=== PATIENT | male | born 1955 | race African-American/Black ===

== ENCOUNTER 2018-11-19 06:28 | Emergency (ER) | payer MEDICARE, OTHER ==
[2018-11-19 06:34] LABS: Glucose,Whole Blood 97 mg/dL (75-99)
--- NOTE | 2018-11-19 06:44 | ED ---
Neuro HPI <Noel Spicer - Last Filed: 11/19/18 09:07> <Bin Mckeon - Last Filed: 11/19/18 09:41> - History of Present Illness Is the patient presenting with stroke symptoms?: Yes Last Known Well Date: 11/18/18 Last Known Well Time: 23:00 -: unknown Location: left face, dysarthria, left arm, left leg History of same: No Place: home Severity: severe Quality: weak Improves With: none Worsens With: none Context: found down Associated Symptoms: headaches Treatments Prior to Arrival: none <Az Buck - Last Filed: 11/20/18 08:24> - General Stated Complaint: Stroke like symptoms Time Seen by Provider: 11/19/18 06:36 - History of Present Illness Initial Comments: This patient is a 63-year-old man comes by ambulance to be evaluated for suspec veronica stroke. The patient's family found him on the ground and his bedroom this morning at 545, and the patient was unable to stand and his speech was not clear. The patient had not been feeling well since about 9 PM last night. Family last saw him around 11 PM when he went to bed. When I interview the patient, he is complaining of some left-sided headache that he is not able to characterize well. (Az Buck) - Related Data Home Medications: Home Medications Medication Instructions Recorded Confirmed Aspirin EC [Ecotrin] 325 mg PO DAILY 11/19/18 11/19/18 Allergies/Adverse Reactions: Allergies Allergy/AdvReac Type Severity Reaction Status Date / Time No Known Allergies Allergy Verified 11/19/18 08:11 Review of Systems ROS Other: All systems not noted in ROS Statement are negative. <Noel Spicer - Last Filed: 11/19/18 09:07> ROS Other: All systems not noted in ROS Statement are negative. <Bin Mckeon - Last Filed: 11/19/18 09:41> ROS Other: All systems not noted in ROS Statement are negative. Constitutional: Denies: fever Eyes: Denies: vision change Respiratory: Denies: cough, dyspnea Cardiovascular: Denies: chest pain, palpitations Gastrointestinal: Denies: abdominal pain, vomiting, diarrhea Genitourinary: Denies: dysuria Musculoskeletal: Denies: back pain Skin: Denies: rash Neurological: Reports: as per HPI, headache, weakness Hematological/Lymphatic: Denies: easy bleeding <CieloAz - Last Filed: 11/20/18 08:24> ROS Statement: Those systems with pertinent positive or pertinent negative responses have been documented in the HPI. General Exam General appearance: alert Head exam: Present: atraumatic, normocephalic Eye exam: Present: normal appearance, PERRL, EOMI. Absent: scleral icterus, conjunctival injection ENT exam: Present: other ((Facial droop) Neck exam: Present: normal inspection, full ROM Respiratory exam: Present: normal lung sounds bilaterally. Absent: respiratory distress, wheezes, rales, rhonchi, stridor Cardiovascular Exam: Present: regular rate, normal heart sounds. Absent: systolic murmur, diastolic murmur, rubs, gallop GI/Abdominal exam: Present: soft. Absent: distended, tenderness, guarding, rebound, rigid, mass Extremities exam: Present: normal inspection, normal capillary refill. Absent: pedal edema, calf tenderness Back exam: Present: normal inspection Neurological exam: Present: alert, oriented X3, motor sensory deficit (Left arm and leg weakness). Absent: CN II-XII intact (Left facial droop) Expanded Neurological exam: Present: protecting the airway. Absent: inattentive, receptive aphasia, expressive aphasia Speech: Absent: receptive aphasia Cranial nerves: EOM's Intact: Normal, Gag Reflex: Normal, Nystagmus: Normal, Facial Palsy with Forehead Movement: Abnormal Left Motor strength exam: RUE: 5, LUE: 3, RLE: 5, LLE: 3 Eye Response: (4) open spontaneously Motor Response: (6) obeys commands Verbal Response: (5) oriented Skin exam: Present: warm, dry, intact, normal color. Absent: rash <Az Buck - Last Filed: 11/20/18 08:24> Stroke MDM - Lab Data Result diagrams: 11/19/18 06:36 11/19/18 06:36 <Noel Spicer - Last Filed: 11/19/18 09:07> - Lab Data Result diagrams: 11/19/18 06:36 11/19/18 06:36 <Bin Mckeon - Last Filed: 11/19/18 09:41> - Lab Data Result diagrams: 11/19/18 06:36 11/19/18 06:36 - EKG Data -: EKG Interpreted by Ny EKG shows normal: sinus rhythm, axis (Normal), intervals (OR interval 224 ms, consistent with first-degree AV block. QRS duration 120 ms, QTC 45 ms, these are normal) Rate: normal (Rate 86 bpm) Interpretation: LVH <Trachy,Az - Last Filed: 11/20/18 08:24> - Lab Data Lab Results 11/19/18 11/19/18 11/19/18 Range/Units 06:32 06:36 06:36 WBC 12.5 H (3.8-10.6) k/uL RBC 4.76 (4.30-5.90) m/uL Hgb 15.2 (13.0-17.5) gm/dL Hct 45.4 (39.0-53.0) % MCV 95.4 (80.0-100.0) fL MCH 31.9 (25.0-35.0) pg MCHC 33.4 (31.0-37.0) g/dL RDW 14.4 (11.5-15.5) % Plt Count 217 (150-450) k/uL Neutrophils % 75 % Lymphocytes % 17 % Monocytes % 4 % Eosinophils % 3 % Basophils % 1 % Neutrophils # 9.4 H (1.3-7.7) k/uL Lymphocytes # 2.1 (1.0-4.8) k/uL Monocytes # 0.5 (0-1.0) k/uL Eosinophils # 0.3 (0-0.7) k/uL Basophils # 0.1 (0-0.2) k/uL PT (9.0-12.0) sec INR (<1.2) APTT (22.0-30.0) sec Sodium 140 (137-145) mmol/L Potassium 3.8 (3.5-5.1) mmol/L Chloride 106 (98-107) mmol/L Carbon Dioxide 24 (22-30) mmol/L Anion Gap 10 mmol/L BUN 12 (9-20) mg/dL Creatinine 0.95 (0.66-1.25) mg/dL Est GFR (CKD-EPI)AfAm >90 (>60 ml/min/1.73 sqM) Est GFR (CKD-EPI)NonAf 84 (>60 ml/min/1.73 sqM) Glucose 106 H (74-99) mg/dL POC Glucose (mg/dL) 97 (75-99) mg/dL POC Glu Sw[employer] Installer ID Catie Yanez Calcium 9.7 (8.4-10.2) mg/dL Total Bilirubin 0.7 (0.2-1.3) mg/dL AST 42 (17-59) U/L ALT 27 (21-72) U/L Alkaline Phosphatase 68 (38-126) U/L Troponin I (0.000-0.034) ng/mL Total Protein 7.4 (6.3-8.2) g/dL Albumin 4.4 (3.5-5.0) g/dL 11/19/18 11/19/18 Range/Units 06:36 06:36 WBC (3.8-10.6) k/uL RBC (4.30-5.90) m/uL Hgb (13.0-17.5) gm/dL Hct (39.0-53.0) % MCV (80.0-100.0) fL MCH (25.0-35.0) pg MCHC (31.0-37.0) g/dL RDW (11.5-15.5) % Plt Count (150-450) k/uL Neutrophils % % Lymphocytes % % Monocytes % % Eosinophils % % Basophils % % Neutrophils # (1.3-7.7) k/uL Lymphocytes # (1.0-4.8) k/uL Monocytes # (0-1.0) k/uL Eosinophils # (0-0.7) k/uL Basophils # (0-0.2) k/uL PT 10.5 (9.0-12.0) sec INR 1.0 (<1.2) APTT 21.5 L (22.0-30.0) sec Sodium (137-145) mmol/L Potassium (3.5-5.1) mmol/L Chloride (98-107) mmol/L Carbon Dioxide (22-30) mmol/L Anion Gap mmol/L BUN (9-20) mg/dL Creatinine (0.66-1.25) mg/dL Est GFR (CKD-EPI)AfAm (>60 ml/min/1.73 sqM) Est GFR (CKD-EPI)NonAf (>60 ml/min/1.73 sqM) Glucose (74-99) mg/dL POC Glucose (mg/dL) (75-99) mg/dL POC Glu Swimming Pool Installer ID Calcium (8.4-10.2) mg/dL Total Bilirubin (0.2-1.3) mg/dL AST (17-59) U/L ALT (21-72) U/L Alkaline Phosphatase (38-126) U/L Troponin I 0.031 (0.000-0.034) ng/mL Total Protein (6.3-8.2) g/dL Albumin (3.5-5.0) g/dL Course <Noel Spicer - Last Filed: 11/19/18 09:07> <Bin Mckeon - Last Filed: 11/19/18 09:41> <Az Buck - Last Filed: 11/20/18 08:24> Vital Signs 11/19/18 11/19/18 11/19/18 06:28 06:30 06:45 Temperature 99.2 F 99.2 F 99.2 F Pulse Rate 92 92 90 Respiratory 22 22 22 Rate Blood Pressure 226/133 226/133 218/136 O2 Sat by Pulse 97 97 97 Oximetry 11/19/18 11/19/18 11/19/18 07:00 07:15 07:27 Temperature Pulse Rate 91 86 83 Respiratory 22 22 14 Rate Blood Pressure 229/139 228/134 O2 Sat by Pulse 99 99 99 Oximetry 11/19/18 11/19/18 11/19/18 07:30 07:40 07:50 Temperature Pulse Rate 82 80 89 Respiratory 18 19 21 Rate Blood Pressure 217/141 217/141 185/118 O2 Sat by Pulse 98 95 Oximetry 11/19/18 11/19/18 11/19/18 08:00 08:10 08:20 Temperature Pulse Rate 88 93 84 Respiratory 22 42 H 17 Rate Blood Pressure 185/118 189/113 165/152 O2 Sat by Pulse Oximetry 11/19/18 11/19/18 11/19/18 08:30 08:40 08:50 Temperature Pulse Rate 75 76 78 Respiratory 11 L 13 20 Rate Blood Pressure 167/102 174/107 138/93 O2 Sat by Pulse Oximetry 11/19/18 11/19/18 11/19/18 09:00 09:10 09:20 Temperature Pulse Rate 78 72 56 L Respiratory 32 H 13 16 Rate Blood Pressure 138/93 176/97 163/109 O2 Sat by Pulse Oximetry 11/19/18 09:30 Temperature Pulse Rate 70 Respiratory 14 Rate Blood Pressure 163/109 O2 Sat by Pulse Oximetry - Reevaluation(s) Reevaluation #1: 11/19/18 06:59 Case is discussed with the stroke team, Dr. Mueller. Patient is not a TPA candidate given that the onset time is unknown. He may be a candidate for intravascular intervention, pending CT result. (Az Buck) Reevaluation #2: 11/19/18 08:[address] Villar, danielaommends brilinta 180 and lipitor 80, recommends transfer to [facility]. (Noel Spicer) Reevaluation #3: 11/19/18 09:39 I did personally evaluate the patient with [id number] evaluation after my shif t started. Patient does present with stroke like symptoms with a NIH of 21. CAT scan was performed (low evidence of stenosis no definite occlusion patient however is not a candidate for TPA due to the timing of the events. Dr. Mueller was consulted and did evaluate the patient via the stroke robot. Patient will be sent to [facility]. I do agree with the assessment and plan. Additionally the patient was noted be markedly hypertensive per neurology the blood pressure systolic will be maintained at a higher level than per usual. He would like to keep it at 220 systolic of possible so intervention for hypertension is stopped at this time. (Bin Mckeon) Critical Care Time Critical Care Time: Yes (40 minutes) <Az Buck - Last Filed: 11/20/18 08:24> Disposition Is patient prescribed a controlled substance at d/c from ED?: No Time of Disposition: 09:05 - Out of Hospital Transfer - Req. Specs Out of Hospital Transfer - Requested Specifics: Other Emergency Center ([facility]) <Noel Spicer - Last Filed: 11/19/18 09:07> <Bin Mckeon - Last Filed: 11/19/18 09:41> <Az Buck - Last Filed: 11/20/18 08:24> Clinical Impression: Cerebrovascular accident (CVA), Uncontrolled hypertension Disposition: OTHER INSTITUTION NOT DEFINED Condition: Fair Referrals: None,Stated [Primary Care Provider] - 1-2 days
[2018-11-19 06:46] LABS: Basophils # (A) 0.1 k/uL (0-0.2); Basophils % (A) 1 %; Eosinophils # (A) 0.3 k/uL (0-0.7); Eosinophils % (A) 3 %; HCT 45.4 % (39.0-53.0); HGB 15.2 gm/dL (13.0-17.5); Lymphocytes # (A) 2.1 k/uL (1.0-4.8); Lymphocytes % (A) 17 %; MCH 31.9 pg (25.0-35.0); MCHC 33.4 g/dL (31.0-37.0); MCV 95.4 fL (80.0-100.0); Mean Platelet Volume 6.7; Monocytes # (A) 0.5 k/uL (0-1.0); Monocytes % (A) 4 %; Neutrophils # (A) 9.4 k/uL (1.3-7.7); Neutrophils % (A) 75 %; Platelet Count 217 k/uL (150-450); RBC 4.76 m/uL (4.30-5.90); RDW 14.4 % (11.5-15.5); WBC 12.5 k/uL (3.8-10.6)
[2018-11-19 06:57] LABS: ALT 27 U/L (21-72); AST 42 U/L (17-59); African American GFR (CKD) >90 (>60 ml/min/1.73 sqM); Albumin 4.4 g/dL (3.5-5.0); Alkaline Phosphatase 68 U/L (38-126); Anion Gap 10 mmol/L; Blood Urea Nitrogen 12 mg/dL (9-20); Calcium 9.7 mg/dL (8.4-10.2); Carbon Dioxide 24 mmol/L (22-30); Chloride 106 mmol/L (98-107); Glucose 106 mg/dL (74-99); Potassium 3.8 mmol/L (3.5-5.1); Sodium 140 mmol/L (137-145); Total Bilirubin 0.7 mg/dL (0.2-1.3); Total Protein 7.4 g/dL (6.3-8.2)
[2018-11-19 07:01] LABS: Prothrombin Time 10.5 sec (9.0-12.0)
[2018-11-19 07:02] LABS: Partial Thromboplastin Time 21.5 sec (22.0-30.0)
--- NOTE | 2018-11-19 07:09 | CT ---
EXAMINATION TYPE: CT brain wo con for TPA DATE OF EXAM: 11/19/2018 HISTORY: neuro deficit. Patient found with left facial drooping and bilateral extremity weakness CT DLP: 1075.8 mGycm. Automated Exposure Control for Dose Reduction was Utilized. TECHNIQUE: CT scan of the head is performed without contrast. COMPARISON: None. FINDINGS: There is no acute intracranial hemorrhage or midline shift identified. There is diffuse v entricular and sulcal prominence consistent with diffuse age-related cerebral atrophy. There is low- attenuation in the periventricular white matter consistent with chronic small vessel ischemic change. Probable old lacunar infarct left anterior thalamus axial image 27. The globes are intact and the v isualized sinuses are clear. IMPRESSION: No acute intracranial hemorrhage or midline shift. There is mild diffuse age-related ce rebral atrophy and mild to moderate chronic small vessel ischemic change with suspected old anterior left thalamic lacunar infarct.
[2018-11-19 07:11] VITALS: TEMP 99.2
[2018-11-19] MEDS ORDERED: niCARdipine 20 MG in SODIUM CHLORIDE 0.9% 192 ML IV SCH (07:30)
--- NOTE | 2018-11-19 07:34 | CT ---
EXAMINATION TYPE: CT angio head neck DATE OF EXAM: 11/19/2018 HISTORY: Neuro deficit, bilateral extremity weakness and left facial droop. COMPARISON: NONE CT DLP: 604.1 mGycm. Automated Exposure Control for Dose Reduction was Utilized. TECHNIQUE: CTA scan of the head and neck are performed with IV Contrast, patient injected with 65 mL of Isovue 370, axial images are obtained, coronal and sagittal reformatted images are reviewed. Thre e-D reconstructed images are created on an independent workstation and reviewed. FINDINGS: Carotid/Vascular Structures: Mild to moderate peripheral plaque in the aortic arch. Normal three-vess el origin. More moderate peripheral noncalcified plaque in the right brachiocephalic artery without s ignificant stenosis. Normal origin of right common carotid artery from the right brachiocephalic marco ry. Some tortuous course to the right common carotid artery without significant stenosis. There is mo derate to severe mixed plaque in right carotid bulb extending into proximal internal carotid artery w ithout significant stenosis. There is then significant stenosis due to noncalcified plaque along the posterior wall seen best image 60 series 401 and on MPR reconstructed images. Lumen diameter is narro wed to 1.8 mm with reconstitution to 5.3 mm just distal to this. Some tortuous course to the right in ternal carotid artery with some more mild narrowing in the cervical segment is believed to be due to noncalcified plaque. Some tortuous course to the left common carotid artery without significant plaque or stenosis. Focal moderate noncalcified plaque at origin of left internal carotid artery without significant stenosis s een best on coronal image 13. Left internal carotid artery distal to this shows no significant focal stenosis. There are patent bilateral external carotid arteries without significant plaque or stenosis . There is overall small caliber vertebrobasilar system with poor visualization particularly of the pro ximal to mid basilar artery there is filling of the posterior cerebral arteries due to patent bilater al posterior communicating arteries. No aneurysm is evident. Images of the anterior circulation show or visualized anterior communicating artery without significant stenosis or aneurysmal change in the anterior middle cerebral arteries bilaterally. Other: There is greater than 1.0 cm hypodense right thyroid nodule axial image 31. Loss of normal cervical curvature with mild multilevel spurring and disc space narrowing most promine nt at C6-C7 level. IMPRESSION: 1. Significant stenosis proximal left internal carotid artery measured 70% due to significant focal n oncalcified plaque. 2. Vertebrobasilar insufficiency are thought present but patency of posterior circulation due to cart[place] nt bilateral posterior communicating arteries.
--- NOTE | 2018-11-19 07:37 | XR ---
EXAMINATION TYPE: XR chest 1V portable DATE OF EXAM: 11/19/2018 COMPARISON: NONE HISTORY: Altered mental status and weakness. TECHNIQUE: Single AP portable frontal upright view of the chest is obtained. FINDINGS: There is chronic parenchymal changes without suspicious focal air space opacity, pleural e ffusion, or pneumothorax seen. The cardiac silhouette size is enlarged with ectatic aorta. The oss eous structures are intact. IMPRESSION: Cardiomegaly and chronic changes without acute pulmonary process.
[2018-11-19] MEDS ORDERED: fentaNYL (PF) 50 MCG/ML 2 ML AMP IV STA (08:17)
[2018-11-19] MEDS ORDERED: ATORVASTATIN 80 MG TAB PO STA (08:51)
[2018-11-19] MEDS ORDERED: SODIUM CHLORIDE 0.9% 1,000 ML IV STA (08:53)
[2018-11-19] MEDS ORDERED: TICAGRELOR 90 MG TAB PO STA (08:54)
[2018-11-19 09:35] VITALS: BP 163/109; PULSE 70; RESP 14
== END 2018-11-19 09:51 | disposition other institution (70) ==
LOC: EC 06:28
DX: I63.9 Cerebral infarction, unspecified (principal); I10 Essential (primary) hypertension; I65.22 Occlusion and stenosis of left carotid artery; F17.200 Nicotine dependence, unspecified, uncomplicated; Z79.82 Long term (current) use of aspirin
CPT/HCPCS: 99291; 96365; 96367; 96375; 96361; 36415; 93005; 80053; 84484; 85025; 85610; 85730; 71045; 70496; 70450; 70498; J3010

== ENCOUNTER 2019-01-13 09:45 | Inpatient (IN) | payer MEDICARE, OTHER ==
--- NOTE | 2019-01-13 09:53 | ED ---
General Adult HPI - General Stated complaint: Chest pain Time Seen by Provider: 01/13/19 09:47 Source: patient, EMS, RN notes reviewed, old records reviewed - History of Present Illness Initial comments: 63-year-old male presents from the retirement for evaluation of chest pain. Patient has previous history of CVA with left hemiplegia and aphasia. He is able to contribute somewhat to the history although it is limited. According to EMS patient had complained of chest pain since yesterday morning greater than 24 hours of central chest pain. He does have history of indigestion and initially staff he felt this to be indigestion. He was transported by EMS, initially had elevated blood pressure and was given sublingual nitroglycerin with improvement in chest pain and blood pressure. Patient does report some persistent symptoms. - Related Data Home Medications Medication Instructions Recorded Confirmed Acetaminophen Tab [Tylenol Tab] 650 mg PO Q6H PRN 01/13/19 01/13/19 Amantadine Syrup 50mg/5ml 100 mg PO DAILY 01/13/19 01/13/19 Apixaban [Eliquis] 5 mg PEG/G-TUBE BID@0800,1600 01/13/19 01/13/19 Aspirin 81 mg PEG/G-TUBE DAILY 01/13/19 01/13/19 Atorvastatin [Lipitor] 40 mg PEG/G-TUBE DAILY@199901/13/19 01/13/19 Docusate Oral Soln [Colace Oral 50 mg PEG/G-TUBE BID 01/13/19 01/13/19 Soln] Famotidine [Pepcid] 20 mg PO BID 01/13/19 01/13/19 Isosorbide Dinitrate 30 mg PEG/G-TUBE TID@0500,1300,2100 01/13/19 01/13/19 Magnesium 400 mg PO DAILY 01/13/19 01/13/19 Melatonin 5 mg PO DAILY@199901/13/19 01/13/19 Metoclopramide [Reglan] 10 mg PO TID@0500,1300,2100 01/13/19 01/13/19 Metoprolol Tartrate [Lopressor] 25 mg PO BID 01/13/19 01/13/19 Multivits,Th W-Ca,Fe,Oth Min 1 tab PO DAILY 01/13/19 01/13/19 [Therapeutic M] Polyethylene Glycol 3350 [Miralax] 17 gm PO DAILY 01/13/19 01/13/19 QUEtiapine [SEROquel] 25 mg PO DAILY@2000 01/13/19 01/13/19 Sennosides [Senna] 8.6 mg PO BID@0800,1600 01/13/19 01/13/19 Spironolactone [Aldactone] 50 mg PO BID@0800,1600 01/13/19 01/13/19 Thiamine [Vitamin B-1] 100 mg PO DAILY 01/13/19 01/13/19 Valproic Acid 250 mg PO DAILY 01/13/19 01/13/19 amLODIPine [Norvasc] 5 mg PO BID@0800,1600 01/13/19 01/13/19 cloNIDine HCL 0.3 mg PO TID@0500,1300,2100 01/13/19 01/13/19 hydrALAZINE HCL [Apresoline] 25 mg PO TID@0500,1300,2100 01/13/19 01/13/19 Allergies Allergy/AdvReac Type Severity Reaction Status Date / Time No Known Allergies Allergy Verified 01/13/19 10:33 Review of Systems ROS Statement: Those systems with pertinent positive or pertinent negative responses have been documented in the HPI. ROS Other: All systems not noted in ROS Statement are negative. Past Medical History History of Any Multi-Drug Resistant Organisms: None Reported Past Psychological History: No Psychological Hx Reported Smoking Status: Current every day smoker Past Alcohol Use History: Daily Past Drug Use History: None Reported General Exam General appearance: alert, in no apparent distress Head exam: Present: atraumatic, normocephalic Eye exam: Present: normal appearance, PERRL. Absent: periorbital swelling, periorbital tenderness ENT exam: Present: mucous membranes dry Neck exam: Present: normal inspection. Absent: tenderness, meningismus Respiratory exam: Present: rales, rhonchi. Absent: respiratory distress Cardiovascular Exam: Present: regular rate, normal rhythm GI/Abdominal exam: Present: soft, distended, other (PEG tube). Absent: tenderness, guarding Rectal exam: Present: normal rectal tone. Absent: black stool, bloody stool Extremities exam: Present: other. Absent: pedal edema Neurological exam: Present: alert, motor sensory deficit (Patient has expressive aphasia, his left hemiplegia, moving his right lower extremity and right upper extremity.). Absent: oriented X3, CN II-XII intact Skin exam: Present: warm, dry Course Vital Signs 01/13/19 01/13/19 09:47 09:59 Temperature 99.1 F Pulse Rate 62 59 L Respiratory 18 18 Rate Blood Pressure 138/95 139/92 O2 Sat by Pulse 100 100 Oximetry - Reevaluation(s) Reevaluation #1: 01/13/19 10:18 Case discussed with cardiology, Dr. Damian, is able to evaluate the patient in the emergency department and will take the patient for urgent heart catheterization. Reevaluation #2: 01/13/19 10:40 Patient reevaluated resting comfortably awaiting heart catheterization. EKG Findings - EKG Comments: EKG Findings:: EKG: Normal sinus rhythm, left ventricular hypertrophy, slightly widened QRS, suspect acute anterior ischemia. Ventricular rate of 63, LA interval 206, QRS duration 126, QTC 448. Diffuse T-wave inversion question ST segment elevation V1 and V2 Medical Decision Making - Medical Decision Making 63-year-old male presenting with 24 hours of chest pain. Patient has significant EKG changes. History is limited, although patient does report some persistent pain. Laboratory studies obtained. Patient started on nitro, heparin, and given aspirin in the emergency department. He is evaluated by cardiology and will be taken for urgent heart catheterization. Patient's is at bedside is agreeable with plan. Laboratory testing that came back in the emergency department did reveal a drop in hemoglobin, 10.5 from 15 at this time rectal exam is performed there is no melena, no bleeding. This will need to be monitored closely as patient is initiated on heparin. Repeat hemoglobin has been ordered. Patient has additional labs including cardiac enzymes, which was, these are pending. Case discussed with both cardiology and admitting physician Dr. Osman - Lab Data Result diagrams: 01/13/19 09:59 01/13/19 09:59 Lab Results 01/13/19 01/13/19 01/13/19 Range/Units 09:59 09:59 09:59 WBC 7.4 (3.8-10.6) k/uL RBC 3.53 L (4.30-5.90) m/uL Hgb 10.8 L D (13.0-17.5) gm/dL Hct 32.5 L (39.0-53.0) % MCV 91.9 (80.0-100.0) fL MCH 30.4 (25.0-35.0) pg MCHC 33.1 (31.0-37.0) g/dL RDW 14.8 (11.5-15.5) % Plt Count 271 (150-450) k/uL Neutrophils % 64 % Lymphocytes % 24 % Monocytes % 6 % Eosinophils % 4 % Basophils % 0 % Neutrophils # 4.7 (1.3-7.7) k/uL Lymphocytes # 1.7 (1.0-4.8) k/uL Monocytes # 0.4 (0-1.0) k/uL Eosinophils # 0.3 (0-0.7) k/uL Basophils # 0.0 (0-0.2) k/uL PT (9.0-12.0) sec INR (<1.2) APTT (22.0-30.0) sec Sodium 137 (137-145) mmol/L Potassium 5.6 H (3.5-5.1) mmol/L Chloride 106 (98-107) mmol/L Carbon Dioxide 23 (22-30) mmol/L Anion Gap 8 mmol/L BUN 20 (9-20) mg/dL Creatinine 0.98 (0.66-1.25) mg/dL Est GFR (CKD-EPI)AfAm >90 (>60 ml/min/1.73 sqM) Est GFR (CKD-EPI)NonAf 81 (>60 ml/min/1.73 sqM) Glucose 119 H (74-99) mg/dL Calcium 9.8 (8.4-10.2) mg/dL Magnesium 2.0 (1.6-2.3) mg/dL Total Bilirubin 0.9 (0.2-1.3) mg/dL AST 54 (17-59) U/L ALT 139 H (21-72) U/L Alkaline Phosphatase 67 (38-126) U/L NT-Pro-B Natriuret Pep 426 pg/mL Total Protein 7.6 (6.3-8.2) g/dL Albumin 4.0 (3.5-5.0) g/dL Lipase 69 (23-300) U/L 01/13/19 Range/Units 09:59 WBC (3.8-10.6) k/uL RBC (4.30-5.90) m/uL Hgb (13.0-17.5) gm/dL Hct (39.0-53.0) % MCV (80.0-100.0) fL MCH (25.0-35.0) pg MCHC (31.0-37.0) g/dL RDW (11.5-15.5) % Plt Count (150-450) k/uL Neutrophils % % Lymphocytes % % Monocytes % % Eosinophils % % Basophils % % Neutrophils # (1.3-7.7) k/uL Lymphocytes # (1.0-4.8) k/uL Monocytes # (0-1.0) k/uL Eosinophils # (0-0.7) k/uL Basophils # (0-0.2) k/uL PT 10.7 (9.0-12.0) sec INR 1.0 (<1.2) APTT 23.5 (22.0-30.0) sec Sodium (137-145) mmol/L Potassium (3.5-5.1) mmol/L Chloride (98-107) mmol/L Carbon Dioxide (22-30) mmol/L Anion Gap mmol/L BUN (9-20) mg/dL Creatinine (0.66-1.25) mg/dL Est GFR (CKD-EPI)AfAm (>60 ml/min/1.73 sqM) Est GFR (CKD-EPI)NonAf (>60 ml/min/1.73 sqM) Glucose (74-99) mg/dL Calcium (8.4-10.2) mg/dL Magnesium (1.6-2.3) mg/dL Total Bilirubin (0.2-1.3) mg/dL AST (17-59) U/L ALT (21-72) U/L Alkaline Phosphatase (38-126) U/L NT-Pro-B Natriuret Pep pg/mL Total Protein (6.3-8.2) g/dL Albumin (3.5-5.0) g/dL Lipase (23-300) U/L Critical Care Time Critical Care Time: Yes Total Critical Care Time: 35 Disposition Clinical Impression: Acute non-ST elevation myocardial infarction (NSTEMI) Disposition: ADMITTED IP TO THIS HOSP Condition: Serious Is patient prescribed a controlled substance at d/c from ED?: No Referrals: Ed Booker DO [Primary Care Provider] - 1-2 days Decision to Admit Reason: Admit from EC Decision Date: 01/13/19 Decision Time: 10:42
[2019-01-13] MEDS ORDERED: MORPHINE SULFATE 4 MG/ML SYRINGE IVP STA (10:04)
[2019-01-13] MEDS ORDERED: ASPIRIN 325 MG TAB PO STA (10:04)
[2019-01-13] MEDS ORDERED: HEPARIN SODIUM,PORCINE 5,000 UNIT/ML 1 ML VIAL IV ONE (10:12)
[2019-01-13] MEDS ORDERED: NITROGLYCERIN-D5W PMX 50 MG in DEXTROSE/WATER 1 250ML.BAG IV ONE ×2 (10:12→11:14)
[2019-01-13] MEDS ORDERED: HEPARIN SODIUM,PORCINE 5,000 UNIT/ML 1 ML VIAL IV PRN (10:12)
[2019-01-13] MEDS ORDERED: HEPARIN SOD,PORK IN 0.45% NACL 25,000 UNIT in 0.45% NACL 1 250ML.BAG IV SCH (10:15)
[2019-01-13 10:21] LABS: Basophils % (A) 0 %; Eosinophils # (A) 0.3 k/uL (0-0.7); Eosinophils % (A) 4 %; HCT 32.5 % (39.0-53.0); Lymphocytes # (A) 1.7 k/uL (1.0-4.8); Lymphocytes % (A) 24 %; MCH 30.4 pg (25.0-35.0); MCHC 33.1 g/dL (31.0-37.0); MCV 91.9 fL (80.0-100.0); Mean Platelet Volume 6.3; Monocytes # (A) 0.4 k/uL (0-1.0); Monocytes % (A) 6 %; Neutrophils # (A) 4.7 k/uL (1.3-7.7); Neutrophils % (A) 64 %; Platelet Count 271 k/uL (150-450); RBC 3.53 m/uL (4.30-5.90); RDW 14.8 % (11.5-15.5); WBC 7.4 k/uL (3.8-10.6)
[2019-01-13 10:22] LABS: HGB 10.8 gm/dL (13.0-17.5)
[2019-01-13 10:26] LABS: ALT 139 U/L (21-72); AST 54 U/L (17-59); African American GFR (CKD) >90 (>60 ml/min/1.73 sqM); Alkaline Phosphatase 67 U/L (38-126); Anion Gap 8 mmol/L; Blood Urea Nitrogen 20 mg/dL (9-20); Calcium 9.8 mg/dL (8.4-10.2); Carbon Dioxide 23 mmol/L (22-30); Chloride 106 mmol/L (98-107); Glucose 119 mg/dL (74-99); Non-African American GFR(CKD) 81 (>60 ml/min/1.73 sqM); Sodium 137 mmol/L (137-145); Total Bilirubin 0.9 mg/dL (0.2-1.3); Total Protein 7.6 g/dL (6.3-8.2)
--- NOTE | 2019-01-13 10:26 | XR ---
EXAMINATION TYPE: XR chest 2V DATE OF EXAM: 01/13/2019 COMPARISON: 11/19/2018 HISTORY: Chest pain radiating to the patient's back. TECHNIQUE: Frontal and lateral views of the chest are obtained. FINDINGS: There is no focal air space opacity, pleural effusion, or pneumothorax seen. There is new widened mediastinum, partially rotational. The osseous structures are intact. IMPRESSION: Widened mediastinum, new from the prior of 11/19/2018. Although this may be partially ro tational given the patient's symptoms CTA chest to evaluate for thoracic aneurysm or dissection could be considered.
[2019-01-13 10:32] LABS: Partial Thromboplastin Time 23.5 sec (22.0-30.0); Prothrombin Time 10.7 sec (9.0-12.0)
[2019-01-13 10:40] LABS: Potassium 5.6 mmol/L (3.5-5.1)
[2019-01-13] MEDS ORDERED: NALOXONE 0.4 MG/ML 1 ML VIAL IV PRN (10:42)
[2019-01-13] MEDS ORDERED: CLOPIDOGREL 75 MG TAB PO STA (10:45)
[2019-01-13] MEDS ORDERED: fentaNYL (PF) 50 MCG/ML 2 ML AMP ONE (11:14)
[2019-01-13] MEDS ORDERED: VERAPAMIL 2.5 MG/ML 2 ML AMP ONE (11:14)
[2019-01-13] MEDS ORDERED: LIDOCAINE 1% INJ 10MG/ML (20 ML MDV) ONE (11:14)
[2019-01-13] MEDS ORDERED: IV FLUID CONTINUATION 800 ML IV ONE (11:14)
[2019-01-13] MEDS ORDERED: fentaNYL (PF) 50 MCG/ML 2 ML AMP IV ONE (11:31)
[2019-01-13] MEDS ORDERED: LIDOCAINE 1% INJ 10MG/ML (20 ML MDV) SQ ONE (11:31)
[2019-01-13] MEDS ORDERED: VERAPAMIL SYRINGE (5 MG/10 ML) INTRAARTER ONE (11:38)
[2019-01-13] MEDS ORDERED: HEPARIN SODIUM 1,000 UN/ML (10ML VL) IV ONE (11:38)
[2019-01-13] MEDS ORDERED: IOPAMIDOL-300 50ML BTL INJ ONE (11:53)
[2019-01-13] MEDS ORDERED: IOPAMIDOL-370 125ML BTL INJ ONE (11:53)
[2019-01-13] MEDS ORDERED: amLODIPine 5 MG TAB ONE (12:03)
[2019-01-13] MEDS ORDERED: RX INFO: IV CONTRAST WAS GIVEN 1 EACH MISC MISCELLANE PRN ×2 (12:05→22:18)
[2019-01-13] MEDS ORDERED: amLODIPine 5 MG TAB PO ONE (12:08)
[2019-01-13] MEDS ORDERED: SODIUM CHLORIDE 0.9% 1,000 ML IV SCH (12:15)
--- NOTE | 2019-01-13 12:18 | CONS ---
CONSULTATION Mr. Alvarez is a 63-year-old male who resides in [facility], who has sustained a cerebrovascular accident with severe hemiplegia on the left side with partial expressive aphasia who was brought into the emergency room because of symptoms of chest discomfort. His ability to communicate is limited because of his expressive aphasia, but he says that he continues to have chest discomfort that started yesterday. He denies any other symptoms. I spoke to his . Apparently, he has no prior cardiac history. In November he sustained a cerebrovascular accident, he had a prolonged hospitalization and was in [facility]. He has no prior history of myocardial infarction or congestive heart failure. He has been active up to the time of admission. He has no history of dizziness, palpitation, or syncope. He has no history of PND, orthopnea, according to the . His coronary risk factors are remarkable for smoking which he had decreased. He has history of hypertension. He is nondiabetic. The list of his medication is not available. REVIEW OF SYSTEM: He has no recent wheezing or cough. According to the family. GI SYSTEM: He has a PEG tube because of difficulty swallowing. He has no history of GI bleeding. SYSTEM: No dysuria or hematuria. NERVOUS SYSTEM: He had a stroke as noted. PHYSICAL EXAMINATION: He is a 63-year-old male, alert, oriented, in no apparent distress with expressive aphasia. Blood pressure 160/100 with a heart rate in the 60s. HEAD: Drooping eyes, sclerae nonicteric. NECK: Good upstroke, no bruit. LUNGS: Clear to auscultation. HEART: Regular rate and rhythm S1, S2. No S3. No murmur appreciated. ABDOMEN: Soft. PEG tube in place. Positive bowel sounds. EXTREMITIES: No edema, intact pulses. NEUROLOGICALLY: With evidence of left-sided dense hemiparesis. LAB DATA: EKG reveals sinus mechanism with T-wave inversion in leads 2, 3, AVF and the anterior precordial leads, which is new compared with an old EKG. IMPRESSION: 1. Acute coronary artery syndrome was acute ST-segment changes in the patient with symptoms of chest discomfort. 2. History of recent cerebrovascular accident. 3. History of hypertension. 4. Prior history of smoking. 5. History of chronic kidney disease according to the data available from [facility]. RECOMMENDATION: I have discussed the case with him as well as his . I discussed with then both option of aggressive treatment versus conservative treatment. They are in favor of aggressive treatment. Will proceed with cardiac catheterization. The risks as well as complication were discussed with him and depending on the findings, further recommendation will be made. Thank you for this consult. Will follow with you. CARLY / EMERSON: [id number] /
--- NOTE | 2019-01-13 13:03 | CC ---
CARDIAC CATHETERIZATION REPORT Mr. Alvarez is a 63-year-old male with known history of hypertension, history of smoking and recent cerebrovascular accident about 2 months ago, who presented with symptoms of chest discomfort and new T-wave inversion in the anterior precordial leads as well as the lateral limb leads. Because of that, recommendation made regarding cardiac catheterization, the procedures, risks, and complications were discussed with the patient and his family who are in full understanding and agreement. PROCEDURE: Patient was brought to the manager cardiac cath in a fasting semi-sedated state after receiving fentanyl and Benadryl and achieving moderate conscious sedated state. Using Xylocaine anesthesia and Seldinger technique, a 6-Icelandic sheath was introduced in the right radial artery. Selective right and left coronary angiography performed using 5-Icelandic 3.5 bend right Renate catheter as well as a 6-Icelandic FL 3.5 guiding catheter. Images of the coronary arteries including hemiaxial views were obtained. Following that, a 5- Icelandic tight pigtail catheter was introduced into the left ventricle and a 30-degree ROBERT view of the left ventricle was obtained. Following that, catheter and sheath were removed. Hemostasis was obtained with deployment of a TR band. There was no immediate complication. Patient is returned to his room in stable condition. Of note, the patient received 3000 units of intravenous heparin. There was no immediate complication. FINDINGS: 1. LEFT MAIN: This is a large-sized vessel bifurcating into left circumflex, left anterior descending artery. Left main coronary artery has no evidence of high- grade stenosis. 2. LEFT ANTERIOR DESCENING ARTERY: This is a large-sized vessel, reaching toward the apex with a wraparound apex segment, giving rise to 2 diagonal branches. The first one is large in caliber. The left anterior descending artery as well as branches have no evidence of obstructive coronary artery disease. 3. LEFT CIRCUMFLEX: This is a nondominant vessel, giving rise to a large obtuse marginal branch. The second one is small in caliber. The left circumflex as well as branches have no evidence of obstructive coronary artery disease. 4. RIGHT CORONARY ARTERY: This is a dominant vessel, moderate in caliber, bifurcating distally into PDA and posterolateral segment and branches. The right coronary artery and its branches have no evidence of obstructive disease. 5. LEFT VENTRICULOGRAM: Left ventriculogram was performed in 30-degree ROBERT view, revealed normal left ventricular size and systolic function, ejection fraction is 55%. There was no significant mitral regurgitation. 6. HEMODYNAMICS: There was no gradient across the aortic valve. The left ventricular end-diastolic pressure was 20-24 mmHg. CONCLUSION: 1. Normal coronary arteries. 2. Normal left ventricular size and systolic function. RECOMMENDATION: In view of finding anatomy, I recommend continue medical therapy with aggressive coronary risk modifications being initiated. Those findings and recommendation were discussed with the patient and his family and they are in full understanding and agreement. Duration of procedure is 27 minutes. CARLY / CRYSTALN: [id number] /
[2019-01-13 13:07] LABS: Cholesterol 108 mg/dL (<200); HDL Cholesterol 28 mg/dL (40-60); LDL Cholesterol,Calculated 50 mg/dL (0-99); Triglycerides 152 mg/dL (<150)
[2019-01-13] MEDS: METOCLOPRAMIDE 10 MG TAB PO SCH ×2 (13:47→21:11)
[2019-01-13] MEDS: cloNIDine HCL 0.1 MG TAB PO SCH ×2 (13:47→21:11)
[2019-01-13] MEDS: ISOSORBIDE DINITRATE 10 MG TAB PO SCH ×2 (13:47→21:12)
[2019-01-13] MEDS: hydrALAZINE HCL 50 MG TAB PO SCH ×2 (13:47→21:11)
[2019-01-13 14:33] VITALS: BMI 27.8
[2019-01-13] MEDS ORDERED: SPIRONOLACTONE 25 MG TAB PO SCH (16:00)
[2019-01-13] MEDS: SPIRONOLACTONE 25 MG TAB PO SCH (16:45)
[2019-01-13] MEDS: amLODIPine 5 MG TAB PO SCH (16:45)
[2019-01-13] MEDS: SENNOSIDES 8.6 MG TAB PO SCH (16:46)
[2019-01-13] MEDS ORDERED: QUEtiapine 25 MG TAB PO SCH (20:00)
[2019-01-13] MEDS ORDERED: MELATONIN 5 MG TABLET PO SCH (20:00)
[2019-01-13] MEDS ORDERED: ATORVASTATIN 40 MG TAB PEG/G-TUBE SCH (20:00)
[2019-01-13] MEDS: DOCUSATE ORAL SOLN 100 MG/10 ML CUP PEG/G-TUBE SCH (21:11)
[2019-01-13] MEDS: FAMOTIDINE 20 MG TAB PO SCH (21:11)
[2019-01-13] MEDS: METOPROLOL TARTRATE 25 MG TAB PO SCH (21:11)
--- NOTE | 2019-01-13 22:18 | P.HPIM ---
History of Present Illness H&P Date: 01/13/19 Chief Complaint: Chest pain History of presenting complaint: This is a 63-year-old patient of Dr. Booker resident of [facility]. Chronic stable medical conditions include GERD, hypertension, hyperlipidemia has a PEG tube and we used protest 2. Diet. Had a previous stroke with left-sided weakness. Patient nonambulatory. Patient has severe dysarthria but he can understand some. Apparently patient been having chest pain for 3 days. In the precordial area. Does not radiate anywhere. No shortness of breath. Slight cough. Admitted to the ER. Troponin was 0.092. EKG is significant findings with flipped T waves in anterior leads. He does with acute non-Q-wave HI. Taken to the cardiac catheterization laboratory some on. Patient's found to have normal coronaries. Conjunctiva laying in bed. Oral mucosa pain. Patient is a smoker. Review of systems: GEN.: Tired EYES: None HEENT: None NECK: None RESPIRATORY: [Occasional short of breath CARDIOVASCULAR: Left precordial pain GASTROINTESTINAL: PEG tube GENITOURINARY: None MUSCULOSKELETAL: None LYMPHATICS: None HEMATOLOGICAL: None PSYCHIATRY: None NEUROLOGICAL: Left-sided weakness and dysarthria Past history to include: Stroke with left-sided weakness, DVT, GERD, hypertension, hyperlipidemia, 2 feeding at night and. Diet the daytime with regular liquids Social history: Patient is a smoker. Currently a resident of [facility] Family history: Cannot tell Physical examination: VITAL SIGNS: 99.1, 62, 18, 138/95, 100% on room air GENERAL: [BMI 27.9, laying in bed. EYES: Pupils equal. Conjunctiva normal. HEENT: External appearance of nose and ears normal, oral cavity grossly normal. NECK: JVD not raised; masses not palpable. HEART: First and second heart sounds are normal; no edema. LUNGS: Respiratory rate normal; decreased breath sounds. ABDOMEN: Soft, nontender, liver spleen not palpable, no masses palpable. PEG tube in place PSYCH: Unable to assess l. NEUROLOGICAL: Severe dysarthria, weakness on the left side. LYMPHATICS: No lymph nodes palpable in the axilla and neck INVESTIGATIONS, reviewed in the clinical context: White count 7.4 hemoglobin 10.8 L to 71 pressure 5.6.20 creatinine 0.98 Troponin I 0.092 proBNP 426 and LDL 50 EKG tracing personally reviewed by me-normal sinus rhythm with flipped T waves in anterior leads Chest x-ray film personally reviewed by me-AP film-old mendenhall clear. Some widened mediastinum Assessment: -Patient presented with anterior chest wall pain of 3 days' duration with EKG changes in posture troponin. Ruled in for an acute non-Q-wave myocardial infarction. Cardiac catheterization showed normal coronaries -Chronic nicotine dependence patient cigarette smoker -Essential hypertension -Chronic nicotine dependence cigarette smoker -PEG tube and is using at night -Severe dysarthria -Dysphagia patient is little. Diet. 2 feeding at night -GERD Plan: -Home medications resumed. Patient reportedly. Diet. We'll do computed tomography scan of the chest given the widened mediastinum. Context of the ch est pain. Care was discussed with the patient. No family is present. Past Medical History Past Medical History: CVA/TIA, Deep Vein Thrombosis (DVT), GERD/Reflux, Hyperlipidemia, Hypertension, Renal Disease Additional Past Medical History / Comment(s): Pt had a CVA with left sided weakness & aphasia in December of 2018, has a PEG tube, has been getting feedings at night & tolerating a pureed diet at [facility] with regul ar liquids History of Any Multi-Drug Resistant Organisms: None Reported Past Surgical History: Unable to Obtain Past Psychological History: No Psychological Hx Reported Smoking Status: Current every day smoker Past Alcohol Use History: Daily Past Drug Use History: None Reported Medications and Allergies Home Medications Medication Instructions Recorded Confirmed Type Acetaminophen Tab [Tylenol Tab] 650 mg PO Q6H PRN 01/13/19 01/13/19 History Amantadine Syrup 50mg/5ml 100 mg PO DAILY 01/13/19 01/13/19 History Apixaban [Eliquis] 5 mg PEG/G-TUBE BID@0800,1600 01/13/19 01/13/19 History Aspirin 81 mg PEG/G-TUBE DAILY 01/13/19 01/13/19 History Atorvastatin [Lipitor] 40 mg PEG/G-TUBE DAILY@2000 01/13/19 01/13/19 History Docusate Oral Soln [Colace Oral 50 mg PEG/G-TUBE BID 01/13/19 01/13/19 History Soln] Famotidine [Pepcid] 20 mg PO BID 01/13/19 01/13/19 History Isosorbide Dinitrate 30 mg PEG/G-TUBE TID@0500,1300,2100 01/13/19 01/13/19 History Magnesium 400 mg PO DAILY 01/13/19 01/13/19 History Melatonin 5 mg PO DAILY@199901/13/19 01/13/19 History Metoclopramide [Reglan] 10 mg PO TID@0500,1300,2100 01/13/19 01/13/19 History Metoprolol Tartrate [Lopressor] 25 mg PO BID 01/13/19 01/13/19 History Multivits,Th W-Ca,Fe,Oth Min 1 tab PO DAILY 01/13/19 01/13/19 History [Therapeutic M] Polyethylene Glycol 3350 [Miralax] 17 gm PO DAILY 01/13/19 01/13/19 History QUEtiapine [SEROquel] 25 mg PO DAILY@199901/13/19 01/13/19 History Sennosides [Senna] 8.6 mg PO BID@0800,1600 01/13/19 01/13/19 History Spironolactone [Aldactone] 50 mg PO BID@0800,1600 01/13/19 01/13/19 History Thiamine [Vitamin B-1] 100 mg PO DAILY 01/13/19 01/13/19 History Valproic Acid 250 mg PO DAILY 01/13/19 01/13/19 History amLODIPine [Norvasc] 5 mg PO BID@0800,1600 01/13/19 01/13/19 History cloNIDine HCL 0.3 mg PO TID@0500,1300,2100 01/13/19 01/13/19 History hydrALAZINE HCL [Apresoline] 25 mg PO TID@0500,1300,2100 01/13/19 01/13/19 History Allergies Allergy/AdvReac Type Severity Reaction Status Date / Time No Known Allergies Allergy Verified 01/13/19 10:33 Physical Exam Vitals: Vital Signs Temp Pulse Pulse Resp BP BP Pulse Ox 01/13/19 16:05 58 L 16 101/64 99 01/13/19 16:00 58 L 16 01/13/19 15:05 60 143/67 01/13/19 14:05 59 L 238/125 01/13/19 13:35 59 L 16 161/99 96 01/13/19 13:05 58 L 152/89 01/13/19 12:50 61 175/111 01/13/19 12:35 56 L 170/95 01/13/19 12:20 98.5 F 60 16 151/102 97 01/13/19 11:04 62 18 157/109 98 01/13/19 11:00 159/107 01/13/19 10:50 159/107 01/13/19 10:40 61 19 176/91 98 01/13/19 10:30 58 L 22 100 01/13/19 10:20 59 L 19 100 01/13/19 10:10 62 20 139/92 100 01/13/19 10:00 62 19 138/95 01/13/19 09:59 59 L 18 139/92 100 01/13/19 09:51 138/95 100 01/13/19 09:47 99.1 F 62 18 138/95 100 Intake and Output 01/13/19 01/13/19 01/13/19 06:59 14:59 22:59 Intake Total 171.5 120 Balance 171.5 120 Intake: IV 51.5 Oral 120 120 Other: Voiding Method Diaper Diaper # Voids 1 2 Weight 90.718 kg Results CBC & Chem 7: 01/13/19 09:59 01/13/19 09:59 Labs: Abnormal Lab Results - Last 24 Hours (Table) 01/13/19 01/13/19 01/13/19 Range/Units 09:59 09:59 09:59 RBC 3.53 L (4.30-5.90) m/uL Hgb 10.8 L D (13.0-17.5) gm/dL Hct 32.5 L (39.0-53.0) % Potassium 5.6 H (3.5-5.1) mmol/L Glucose 119 H (74-99) mg/dL ALT 139 H (21-72) U/L Troponin I 0.092 H* (0.000-0.034) ng/mL Triglycerides (<150) mg/dL HDL Cholesterol (40-60) mg/dL 01/13/19 Range/Units 09:59 RBC (4.30-5.90) m/uL Hgb (13.0-17.5) gm/dL Hct (39.0-53.0) % Potassium (3.5-5.1) mmol/L Glucose (74-99) mg/dL ALT (21-72) U/L Troponin I (0.000-0.034) ng/mL Triglycerides 152 H (<150) mg/dL HDL Cholesterol 28 L (40-60) mg/dL Thrombosis Risk Factor Assmnt - Choose All That Apply Each Factor Represents 1 point: Medical pt on bed rest Each Risk Factor Represents 2 Points: Age 61-74 years, Patient confined to bed Other congenital or acquired thrombophilia - If yes, enter type in comment: Yes Each Risk Factor Represents 5 Points: Stroke (< 1 month) Thrombosis Risk Factor Assessment Total Risk Factor Score: 10 Thrombosis Risk Factor Assessment Level: High Risk
[2019-01-14 04:11] VITALS: RESP 18
[2019-01-14] MEDS: ISOSORBIDE DINITRATE 10 MG TAB PO SCH ×2 (06:27→13:05)
[2019-01-14] MEDS: cloNIDine HCL 0.1 MG TAB PO SCH ×2 (06:27→13:05)
[2019-01-14] MEDS: METOCLOPRAMIDE 10 MG TAB PO SCH ×2 (06:27→13:05)
[2019-01-14] MEDS: hydrALAZINE HCL 50 MG TAB PO SCH ×2 (06:28→13:05)
[2019-01-14 06:56] LABS: Calcium 9.5 mg/dL (8.4-10.2)
[2019-01-14] MEDS ORDERED: MAGNESIUM OXIDE 400 MG TAB PO SCH (09:00)
[2019-01-14] MEDS: FAMOTIDINE 20 MG TAB PO SCH (09:00)
[2019-01-14] MEDS: SPIRONOLACTONE 25 MG TAB PO SCH (09:00)
[2019-01-14] MEDS ORDERED: THIAMINE 100 MG TAB PO SCH (09:00)
[2019-01-14] MEDS ORDERED: VALPROIC ACID ORAL SOLN 250 MG/5 ML CUP PO SCH (09:00)
[2019-01-14] MEDS ORDERED: ASPIRIN 81 MG PEG/G-TUBE SCH (09:00)
[2019-01-14] MEDS: METOPROLOL TARTRATE 25 MG TAB PO SCH (09:00)
[2019-01-14] MEDS ORDERED: POLYETHYLENE GLYCOL 3350 17 GM POWD.PACK PO SCH (09:00)
[2019-01-14] MEDS ORDERED: MULTIVITAMINS, THERA 1 EACH TAB PO SCH (09:00)
[2019-01-14] MEDS: amLODIPine 5 MG TAB PO SCH (09:01)
[2019-01-14] MEDS: SENNOSIDES 8.6 MG TAB PO SCH (09:01)
[2019-01-14] MEDS: DOCUSATE ORAL SOLN 100 MG/10 ML CUP PEG/G-TUBE SCH (09:04)
--- NOTE | 2019-01-14 10:30 | ECHOF ---
Referral Reason:htn MEASUREMENTS -------- HEIGHT: 180.3 cm WEIGHT: 90.7 kg BP: 238/125 RVIDd: 2.7 cm (< 3.3) IVSd: 2.4 cm (0.6 - 1.1) LVIDd: 3.4 cm (3.9 - 5.3) LVPWd: 2.1 cm (0.6 - 1.1) IVSs: 2.5 cm LVIDs: 2.6 cm LVPWs: 2.4 cm LAESV Index (A-L): 21.90 ml/m Ao Diam: 3.8 cm (2.0 - 3.7) AV Cusp: 2.3 cm (1.5 - 2.6) LA Diam: 3.7 cm (2.7 - 3.8) MV EXCURSION: 14.751 mm (> 18.000) MV EF SLOPE: 67 mm/s (70 - 150) EPSS: 0.8 cm MV E Dawson: 0.83 m/s MV DecT: 266 ms MV A Dawson: 1.25 m/s MV E/A Ratio: 0.66 RAP: 5.00 mmHg RVSP: 28.88 mmHg FINDINGS -------- Sinus rhythm. This was a technically good study. The left ventricular size is normal. There is severe concentric left ventricular hypertrophy. Ove rall left ventricular systolic function is normal with, an EF between 55 - 60 %. Normal Lap Grade I Diastolic Dysfunction. The right ventricle is normal in size. Normal LA size by volume 22+/-6 ml/m2. The right atrial size is normal. Interatrial and interventricular septum intact. The aortic valve is trileaflet and appears structurally normal. There is no evidence of aortic regu rgitation. There is no evidence of aortic stenosis. Mild mitral regurgitation is present. Mild tricuspid regurgitation present. There is no evidence of pulmonary hypertension. The right v entricular systolic pressure, as measured by Doppler, is 28.88mmHg. There is no pulmonic regurgitation present. The aortic root size is normal. IVC Not well visulized. There is no pericardial effusion. CONCLUSIONS -------- 1. Sinus rhythm. 2. This was a technically good study. 3. The left ventricular size is normal. 4. There is severe concentric left ventricular hypertrophy. 5. Overall left ventricular systolic function is normal with, an EF between 55 - 60 %. 6. Normal Lap Grade I Diastolic Dysfunction. 7. The right ventricle is normal in size. 8. Normal LA size by volume 22+/-6 ml/m2. 9. The right atrial size is normal. 10. Interatrial and interventricular septum intact. 11. The aortic valve is trileaflet and appears structurally normal. 12. There is no evidence of aortic regurgitation. 13. There is no evidence of aortic stenosis. 14. Mild mitral regurgitation is present. 15. Mild tricuspid regurgitation present. 16. There is no evidence of pulmonary hypertension. 17. The right ventricular systolic pressure, as measured by Doppler, is 28.88mmHg. 18. There is no pulmonic regurgitation present. 19. The aortic root size is normal. 20. IVC Not well visulized. 21. There is no pericardial effusion. SENIOR PATROL AGENT: Lorie Knox RDCS
--- NOTE | 2019-01-14 10:44 | CT ---
EXAMINATION TYPE: CT chest w con DATE OF EXAM: 01/14/2019 COMPARISON: Chest x-ray 01/13/2019 HISTORY: Abnormal CXR. Patient poor historian., Chest pain with widened mediastinum on chest x-ray CT DLP: 477.1 mGycm, Automated exposure control for dose reduction was used. CONTRAST: Performed injected with 100 mL of Isovue 300. TECHNIQUE: Axial images were obtained at 5 mm thick sections. Reconstructed images are reviewed on [employer] computer in the coronal plane. FINDINGS: Portion of the thyroid visualized is normal. No suspicious lung nodules or focal infiltrates are present. No enlarged mediastinal or hilar adenopathy is evident. No mediastinal masses are identified. The a scending aorta diameter at the level of the main pulmonary artery is 4.2 cm. The main pulmonary marco ry diameter at the bifurcation is 3.5 cm. No aortic dissection is identified. Limited CT sections are obtained through the upper abdomen. Abdomen is essentially unremarkable. IMPRESSIONS: 1. Ascending thoracic aortic aneurysm measuring 4.2 cm.
--- NOTE | 2019-01-14 10:55 | PN ---
PROGRESS NOTE Mr. Alvarez is a 63-year-old male who has history of stroke a few months ago who has left hemiparesis and had some significant expressive aphasia who presented with chest discomfort and T-wave inversion in the anterolateral leads with minimal troponin elevation. He underwent cardiac catheterization and was found to have no evidence of obstructive coronary artery disease. He is feeling well this morning. He is denying any chest pain. His breathing has been stable. He denies any dizziness or palpitations. He continues to be on amlodipine 5 mg twice a day, Eliquis 5 mg twice a day, aspirin 81 mg daily, Lipitor 40 mg daily, clonidine 0.3 mg three times a day, hydralazine 50 mg three times a day, isosorbide dinitrate 30 mg three times a day, metoprolol tartrate 25 mg twice a day, Aldactone 25 mg twice a day, thiamine, and Depakene. PHYSICAL EXAMINATION: Blood pressure running 108 to 130s with heart rate in the 60s. LUNGS: Clear. HEART: Regular rate and rhythm. S1, S2. No S3. No rub. ABDOMEN: Soft, nontender, with PEG tube in place. EXTREMITIES: No edema. Right radial pulse intact. EKG revealed improvement in the T-wave inversion. LAB DATA: Revealed potassium 4.0, BUN and creatinine 19 and 1.08. IMPRESSION: 1. Episode of chest discomfort with EKG changes. No evidence of obstructive coronary artery disease. Could be related to the hypertensive heart disease. 2. Status post recent stroke. 3. History of smoking. 4. History of hypertension. 5. Expressive aphasia. RECOMMENDATIONS: I will review the results of his echocardiogram. Continue the rest of his medical regimen. If he is stable, I would expect he should be able to be discharged home soon and followed as an outpatient. The dose of the spironolactone was increased to 25 mg twice a day because of the baseline hyperlipidemia. MMODL / IJN: [id number] /
[2019-01-14] MEDS ORDERED: ACETAMINOPHEN TAB 325 MG TAB PO PRN (11:08)
[2019-01-14 11:13] LABS: HCT 28.8 % (39.0-53.0); HGB 9.4 gm/dL (13.0-17.5); MCH 30.8 pg (25.0-35.0); MCHC 32.7 g/dL (31.0-37.0); MCV 94.1 fL (80.0-100.0); Platelet Count 249 k/uL (150-450); RBC 3.06 m/uL (4.30-5.90); WBC 6.4 k/uL (3.8-10.6)
[2019-01-14] MEDS ORDERED: AMANTADINE HCL 100 MG/10 ML CUP PO SCH (11:15)
--- NOTE | 2019-01-14 11:16 | P.DS ---
Providers Date of admission: 01/13/19 10:42 Expected date of discharge: 01/14/19 Attending physician: Martin Osman Consults: 01/13/19 10:43 Consult Physician Urgent Consulting Provider: Sonali Damian Consult Reason/Comments: NSTEMI Do you want consulting provider notified?: Yes Primary care physician: Ed Booker [facility] Course: Chief Complaint: Chest pain Hospital course: This is a 63-year-old patient of Dr. Booker resident of [facility]. Chronic stable medical conditions include GERD, hypertension, hyperlipidemia has a PEG tube use at night. On a pured diet. Had a previous stroke with left- sided weakness. Patient nonambulatory. Patient has severe dysarthria but he can be understood some. Apparently patient been having chest pain for 3 days. In the precordial area. Does not radiate anywhere. No shortness of breath. Slight cough. Admitted to the ER. Troponin was 0.092. EKG is significant findings with flipped T waves in anterior leads. Diagnosed acute non-Q-wave SD. Taken to the cardiac catheterization .. found to have normal coronaries. CT angiogram chest was negative for any aortic dissection. Showed a 4.2 cm ascending aortic aneurysm to be followed up with cardiothoracic surgery. Today-laying in bed. Comfort. No chest pain. Consultation: Dr. Damian from cardiology Physical examination: VITAL SIGNS: 97.9, 62, 18, 132/73, 93% on room air GENERAL: Laying in bed, comfortable. EYES: Pupils equal. Conjunctiva normal. HEENT: External appearance of nose and ears normal, oral cavity grossly normal. NECK: JVD not raised; masses not palpable. HEART: First and second heart sounds are normal; no edema. LUNGS: Respiratory rate normal; decreased breath sounds. ABDOMEN: Soft, nontender, liver spleen not palpable, no masses palpable. PEG tube in place PSYCH: Unable to assess l. NEUROLOGICAL: Severe dysarthria, weakness on the left side. INVESTIGATIONS, reviewed in the clinical context: White count 7.4 hemoglobin 10.8 L to 71 pressure 5.6.20 creatinine 0.98 Troponin I 0.092 proBNP 426 and LDL 140 EKG tracing personally reviewed by me-normal sinus rhythm with flipped T waves in anterior leads Chest x-ray film personally reviewed by me-AP film-lincoln clear. Some widened mediastinum Assessment: - acute non-Q-wave myocardial infarction. Cardiac catheterization showed normal coronaries -Chronic nicotine dependence patient cigarette smoker -Essential hypertension -Chronic nicotine dependence cigarette smoker -PEG tube and is using at night -Severe dysarthria -Dysphagia -pured diet. tube feeding at night. -GERD Disposition: PSYCHIATRIC HOSPITAL/[facility] Patient Condition at Discharge: Stable Plan - Discharge Summary Discharge Rx Participant: No New Discharge Prescriptions: Continue Amantadine Syrup 50mg/5ml 100 mg PO DAILY Metoclopramide [Reglan] 10 mg PO TID@0500,1300,2100 Acetaminophen Tab [Tylenol] 650 mg PO Q6H PRN PRN Reason: Fever Isosorbide Dinitrate 30 mg PEG/G-TUBE TID@0500,1300,2100 hydrALAZINE HCL [Apresoline] 25 mg PO TID@0500,1300,2100 Spironolactone [Aldactone] 50 mg PO BID@0800,1600 cloNIDine HCL 0.3 mg PO TID@0500,1300,2100 Sennosides [Senna] 8.6 mg PO BID@0800,1600 amLODIPine [Norvasc] 5 mg PO BID@0800,1600 Metoprolol Tartrate [Lopressor] 25 mg PO BID Famotidine [Pepcid] 20 mg PO BID Apixaban [Eliquis] 5 mg PEG/G-TUBE BID@0800,1600 Docusate Oral Soln [Colace Oral Soln] 50 mg PEG/G-TUBE BID Valproic Acid 250 mg PO DAILY Thiamine [Vitamin B-1] 100 mg PO DAILY Multivits, W-Ca,Fe,Oth Min [Therapeutic M] 1 tab PO DAILY QUEtiapine [SEROquel] 25 mg PO DAILY@1999 Melatonin 5 mg PO DAILY@1999 Polyethylene Glycol 3350 [Miralax] 17 gm PO DAILY Magnesium 400 mg PO DAILY Atorvastatin [Lipitor] 40 mg PEG/G-TUBE DAILY@1999 Aspirin 81 mg PEG/G-TUBE DAILY Discharge Medication List Acetaminophen Tab [Tylenol] 650 mg PO Q6H PRN 01/13/19 [History] Amantadine Syrup 50mg/5ml 100 mg PO DAILY 01/13/19 [History] Apixaban [Eliquis] 5 mg PEG/G-TUBE BID@0800,1600 01/13/19 [History] Aspirin 81 mg PEG/G-TUBE DAILY 01/13/19 [History] Atorvastatin [Lipitor] 40 mg PEG/G-TUBE DAILY@199901/13/19 [History] Docusate Oral Soln [Colace Oral Soln] 50 mg PEG/G-TUBE BID 01/13/19 [History] Famotidine [Pepcid] 20 mg PO BID 01/13/19 [History] Isosorbide Dinitrate 30 mg PEG/G-TUBE TID@0500,1300,209901/13/19 [History] Magnesium 400 mg PO DAILY 01/13/19 [History] Melatonin 5 mg PO DAILY@199901/13/19 [History] Metoclopramide [Reglan] 10 mg PO TID@0500,1300,209901/13/19 [History] Metoprolol Tartrate [Lopressor] 25 mg PO BID 01/13/19 [History] Multivits,Th W-Ca,Fe,Oth Min [Therapeutic M] 1 tab PO DAILY 01/13/19 [History] Polyethylene Glycol 3350 [Miralax] 17 gm PO DAILY 01/13/19 [History] QUEtiapine [SEROquel] 25 mg PO DAILY@199901/13/19 [History] Sennosides [Senna] 8.6 mg PO BID@0800,1600 01/13/19 [History] Spironolactone [Aldactone] 50 mg PO BID@0800,1600 01/13/19 [History] Thiamine [Vitamin B-1] 100 mg PO DAILY 01/13/19 [History] Valproic Acid 250 mg PO DAILY 01/13/19 [History] amLODIPine [Norvasc] 5 mg PO BID@0800,1600 01/13/19 [History] cloNIDine HCL 0.3 mg PO TID@0500,1300,209901/13/19 [History] hydrALAZINE HCL [Apresoline] 25 mg PO TID@0500,1300,2100 01/13/19 [History] Follow up Appointment(s)/Referral(s): Sonali Damian MD [STAFF PHYSICIAN] - 1 Week Ed Booker DO [Primary Care Provider] - 1-2 days
[2019-01-14 12:50] VITALS: TEMP 98.8
[2019-01-14] MEDS ORDERED: APIXABAN 5 MG TAB PEG/G-TUBE SCH (16:00)
[2019-01-14 16:16] VITALS: BP 140/74; PULSE 60
== END 2019-01-14 13:45 | DRG 281 ==
LOC: EC 09:45 → 3SCARD 10:42
PROVIDERS: ADMIT Hospitalist; ATTEND Hospitalist
PROC: B2111ZZ Fluoroscopy of Multiple Coronary Arteries using Low Osmolar Contrast (ICD-10-PCS; 2019-01-13)
PROC: B2151ZZ Fluoroscopy of Left Heart using Low Osmolar Contrast (ICD-10-PCS; 2019-01-13)
PROC: 4A023N7 Measurement of Cardiac Sampling and Pressure, Left Heart, Percutaneous Approach (ICD-10-PCS; principal; 2019-01-13 09:20)
DX: I21.4 Non-ST elevation (NSTEMI) myocardial infarction (principal); I69.354 Hemiplegia and hemiparesis following cerebral infarction affecting left non-dominant side; Z43.1 Encounter for attention to gastrostomy; R71.0 Precipitous drop in hematocrit; I71.2 Thoracic aortic aneurysm, without rupture; R13.10 Dysphagia, unspecified; I69.320 Aphasia following cerebral infarction; I13.10 Hypertensive heart and chronic kidney disease without heart failure, with stage 1 through stage 4 chronic kidney disease, or unspecified chronic kidney disease; R47.1 Dysarthria and anarthria; R40.2142 Coma scale, eyes open, spontaneous, at arrival to emergency department; R40.2362 Coma scale, best motor response, obeys commands, at arrival to emergency department; R40.2252 Coma scale, best verbal response, oriented, at arrival to emergency department; N18.9 Chronic kidney disease, unspecified; E78.5 Hyperlipidemia, unspecified; K21.9 Gastro-esophageal reflux disease without esophagitis; F17.210 Nicotine dependence, cigarettes, uncomplicated; Z71.6 Tobacco abuse counseling; Z79.01 Long term (current) use of anticoagulants; Z79.82 Long term (current) use of aspirin; Z79.899 Other long term (current) drug therapy
CPT/HCPCS: 36415; 71046; 71260; 80048; 80053; 80061; 83690; 83735; 83880; 84484; 85025; 85027; 85347; 85610; 85730; 93005; 93306; 93458; 96365; 96374; 99291

== ENCOUNTER 2019-01-29 14:30 | Observation (INO) | payer MEDICARE, OTHER ==
[2019-01-29] MEDS ORDERED: NITROGLYCERIN OINT 1 INCH/GM PACKET TOPICAL STA (14:51)
[2019-01-29] MEDS ORDERED: ASPIRIN 81 MG PO STA (14:51)
--- NOTE | 2019-01-29 15:00 | ED ---
General Adult HPI - General Chief complaint: Chest Pain Stated complaint: Chest pain Time Seen by Provider: 01/29/19 14:34 Source: patient, EMS, RN notes reviewed Mode of arrival: EMS Limitations: physical limitation - History of Present Illness Initial comments: Patient is a pleasant 63-year-old male presenting to the emergency department chest discomfort. Patient is a poor historian. Patient states discomfort is burning. patient admits having similar symptoms previously associated with heart problems. No associated dyspnea, nausea,or diaphoresis. Discomfort is mild at this time. No leg pain or leg swelling. - Related Data Home Medications Medication Instructions Recorded Confirmed Acetaminophen Tab [Tylenol] 650 mg PO Q6H PRN 01/13/19 01/29/19 Amantadine Syrup 50mg/5ml 100 mg PO DAILY 01/13/19 01/29/19 Apixaban [Eliquis] 5 mg PO BID@0800,1600 01/13/19 01/29/19 Aspirin 81 mg PO DAILY 01/13/19 01/29/19 Atorvastatin [Lipitor] 40 mg PO HS@199901/13/19 01/29/19 Docusate Oral Soln [Colace Oral 50 mg PO BID 01/13/19 01/29/19 Soln] Famotidine [Pepcid] 20 mg PO BID 01/13/19 01/29/19 Isosorbide Dinitrate 30 mg PO TID@0500,1300,2100 01/13/19 01/29/19 Magnesium 400 mg PO DAILY 01/13/19 01/29/19 Melatonin 5 mg PO DAILY@199901/13/19 01/29/19 Metoclopramide [Reglan] 10 mg PO TID@0500,1300,2100 01/13/19 01/29/19 Metoprolol Tartrate [Lopressor] 25 mg PO BID 01/13/19 01/29/19 Multivits,Th W-Ca,Fe,Oth Min 1 tab PO DAILY 01/13/19 01/29/19 [Therapeutic M] Polyethylene Glycol 3350 [Miralax] 17 gm PO DAILY 01/13/19 01/29/19 Sennosides [Senna] 8.6 mg PO BID@0800,1600 01/13/19 01/29/19 Spironolactone [Aldactone] 50 mg PO BID@0800,1600 01/13/19 01/29/19 Thiamine [Vitamin B-1] 100 mg PO DAILY 01/13/19 01/29/19 Valproic Acid 250 mg PO DAILY 01/13/19 01/29/19 amLODIPine [Norvasc] 5 mg PO BID@0800,1600 01/13/19 01/29/19 cloNIDine HCL 0.3 mg PO TID@0500,1300,2100 01/13/19 01/29/19 hydrALAZINE HCL [Apresoline] 25 mg PO TID@0500,1300,2100 01/13/19 01/29/19 Magnesium Hydroxide [Milk of 2,400 mg PO DAILY PRN 01/29/19 01/29/19 Magnesia] Allergies Allergy/AdvReac Type Severity Reaction Status Date / Time No Known Allergies Allergy Verified 01/29/19 14:47 Review of Systems ROS Statement: Those systems with pertinent positive or pertinent negative responses have been documented in the HPI. ROS Other: All systems not noted in ROS Statement are negative. Constitutional: Denies: fever Eyes: Denies: eye pain ENT: Denies: ear pain Respiratory: Denies: cough Cardiovascular: Reports: chest pain Endocrine: Denies: fatigue Gastrointestinal: Denies: abdominal pain Genitourinary: Denies: dysuria Musculoskeletal: Denies: back pain Skin: Denies: rash Neurological: Denies: weakness Past Medical History Past Medical History: CVA/TIA, Deep Vein Thrombosis (DVT), GERD/Reflux, Hyperlipidemia, Hypertension, Myocardial Infarction (HI), Renal Disease Additional Past Medical History / Comment(s): Pt had a CVA with left sided weakness & aphasia in December of 2018, has a PEG tube, has been getting feedings at night & tolerating a pureed diet at [facility] with regular liquids History of Any Multi-Drug Resistant Organisms: None Reported Past Surgical History: Unable to Obtain, Heart Catheterization Past Psychological History: No Psychological Hx Reported Smoking Status: Current every day smoker Past Alcohol Use History: None Reported, Daily Past Drug Use History: None Reported General Exam Limitations: physical limitation General appearance: alert, in no apparent distress Head exam: Present: normocephalic Eye exam: Present: normal appearance, PERRL ENT exam: Present: normal oropharynx Neck exam: Present: normal inspection Respiratory exam: Present: normal lung sounds bilaterally Cardiovascular Exam: Present: regular rate, normal rhythm Expanded Peripheral pulses: 2+: Radial (R), Radial (L), Dorsalis Pedis (R), Dorsalis Pedis (L) GI/Abdominal exam: Present: soft. Absent: tenderness Extremities exam: Present: normal inspection. Absent: pedal edema, calf tenderness Neurological exam: Present: alert Psychiatric exam: Present: normal affect, normal mood Skin exam: Present: normal color Course Vital Signs 01/29/19 01/29/19 14:36 15:39 Temperature 98.5 F Pulse Rate 54 L 52 L Respiratory 18 16 Rate Blood Pressure 150/102 158/91 O2 Sat by Pulse 98 Oximetry EKG Findings - EKG Comments: EKG Findings:: sinus bradycardia 54. For screening AV block DC 216. QRS 118. QT 440. QTc 417. Left axis. LvH. Repolarization changes. Medical Decision Making - Medical Decision Making patient reevaluated and updated. Case discussed with Dr. Osman, who will admit for Dr. Booker. - Lab Data Result diagrams: 01/29/19 15:15 01/29/19 15:15 Lab Results 01/29/19 01/29/19 01/29/19 Range/Units 15:15 15:15 15:15 WBC 6.0 (3.8-10.6) k/uL RBC 3.48 L (4.30-5.90) m/uL Hgb 10.4 L (13.0-17.5) gm/dL Hct 32.0 L (39.0-53.0) % MCV 92.0 (80.0-100.0) fL MCH 29.8 (25.0-35.0) pg MCHC 32.4 (31.0-37.0) g/dL RDW 14.7 (11.5-15.5) % Plt Count 347 (150-450) k/uL Neutrophils % 51 % Lymphocytes % 37 % Monocytes % 5 % Eosinophils % 4 % Basophils % 1 % Neutrophils # 3.1 (1.3-7.7) k/uL Lymphocytes # 2.2 (1.0-4.8) k/uL Monocytes # 0.3 (0-1.0) k/uL Eosinophils # 0.3 (0-0.7) k/uL Basophils # 0.0 (0-0.2) k/uL PT 10.3 (9.0-12.0) sec INR 1.0 (<1.2) APTT 24.6 (22.0-30.0) sec Sodium 139 (137-145) mmol/L Potassium 4.8 (3.5-5.1) mmol/L Chloride 105 (98-107) mmol/L Carbon Dioxide 27 (22-30) mmol/L Anion Gap 7 mmol/L BUN 24 H (9-20) mg/dL Creatinine 1.09 (0.66-1.25) mg/dL Est GFR (CKD-EPI)AfAm 82 (>60 ml/min/1.73 sqM) Est GFR (CKD-EPI)NonAf 71 (>60 ml/min/1.73 sqM) Glucose 87 (74-99) mg/dL Calcium 10.0 (8.4-10.2) mg/dL Magnesium 2.0 (1.6-2.3) mg/dL Total Bilirubin 0.4 (0.2-1.3) mg/dL AST 22 (17-59) U/L ALT 42 (4-49) U/L Alkaline Phosphatase 84 (38-126) U/L Troponin I (0.000-0.034) ng/mL Total Protein 7.3 (6.3-8.2) g/dL Albumin 4.0 (3.5-5.0) g/dL 01/29/19 Range/Units 15:15 WBC (3.8-10.6) k/uL RBC (4.30-5.90) m/uL Hgb (13.0-17.5) gm/dL Hct (39.0-53.0) % MCV (80.0-100.0) fL MCH (25.0-35.0) pg MCHC (31.0-37.0) g/dL RDW (11.5-15.5) % Plt Count (150-450) k/uL Neutrophils % % Lymphocytes % % Monocytes % % Eosinophils % % Basophils % % Neutrophils # (1.3-7.7) k/uL Lymphocytes # (1.0-4.8) k/uL Monocytes # (0-1.0) k/uL Eosinophils # (0-0.7) k/uL Basophils # (0-0.2) k/uL PT (9.0-12.0) sec INR (<1.2) APTT (22.0-30.0) sec Sodium (137-145) mmol/L Potassium (3.5-5.1) mmol/L Chloride (98-107) mmol/L Carbon Dioxide (22-30) mmol/L Anion Gap mmol/L BUN (9-20) mg/dL Creatinine (0.66-1.25) mg/dL Est GFR (CKD-EPI)AfAm (>60 ml/min/1.73 sqM) Est GFR (CKD-EPI)NonAf (>60 ml/min/1.73 sqM) Glucose (74-99) mg/dL Calcium (8.4-10.2) mg/dL Magnesium (1.6-2.3) mg/dL Total Bilirubin (0.2-1.3) mg/dL AST (17-59) U/L ALT (4-49) U/L Alkaline Phosphatase (38-126) U/L Troponin I <0.012 (0.000-0.034) ng/mL Total Protein (6.3-8.2) g/dL Albumin (3.5-5.0) g/dL - Radiology Data Radiology results: image reviewed (chest x-ray shows no acute process) Disposition Clinical Impression: Chest pain Disposition: ADMITTED IP TO THIS HOSP Is patient prescribed a controlled substance at d/c from ED?: No Referrals: Ed Booker DO [Primary Care Provider] - 1-2 days Decision Time: 16:07
[2019-01-29 15:32] LABS: Basophils % (A) 1 %; Eosinophils # (A) 0.3 k/uL (0-0.7); Eosinophils % (A) 4 %; HGB 10.4 gm/dL (13.0-17.5); Lymphocytes # (A) 2.2 k/uL (1.0-4.8); Lymphocytes % (A) 37 %; MCH 29.8 pg (25.0-35.0); MCHC 32.4 g/dL (31.0-37.0); Mean Platelet Volume 7.7; Monocytes # (A) 0.3 k/uL (0-1.0); Monocytes % (A) 5 %; Neutrophils # (A) 3.1 k/uL (1.3-7.7); Neutrophils % (A) 51 %; Platelet Count 347 k/uL (150-450); RBC 3.48 m/uL (4.30-5.90); RDW 14.7 % (11.5-15.5)
[2019-01-29 15:43] LABS: Partial Thromboplastin Time 24.6 sec (22.0-30.0); Prothrombin Time 10.3 sec (9.0-12.0)
--- NOTE | 2019-01-29 15:43 | XR ---
EXAMINATION TYPE: XR chest 2V DATE OF EXAM: 01/29/2019 COMPARISON: 01/13/2019 HISTORY: Shortness of breath TECHNIQUE: Frontal and lateral views of the chest are obtained. FINDINGS: Scattered senescent parenchymal changes noted. Hyperinflation compatible with COPD. No evidence for infiltrate. No evidence for atelectasis. Heart size is stable. Mediastinal structures are stable and grossly unremarkable. No evidence for hilar prominence. Degenerative changes dorsal spine. IMPRESSION: 1. No evidence for acute pulmonary disease.
[2019-01-29 15:45] LABS: Potassium 4.8 mmol/L (3.5-5.1); Total Bilirubin 0.4 mg/dL (0.2-1.3); Total Protein 7.3 g/dL (6.3-8.2)
[2019-01-29] MEDS ORDERED: ACETAMINOPHEN TAB 325 MG TAB PO PRN (16:07)
[2019-01-29] MEDS ORDERED: MAGNESIUM HYDROXIDE 2,400 MG/10 ML CUP PO PRN (16:07)
[2019-01-29] MEDS ORDERED: NITROGLYCERIN SL TABS 0.4 MG TAB SUBLINGUAL PRN (16:10)
[2019-01-29] MEDS ORDERED: ATORVASTATIN 40 MG TAB PO SCH (20:00)
[2019-01-29] MEDS ORDERED: MELATONIN 5 MG TABLET PO SCH (20:00)
[2019-01-29] MEDS: ISOSORBIDE DINITRATE 10 MG TAB PO SCH (20:43)
[2019-01-29] MEDS: hydrALAZINE HCL 25 MG TAB PO SCH (20:43)
[2019-01-29] MEDS: METOCLOPRAMIDE 10 MG TAB PO SCH (20:43)
[2019-01-29] MEDS: cloNIDine HCL 0.1 MG TAB PO SCH (20:43)
[2019-01-29] MEDS: FAMOTIDINE 20 MG TAB PO SCH (20:43)
[2019-01-29] MEDS: DOCUSATE ORAL SOLN 100 MG/10 ML CUP PO SCH (20:43)
[2019-01-29] MEDS: METOPROLOL TARTRATE 25 MG TAB PO SCH (20:43)
[2019-01-29] MEDS: NITROGLYCERIN OINT 1 INCH/GM PACKET TOPICAL SCH (23:09)
[2019-01-30 03:41] LABS: Cholesterol 113 mg/dL (<200); HDL Cholesterol 29 mg/dL (40-60); LDL Cholesterol,Calculated 62 mg/dL (0-99); Triglycerides 109 mg/dL (<150)
[2019-01-30] MEDS: NITROGLYCERIN OINT 1 INCH/GM PACKET TOPICAL SCH (05:01)
[2019-01-30] MEDS: ISOSORBIDE DINITRATE 10 MG TAB PO SCH ×2 (05:01→12:27)
[2019-01-30] MEDS: METOCLOPRAMIDE 10 MG TAB PO SCH ×2 (05:01→12:27)
[2019-01-30] MEDS: cloNIDine HCL 0.1 MG TAB PO SCH ×2 (05:01→12:28)
[2019-01-30] MEDS: hydrALAZINE HCL 25 MG TAB PO SCH ×2 (05:01→12:27)
[2019-01-30 08:13] VITALS: PULSE 52
[2019-01-30] MEDS ORDERED: MAGNESIUM OXIDE 400 MG TAB PO SCH (09:00)
[2019-01-30] MEDS ORDERED: THIAMINE 100 MG TAB PO SCH (09:00)
[2019-01-30] MEDS ORDERED: DIVALPROEX 250 MG TABLET.DR PO SCH (09:00)
[2019-01-30] MEDS ORDERED: ASPIRIN 81 MG PO SCH (09:00)
[2019-01-30] MEDS ORDERED: POLYETHYLENE GLYCOL 3350 17 GM POWD.PACK PO SCH (09:00)
[2019-01-30] MEDS ORDERED: AMANTADINE HCL 100 MG/10 ML CUP PO SCH (09:00)
[2019-01-30] MEDS ORDERED: MULTIVITAMINS, THERA 1 EACH TAB PO SCH (09:00)
--- NOTE | 2019-01-30 09:35 | P.CRDCN ---
History of Present Illness Consult date: 01/30/19 Requesting physician: Martin Osman Reason for Consult (text): chest pain Chief complaint: chest pain History of present illness: This is a pleasant 63-year-old gentleman with a history of CVA with left-sided paralysis and expressive aphasia in November of this year, hypertension, hyperlipidemia and prior history of smoking. He follows Dr. Damian in the office. Due to aphasia, HPI and past medical history was obtained from the nurse and the chart. Patient was apparently sent from [facility] for complaints of chest discomfort. Patient does have a recent history of this month of presenting with chest discomfort with noted T wave inversion anteriorly and minimal troponin elevation. At that time he underwent cardiac catheterization that showed no obstructive disease with a normal systolic function. Upon presentation to the ER this admission, chest x-ray showed no evidence for acute pulmonary disease. EKG showed sinus bradycardia with first-degree AV block and evidence of LVH with repolarization abnormality. Blood pressure on admission was in the 150s over 100 range. Laboratory values on admission showed a hemoglobin of 10.4 which is stable, normal electrolytes, BUN of 24, creatinine 1.09, troponins negative 3 and adequately controlled lipids. Blood pressure this morning is 144/69 prior to medications. He is currently on amlodipine 5 mg by mouth twice a day, aspirin 81 mg by mouth daily, Eliquis 5 mg by mouth twice a day, Lipitor 40 mg by mouth daily at bedtime, clonidine 0.3 mg by mouth 3 times a day, hydralazine 25 mg by mouth 3 times a day, isosorbide dinitrate 30 mg by mouth 3 times a day, metoprolol titrate 25 mg by mouth twice a day and Aldactone 50 mg by mouth twice a day as well as thiamine, senna, multivitamin, magnesium, Pepcid, Depakote and amantadine. Upon examination, patient is resting comfortably in bed. Does not answer most questions. Does not appear to be in any acute distress. Past Medical History Past Medical History: CVA/TIA, Deep Vein Thrombosis (DVT), GERD/Reflux, Hyperlipidemia, Hypertension, Myocardial Infarction (NE), Renal Disease Additional Past Medical History / Comment(s): Pt had a CVA with left sided weakness & aphasia in December of 2018, has a PEG tube, has been getting feedings at night & tolerating a pureed diet at [facility] with regul ar liquids Last Myocardial Infarction Date:: 01/13/19 History of Any Multi-Drug Resistant Organisms: None Reported Past Surgical History: Unable to Obtain, Heart Catheterization Past Anesthesia/Blood Transfusion Reactions: No Reported Reaction Past Psychological History: No Psychological Hx Reported Smoking Status: Former smoker Past Alcohol Use History: None Reported, Daily, Occasional Past Drug Use History: None Reported - Past Family History Father Family Medical History: No Reported History Medications and Allergies Home Medications Medication Instructions Recorded Confirmed Type Acetaminophen Tab [Tylenol] 650 mg PO Q6H PRN 01/13/19 01/29/19 History Amantadine Syrup 50mg/5ml 100 mg PO DAILY 01/13/19 01/29/19 History Apixaban [Eliquis] 5 mg PO BID@0800,1600 01/13/19 01/29/19 History Aspirin 81 mg PO DAILY 01/13/19 01/29/19 History Atorvastatin [Lipitor] 40 mg PO HS@199901/13/19 01/29/19 History Docusate Oral Soln [Colace Oral 50 mg PO BID 01/13/19 01/29/19 History Soln] Famotidine [Pepcid] 20 mg PO BID 01/13/19 01/29/19 History Isosorbide Dinitrate 30 mg PO TID@0500,1300,2100 01/13/19 01/29/19 History Magnesium 400 mg PO DAILY 01/13/19 01/29/19 History Melatonin 5 mg PO DAILY@199901/13/19 01/29/19 History Metoclopramide [Reglan] 10 mg PO TID@0500,1300,2100 01/13/19 01/29/19 History Metoprolol Tartrate [Lopressor] 25 mg PO BID 01/13/19 01/29/19 History Multivits,Th W-Ca,Fe,Oth Min 1 tab PO DAILY 01/13/19 01/29/19 History [Therapeutic M] Polyethylene Glycol 3350 [Miralax] 17 gm PO DAILY 01/13/19 01/29/19 History Sennosides [Senna] 8.6 mg PO BID@0800,1600 01/13/19 01/29/19 History Spironolactone [Aldactone] 50 mg PO BID@0800,1600 01/13/19 01/29/19 History Thiamine [Vitamin B-1] 100 mg PO DAILY 01/13/19 01/29/19 History Valproic Acid 250 mg PO DAILY 01/13/19 01/29/19 History amLODIPine [Norvasc] 5 mg PO BID@0800,1600 01/13/19 01/29/19 History cloNIDine HCL 0.3 mg PO TID@0500,1300,2100 01/13/19 01/29/19 History hydrALAZINE HCL [Apresoline] 25 mg PO TID@0500,1300,2100 01/13/19 01/29/19 History Magnesium Hydroxide [Milk of 2,400 mg PO DAILY PRN 01/29/19 01/29/19 History Magnesia] Allergies Allergy/AdvReac Type Severity Reaction Status Date / Time No Known Allergies Allergy Verified 01/29/19 14:47 Physical Exam Vitals: Vital Signs Temp Pulse Pulse Pulse Resp BP BP 01/30/19 08:00 97.8 F 52 L 17 144/69 01/30/19 03:54 98.3 F 51 L 18 01/29/19 23:59 98.0 F 51 L 18 01/29/19 17:30 66 16 130/86 01/29/19 16:10 66 01/29/19 15:39 52 L 16 158/91 01/29/19 14:36 98.5 F 54 L 18 150/102 BP Pulse Ox 01/30/19 08:00 100 01/30/19 03:54 123/75 100 01/29/19 23:59 147/79 99 01/29/19 17:30 95 01/29/19 16:10 01/29/19 15:39 98 01/29/19 14:36 Intake and Output 01/29/19 01/30/19 01/30/19 22:59 06:59 14:59 Other: Voiding Method Diaper # Voids 1 Weight 63.503 kg PHYSICAL EXAMINATION: HEENT: Head is atraumatic, normocephalic. Neck is supple. There is no brittney vated jugular venous pressure. HEART EXAMINATION: Heart sounds regular, S1 and S2 normal. No murmur or gallop heard. CHEST EXAMINATION: Lungs are clear to auscultation. No chest wall tenderness is noted on palpation or with deep breathing. ABDOMEN: Soft, nontender. Bowel sounds are heard. No organomegaly noted. EXTREMITIES: 2+ peripheral pulses with no evidence of peripheral edema and no ca lf tenderness noted. NEUROLOGIC patient is awake, drowsy. . Results 01/29/19 15:15 01/29/19 15:15 Cardiac Enzymes 01/29/19 01/29/19 01/29/19 Range/Units 15:15 15:15 20:39 AST 22 (17-59) U/L Troponin I <0.012 <0.012 (0.000-0.034) ng/mL 01/30/19 Range/Units 03:17 AST (17-59) U/L Troponin I 0.012 (0.000-0.034) ng/mL Coagulation 01/29/19 Range/Units 15:15 PT 10.3 (9.0-12.0) sec APTT 24.6 (22.0-30.0) sec Lipids 01/30/19 Range/Units 03:17 Triglycerides 109 (<150) mg/dL Cholesterol 113 (<200) mg/dL HDL Cholesterol 29 L (40-60) mg/dL CBC 01/29/19 Range/Units 15:15 WBC 6.0 (3.8-10.6) k/uL RBC 3.48 L (4.30-5.90) m/uL Hgb 10.4 L (13.0-17.5) gm/dL Hct 32.0 L (39.0-53.0) % Plt Count 347 (150-450) k/uL Comprehensive Metabolic Panel 01/29/19 Range/Units 15:15 Sodium 139 (137-145) mmol/L Potassium 4.8 (3.5-5.1) mmol/L Chloride 105 (98-107) mmol/L Carbon Dioxide 27 (22-30) mmol/L BUN 24 H (9-20) mg/dL Creatinine 1.09 (0.66-1.25) mg/dL Glucose 87 (74-99) mg/dL Calcium 10.0 (8.4-10.2) mg/dL AST 22 (17-59) U/L ALT 42 (4-49) U/L Alkaline Phosphatase 84 (38-126) U/L Total Protein 7.3 (6.3-8.2) g/dL Albumin 4.0 (3.5-5.0) g/dL Current Medications Generic Name Dose Route Start Last Admin Trade Name Chaparro PRN Reason Stop Dose Admin Acetaminophen 650 mg 01/29/19 16:07 01/30/19 05:39 Tylenol Tab PO 650 mg Q6H PRN Administration Fever Amantadine HCl 100 mg 01/30/19 09:00 Symmetrel PO DAILY [facility] Amlodipine Besylate 5 mg 01/30/19 08:00 Norvasc PO BID@0800,1600 [facility] Apixaban 5 mg 01/30/19 08:00 Eliquis PO BID@0800,1600 [facility] Aspirin 81 mg 01/30/19 09:00 Aspirin PO DAILY [facility] Atorvastatin Calcium 40 mg 01/29/19 20:00 01/29/19 20:43 Lipitor PO 40 mg HS@1999 [facility] Administration Clonidine 0.3 mg 01/29/19 21:00 01/30/19 05:01 Catapres PO 0.3 mg TID@0500,1300,2100 [facility] Administration Divalproex Sodium 250 mg 01/30/19 09:00 Depakote PO DAILY [facility] Docusate Sodium 50 mg 01/29/19 21:00 01/29/19 20:43 Colace Oral Soln PO 50 mg BID [facility] Administration Famotidine 20 mg 01/29/19 21:00 01/29/19 20:43 Pepcid PO 20 mg BID [facility] Administration Hydralazine HCl 25 mg 01/29/19 21:00 01/30/19 05:01 Apresoline PO 25 mg TID@0500,1300,2100 [facility] Administration Isosorbide Dinitrate 30 mg 01/29/19 21:00 01/30/19 05:01 Isordil PO 30 mg TID@0500,1300,2100 [facility] Administration Magnesium Hydroxide 2,400 mg 01/29/19 16:07 Milk Of Magnesia PO DAILY PRN Constipation Magnesium Oxide 400 mg 01/30/19 09:00 Mag-Ox PO DAILY [facility] Melatonin 5 mg 01/29/19 20:00 01/29/19 20:43 Melatonin PO 5 mg DAILY@1999 [facility] Administration Metoclopramide HCl 10 mg 01/29/19 21:00 01/30/19 05:01 Reglan PO 10 mg TID@0500,1300,2100 [facility] Administration Metoprolol Tartrate 25 mg 01/29/19 21:00 01/29/19 20:43 Lopressor PO 25 mg BID [facility] Administration Multivitamins 1 each 01/30/19 09:00 Theragran PO DAILY [facility] Nitroglycerin 1 inch 01/30/19 00:00 01/30/19 05:01 Nitro-Bid Oint TOPICAL Not Given Q6HR [facility] Nitroglycerin 0.4 mg 01/29/19 16:10 Nitrostat SUBLINGUAL Q5M PRN Chest Pain Polyethylene Glycol 17 gm 01/30/19 09:00 Miralax PO DAILY [facility] Senna 8.6 mg 01/30/19 08:00 Senokot PO BID@0800,1600 [facility] Sodium Chloride 10 ml 01/29/19 21:00 01/29/19 20:43 Saline Flush IV 10 ml BID [facility] Administration Spironolactone 50 mg 01/30/19 08:00 Aldactone PO BID@0800,1600 [facility] Thiamine HCl 100 mg 01/30/19 09:00 Vitamin B-1 PO DAILY [facility] Intake and Output 01/29/19 01/30/19 01/30/19 22:59 06:59 14:59 Other: Voiding Method Diaper # Voids 1 Weight 63.503 kg 01/29/19 15:15 01/29/19 15:15 Assessment and Plan Assessment: #1 symptoms of chest discomfort with recent cardiac catheterization that showed normal coronary arteries and troponins are negative 3. #2 hypertension #3 hyperlipidemia #4 prior CVA with aphasia and left-sided weakness Plan: From cardiology's perspective, no further cardiac workup is needed needed at this time. We will follow-up with the patient as an outpatient. [employer] note has been reviewed, I agree with a documented findings and plan of care. Patient was seen and examined.
[2019-01-30] MEDS: SPIRONOLACTONE 25 MG TAB PO SCH ×2 (12:26→17:13)
[2019-01-30] MEDS: FAMOTIDINE 20 MG TAB PO SCH (12:26)
[2019-01-30] MEDS: DOCUSATE ORAL SOLN 100 MG/10 ML CUP PO SCH (12:26)
[2019-01-30] MEDS: SENNOSIDES 8.6 MG TAB PO SCH ×2 (12:27→17:13)
[2019-01-30] MEDS: APIXABAN 5 MG TAB PO SCH ×2 (12:27→17:14)
[2019-01-30] MEDS: amLODIPine 5 MG TAB PO SCH ×2 (12:27→17:14)
[2019-01-30] MEDS: METOPROLOL TARTRATE 25 MG TAB PO SCH (12:28)
[2019-01-30 14:14] VITALS: BP 146/72; RESP 18; TEMP 97.6
--- NOTE | 2019-01-30 15:44 | P.HPIM ---
History of Present Illness H&P Date: 01/30/19 Chief Complaint: Chest. Pain Chief Complaint: Chest pain History of presenting complaint: This is a 63-year-old patient of Dr. Booker resident of [facility]. Chronic stable medical conditions include GERD, ascending aortic aneurysm 4.2 cm, hypertension, hyperlipidemia has a PEG tube Had a previous stroke with left-sided weakness. Patient nonambulatory. Patient has severe dysarthria but he can understand some. Patient's uric the hospital on January 13 of this year with an acute OR. Cardiac catheterization showed normal coronaries. 2-D echo showed an EF of 55-60%. Patient presents with some chest pain. Anterior chest wall. No radiation. Duration unknown. It feels more like a heartburn time. No dizziness no lightheadedness. Patient is not ambulatory. No obvious exacerbating or relieving factors. Review of systems: GEN.: Tired EYES: None HEENT: None NECK: None RESPIRATORY: Occasional short of breath CARDIOVASCULAR: Left precordial pain GASTROINTESTINAL: PEG tube GENITOURINARY: None MUSCULOSKELETAL: None LYMPHATICS: None HEMATOLOGICAL: None PSYCHIATRY: None NEUROLOGICAL: Left-sided weakness and dysarthria Past history to include: Stroke with left-sided weakness, DVT, GERD, hypertension, hyperlipidemia, 2 feeding at night . Diet the daytime with regular liquids Social history: Patient is a smoker. Currently a resident of [facility] Family history: Cannot tell Physical examination: VITAL SIGNS: 98.5, 57, 123/77, 100% room air GENERAL: BMI 21.9, laying bed awake EYES: Pupils equal. Conjunctiva normal. HEENT: External appearance of nose and ears normal, oral cavity grossly normal. NECK: JVD not raised; masses not palpable. HEART: First and second heart sounds are normal; no edema. LUNGS: Respiratory rate normal; decreased breath sounds. ABDOMEN: Soft, nontender, liver spleen not palpable, no masses palpable. PEG tube in place PSYCH: Unable to assess l. NEUROLOGICAL: dysarthria, weakness on the left side. LYMPHATICS: No lymph nodes palpable in the axilla and neck INVESTIGATIONS, reviewed in the clinical context: White count 6 and one in 10.4 potassium 4.8 creatinine 1.09 Troponin I 3 negative LDL 62 Assessment: -Left anterior chest wall pain described more like a burning sensation like a heartburn. Likely reflux. Rule out cardiac cause - acute non-Q-wave myocardial infarction. 01/13/2019. Cardiac catheterization showed normal coronaries -Chronic nicotine dependence patient cigarette smoker -Essential hypertension -Chronic nicotine dependence cigarette smoker -PEG tube and is using at night -Severe dysarthria -Dysphagia -pured diet. tube feeding at night. -GERD Plan: -Home medications are continued. Cardiology was consulted. Patient put on telemetry. Past Medical History Past Medical History: CVA/TIA, Deep Vein Thrombosis (DVT), GERD/Reflux, Hyperlipidemia, Hypertension, Myocardial Infarction ([place]), Renal Disease Additional Past Medical History / Comment(s): Pt had a CVA with left sided weakness & aphasia in December of 2018, has a PEG tube, has been getting feedings at night & tolerating a pureed diet at [facility] with regular liquids Last Myocardial Infarction Date:: 01/13/19 History of Any Multi-Drug Resistant Organisms: None Reported Past Surgical History: Unable to Obtain, Heart Catheterization Past Anesthesia/Blood Transfusion Reactions: No Reported Reaction Past Psychological History: No Psychological Hx Reported Smoking Status: Former smoker Past Alcohol Use History: None Reported, Daily, Occasional Past Drug Use History: None Reported - Past Family History Father Family Medical History: No Reported History Medications and Allergies Home Medications Medication Instructions Recorded Confirmed Type Acetaminophen Tab [Tylenol] 650 mg PO Q6H PRN 01/13/19 01/29/19 History Amantadine Syrup 50mg/5ml 100 mg PO DAILY 01/13/19 01/29/19 History Apixaban [Eliquis] 5 mg PO BID@0800,1600 01/13/19 01/29/19 History Aspirin 81 mg PO DAILY 01/13/19 01/29/19 History Atorvastatin [Lipitor] 40 mg PO HS@199901/13/19 01/29/19 History Docusate Oral Soln [Colace Oral 50 mg PO BID 01/13/19 01/29/19 History Soln] Famotidine [Pepcid] 20 mg PO BID 01/13/19 01/29/19 History Isosorbide Dinitrate 30 mg PO TID@0500,1300,2100 01/13/19 01/29/19 History Magnesium 400 mg PO DAILY 01/13/19 01/29/19 History Melatonin 5 mg PO DAILY@199901/13/19 01/29/19 History Metoclopramide [Reglan] 10 mg PO TID@0500,1300,2100 01/13/19 01/29/19 History Metoprolol Tartrate [Lopressor] 25 mg PO BID 01/13/19 01/29/19 History Multivits,Th W-Ca,Fe,Oth Min 1 tab PO DAILY 01/13/19 01/29/19 History [Therapeutic M] Polyethylene Glycol 3350 [Miralax] 17 gm PO DAILY 01/13/19 01/29/19 History Sennosides [Senna] 8.6 mg PO BID@0800,1600 01/13/19 01/29/19 History Spironolactone [Aldactone] 50 mg PO BID@0800,1600 01/13/19 01/29/19 History Thiamine [Vitamin B-1] 100 mg PO DAILY 01/13/19 01/29/19 History Valproic Acid 250 mg PO DAILY 01/13/19 01/29/19 History amLODIPine [Norvasc] 5 mg PO BID@0800,1600 01/13/19 01/29/19 History cloNIDine HCL 0.3 mg PO TID@0500,1300,2100 01/13/19 01/29/19 History hydrALAZINE HCL [Apresoline] 25 mg PO TID@0500,1300,2100 01/13/19 01/29/19 History Magnesium Hydroxide [Milk of 2,400 mg PO DAILY PRN 01/29/19 01/29/19 History Magnesia] Allergies Allergy/AdvReac Type Severity Reaction Status Date / Time No Known Allergies Allergy Verified 01/29/19 14:47 Physical Exam Vitals: Vital Signs Temp Pulse Pulse Pulse Resp BP BP 01/30/19 08:00 97.8 F 52 L 17 144/69 01/30/19 03:54 98.3 F 51 L 18 01/29/19 23:59 98.0 F 51 L 18 01/29/19 17:30 66 16 130/86 01/29/19 16:10 66 01/29/19 15:39 52 L 16 158/91 01/29/19 14:36 98.5 F 54 L 18 150/102 BP Pulse Ox 01/30/19 08:00 100 01/30/19 03:54 123/75 100 01/29/19 23:59 147/79 99 01/29/19 17:30 95 01/29/19 16:10 01/29/19 15:39 98 01/29/19 14:36 Intake and Output 01/29/19 01/30/19 01/30/19 22:59 06:59 14:59 Other: Voiding Method Diaper # Voids 1 Weight 63.503 kg Results CBC & Chem 7: 01/29/19 15:15 01/29/19 15:15 Labs: Abnormal Lab Results - Last 24 Hours (Table) 01/29/19 01/29/19 01/30/19 Range/Units 15:15 15:15 03:17 RBC 3.48 L (4.30-5.90) m/uL Hgb 10.4 L (13.0-17.5) gm/dL Hct 32.0 L (39.0-53.0) % BUN 24 H (9-20) mg/dL HDL Cholesterol 29 L (40-60) mg/dL Thrombosis Risk Factor Assmnt - Choose All That Apply Any of the Below Risk Factors Present?: Yes Other Risk Factors: Yes Each Risk Factor Represents 2 Points: Age 61-74 years Other congenital or acquired thrombophilia - If yes, enter type in comment: Yes Each Risk Factor Represents 5 Points: Stroke (< 1 month) Thrombosis Risk Factor Assessment Total Risk Factor Score: 7 Thrombosis Risk Factor Assessment Level: High Risk
--- NOTE | 2019-01-30 15:50 | P.DS ---
Providers Date of admission: 01/29/19 16:10 Expected date of discharge: 01/30/19 Attending physician: Martin Osman Consults: 01/29/19 16:10 Consult Physician Urgent Consulting Provider: Erich Barlow Consult Reason/Comments: cp Do you want consulting provider notified?: Yes Primary care physician: [facility] Course: Chief Complaint: Chest. Pain History of presenting complaint: This is a 63-year-old patient of Dr. Booker resident of [facility]. Chronic stable medical conditions include GERD, ascending aortic aneurysm 4.2 c m, hypertension, hyperlipidemia has a PEG tube Had a previous stroke with left- sided weakness. Patient nonambulatory. Patient has severe dysarthria but he can understand some. Patient's uric the hospital on January 13 of this year with an acute [place]. Cardiac catheterization showed normal coronaries. 2-D echo showed an EF of 55-60%. Patient presents with some chest pain. Anterior chest wall. No radiation. Duration unknown. It feels more like a heartburn time. No dizziness no lightheadedness. Patient is not ambulatory. No obvious exacerbating or relieving factors. Troponin 3 are negative. [place] to be exacerbation of GERD. Seen by cardiology. Okay to be DC'd. Consultation: Dr. Damian from cardiology Physical examination: VITAL SIGNS: GENERAL: BMI 21.9, laying bed awake EYES: Pupils equal. Conjunctiva normal. HEENT: External appearance of nose and ears normal, oral cavity grossly normal. NECK: JVD not raised; masses not palpable. HEART: First and second heart sounds are normal; no edema. LUNGS: Respiratory rate normal; decreased breath sounds. ABDOMEN: Soft, nontender, liver spleen not palpable, no masses palpable. PEG tube in place PSYCH: Unable to assess l. NEUROLOGICAL: dysarthria, weakness on the left side. LYMPHATICS: No lymph nodes palpable in the axilla and neck INVESTIGATIONS, reviewed in the clinical context: White count 6 and one in 10.4 potassium 4.8 creatinine 1.09 Troponin I 3 negative LDL 62 Assessment: -Left anterior chest wall pain described, exacerbation of GERD - acute non-Q-wave myocardial infarction. 01/13/2019. Cardiac catheterization showed normal coronaries -Chronic nicotine dependence patient cigarette smoker -Essential hypertension -Chronic nicotine dependence cigarette smoker -PEG tube and is using at night -Severe dysarthria -Dysphagia -pured diet. tube feeding at night. -GERD Disposition: [facility] Patient Condition at Discharge: Undetermined Plan - Discharge Summary Discharge Rx Participant: Yes New Discharge Prescriptions: New Omeprazole [PriLOSEC] 20 mg PO AC-BID #1 cap Continue Amantadine Syrup 50mg/5ml 100 mg PO DAILY Metoclopramide [Reglan] 10 mg PO TID@0500,1300,2100 Acetaminophen Tab [Tylenol] 650 mg PO Q6H PRN PRN Reason: Fever Isosorbide Dinitrate 30 mg PO TID@0500,1300,2100 hydrALAZINE HCL [Apresoline] 25 mg PO TID@0500,1300,2100 Spironolactone [Aldactone] 50 mg PO BID@0800,1600 cloNIDine HCL 0.3 mg PO TID@0500,1300,2100 Sennosides [Senna] 8.6 mg PO BID@0800,1600 amLODIPine [Norvasc] 5 mg PO BID@0800,1600 Metoprolol Tartrate [Lopressor] 25 mg PO BID Famotidine [Pepcid] 20 mg PO BID Apixaban [Eliquis] 5 mg PO BID@0800,1600 Docusate Oral Soln [Colace Oral Soln] 50 mg PO BID Valproic Acid 250 mg PO DAILY Thiamine [Vitamin B-1] 100 mg PO DAILY Multivits, W-Ca,Fe,Oth Min [Therapeutic M] 1 tab PO DAILY Melatonin 5 mg PO DAILY@1999 Polyethylene Glycol 3350 [Miralax] 17 gm PO DAILY Magnesium 400 mg PO DAILY Atorvastatin [Lipitor] 40 mg PO HS@1999 Aspirin 81 mg PO DAILY Magnesium Hydroxide [Milk of Magnesia] 2,400 mg PO DAILY PRN PRN Reason: Constipation Discharge Medication List Acetaminophen Tab [Tylenol] 650 mg PO Q6H PRN 01/13/19 [History] Amantadine Syrup 50mg/5ml 100 mg PO DAILY 01/13/19 [History] Apixaban [Eliquis] 5 mg PO BID@0800,1600 01/13/19 [History] Aspirin 81 mg PO DAILY 01/13/19 [History] Atorvastatin [Lipitor] 40 mg PO HS@199901/13/19 [History] Docusate Oral Soln [Colace Oral Soln] 50 mg PO BID 01/13/19 [History] Famotidine [Pepcid] 20 mg PO BID 01/13/19 [History] Isosorbide Dinitrate 30 mg PO TID@0500,1300,2100 01/13/19 [History] Magnesium 400 mg PO DAILY 01/13/19 [History] Melatonin 5 mg PO DAILY@199901/13/19 [History] Metoclopramide [Reglan] 10 mg PO TID@0500,1300,209901/13/19 [History] Metoprolol Tartrate [Lopressor] 25 mg PO BID 01/13/19 [History] Multivits,Th W-Ca,Fe,Oth Min [Therapeutic M] 1 tab PO DAILY 01/13/19 [History] Polyethylene Glycol 3350 [Miralax] 17 gm PO DAILY 01/13/19 [History] Sennosides [Senna] 8.6 mg PO BID@0800,1600 01/13/19 [History] Spironolactone [Aldactone] 50 mg PO BID@0800,1600 01/13/19 [History] Thiamine [Vitamin B-1] 100 mg PO DAILY 01/13/19 [History] Valproic Acid 250 mg PO DAILY 01/13/19 [History] amLODIPine [Norvasc] 5 mg PO BID@0800,1600 01/13/19 [History] cloNIDine HCL 0.3 mg PO TID@0500,1300,2100 01/13/19 [History] hydrALAZINE HCL [Apresoline] 25 mg PO TID@0500,1300,2100 01/13/19 [History] Magnesium Hydroxide [Milk of Magnesia] 2,400 mg PO DAILY PRN 01/29/19 [History] Omeprazole [PriLOSEC] 20 mg PO AC-BID #1 cap 01/30/19 [Rx] Follow up Appointment(s)/Referral(s): Ed Booker DO [Primary Care Provider] - 1-2 days
== END 2019-01-30 17:45 | disposition home or self-care (01) ==
LOC: EC 14:30 → 1SOBS 16:10
PROVIDERS: ADMIT Hospitalist; ATTEND Hospitalist
DX: R07.89 Other chest pain (principal); K21.9 Gastro-esophageal reflux disease without esophagitis; I25.2 Old myocardial infarction; F17.210 Nicotine dependence, cigarettes, uncomplicated; I11.9 Hypertensive heart disease without heart failure; Z93.1 Gastrostomy status; R47.1 Dysarthria and anarthria; R13.10 Dysphagia, unspecified; E78.5 Hyperlipidemia, unspecified; I69.354 Hemiplegia and hemiparesis following cerebral infarction affecting left non-dominant side; I69.320 Aphasia following cerebral infarction; R00.1 Bradycardia, unspecified; I44.0 Atrioventricular block, first degree; I71.2 Thoracic aortic aneurysm, without rupture; Z79.899 Other long term (current) drug therapy; Z79.01 Long term (current) use of anticoagulants; Z79.82 Long term (current) use of aspirin; Z86.718 Personal history of other venous thrombosis and embolism; Z87.448 Personal history of other diseases of urinary system; Z98.890 Other specified postprocedural states
CPT/HCPCS: 93005 ×2; 99285; 36415; 80061; 80053; 83735; 84484 ×2; 85025; 85610; 85730; 71046; G0378 ×2

== ENCOUNTER 2019-02-21 02:42 | Inpatient (IN) | payer MEDICARE, OTHER ==
--- NOTE | 2019-02-21 03:09 | XR ---
EXAMINATION TYPE: XR chest 2V DATE OF EXAM: 02/21/2019 COMPARISON: 01/29/2019 HISTORY: Chest pain TECHNIQUE: FINDINGS: There is no heart failure nor confluent pneumonic infiltrate. Costophrenic angles are clear . There are chest leads. Thoracic aorta is atheromatous. IMPRESSION: No active cardiopulmonary disease. No change.
[2019-02-21 03:19] LABS: Partial Thromboplastin Time 23.4 sec (22.0-30.0); Prothrombin Time 10.3 sec (9.0-12.0)
[2019-02-21 03:24] LABS: ALT 49 U/L (4-49); AST 28 U/L (17-59); African American GFR (CKD) >90 (>60 ml/min/1.73 sqM); Albumin 4.1 g/dL (3.5-5.0); Alkaline Phosphatase 102 U/L (38-126); Anion Gap 7 mmol/L; Blood Urea Nitrogen 15 mg/dL (9-20); Carbon Dioxide 28 mmol/L (22-30); Chloride 104 mmol/L (98-107); Glucose 118 mg/dL (74-99); Magnesium 2.4 mg/dL (1.6-2.3); Non-African American GFR(CKD) >90 (>60 ml/min/1.73 sqM); Potassium 4.5 mmol/L (3.5-5.1); Sodium 139 mmol/L (137-145); Total Bilirubin 0.3 mg/dL (0.2-1.3); Total Protein 7.5 g/dL (6.3-8.2)
--- NOTE | 2019-02-21 03:53 | ED ---
General Adult HPI - General Source: patient, EMS, RN notes reviewed, old records reviewed Mode of arrival: wheelchair Limitations: language barrier, altered mental status, physical limitation <Jose Cha - Last Filed: 02/21/19 04:03> <Octavia Beatty - Last Filed: 02/21/19 04:17> - General Chief complaint: Chest Pain Stated complaint: chest pain Time Seen by Provider: 02/21/19 02:43 - History of Present Illness Initial comments: 63-year-old male patient past history significant for prior MT, prior DVT, hypertension, CVA with residual deficit presents to ED for chief complaint chest pain. Patient estimated he has had left parasternal chest pain for the last 2 days. Denies any shortness of breath. Denies any other associated symptoms. Denies any complaints at this time. Systemic: Pt denies fatigue, fever/chills, rash. Pt denies weakness, night sweats, weight loss. Neuro: Pt denies headache, visual disturbances, syncope or pre-syncope. HEENT: Pt denies ocular discharge or irritation, otalgia, rhinorrhea, pharyngitis or notable lymphadenopathy. Cardiopulmonary: Pt denies SOB, heart palpitations, dyspnea on exertion. Abdominal/GI: Pt denies abdominal pain, n/v/d. : Pt denies dysuria, burning w/ urination, frequency/urgency. Denies new onset urinary or bowel incontinence. MSK: Pt denies myalgia, loss of strength or function in extremities. Neuro: Pt denies new onset weakness, paresthesias. (Jose Cha) - Related Data Home Medications Medication Instructions Recorded Confirmed Acetaminophen Tab [Tylenol] 650 mg PO Q6H PRN 01/13/19 01/29/19 Amantadine Syrup 50mg/5ml 100 mg PO DAILY 01/13/19 01/29/19 Apixaban [Eliquis] 5 mg PO BID@0800,1600 01/13/19 01/29/19 Aspirin 81 mg PO DAILY 01/13/19 01/29/19 Atorvastatin [Lipitor] 40 mg PO HS@2000 01/13/19 01/29/19 Docusate Oral Soln [Colace Oral 50 mg PO BID 01/13/19 01/29/19 Soln] Famotidine [Pepcid] 20 mg PO BID 01/13/19 01/29/19 Isosorbide Dinitrate 30 mg PO TID@0500,1300,2100 01/13/19 01/29/19 Magnesium 400 mg PO DAILY 01/13/19 01/29/19 Melatonin 5 mg PO DAILY@199901/13/19 01/29/19 Metoclopramide [Reglan] 10 mg PO TID@0500,1300,2100 01/13/19 01/29/19 Metoprolol Tartrate [Lopressor] 25 mg PO BID 01/13/19 01/29/19 Multivits,Th W-Ca,Fe,Oth Min 1 tab PO DAILY 01/13/19 01/29/19 [Therapeutic M] Polyethylene Glycol 3350 [Miralax] 17 gm PO DAILY 01/13/19 01/29/19 Sennosides [Senna] 8.6 mg PO BID@0800,1600 01/13/19 01/29/19 Spironolactone [Aldactone] 50 mg PO BID@0800,1600 01/13/19 01/29/19 Thiamine [Vitamin B-1] 100 mg PO DAILY 01/13/19 01/29/19 Valproic Acid 250 mg PO DAILY 01/13/19 01/29/19 amLODIPine [Norvasc] 5 mg PO BID@0800,1600 01/13/19 01/29/19 cloNIDine HCL 0.3 mg PO TID@0500,1300,2100 01/13/19 01/29/19 hydrALAZINE HCL [Apresoline] 25 mg PO TID@0500,1300,2100 01/13/19 01/29/19 Magnesium Hydroxide [Milk of 2,400 mg PO DAILY PRN 01/29/19 01/29/19 Magnesia] Previous Rx's Medication Instructions Recorded Omeprazole [PriLOSEC] 20 mg PO AC-BID #1 cap 01/30/19 Allergies Allergy/AdvReac Type Severity Reaction Status Date / Time No Known Allergies Allergy Verified 02/21/19 02:52 Review of Systems ROS Other: All systems not noted in ROS Statement are negative. <Jose Cha - Last Filed: 02/21/19 04:03> ROS Other: All systems not noted in ROS Statement are negative. <Octavia Beatty - Last Filed: 02/21/19 04:17> ROS Statement: Those systems with pertinent positive or pertinent negative responses have been documented in the HPI. Past Medical History Past Medical History: CVA/TIA, Deep Vein Thrombosis (DVT), GERD/Reflux, Hyperlipidemia, Hypertension, Myocardial Infarction ([place]), Renal Disease Additional Past Medical History / Comment(s): Pt had a CVA with left sided weakness & aphasia in December of 2018, has a PEG tube, has been getting feedings at night & tolerating a pureed diet at [facility] with regular liquids Last Myocardial Infarction Date:: 01/13/19 History of Any Multi-Drug Resistant Organisms: None Reported Past Surgical History: Unable to Obtain, Heart Catheterization Past Anesthesia/Blood Transfusion Reactions: No Reported Reaction Past Psychological History: No Psychological Hx Reported Smoking Status: Former smoker Past Alcohol Use History: None Reported, Daily, Occasional Past Drug Use History: None Reported - Past Family History Father Family Medical History: No Reported History <Jose Cha - Last Filed: 02/21/19 04:03> General Exam Limitations: language barrier, altered mental status, physical limitation <Jose Cha - Last Filed: 02/21/19 04:03> - General Exam Comments Initial Comments: Constitutional: NAD, Pt has pleasant affect. HEENT: NC/AT, trachea midline, neck supple, no lymphadenopathy. Posterior pharynx non erythematous, without exudates. External ears appear normal, without discharge. Mucous membranes moist. Eyes PERRLA, EOM intact. There is no scleral icterus. No pallor noted. Cardiopulmonary: RRR, no murmurs, rubs or gallops, no JVD noted. Lungs CTAB in anterior and posterior [place]. No peripheral edema. Abdominal exam: Abdomen soft and non-distended. Abdomen non-tender to palpation in all 4 quadrants. Bowel sounds active in LLQ. No hepatosplenomegaly. No ecchymosis Neuro: CN II-XII grossly intact. No nuchal rigidity. No raccon eyes, no conner sign, no hemotympanum. No cervical spinal tenderness. MSK: No posterior calf tenderness bilaterally, homans sign negative bilaterally. Posterior tibialis and radial pulse +2 bilaterally. Sensation intact in upper and lower extremities. Full active ROM in upper and lower extremities, 5/5 stregnth. (Jose Cha) Course Vital Signs 02/21/19 02/21/19 02:46 03:54 Temperature 98.3 F 97.9 F Pulse Rate 68 Respiratory 14 Rate Blood Pressure 135/92 O2 Sat by Pulse 100 Oximetry Medical Decision Making - Lab Data Result diagrams: 02/21/19 02:55 02/21/19 02:55 <Jose Cha - Last Filed: 02/21/19 04:03> - Lab Data Result diagrams: 02/21/19 02:55 02/21/19 02:55 <Octavia Beatty - Last Filed: 02/21/19 04:17> - Medical Decision Making 63-year-old male patient presents ED for chief complaint chest pain reportedly for the last 2 days. Described as parasternal nature. Denies any associated symptoms. Patient vital signs are stable, afebrile. EKG didn't display change from prior. Patient signed out to attending physician Dr. Beatty pending workup (Jose Cha) - Lab Data Lab Results 02/21/19 02/21/19 02/21/19 Range/Units 02:55 02:55 02:55 WBC 7.6 (3.8-10.6) k/uL RBC 4.07 L (4.30-5.90) m/uL Hgb 12.3 L (13.0-17.5) gm/dL Hct 37.1 L (39.0-53.0) % MCV 91.1 (80.0-100.0) fL MCH 30.1 (25.0-35.0) pg MCHC 33.0 (31.0-37.0) g/dL RDW 15.7 H (11.5-15.5) % Plt Count 387 (150-450) k/uL Neutrophils % 53 % Lymphocytes % 33 % Monocytes % 7 % Eosinophils % 5 % Basophils % 1 % Neutrophils # 4.0 (1.3-7.7) k/uL Lymphocytes # 2.5 (1.0-4.8) k/uL Monocytes # 0.5 (0-1.0) k/uL Eosinophils # 0.4 (0-0.7) k/uL Basophils # 0.1 (0-0.2) k/uL PT 10.3 (9.0-12.0) sec INR 1.0 (<1.2) APTT 23.4 (22.0-30.0) sec Sodium 139 (137-145) mmol/L Potassium 4.5 (3.5-5.1) mmol/L Chloride 104 (98-107) mmol/L Carbon Dioxide 28 (22-30) mmol/L Anion Gap 7 mmol/L BUN 15 (9-20) mg/dL Creatinine 0.74 (0.66-1.25) mg/dL Est GFR (CKD-EPI)AfAm >90 (>60 ml/min/1.73 sqM) Est GFR (CKD-EPI)NonAf >90 (>60 ml/min/1.73 sqM) Glucose 118 H (74-99) mg/dL Calcium 10.0 (8.4-10.2) mg/dL Magnesium 2.4 H (1.6-2.3) mg/dL Total Bilirubin 0.3 (0.2-1.3) mg/dL AST 28 (17-59) U/L ALT 49 (4-49) U/L Alkaline Phosphatase 102 (38-126) U/L Troponin I (0.000-0.034) ng/mL Total Protein 7.5 (6.3-8.2) g/dL Albumin 4.1 (3.5-5.0) g/dL 02/21/19 Range/Units 02:55 WBC (3.8-10.6) k/uL RBC (4.30-5.90) m/uL Hgb (13.0-17.5) gm/dL Hct (39.0-53.0) % MCV (80.0-100.0) fL MCH (25.0-35.0) pg MCHC (31.0-37.0) g/dL RDW (11.5-15.5) % Plt Count (150-450) k/uL Neutrophils % % Lymphocytes % % Monocytes % % Eosinophils % % Basophils % % Neutrophils # (1.3-7.7) k/uL Lymphocytes # (1.0-4.8) k/uL Monocytes # (0-1.0) k/uL Eosinophils # (0-0.7) k/uL Basophils # (0-0.2) k/uL PT (9.0-12.0) sec INR (<1.2) APTT (22.0-30.0) sec Sodium (137-145) mmol/L Potassium (3.5-5.1) mmol/L Chloride (98-107) mmol/L Carbon Dioxide (22-30) mmol/L Anion Gap mmol/L BUN (9-20) mg/dL Creatinine (0.66-1.25) mg/dL Est GFR (CKD-EPI)AfAm (>60 ml/min/1.73 sqM) Est GFR (CKD-EPI)NonAf (>60 ml/min/1.73 sqM) Glucose (74-99) mg/dL Calcium (8.4-10.2) mg/dL Magnesium (1.6-2.3) mg/dL Total Bilirubin (0.2-1.3) mg/dL AST (17-59) U/L ALT (4-49) U/L Alkaline Phosphatase (38-126) U/L Troponin I 0.076 H* (0.000-0.034) ng/mL Total Protein (6.3-8.2) g/dL Albumin (3.5-5.0) g/dL Disposition <Jose Cha - Last Filed: 02/21/19 04:03> Is patient prescribed a controlled substance at d/c from ED?: No <Octavia Beatty - Last Filed: 02/21/19 04:17> Clinical Impression: Acute non-ST elevation myocardial infarction (NSTEMI) Disposition: ADMITTED IP TO THIS HOSP Condition: Serious Referrals: Ed Booker DO [Primary Care Provider] - 1-2 days
[2019-02-21 03:57] LABS: Basophils # (A) 0.1 k/uL (0-0.2); Basophils % (A) 1 %; Eosinophils # (A) 0.4 k/uL (0-0.7); Eosinophils % (A) 5 %; HCT 37.1 % (39.0-53.0); HGB 12.3 gm/dL (13.0-17.5); Lymphocytes # (A) 2.5 k/uL (1.0-4.8); Lymphocytes % (A) 33 %; MCH 30.1 pg (25.0-35.0); MCV 91.1 fL (80.0-100.0); Mean Platelet Volume 7.1; Monocytes # (A) 0.5 k/uL (0-1.0); Monocytes % (A) 7 %; Neutrophils % (A) 53 %; Platelet Count 387 k/uL (150-450); RBC 4.07 m/uL (4.30-5.90); RDW 15.7 % (11.5-15.5); WBC 7.6 k/uL (3.8-10.6)
[2019-02-21] MEDS ORDERED: HEPARIN SODIUM,PORCINE 5,000 UNIT/ML 1 ML VIAL IV ONE (04:09)
[2019-02-21] MEDS ORDERED: MORPHINE SULFATE 2 MG/ML SYRINGE IVP STA (04:27)
[2019-02-21] MEDS: NITROGLYCERIN OINT 1 INCH/GM PACKET TOPICAL SCH ×3 (04:27→18:51)
[2019-02-21] MEDS: HEPARIN SOD,PORK IN 0.45% NACL 25,000 UNIT in 0.45% NACL 1 250ML.BAG IV SCH (04:28)
[2019-02-21] MEDS ORDERED: ISOSORBIDE MONONITRATE ER 30 MG TAB.ER.24H PO SCH (10:15)
[2019-02-21] MEDS ORDERED: MAGNESIUM HYDROXIDE 2,400 MG/10 ML CUP PO PRN (10:52)
[2019-02-21] MEDS: hydrALAZINE HCL 25 MG TAB PO SCH ×2 (12:47→20:26)
[2019-02-21] MEDS: METOPROLOL TARTRATE 25 MG TAB PO SCH ×2 (12:47→20:28)
[2019-02-21] MEDS: cloNIDine HCL 0.1 MG TAB PO SCH ×2 (12:47→20:39)
[2019-02-21] MEDS: AMANTADINE HCL 100 MG/10 ML CUP PO SCH (12:47)
[2019-02-21] MEDS: ASPIRIN 81 MG PO SCH (12:49)
[2019-02-21] MEDS: METOCLOPRAMIDE 10 MG TAB PO SCH ×2 (12:49→20:27)
[2019-02-21] MEDS ORDERED: ISOSORBIDE DINITRATE 30 MG PO SCH (13:00)
[2019-02-21] MEDS: amLODIPine 5 MG TAB PO SCH ×2 (13:02→20:27)
--- NOTE | 2019-02-21 13:43 | P.CRDCN ---
History of Present Illness Consult date: 02/21/19 Reason for Consult (text): Chest pian Consult reason: chest pain Chief complaint: Chest pain History of present illness: HISTORY OF PRESENT ILLNESS AND PLAN: This is a 63-year-old male with history of smoking history, PEG tube insertion, mild mental delay, hypertension, CVA with residual deficits, non-obstructive CAD via cardiac cath and CO. Patient currently lying in bed in no acute distress. Patient is alert and oriented 1 and seems to be a poor historian/confused. Pt is hard to understand as well. Patient currently resides at [facility]. Patient has had on and off chest pain for approximately 2 months and presented to ER with complaints of parasternal chest pain over the past 2 days. Patient had recent cardiac cath on 01/13/2019 which showed no obstructive CAD. Most recent echo shows preserved ejection fraction of 55-60% with severe concentric LVH. Grade [address] of chest on 01/14/2019 shows stable 4.2 cm ascending thoracic aneurysm. Patient currently lying in bed with complaints of continued chest pain. Troponins are equivocal. DX of chest is within normal limits. Tele shows sinus rhythm first degree block with known T wave depression. Current BP 150/90 heart rate 56. Afebrile. 100% oxygen saturation on 2 L of O2. D-dimer WNL. [id number]. SIGNIFICANT PAST MEDICAL HISTORY: Smoking history, PEG tube insertion, mild men dilshad delay, hypertension, CVA with residual deficits, non-obstructive CAD via cardiac cath and CO. PAST SURGICAL HISTORY: See list. EKG = SR 1st degree block with ST depression, HR 55 Troponins positive at 0.076, 0.059 SIGNIFICANT LABORATORY VALUES: CBC WNL. BMP, WNL. D-dimer WNL. B and [id number]. Chest x-ray - negative acute process. CT of chest 01/14/2019 = 4.2 cm ascending thoracic aneurysm. Most recent echo = EF 55-60%, severe concentric LVH. Grade 1 diastolic dysfunction. Mild MR. Mild TR. Most recent cardiac cath = 01/13/2019 no obstructive CAD. REVIEW OF SYSTEMS: CONSTITUTIONAL: Denies fever. Denies chills. EYES: Denies blurred vision. Denies blurred vision or vision changes. Denies eye pain. EARS, NOSE, MOUTH & THROAT: Denies headache. Denies sore throat. Denies ear pain Denies hemoptysis. CARDIOVASCULAR: C/O chest pain. Denies shortness of breath. Denies orthopnea. Denies PND. Denies palpitations. RESPIRATORY: Denies cough. Denies shortness of breath. GASTROINTESTINAL: Denies abdominal pain or distention. Denies diarrhea. Denies constipation. Denies nausea. Denies vomiting. MUSCULOSKELETAL: Denies myalgias. INTEGUMENTARY: Denies pruitis. Denies rash. ENDOCRINE: Denies fatigue. Denies weight change. Denies polydipsia. Denies polyu ej Denies heat/cold intolerance. GENITOURINARY: Denies burning, hematuria or urgency with micturation. HEMATOLOGIC: Denies history of anemia. Denies bleeding. NEUROLOGIC: Denies numbness. Denies tingling. Denies weakness. PSYCHIATRIC: Denies anxiety. Denies depression. PHYSICAL EXAM: VITAL SIGNS: 150/90 heart rate 56. Afebrile. 100% oxygen saturation on 2 L of O2. GENERAL: Well developed, in no acute distress. HEENT: Head is atraumatic, normocephalic. Pupils are equal, round. Extra ocular movements intact. Mucous membranes moist. Neck supple. No JVD. No carotid bruit. No thyromegaly. LUNGS: Mildly diminished to auscultation. No wheezes, rales or rhonchi. No chest wall tenderness on palpation or with deep breathing. HEART: Regular rate and rhythm, no rubs or gallops. S1 and S2 heard. No murmur. ABDOMEN: Abdominal exam, WNL. Bowel sounds x4 quads. Soft, non-tender, without masses, organomegaly, or abdominal aorta enlargement. EXTREMITIES/VASCULAR: Extremities have easily palpable radial, femoral, dorsalis pedis and posterior tibial pulses. No cyanosis, calf tenderness. No BLE edema. NEUROLOGIC: Patient is awake, alert and oriented x1. No focal neurologic abnormalities. FINAL IMPRESSION: 1. Atypical chest pain - no acute cardiology process. 2. CVA history 3. Hypertension 4. Non-obstructive CAD 5. Stable ascending thoracic aneurysm PLAN: START isosorbide mononitrate 60 mg daily. No acute cardiology process. Equivocal troponins. Continue same all other medical/medication regime. Heart healthy diet. OK for discharge from a cardiology standpoint. Nurse Practitioner note has been reviewed by the Physician. Signing provider agrees with the documented findings, assessment and plan of care. Past Medical History Past Medical History: Unable to Obtain, CVA/TIA, Deep Vein Thrombosis (DVT), GERD/Reflux, Hyperlipidemia, Hypertension, Myocardial Infarction (CO), Renal Disease Additional Past Medical History / Comment(s): Pt had a CVA with left sided weakness & aphasia in December of 2018, has a PEG tube, has been getting feedings at night & tolerating a pureed diet at [facility] with regular liquids. (Pt is alert with confusion, using information from previous admission.) Last Myocardial Infarction Date:: 01/13/19 History of Any Multi-Drug Resistant Organisms: None Reported Past Surgical History: Unable to Obtain, Heart Catheterization Additional Past Surgical History / Comment(s): pt is alert with confusion, using information from previous admission Past Anesthesia/Blood Transfusion Reactions: No Reported Reaction Additional Past Anesthesia/Blood Transfusion Reaction / Comment(s): pt is alert with confusion, using information from previous admission Past Psychological History: No Psychological Hx Reported Additional Psychological History / Comment(s): pt is alert with confusion, using information from previous admission Smoking Status: Former smoker Past Alcohol Use History: None Reported, Occasional Past Drug Use History: None Reported - Past Family History Father Family Medical History: No Reported History Medications and Allergies Home Medications Medication Instructions Recorded Confirmed Type Acetaminophen Tab [Tylenol] 650 mg PO Q6H PRN 01/13/19 02/21/19 History Amantadine Syrup 50mg/5ml 100 mg PO DAILY 01/13/19 02/21/19 History Apixaban [Eliquis] 5 mg PO BID@0800,1600 01/13/19 02/21/19 History Aspirin 81 mg PO DAILY 01/13/19 02/21/19 History Atorvastatin [Lipitor] 40 mg PO HS@199901/13/19 02/21/19 History Docusate Oral Soln [Colace Oral 50 mg PO BID 01/13/19 02/21/19 History Soln] Famotidine [Pepcid] 20 mg PO BID 01/13/19 02/21/19 History Isosorbide Dinitrate 30 mg PO TID@0500,1300,2100 01/13/19 02/21/19 History Magnesium 400 mg PO DAILY@0600 01/13/19 02/21/19 History Melatonin 5 mg PO DAILY@199901/13/19 02/21/19 History Metoclopramide [Reglan] 10 mg PO TID@0500,1300,2100 01/13/19 02/21/19 History Metoprolol Tartrate [Lopressor] 25 mg PO BID 01/13/19 02/21/19 History Multivits,Th W-Ca,Fe,Oth Min 1 tab PO DAILY 01/13/19 02/21/19 History [Therapeutic M] Polyethylene Glycol 3350 [Miralax] 17 gm PO DAILY@0600 01/13/19 02/21/19 History Sennosides [Senna] 8.6 mg PO BID 01/13/19 02/21/19 History Spironolactone [Aldactone] 50 mg PO BID@0800,1600 01/13/19 02/21/19 History Thiamine [Vitamin B-1] 100 mg PO DAILY 01/13/19 02/21/19 History Valproic Acid 250 mg PO DAILY@0600 01/13/19 02/21/19 History amLODIPine [Norvasc] 5 mg PO BID 01/13/19 02/21/19 History cloNIDine HCL 0.3 mg PO TID@0500,1300,2100 01/13/19 02/21/19 History hydrALAZINE HCL [Apresoline] 25 mg PO TID@0500,1300,2100 01/13/19 02/21/19 History Magnesium Hydroxide [Milk of 2,400 mg PO DAILY PRN 01/29/19 02/21/19 History Magnesia] Omeprazole [PriLOSEC] 20 mg PO BID@0500,1700 02/21/19 02/21/19 History Allergies Allergy/AdvReac Type Severity Reaction Status Date / Time No Known Allergies Allergy Verified 02/21/19 09:03 Physical Exam Vitals: Vital Signs Temp Pulse Pulse Resp BP BP Pulse Ox 02/21/19 12:00 98.4 F 59 L 18 127/89 100 02/21/19 08:00 98.2 F 52 L 18 151/95 98 02/21/19 07:30 97.8 F 55 L 18 149/90 100 02/21/19 06:50 98.6 F 56 L 15 02/21/19 06:31 48 L 12 150/91 100 02/21/19 05:25 51 L 17 138/92 100 02/21/19 03:54 97.9 F 55 L 16 142/90 100 02/21/19 02:46 98.3 F 68 14 135/92 100 Intake and Output 02/20/19 02/21/19 02/21/19 22:59 06:59 14:59 Intake Total 58.837 Balance 58.837 Intake: Intake, IV Titration 58.837 Amount Heparin Sod,Pork in 0.45% 58.837 NaCl 25,000 unit In 0.45 % NaCl 1 250ml.bag @ 10. 26 UNITS/KG/HR 10.006 mls /hr IV .Q24H [facility] Rx#: [id number] Other: Weight 97.522 kg 84 kg Results 02/21/19 02:55 02/21/19 02:55 Cardiac Enzymes 02/21/19 02/21/19 02/21/19 Range/Units 02:55 02:55 08:35 AST 28 (17-59) U/L Troponin I 0.076 H* 0.051 H* (0.000-0.034) ng/mL Coagulation 02/21/19 02/21/19 Range/Units 02:55 10:35 PT 10.3 (9.0-12.0) sec APTT 23.4 58.1 H (22.0-30.0) sec CBC 02/21/19 Range/Units 02:55 WBC 7.6 (3.8-10.6) k/uL RBC 4.07 L (4.30-5.90) m/uL Hgb 12.3 L (13.0-17.5) gm/dL Hct 37.1 L (39.0-53.0) % Plt Count 387 (150-450) k/uL Comprehensive Metabolic Panel 02/21/19 Range/Units 02:55 Sodium 139 (137-145) mmol/L Potassium 4.5 (3.5-5.1) mmol/L Chloride 104 (98-107) mmol/L Carbon Dioxide 28 (22-30) mmol/L BUN 15 (9-20) mg/dL Creatinine 0.74 (0.66-1.25) mg/dL Glucose 118 H (74-99) mg/dL Calcium 10.0 (8.4-10.2) mg/dL AST 28 (17-59) U/L ALT 49 (4-49) U/L Alkaline Phosphatase 102 (38-126) U/L Total Protein 7.5 (6.3-8.2) g/dL Albumin 4.1 (3.5-5.0) g/dL Current Medications Generic Name Dose Route Start Last Admin Trade Name Freq PRN Reason Stop Dose Admin Acetaminophen 650 mg 02/21/19 10:52 Tylenol Tab PO Q6H PRN Fever Amantadine HCl 100 mg 02/21/19 11:15 02/21/19 12:47 Symmetrel PO 100 mg DAILY [facility] Administration Amlodipine Besylate 5 mg 02/21/19 11:15 02/21/19 13:02 Norvasc PO Not Given BID [facility] Aspirin 81 mg 02/21/19 11:15 02/21/19 12:49 Aspirin PO 81 mg DAILY [facility] Administration Atorvastatin Calcium 40 mg 02/21/19 20:00 Lipitor PO HS@2000 [facility] Clonidine 0.3 mg 02/21/19 13:00 02/21/19 12:47 Catapres PO 0.3 mg TID@0500,1300,2100 [facility] Administration Docusate Sodium 50 mg 02/21/19 21:00 Colace Oral Soln PO BID [facility] Famotidine 20 mg 02/21/19 21:00 Pepcid PO BID [facility] Hydralazine HCl 25 mg 02/21/19 13:00 02/21/19 12:47 Apresoline PO 25 mg TID@0500,1300,2100 [facility] Administration Heparin Sodium/Sodium Chloride 250 mls @ 10.006 mls/hr 02/21/19 04:15 02/21/19 10:30 25,000 unit/ Sodium Chloride IV 10 units/kg/hr .Q24H [facility] 9.752 mls/hr Titration Protocol 10.26 UNITS/KG/HR Isosorbide Mononitrate 30 mg 02/21/19 10:15 02/21/19 10:19 Imdur PO 30 mg DAILY [facility] Administration Magnesium Hydroxide 2,400 mg 02/21/19 10:52 Milk Of Magnesia PO DAILY PRN Constipation Magnesium Oxide 400 mg 02/22/19 06:00 Mag-Ox PO DAILY@0600 [facility] Melatonin 5 mg 02/21/19 20:00 Melatonin PO DAILY@2000 [facility] Metoclopramide HCl 10 mg 02/21/19 13:00 02/21/19 12:49 Reglan PO 10 mg TID@0500,1300,2100 [facility] Administration Metoprolol Tartrate 25 mg 02/21/19 11:15 02/21/19 12:47 Lopressor PO 25 mg BID [facility] Administration Multivitamins 1 each 02/22/19 09:00 Theragran PO DAILY [facility] Nitroglycerin 1 inch 02/21/19 06:00 02/21/19 12:48 Nitro-Bid Oint TOPICAL 1 inch Q6HR [facility] Administration Non-Formulary Medication 30 mg 02/21/19 13:00 Isosorbide Dinitrate [Isosorbide Dinitrate] PO TID@0500,1300,2100 [facility] Pantoprazole Sodium 40 mg 02/21/19 17:00 Protonix PO BID@0500,1700 [facility] Polyethylene Glycol 17 gm 02/22/19 06:00 Miralax PO DAILY@0600 [facility] Senna 8.6 mg 02/21/19 21:00 Senokot PO BID [facility] Spironolactone 50 mg 02/21/19 16:00 Aldactone PO BID@0800,1600 [facility] Thiamine HCl 100 mg 02/22/19 09:00 Vitamin B-1 PO DAILY [facility] Valproic Acid 250 mg 02/22/19 06:00 Depakene Syrup PO DAILY@0600 [facility] Intake and Output 02/20/19 02/21/19 02/21/19 22:59 06:59 14:59 Intake Total 58.837 Balance 58.837 Intake: Intake, IV Titration 58.837 Amount Heparin Sod,Pork in 0.45% 58.837 NaCl 25,000 unit In 0.45 % NaCl 1 250ml.bag @ 10. 26 UNITS/KG/HR 10.006 mls /hr IV .Q24H [facility] Rx#: [id number] Other: Weight 97.522 kg 84 kg Patient Weight 02/22/19 06:59 Weight 84 kg 02/21/19 02:55 02/21/19 02:55 - EKG Interpretation EKG: sinus rhythm
[2019-02-21] MEDS ORDERED: ISOSORBIDE MONONITRATE ER 30 MG TAB.ER.24H PO STA (13:45)
[2019-02-21] MEDS: SPIRONOLACTONE 25 MG TAB PO SCH (15:47)
[2019-02-21] MEDS: PANTOPRAZOLE 40 MG TABLET PO SCH (18:51)
[2019-02-21] MEDS ORDERED: ATORVASTATIN 40 MG TAB PO SCH (20:00)
[2019-02-21] MEDS ORDERED: MELATONIN 5 MG TABLET PO SCH (20:00)
[2019-02-21] MEDS: ACETAMINOPHEN TAB 325 MG TAB PO PRN (20:27)
[2019-02-21] MEDS: SENNOSIDES 8.6 MG TAB PO SCH (20:28)
[2019-02-21] MEDS: FAMOTIDINE 20 MG TAB PO SCH (20:28)
[2019-02-21] MEDS: DOCUSATE ORAL SOLN 100 MG/10 ML CUP PO SCH (20:29)
--- NOTE | 2019-02-21 20:30 | P.HPIM ---
History of Present Illness H&P Date: 02/21/19 Chief Complaint: Chest pain History of presenting complaint: This is a 63-year-old patient of Dr. Booker resident of [facility]. Chronic stable medical conditions include GERD, ascending aortic aneurysm 4.2 cm, hypertension, hyperlipidemia has a PEG tube Had a previous stroke with left-sided weakness. Patient nonambulatory. Patient has severe dysarthria, but does does attempt to speak. Patient's was in the hospital on January 2019 with an acute NV. Cardiac catheterization showed normal coronaries. 2-D echo showed an EF of 55-60%. Patient did indicate presented with chest pain. The precordial area. Unclear if indicated. No dizziness no lightheadedness. Unsure of the duration. Not present after he arrived here. Review of systems: GEN.: Tired EYES: None HEENT: None NECK: None RESPIRATORY: Occasional short of breath CARDIOVASCULAR: Left precordial pain GASTROINTESTINAL: PEG tube GENITOURINARY: None MUSCULOSKELETAL: None LYMPHATICS: None HEMATOLOGICAL: None PSYCHIATRY: None NEUROLOGICAL: Left-sided weakness and dysarthria Past history to include: Stroke with left-sided weakness, DVT, GERD, hypertension, hyperlipidemia, 2 feeding at night . Diet during daytime with regular liquids. Negative cardiac catheterization in January 2019 Social history: Patient is a smoker. Currently a resident of [facility] Family history: Cannot tell Physical examination: VITAL SIGNS: 98.3, 68, 14, 135/92, 100% room air GENERAL: BMI 25.8, sitting up awake EYES: Pupils equal. Conjunctiva normal. HEENT: External appearance of nose and ears normal, oral cavity grossly normal. NECK: JVD not raised; masses not palpable. HEART: First and second heart sounds are normal; no edema. LUNGS: Respiratory rate normal; decreased breath sounds. ABDOMEN: Soft, nontender, liver spleen not palpable, no masses palpable. PEG tube in place PSYCH: Unable to assess l. NEUROLOGICAL: dysarthria, weakness on the left side. LYMPHATICS: No lymph nodes palpable in the axilla and neck INVESTIGATIONS, reviewed in the clinical context: White count 7.6 hemoglobin 12.3 platelets 397 potassium 4.5 creatinine 0.74 Troponin I 0.076, 0.05 on ProBNP 1650 EKG tracing personally reviewed by me shows flipped T waves from V3 to V6 Chest x-ray film personally reviewed by me-cardiomegaly with lung mendenhall clear Assessment: -Left precordial pain with some troponin leak, flipped T waves in anterior leads, but normal cardiac catheterization in January 2019 - acute non-Q-wave myocardial infarction. 01/13/2019. Cardiac catheterization showed normal coronaries -Chronic nicotine dependence patient cigarette smoker -Essential hypertension -Chronic nicotine dependence cigarette smoker -PEG tube and is using at night -Severe dysarthria -Dysphagia -pured diet. tube feeding at night. -GERD Plan: -Home medications are continued. Cardiology was consulted. Patient is put on a pured diet. Feeding to be assisted. Back to be resumed as before. Wonder if there is a component of viral myocarditis. He is currently symptom free Past Medical History Past Medical History: Unable to Obtain, CVA/TIA, Deep Vein Thrombosis (DVT), GERD/Reflux, Hyperlipidemia, Hypertension, Myocardial Infarction (NV), Renal Disease Additional Past Medical History / Comment(s): Pt had a CVA with left sided weakness & aphasia in December of 2018, has a PEG tube, has been getting feedings at night & tolerating a pureed diet at [facility] with regular liquids. (Pt is alert with confusion, using information from previous admission.) Last Myocardial Infarction Date:: 01/13/19 History of Any Multi-Drug Resistant Organisms: None Reported Past Surgical History: Unable to Obtain, Heart Catheterization Additional Past Surgical History / Comment(s): pt is alert with confusion, using information from previous admission Past Anesthesia/Blood Transfusion Reactions: No Reported Reaction Additional Past Anesthesia/Blood Transfusion Reaction / Comment(s): pt is alert with confusion, using information from previous admission Past Psychological History: No Psychological Hx Reported Additional Psychological History / Comment(s): pt is alert with confusion, using information from previous admission Smoking Status: Former smoker Past Alcohol Use History: None Reported, Occasional Past Drug Use History: None Reported - Past Family History Father Family Medical History: No Reported History Medications and Allergies Home Medications Medication Instructions Recorded Confirmed Type Acetaminophen Tab [Tylenol] 650 mg PO Q6H PRN 01/13/19 02/21/19 History Amantadine Syrup 50mg/5ml 100 mg PO DAILY 01/13/19 02/21/19 History Apixaban [Eliquis] 5 mg PO BID@0800,1600 01/13/19 02/21/19 History Aspirin 81 mg PO DAILY 01/13/19 02/21/19 History Atorvastatin [Lipitor] 40 mg PO HS@199901/13/19 02/21/19 History Docusate Oral Soln [Colace Oral 50 mg PO BID 01/13/19 02/21/19 History Soln] Famotidine [Pepcid] 20 mg PO BID 01/13/19 02/21/19 History Isosorbide Dinitrate 30 mg PO TID@0500,1300,209901/13/19 02/21/19 History Magnesium 400 mg PO DAILY@0600 01/13/19 02/21/19 History Melatonin 5 mg PO DAILY@199901/13/19 02/21/19 History Metoclopramide [Reglan] 10 mg PO TID@0500,1300,209901/13/19 02/21/19 History Metoprolol Tartrate [Lopressor] 25 mg PO BID 01/13/19 02/21/19 History Multivits,Th W-Ca,Fe,Oth Min 1 tab PO DAILY 01/13/19 02/21/19 History [Therapeutic M] Polyethylene Glycol 3350 [Miralax] 17 gm PO DAILY@0600 01/13/19 02/21/19 History Sennosides [Senna] 8.6 mg PO BID 01/13/19 02/21/19 History Spironolactone [Aldactone] 50 mg PO BID@0800,1600 01/13/19 02/21/19 History Thiamine [Vitamin B-1] 100 mg PO DAILY 01/13/19 02/21/19 History Valproic Acid 250 mg PO DAILY@0600 01/13/19 02/21/19 History amLODIPine [Norvasc] 5 mg PO BID 01/13/19 02/21/19 History cloNIDine HCL 0.3 mg PO TID@0500,1300,209901/13/19 02/21/19 History hydrALAZINE HCL [Apresoline] 25 mg PO TID@0500,1300,2100 01/13/19 02/21/19 History Magnesium Hydroxide [Milk of 2,400 mg PO DAILY PRN 01/29/19 02/21/19 History Magnesia] Omeprazole [PriLOSEC] 20 mg PO BID@0500,1700 02/21/19 02/21/19 History Allergies Allergy/AdvReac Type Severity Reaction Status Date / Time No Known Allergies Allergy Verified 02/21/19 09:03 Physical Exam Vitals: Vital Signs Temp Pulse Pulse Resp BP BP Pulse Ox 02/21/19 19:06 100 02/21/19 15:55 97.9 F 52 L 18 127/86 100 02/21/19 12:00 98.4 F 59 L 18 127/89 100 02/21/19 08:00 98.2 F 52 L 18 151/95 98 02/21/19 07:30 97.8 F 55 L 18 149/90 100 02/21/19 06:50 98.6 F 56 L 15 02/21/19 06:31 48 L 12 150/91 100 02/21/19 05:25 51 L 17 138/92 100 02/21/19 03:54 97.9 F 55 L 16 142/90 100 02/21/19 02:46 98.3 F 68 14 135/92 100 Intake and Output 02/21/19 02/21/19 02/21/19 06:59 14:59 22:59 Intake Total 178.837 120 Balance 178.837 120 Intake: Intake, IV Titration 58.837 Amount Heparin Sod,Pork in 0.45% 58.837 NaCl 25,000 unit In 0.45 % NaCl 1 250ml.bag @ 10. 26 UNITS/KG/HR 10.006 mls /hr IV .Q24H [facility] Rx#: [id number] Oral 120 120 Other: # Voids 1 Weight 97.522 kg 84 kg Results CBC & Chem 7: 02/21/19 02:55 02/21/19 02:55 Labs: Abnormal Lab Results - Last 24 Hours (Table) 02/21/19 02/21/19 02/21/19 Range/Units 02:55 02:55 02:55 RBC 4.07 L (4.30-5.90) m/uL Hgb 12.3 L (13.0-17.5) gm/dL Hct 37.1 L (39.0-53.0) % RDW 15.7 H (11.5-15.5) % APTT (22.0-30.0) sec Glucose 118 H (74-99) mg/dL Magnesium 2.4 H (1.6-2.3) mg/dL Troponin I 0.076 H* (0.000-0.034) ng/mL 02/21/19 02/21/19 02/21/19 Range/Units 08:35 10:35 14:51 RBC (4.30-5.90) m/uL Hgb (13.0-17.5) gm/dL Hct (39.0-53.0) % RDW (11.5-15.5) % APTT 58.1 H (22.0-30.0) sec Glucose (74-99) mg/dL Magnesium (1.6-2.3) mg/dL Troponin I 0.051 H* 0.045 H* (0.000-0.034) ng/mL Thrombosis Risk Factor Assmnt - Choose All That Apply Each Factor Represents 1 point: Medical pt on bed rest Each Risk Factor Represents 2 Points: Age 61-74 years Thrombosis Risk Factor Assessment Total Risk Factor Score: 3 Thrombosis Risk Factor Assessment Level: Moderate Risk
[2019-02-22] MEDS: NITROGLYCERIN OINT 1 INCH/GM PACKET TOPICAL SCH ×3 (00:05→12:11)
[2019-02-22] MEDS: HEPARIN SOD,PORK IN 0.45% NACL 25,000 UNIT in 0.45% NACL 1 250ML.BAG IV SCH (05:22)
[2019-02-22] MEDS: hydrALAZINE HCL 25 MG TAB PO SCH ×2 (05:28→12:11)
[2019-02-22] MEDS: cloNIDine HCL 0.1 MG TAB PO SCH ×2 (05:28→12:11)
[2019-02-22] MEDS: PANTOPRAZOLE 40 MG TABLET PO SCH (05:28)
[2019-02-22] MEDS: METOCLOPRAMIDE 10 MG TAB PO SCH ×2 (05:28→12:11)
[2019-02-22] MEDS: ACETAMINOPHEN TAB 325 MG TAB PO PRN (05:35)
[2019-02-22] MEDS ORDERED: MAGNESIUM OXIDE 400 MG TAB PO SCH (06:00)
[2019-02-22] MEDS ORDERED: VALPROIC ACID ORAL SOLN 250 MG/5 ML CUP PO SCH (06:00)
[2019-02-22] MEDS ORDERED: POLYETHYLENE GLYCOL 3350 17 GM POWD.PACK PO SCH (06:00)
[2019-02-22 06:39] LABS: Cholesterol 133 mg/dL (<200); HDL Cholesterol 43 mg/dL (40-60); LDL Cholesterol,Calculated 66 mg/dL (0-99); Triglycerides 119 mg/dL (<150)
[2019-02-22] MEDS ORDERED: ISOSORBIDE MONONITRATE ER 60 MG TAB.ER.24H PO SCH (09:00)
[2019-02-22] MEDS ORDERED: THIAMINE 100 MG TAB PO SCH (09:00)
[2019-02-22] MEDS ORDERED: MULTIVITAMINS, THERA 1 EACH TAB PO SCH (09:00)
[2019-02-22] MEDS ORDERED: ASPIRIN 325 MG TAB PO SCH (09:00)
[2019-02-22 10:08] VITALS: PULSE 50; RESP 16; TEMP 98.1
[2019-02-22] MEDS: ASPIRIN 81 MG PO SCH (10:08)
[2019-02-22] MEDS: SENNOSIDES 8.6 MG TAB PO SCH (10:08)
[2019-02-22] MEDS: DOCUSATE ORAL SOLN 100 MG/10 ML CUP PO SCH (10:08)
[2019-02-22] MEDS: amLODIPine 5 MG TAB PO SCH (10:08)
[2019-02-22] MEDS: METOPROLOL TARTRATE 25 MG TAB PO SCH (10:08)
[2019-02-22] MEDS: SPIRONOLACTONE 25 MG TAB PO SCH (10:09)
[2019-02-22] MEDS: FAMOTIDINE 20 MG TAB PO SCH (10:09)
[2019-02-22] MEDS: AMANTADINE HCL 100 MG/10 ML CUP PO SCH (10:11)
[2019-02-22 11:47] VITALS: BP 121/72
--- NOTE | 2019-02-22 12:13 | P.DS ---
Providers Date of admission: 02/21/19 04:10 Expected date of discharge: 02/22/19 Attending physician: Martin Osman Consults: 02/21/19 04:09 Consult Physician Urgent Consulting Provider: [facility] Consult Reason/Comments: NSTEMI Do you want consulting provider notified?: Yes, Notify in am Primary care physician: Ed Booker [facility] Course: Chief Complaint: Chest pain History of presenting complaint: This is a 63-year-old patient of Dr. Booker resident of [facility]. Chronic stable medical conditions include GERD, ascending aortic aneurysm 4.2 cm, hypertension, hyperlipidemia has a PEG tube Had a previous stroke with left-sided weakness. Patient nonambulatory. Patient has severe dysarthria, but does does attempt to speak. Patient's was in the hospital on January 2019 with an acute FL. Cardiac catheterization showed normal coronaries. 2-D echo showed an EF of 55-60%. Patient did indicate presented with chest pain. - precordial area. Unclear if radiated. No dizziness no lightheadedness. Unsure of the duration. Not present after he arrived here. Seen by cardiology. [place] to be atypical. No need for further workup. Consultation: Dr. DORCAS Sims from cardiology Physical examination: VITAL SIGNS: 98.1, 50, 16, 130/77, 79% room air GENERAL: Propped up, comfortable EYES: Pupils equal. Conjunctiva normal. HEENT: External appearance of nose and ears normal, oral cavity grossly normal. NECK: JVD not raised; masses not palpable. HEART: First and second heart sounds are normal; no edema. LUNGS: Respiratory rate normal; decreased breath sounds. ABDOMEN: Soft, nontender, liver spleen not palpable, no masses palpable. PEG tube in place PSYCH: Unable to assess l. NEUROLOGICAL: dysarthria, weakness on the left side. INVESTIGATIONS, reviewed in the clinical context: White count 7.6 hemoglobin 12.3 platelets 397 potassium 4.5 creatinine 0.74 Troponin I 0.076, 0.05 on ProBNP 1650 EKG tracing personally reviewed by me shows flipped T waves from V3 to V6 Chest x-ray film personally reviewed by me-cardiomegaly with lung mendenhall clear Assessment: -Left precordial pain with some troponin leak, flipped T waves in anterior leads, but normal cardiac catheterization in January 2019, possible acute viral myocarditis - acute non-Q-wave myocardial infarction. 01/13/2019. Cardiac catheterization showed normal coronaries -Chronic nicotine dependence patient cigarette smoker -Essential hypertension -Chronic nicotine dependence cigarette smoker -PEG tube and is using at night -Severe dysarthria -Dysphagia -pured diet. tube feeding at night. -GERD Disposition: [facility] Patient Condition at Discharge: Stable Plan - Discharge Summary Discharge Rx Participant: No New Discharge Prescriptions: New Isosorbide Mononitrate ER [Imdur] 60 mg PO DAILY tab.er.24h Continue Amantadine Syrup 50mg/5ml 100 mg PO DAILY Metoclopramide [Reglan] 10 mg PO TID@0500,1300,2100 Acetaminophen Tab [Tylenol] 650 mg PO Q6H PRN PRN Reason: Fever hydrALAZINE HCL [Apresoline] 25 mg PO TID@0500,1300,2100 Spironolactone [Aldactone] 50 mg PO BID@0800,1600 cloNIDine HCL 0.3 mg PO TID@0500,1300,2100 Sennosides [Senna] 8.6 mg PO BID amLODIPine [Norvasc] 5 mg PO BID Metoprolol Tartrate [Lopressor] 25 mg PO BID Famotidine [Pepcid] 20 mg PO BID Apixaban [Eliquis] 5 mg PO BID@0800,1600 Docusate Oral Soln [Colace Oral Soln] 50 mg PO BID Valproic Acid 250 mg PO DAILY@0600 Thiamine [Vitamin B-1] 100 mg PO DAILY Multivits, W-Ca,Fe,Oth Min [Therapeutic M] 1 tab PO DAILY Melatonin 5 mg PO DAILY@2000 Polyethylene Glycol 3350 [Miralax] 17 gm PO DAILY@0600 Magnesium 400 mg PO DAILY@0600 Atorvastatin [Lipitor] 40 mg PO HS@2000 Aspirin 81 mg PO DAILY Magnesium Hydroxide [Milk of Magnesia] 2,400 mg PO DAILY PRN PRN Reason: Constipation Omeprazole [PriLOSEC] 20 mg PO BID@0500,1700 Discontinued Isosorbide Dinitrate 30 mg PO TID@0500,1300,2100 Discharge Medication List Acetaminophen Tab [Tylenol] 650 mg PO Q6H PRN 01/13/19 [History] Amantadine Syrup 50mg/5ml 100 mg PO DAILY 01/13/19 [History] Apixaban [Eliquis] 5 mg PO BID@0800,1600 01/13/19 [History] Aspirin 81 mg PO DAILY 01/13/19 [History] Atorvastatin [Lipitor] 40 mg PO HS@199901/13/19 [History] Docusate Oral Soln [Colace Oral Soln] 50 mg PO BID 01/13/19 [History] Famotidine [Pepcid] 20 mg PO BID 01/13/19 [History] Magnesium 400 mg PO DAILY@0600 01/13/19 [History] Melatonin 5 mg PO DAILY@199901/13/19 [History] Metoclopramide [Reglan] 10 mg PO TID@0500,1300,209901/13/19 [History] Metoprolol Tartrate [Lopressor] 25 mg PO BID 01/13/19 [History] Multivits,Th W-Ca,Fe,Oth Min [Therapeutic M] 1 tab PO DAILY 01/13/19 [History] Polyethylene Glycol 3350 [Miralax] 17 gm PO DAILY@0600 01/13/19 [History] Sennosides [Senna] 8.6 mg PO BID 01/13/19 [History] Spironolactone [Aldactone] 50 mg PO BID@0800,1600 01/13/19 [History] Thiamine [Vitamin B-1] 100 mg PO DAILY 01/13/19 [History] Valproic Acid 250 mg PO DAILY@0600 01/13/19 [History] amLODIPine [Norvasc] 5 mg PO BID 01/13/19 [History] cloNIDine HCL 0.3 mg PO TID@0500,1300,2100 01/13/19 [History] hydrALAZINE HCL [Apresoline] 25 mg PO TID@0500,1300,2100 01/13/19 [History] Magnesium Hydroxide [Milk of Magnesia] 2,400 mg PO DAILY PRN 01/29/19 [History] Omeprazole [PriLOSEC] 20 mg PO BID@0500,1700 02/21/19 [History] Isosorbide Mononitrate ER [Imdur] 60 mg PO DAILY tab.er.24h 02/22/19 [Rx] Follow up Appointment(s)/Referral(s): Ed Booker DO [Primary Care Provider] - 1-2 days
--- NOTE | 2019-02-22 15:31 | P.PN ---
Subjective Progress Note Date: 02/22/19 This is a 63-year-old male with history of smoking history, PEG tube insertion, mild mental delay, hypertension, CVA with residual deficits, non-obstructive CAD via cardiac cath and RI. Patient currently lying in bed in no acute distress. Patient is alert and oriented 1 and seems to be a poor historian/confused. Pt is hard to understand as well. Patient currently resides at [facility]. Patient has had on and off chest pain for approximately 2 months and presented to ER with complaints of parasternal chest pain over the past 2 days. Patient had recent cardiac cath on 01/13/2019 which showed no obstructive CAD. Most recent echo shows preserved ejection fraction of 55-60% with severe concentric LVH. Grade [address] of chest on 01/14/2019 shows stable 4.2 cm ascending thoracic aneurysm. Patient currently lying in bed with no complaints of continued chest pain. Chin used to have a mild cough. Pressure 122/70 with a heart rate of 50. Objective - Vital Signs Vital signs: Vital Signs Temp 98.1 F 02/22/19 08:25 Pulse 50 L 02/22/19 11:25 Resp 16 02/22/19 11:25 BP 121/72 02/22/19 11:25 Pulse Ox 100 02/22/19 11:25 Intake & Output 02/21/19 02/22/19 02/22/19 18:59 06:59 18:59 Intake Total 298.837 283.988 230 Balance 298.837 283.988 230 Weight 84 kg Intake: Intake, IV Titration 58.837 183.988 Amount Heparin Sod,Pork in 0.45% 58.837 183.988 NaCl 25,000 unit In 0.45 % NaCl 1 250ml.bag @ 10. 26 UNITS/KG/HR 10.006 mls /hr IV .Q24H [facility] Rx#: [id number] Oral 240 100 230 Other: Voiding Method Diaper Diaper # Voids 1 4 1 - Exam PHYSICAL EXAMINATION: GENERAL: She 3-year-old gentleman in no acute distress at the time of my examination HEENT: Head is atraumatic, normocephalic. Pupils equal, round. Sclera anicteric. Conjunctiva are clear. Mucous membranes of the mouth are moist. Neck is supple. There is no elevated jugular venous pressure.] bruit is heard. HEART EXAMINATION: [Heart S1, S2 normal. No murmur or gallop heard.] CHEST EXAMINATION:[ Lungs are clear to auscultation and precussion. No chest wall tenderness is noted on palpation or with deep breathing.] ABDOMEN: [ Soft, nontender. Bowel sounds are heard. No organomegaly noted]. EXTREMITIES:[ 2+ peripheral pulses with no evidence of peripheral edema and no calf tenderness noted]. NEUROLOGIC [patient is awake, alert and oriented 1 . - Labs CBC & Chem 7: 02/21/19 02:55 02/21/19 02:55 Labs: Abnormal Lab Results - Last 24 Hours (Table) 02/21/19 02/22/19 Range/Units 14:51 05:53 APTT 36.1 H (22.0-30.0) sec Troponin I 0.045 H* (0.000-0.034) ng/mL Assessment and Plan Plan: FINAL IMPRESSION: 1. Atypical chest pain - no acute cardiology process. 2. CVA history 3. Hypertension 4. Non-obstructive CAD 5. Stable ascending thoracic aneurysm Plan From cardiology's perspective, we will follow this patient along with you now on an as-needed basis only, please don't hesitate to call with any questions. We will see him now on a when necessary basis. Please don't hesitate to call with any questions. DNP note has been reviewed, I agree with a documented findings and plan of care. Patient was seen and examined.
== END 2019-02-22 15:48 | DRG 315 ==
LOC: EC 02:42 → 3SCARD 04:10
PROVIDERS: ADMIT Hospitalist; ATTEND Hospitalist
DX: I40.0 Infective myocarditis (principal); I69.354 Hemiplegia and hemiparesis following cerebral infarction affecting left non-dominant side; Z43.1 Encounter for attention to gastrostomy; I71.2 Thoracic aortic aneurysm, without rupture; I69.322 Dysarthria following cerebral infarction; I69.320 Aphasia following cerebral infarction; I69.391 Dysphagia following cerebral infarction; R13.10 Dysphagia, unspecified; R40.2363 Coma scale, best motor response, obeys commands, at hospital admission; R40.2143 Coma scale, eyes open, spontaneous, at hospital admission; R40.2253 Coma scale, best verbal response, oriented, at hospital admission; I44.0 Atrioventricular block, first degree; I25.10 Atherosclerotic heart disease of native coronary artery without angina pectoris; I10 Essential (primary) hypertension; I25.2 Old myocardial infarction; E78.5 Hyperlipidemia, unspecified; K21.9 Gastro-esophageal reflux disease without esophagitis; R79.89 Other specified abnormal findings of blood chemistry; F17.210 Nicotine dependence, cigarettes, uncomplicated; Z79.01 Long term (current) use of anticoagulants; Z79.82 Long term (current) use of aspirin; Z79.899 Other long term (current) drug therapy; Z86.718 Personal history of other venous thrombosis and embolism; Z87.448 Personal history of other diseases of urinary system
CPT/HCPCS: 36415; 71046; 80053; 80061; 83735; 83880; 84484; 85025; 85379; 85610; 85730; 93005; 94760; 96365; 96366; 96375; 96376; 99285

== ENCOUNTER 2019-03-28 11:03 | Inpatient (IN) | payer MEDICARE, OTHER ==
[2019-03-28] MEDS ORDERED: SODIUM CHLORIDE 0.9% 500 ML 500 ML IV STA (11:24)
[2019-03-28] MEDS ORDERED: hydrALAZINE HCL 20 MG/ML 1 ML VIAL IVP STA (11:25)
--- NOTE | 2019-03-28 11:27 | ED ---
General Adult HPI - General Stated complaint: Tachycardia Time Seen by Provider: 03/28/19 11:03 Source: patient, RN notes reviewed, old records reviewed - History of Present Illness Initial comments: This is a 63-year-old male who presents to the emergency department via EMS from the leg. Patient comes in and the report given was that the patient vomited times one had heart rate of 120 and had a systolic blood pressure over 200. Patient is unable to give any history of is no family member with the patient he does state he is not any pain when I ask him he says no. Patient has had no history of fever that we know of. There was a report that the patient has inoperable aneurysm. There is no further history available this time. - Related Data Home Medications Medication Instructions Recorded Confirmed Acetaminophen Tab [Tylenol] 650 mg PO Q6H PRN 01/13/19 03/28/19 Amantadine Syrup 50mg/5ml 100 mg PO DAILY 01/13/19 03/28/19 Apixaban [Eliquis] 5 mg PO BID@0800,159901/13/19 03/28/19 Aspirin 81 mg PO DAILY 01/13/19 03/28/19 Atorvastatin [Lipitor] 40 mg PO HS@199901/13/19 03/28/19 Docusate Oral Soln [Colace Oral 50 mg PO BID@0800,159901/13/19 03/28/19 Soln] Melatonin 5 mg PO DAILY@199901/13/19 03/28/19 Metoprolol Tartrate [Lopressor] 25 mg PO BID@0800,159901/13/19 03/28/19 Multivits,Th W-Ca,Fe,Oth Min 1 tab PO DAILY 01/13/19 03/28/19 [Therapeutic M] Sennosides [Senna] 8.6 mg PO BID@0800,1600 01/13/19 03/28/19 Spironolactone [Aldactone] 50 mg PO BID@0800,1600 01/13/19 03/28/19 Thiamine [Vitamin B-1] 100 mg PO DAILY@0800 01/13/19 03/28/19 Valproic Acid [Depakene] 250 mg PO DAILY 01/13/19 03/28/19 amLODIPine [Norvasc] 5 mg PO BID@0800,1600 01/13/19 03/28/19 cloNIDine HCL 0.3 mg PO TID@0000,0800,1600 01/13/19 03/28/19 hydrALAZINE HCL [Apresoline] 25 mg PO TID@0000,0800,1600 01/13/19 03/28/19 Magnesium Hydroxide [Milk of 2,400 mg PO DAILY PRN 01/29/19 03/28/19 Magnesia] Omeprazole [PriLOSEC] 20 mg PO BID@0600,2100 02/21/19 03/28/19 Magnesium Oxide [Mag-Ox] 400 mg PO DAILY 03/28/19 03/28/19 Previous Rx's Medication Instructions Recorded Isosorbide Mononitrate ER [Imdur] 60 mg PO DAILY tab.er.24h 02/22/19 Allergies Allergy/AdvReac Type Severity Reaction Status Date / Time No Known Allergies Allergy Verified 03/28/19 11:46 Review of Systems ROS Statement: Those systems with pertinent positive or pertinent negative responses have been documented in the HPI. ROS Other: All systems not noted in ROS Statement are negative. Past Medical History Past Medical History: Unable to Obtain, CVA/TIA, Deep Vein Thrombosis (DVT), GERD/Reflux, Hyperlipidemia, Hypertension, Myocardial Infarction (ME), Renal Disease Additional Past Medical History / Comment(s): Pt had a CVA with left sided weakness & aphasia in December of 2018, has a PEG tube, has been getting feedings at night & tolerating a pureed diet at [facility] with regular liquids. (Pt is alert with confusion, using information from previous admission.) Last Myocardial Infarction Date:: 01/13/19 History of Any Multi-Drug Resistant Organisms: None Reported Past Surgical History: Unable to Obtain, Heart Catheterization Additional Past Surgical History / Comment(s): pt is alert with confusion, using information from previous admission Past Anesthesia/Blood Transfusion Reactions: No Reported Reaction Additional Past Anesthesia/Blood Transfusion Reaction / Comment(s): pt is alert with confusion, using information from previous admission Past Psychological History: No Psychological Hx Reported Additional Psychological History / Comment(s): pt is alert with confusion, using information from previous admission Smoking Status: Former smoker Past Alcohol Use History: None Reported, Occasional Past Drug Use History: None Reported - Past Family History Father Family Medical History: No Reported History General Exam - General Exam Comments Initial Comments: GENERAL: Patient is well-developed and well-nourished. Patient is nontoxic and well- hydrated and is in no acute distress. ENT: Neck is soft and supple. No significant lymphadenopathy is noted. Oropharynx is clear. Moist mucous membranes. Neck has full range of motion without eliciting any pain. EYES: The sclera were anicteric and conjunctiva were pink and moist. Extraocular movements were intact and pupils were equal round and reactive to light. Eyelids were unremarkable. PULMONARY: Unlabored respirations. Good breath sounds bilaterally. No audible rales rhonc hi or wheezing was noted. CARDIOVASCULAR: There is a regular rate and rhythm without any murmurs gallops or rubs. ABDOMEN: Soft and nontender with normal bowel sounds. SKIN: Skin is clear with no lesions or rashes and otherwise unremarkable. NEUROLOGIC: Patient is alert and and answer some questions with no other than that unable to assess orientation.. Cranial nerves II through XII are grossly intact. Patient is unable to move the left side. Patient has had a previous stroke MUSCULOSKELETAL: Normal extremities with adequate strength and full range of motion. LYMPHATICS: No significant lymphadenopathy is noted PSYCHIATRIC: Normal psychiatric evaluation. Course Vital Signs 03/28/19 03/28/19 03/28/19 11:16 11:43 12:16 Temperature 98.7 F Pulse Rate 98 87 105 H Pulse Rate [ Dinkey Brakeman ] Respiratory 20 18 20 Rate Blood Pressure 196/135 150/111 151/92 O2 Sat by Pulse 99 99 Oximetry 03/28/19 03/28/19 03/28/19 12:49 13:11 13:23 Temperature Pulse Rate 114 H 101 H Pulse Rate [ 105 H Dinkey Brakeman ] Respiratory 20 20 Rate Blood Pressure 167/82 146/96 O2 Sat by Pulse 96 100 Oximetry Medical Decision Making - Medical Decision Making EKG shows sinus rhythm at 90 bpm NH interval is 224 QRS is 108 QT interval 390 QTC is 477. Patient's troponin was elevated. Patient had no more vomiting while in the emergency department and the blood pressure and heart rate were controlled. I spoke with Dr. Haile he agreed to keep the patient I kept the patient and wrote admitting orders. - Lab Data Result diagrams: 03/28/19 11:14 03/28/19 11:14 Lab Results 02/16/20 02/16/20 02/16/20 Range/Units 11:14 11:14 11:14 WBC 9.6 (3.8-10.6) k/uL RBC 4.71 (4.30-5.90) m/uL Hgb 13.7 D (13.0-17.5) gm/dL Hct 43.4 (39.0-53.0) % MCV 92.2 (80.0-100.0) fL MCH 29.2 (25.0-35.0) pg MCHC 31.6 (31.0-37.0) g/dL RDW 16.0 H (11.5-15.5) % Plt Count 406 (150-450) k/uL Neutrophils % 57 % Lymphocytes % 29 % Monocytes % 7 % Eosinophils % 3 % Basophils % 1 % Neutrophils # 5.5 (1.3-7.7) k/uL Lymphocytes # 2.8 (1.0-4.8) k/uL Monocytes # 0.7 (0-1.0) k/uL Eosinophils # 0.3 (0-0.7) k/uL Basophils # 0.1 (0-0.2) k/uL Anisocytosis Slight PT 9.8 (9.0-12.0) sec INR 0.9 (<1.2) APTT 23.4 (22.0-30.0) sec Sodium 141 (137-145) mmol/L Potassium 4.4 (3.5-5.1) mmol/L Chloride 99 (98-107) mmol/L Carbon Dioxide 31 H (22-30) mmol/L Anion Gap 11 mmol/L BUN 16 (9-20) mg/dL Creatinine 0.84 (0.66-1.25) mg/dL Est GFR (CKD-EPI)AfAm >90 (>60 ml/min/1.73 sqM) Est GFR (CKD-EPI)NonAf >90 (>60 ml/min/1.73 sqM) Glucose 93 (74-99) mg/dL Calcium 10.7 H (8.4-10.2) mg/dL Magnesium 2.2 (1.6-2.3) mg/dL Total Bilirubin 0.4 (0.2-1.3) mg/dL AST 30 (17-59) U/L ALT 87 H (4-49) U/L Alkaline Phosphatase 93 (38-126) U/L Troponin I (0.000-0.034) ng/mL Total Protein 8.2 (6.3-8.2) g/dL Albumin 4.6 (3.5-5.0) g/dL Amylase 63 (30-110) U/L Lipase 61 (23-300) U/L Valproic Acid ug/mL 03/28/19 03/28/19 Range/Units 11:14 11:14 WBC (3.8-10.6) k/uL RBC (4.30-5.90) m/uL Hgb (13.0-17.5) gm/dL Hct (39.0-53.0) % MCV (80.0-100.0) fL MCH (25.0-35.0) pg MCHC (31.0-37.0) g/dL RDW (11.5-15.5) % Plt Count (150-450) k/uL Neutrophils % % Lymphocytes % % Monocytes % % Eosinophils % % Basophils % % Neutrophils # (1.3-7.7) k/uL Lymphocytes # (1.0-4.8) k/uL Monocytes # (0-1.0) k/uL Eosinophils # (0-0.7) k/uL Basophils # (0-0.2) k/uL Anisocytosis PT (9.0-12.0) sec INR (<1.2) APTT (22.0-30.0) sec Sodium (137-145) mmol/L Potassium (3.5-5.1) mmol/L Chloride (98-107) mmol/L Carbon Dioxide (22-30) mmol/L Anion Gap mmol/L BUN (9-20) mg/dL Creatinine (0.66-1.25) mg/dL Est GFR (CKD-EPI)AfAm (>60 ml/min/1.73 sqM) Est GFR (CKD-EPI)NonAf (>60 ml/min/1.73 sqM) Glucose (74-99) mg/dL Calcium (8.4-10.2) mg/dL Magnesium (1.6-2.3) mg/dL Total Bilirubin (0.2-1.3) mg/dL AST (17-59) U/L ALT (4-49) U/L Alkaline Phosphatase (38-126) U/L Troponin I 0.072 H* (0.000-0.034) ng/mL Total Protein (6.3-8.2) g/dL Albumin (3.5-5.0) g/dL Amylase (30-110) U/L Lipase (23-300) U/L Valproic Acid <10.0 ug/mL Disposition Clinical Impression: Hypertension, Elevated troponin, Acute vomiting Disposition: ADMITTED IP TO THIS HOSP Referrals: Ed Booker DO [Primary Care Provider] - 1-2 days Time of Disposition: 13:40
[2019-03-28 11:41] LABS: Anisocytosis Slight; Basophils # (A) 0.1 k/uL (0-0.2); Basophils % (A) 1 %; Eosinophils # (A) 0.3 k/uL (0-0.7); Eosinophils % (A) 3 %; HCT 43.4 % (39.0-53.0); Lymphocytes # (A) 2.8 k/uL (1.0-4.8); Lymphocytes % (A) 29 %; MCH 29.2 pg (25.0-35.0); MCHC 31.6 g/dL (31.0-37.0); MCV 92.2 fL (80.0-100.0); Mean Platelet Volume 6.9; Monocytes # (A) 0.7 k/uL (0-1.0); Monocytes % (A) 7 %; Neutrophils # (A) 5.5 k/uL (1.3-7.7); Neutrophils % (A) 57 %; Platelet Count 406 k/uL (150-450); RBC 4.71 m/uL (4.30-5.90); WBC 9.6 k/uL (3.8-10.6)
[2019-03-28 11:44] LABS: HGB 13.7 gm/dL (13.0-17.5)
--- NOTE | 2019-03-28 11:44 | XR ---
EXAMINATION TYPE: XR chest 2V DATE OF EXAM: 03/28/2019 HISTORY: Chest Pain. REFERENCE: Previous study dated 02/21/2019. FINDINGS: Lung volumes are prominent. The heart is mildly enlarged. Lungs are clear. Pleural space ar e clear. IMPRESSION: 1 COPD. 2. CARDIOMEGALY.
[2019-03-28 11:45] LABS: INR 0.9 (<1.2); Partial Thromboplastin Time 23.4 sec (22.0-30.0); Prothrombin Time 9.8 sec (9.0-12.0)
[2019-03-28 11:46] LABS: ALT 87 U/L (4-49); AST 30 U/L (17-59); African American GFR (CKD) >90 (>60 ml/min/1.73 sqM); Albumin 4.6 g/dL (3.5-5.0); Alkaline Phosphatase 93 U/L (38-126); Amylase 63 U/L (30-110); Anion Gap 11 mmol/L; Blood Urea Nitrogen 16 mg/dL (9-20); Calcium 10.7 mg/dL (8.4-10.2); Carbon Dioxide 31 mmol/L (22-30); Chloride 99 mmol/L (98-107); Glucose 93 mg/dL (74-99); Magnesium 2.2 mg/dL (1.6-2.3); Non-African American GFR(CKD) >90 (>60 ml/min/1.73 sqM); Potassium 4.4 mmol/L (3.5-5.1); Sodium 141 mmol/L (137-145); Total Bilirubin 0.4 mg/dL (0.2-1.3); Total Protein 8.2 g/dL (6.3-8.2)
[2019-03-28] MEDS ORDERED: METOPROLOL TARTRATE 25 MG TAB PO STA (12:57)
[2019-03-28] MEDS ORDERED: ASPIRIN 81 MG PO STA (13:40)
[2019-03-28] MEDS: hydrALAZINE HCL 25 MG TAB PO SCH ×2 (15:33→20:46)
[2019-03-28] MEDS: cloNIDine HCL 0.1 MG TAB PO SCH ×2 (15:33→20:46)
[2019-03-28] MEDS: amLODIPine 5 MG TAB PO SCH (15:33)
[2019-03-28] MEDS: APIXABAN 5 MG TAB PO SCH (15:33)
[2019-03-28] MEDS: SPIRONOLACTONE 25 MG TAB PO SCH (15:33)
[2019-03-28] MEDS ORDERED: ACETAMINOPHEN TAB 325 MG TAB PO PRN (16:59)
[2019-03-28] MEDS ORDERED: MAGNESIUM HYDROXIDE 2,400 MG/10 ML CUP PO PRN (16:59)
[2019-03-28] MEDS ORDERED: TEMAZEPAM 15 MG CAP PO PRN (17:00)
[2019-03-28] MEDS ORDERED: ALPRAZolam 0.25 MG TAB PO PRN (17:00)
[2019-03-28] MEDS: NITROGLYCERIN OINT 1 INCH/GM PACKET TOPICAL SCH ×2 (18:05→20:46)
[2019-03-28] MEDS: HYDROmorphone 0.5 MG/0.5 ML SYRINGE IVP PRN (18:57)
[2019-03-28] MEDS: ATORVASTATIN 40 MG TAB PO SCH (20:46)
[2019-03-28] MEDS: MELATONIN 5 MG TABLET PO SCH (20:46)
[2019-03-28] MEDS: HYDROcodone/APAP 5-325MG 1 EACH TAB PO PRN (20:54)
[2019-03-28] MEDS ORDERED: NON FORMULARY DRUG (Omeprazole 20 MG) PO SCH (21:00)
[2019-03-28] MEDS: PANTOPRAZOLE 40 MG/10 ML VIAL IVP SCH (21:22)
--- NOTE | 2019-03-28 23:01 | HP ---
HISTORY AND PHYSICAL DATE OF SERVICE: 03/28/2019. CHIEF COMPLAINTS: Tachycardia. HISTORY OF PRESENT ILLNESS: This 63-year-old gentleman with a past medical history of multiple medical problems including history of CVA/TIA, left-sided hemiplegia, history of DVT, GERD, hypertension, hyperlipidemia, history of also had a PEG tube feeds, the patient was in [facility] under the care of Dr. Booker since last year. The patient vomited and heart rate went up to 120 and the patient also had some epigastric discomfort and patient taken to [facility] and was admitted to the hospital for further evaluation and treatment. There is no history of fever, rigors or chills. No history of headache, loss of consciousness or seizures. The troponins were found to be 0.072, 1.220. The EKG showed sinus tachycardia, ST-T changes. Patient admitted for further evaluation and treatment. There is no history of fever, rigors or chills. No history of headache, loss of consciousness, seizures. PAST MEDICAL HISTORY: DVT, GERD, hypertension, hyperlipidemia, history of myocardial infarction. MEDICATIONS: Prior to admission home medications are: 1. Hydralazine 25 mg p.o. t.i.d. 2. Clonidine 0.3 t.i.d. 3. Norvasc 5 mg p.o. b.i.d. 4. Valproic acid 250 mg b.i.d. 5. Vitamin B1 100 mg p.o. daily. 6. Aldactone 50 mg p.o. b.i.d. 7. Senna 8.6 mg p.o. b.i.d. 8. Prilosec 20 mg p.o. b.i.d. 9. Multivitamin 1 p.o. daily. 10.Metoprolol 25 mg p.o. b.i.d. 11.Melatonin 5 mg p.o. daily. 12.Magnesium oxide 400 mg p.o. daily. 13.Magnesium. 14.Imdur 60 mg p.o. daily. 15.Colace 50 mg p.o. b.i.d. 16.Lipitor 40 mg q.h.s. 17.Ecotrin 81 mg p.o. daily. 18.Eliquis 5 mg p.o. b.i.d. 19.Amantadine 100 mg p.o. daily. 20.Tylenol 650 q.6h p.r.n. ALLERGIES: None. FAMILY HISTORY: No history of heart disease or strokes in the family. SOCIAL HISTORY: Previous history of smoking. No history of current smoking. REVIEW OF SYMPTOMS: ENT: No diminished hearing. No diminished vision. Otherwise as mentioned. Cardiovascular as mentioned earlier. RESPIRATORY: As mentioned earlier. GASTROINTESTINAL: No nausea or vomiting. no dysuria. Nervous system as mentioned earlier. MUSCULOSKELETAL as mentioned above. HEMATOLOGY/ONCOLOGY: No history of anemia. ENDOCRINE no history of diabetes or hypothyroidism. CONSTITUTIONAL: As mentioned earlier. DERMATOLOGY: Negative. RHEUMATOLOGY: As mentioned earlier. PSYCHIATRY as mentioned. PHYSICAL EXAMINATION: Alert and oriented x2. Pulse 69, blood pressure 162/108, respiration 18, temperature 97.2, pulse ox 98% on 2 L. HEENT conjunctivae normal. Oral mucosa moist. NECK is no jugular venous distention. No carotid bruit. No lymph node enlargement. Cardiovascular system: S1, S2 muffled. RESPIRATORY: Breath sounds diminished in the bases. A few scattered rhonchi and crackles. ABDOMEN: Soft, minimal diffuse distention. LEGS: No edema. No swelling. NERVOUS SYSTEM: Higher functions as mentioned earlier. Moves all four limbs. No focal deficits. LYMPHATICS: No lymph nodes palpable in the neck, axillae or groin. SKIN no ulcers, rashes. JOINTS: No active deforming arthropathy. NERVOUS SYSTEM is left-sided hemiplegia with some contractures also present. LABS: WBC 10.2, hemoglobin 13.7, sodium 141. Troponin 0.072 and 1.220. ASSESSMENT: 1. Vomiting and tachycardia. Possible acute swb-II-sowvwdm-elevation myocardial infarction with troponin 1.220. 2. Possible acute gastritis. 3. History of cerebrovascular accident with left-sided hemiplegia. 4. History of deep vein thrombosis. 5. Gait dysfunction. 6. PEG tube. 7. Gastroesophageal reflux disease. 8. Hypertension. 9. Hyperlipidemia. 10.Myocardial infarction. 11.History of cardiac catheterization. RECOMMENDATIONS AND DISCUSSION: This 63-year-old gentleman with a past medical history of multiple medical problems, at this time I recommend to continue current medications, management and unstable protocol. The patient had a previous cardiac catheterization in January last year which showed normal coronary disease and normal LV disk function. I would recommend resume the home medications and the patient apparently tolerated puree. I will continue the Protonix. Resume the home medications. Cardiology consultation. Guarded prognosis because of multiple complex medical issues. A copy of this dictation being forwarded to Dr. Booker who is the primary physician. Monitor blood pressure closely. MMODL / IJN: [id number] / MTDD
[2019-03-28] MEDS: cloNIDine HCL 0.1 MG TAB PO PRN (23:16)
[2019-03-29] MEDS: HYDROmorphone 0.5 MG/0.5 ML SYRINGE IVP PRN ×2 (03:03→20:23)
[2019-03-29] MEDS: NITROGLYCERIN OINT 1 INCH/GM PACKET TOPICAL SCH ×4 (03:12→22:48)
[2019-03-29 07:09] LABS: Basophils # (A) 0.1 k/uL (0-0.2); Basophils % (A) 1 %; Eosinophils # (A) 0.3 k/uL (0-0.7); Eosinophils % (A) 3 %; HCT 40.5 % (39.0-53.0); HGB 12.8 gm/dL (13.0-17.5); Lymphocytes # (A) 2.7 k/uL (1.0-4.8); Lymphocytes % (A) 33 %; MCH 29.4 pg (25.0-35.0); MCHC 31.5 g/dL (31.0-37.0); MCV 93.5 fL (80.0-100.0); Mean Platelet Volume 6.8; Monocytes # (A) 0.4 k/uL (0-1.0); Monocytes % (A) 5 %; Neutrophils # (A) 4.6 k/uL (1.3-7.7); Neutrophils % (A) 56 %; Platelet Count 365 k/uL (150-450); RBC 4.34 m/uL (4.30-5.90); RDW 15.9 % (11.5-15.5); WBC 8.3 k/uL (3.8-10.6)
[2019-03-29] MEDS ORDERED: PANTOPRAZOLE 40 MG TABLET PO SCH (07:30)
[2019-03-29 07:32] LABS: African American GFR (CKD) >90 (>60 ml/min/1.73 sqM); Anion Gap 9 mmol/L; Blood Urea Nitrogen 17 mg/dL (9-20); Calcium 10.2 mg/dL (8.4-10.2); Carbon Dioxide 29 mmol/L (22-30); Chloride 97 mmol/L (98-107); Cholesterol 131 mg/dL (<200); Glucose 114 mg/dL (74-99); HDL Cholesterol 46 mg/dL (40-60); LDL Cholesterol,Calculated 68 mg/dL (0-99); Non-African American GFR(CKD) 85 (>60 ml/min/1.73 sqM); Potassium 4.5 mmol/L (3.5-5.1); Sodium 135 mmol/L (137-145); Triglycerides 83 mg/dL (<150)
[2019-03-29] MEDS ORDERED: METOPROLOL TARTRATE 25 MG TAB PO SCH (08:00)
[2019-03-29] MEDS ORDERED: VALPROIC ACID 250 MG PO SCH (09:00)
[2019-03-29] MEDS ORDERED: ASPIRIN 325 MG TAB PO SCH (09:00)
--- NOTE | 2019-03-29 10:25 | ECHOF ---
Referral Reason:mi MEASUREMENTS -------- HEIGHT: 180.3 cm WEIGHT: 83.5 kg BP: 142/98 RVIDd: 3.9 cm (< 3.3) IVSd: 1.6 cm (0.6 - 1.1) LVIDd: 3.4 cm (3.9 - 5.3) LVPWd: 1.4 cm (0.6 - 1.1) IVSs: 2.0 cm LVIDs: 3.4 cm LVPWs: 1.7 cm LA Diam: 3.4 cm (2.7 - 3.8) LAESV Index (A-L): 24.22 ml/m Ao Diam: 4.1 cm (2.0 - 3.7) AV Cusp: 2.1 cm (1.5 - 2.6) MV EXCURSION: 19.176 mm (> 18.000) MV EF SLOPE: 112 mm/s (70 - 150) EPSS: 0.7 cm MV E Dawson: 0.76 m/s MV DecT: 529 ms MV A Dawson: 1.49 m/s MV E/A Ratio: 0.51 AV maxP.98 mmHg AV maxP.98 mmHg AV meanP.37 mmHg RAP: 5.00 mmHg RVSP: 24.18 mmHg FINDINGS -------- Sinus rhythm. This was a technically adequate study. The left ventricular size is normal. There is moderate concentric left ventricular hypertrophy. L eft ventricular systolic function is hyperdynamic with an estimated EF of >70%. The right ventricle is mild to moderately enlarged. Normal LA size by volume 22+/-6 ml/m2. The right atrium is normal in size. Interatrial and interventricular septum intact. The aortic valve is trileaflet and appears structurally normal. There is trace to mild mitral regurgitation. Trace tricuspid regurgitation present. Right ventricular systolic pressure is normal at < 35 mmHg. The pulmonic valve was not well visualized. The aortic root is dilated measuring 4.1cm. There is no pericardial effusion. CONCLUSIONS -------- 1. Sinus rhythm. 2. This was a technically adequate study. 3. The left ventricular size is normal. 4. There is moderate concentric left ventricular hypertrophy. 5. Left ventricular systolic function is hyperdynamic with an estimated EF of >70%. 6. The right ventricle is mild to moderately enlarged. 7. Normal LA size by volume 22+/-6 ml/m2. 8. The right atrium is normal in size. 9. Interatrial and interventricular septum intact. 10. The aortic valve is trileaflet and appears structurally normal. 11. There is trace to mild mitral regurgitation. 12. Trace tricuspid regurgitation present. 13. Right ventricular systolic pressure is normal at < 35 mmHg. 14. The pulmonic valve was not well visualized. 15. The aortic root is dilated measuring 4.1cm. 16. There is no pericardial effusion. [employer] SERVICE OPERATOR HELPER: Pallavi Roland RDCS
[2019-03-29] MEDS: cloNIDine HCL 0.1 MG TAB PO SCH ×3 (10:41→22:48)
[2019-03-29] MEDS: hydrALAZINE HCL 25 MG TAB PO SCH ×3 (10:42→22:48)
[2019-03-29] MEDS: AMANTADINE HCL 100 MG/10 ML CUP PO SCH (11:02)
[2019-03-29] MEDS: amLODIPine 5 MG TAB PO SCH ×2 (11:03→17:22)
[2019-03-29] MEDS: PANTOPRAZOLE 40 MG/10 ML VIAL IVP SCH (11:03)
[2019-03-29] MEDS: SPIRONOLACTONE 25 MG TAB PO SCH ×2 (11:03→20:15)
--- NOTE | 2019-03-29 11:39 | P.CRDCN ---
History of Present Illness Consult date: 03/29/19 Requesting physician: Carolina Haile Consult reason: hypertension Chief complaint: Vomiting, tachycardia, hypertension History of present illness: This is a 63-year-old -[place] gentleman with history of prior CVA with left-sided paralysis, PEG tube placement, expressive aphasia, hypertension, hyperlipidemia, prior history of smoking, follows with Dr. janet wright in the office. He resides at [facility]. Most of the history was obtained from the medical record. Patient underwent a cardiac catheterization in January 2019 which revealed normal coronary arteries and normal left ventricular systolic function. According to the notes, patient was apparently brought to the emergency room after having an episode of vomiting, he was noted to be tachycardic and have a systolic blood pressure of greater than 200. Cardiology consultation was requested for accelerated hypertension. Chest x-ray on presentation here showed COPD and cardiomegaly. EKG on presentation here showed a sinus rhythm, LVH strain pattern, nonspecific ST-T wave changes. An echocardiogram with Doppler study was performed which revealed a hyperdynamic left ventricular systolic function. Greater than 70%. Blood pressure on arrival here 196/135, heart rate in the 90s, 99% on room air. White blood cell count on admission 9.6, 8.3 this morning, hemoglobin on admission 13.7, 12.8 this morning. Platelet count 406 on admission 365 this morning. Sodium 135, potassium 4.5, BUN 17, creatinine 0.9. Troponins 0.072, 1.2, 8.7, 7.6. At the time of my examination this morning, patient is resting comfortably in bed, he denies any chest pain when asked, his breathing is stable. Past Medical History Past Medical History: Unable to Obtain, CVA/TIA, Deep Vein Thrombosis (DVT), GERD/Reflux, Hyperlipidemia, Hypertension, Myocardial Infarction (OK), Renal Disease Additional Past Medical History / Comment(s): Pt had a CVA with left sided weakn ess & aphasia in December of 2018, has a PEG tube, has been getting feedings at night & tolerating a pureed diet at [facility] with regular liquids. (Pt is alert with confusion, using information from previous admission.) Last Myocardial Infarction Date:: 01/13/19 History of Any Multi-Drug Resistant Organisms: None Reported Past Surgical History: Unable to Obtain, Heart Catheterization Additional Past Surgical History / Comment(s): pt is alert with confusion, using information from previous admission Past Anesthesia/Blood Transfusion Reactions: No Reported Reaction Additional Past Anesthesia/Blood Transfusion Reaction / Comment(s): pt is alert with confusion, using information from previous admission Past Psychological History: No Psychological Hx Reported Additional Psychological History / Comment(s): pt is alert with confusion, using information from previous admission Smoking Status: Former smoker Past Alcohol Use History: None Reported, Occasional Past Drug Use History: None Reported - Past Family History Father Family Medical History: No Reported History Medications and Allergies Home Medications Medication Instructions Recorded Confirmed Type Acetaminophen Tab [Tylenol] 650 mg PO Q6H PRN 01/13/19 03/28/19 History Amantadine Syrup 50mg/5ml 100 mg PO DAILY 01/13/19 03/28/19 History Apixaban [Eliquis] 5 mg PO BID@0800,1600 01/13/19 03/28/19 History Aspirin 81 mg PO DAILY 01/13/19 03/28/19 History Atorvastatin [Lipitor] 40 mg PO HS@199901/13/19 03/28/19 History Docusate Oral Soln [Colace Oral 50 mg PO BID@0800,1600 01/13/19 03/28/19 History Soln] Melatonin 5 mg PO DAILY@199901/13/19 03/28/19 History Metoprolol Tartrate [Lopressor] 25 mg PO BID@0800,1600 01/13/19 03/28/19 History Multivits,Th W-Ca,Fe,Oth Min 1 tab PO DAILY 01/13/19 03/28/19 History [Therapeutic M] Sennosides [Senna] 8.6 mg PO BID@0800,1600 01/13/19 03/28/19 History Spironolactone [Aldactone] 50 mg PO BID@0800,1600 01/13/19 03/28/19 History Thiamine [Vitamin B-1] 100 mg PO DAILY@0800 01/13/19 03/28/19 History Valproic Acid [Depakene] 250 mg PO DAILY 01/13/19 03/28/19 History amLODIPine [Norvasc] 5 mg PO BID@0800,1600 01/13/19 03/28/19 History cloNIDine HCL 0.3 mg PO TID@0000,0800,1600 01/13/19 03/28/19 History hydrALAZINE HCL [Apresoline] 25 mg PO TID@0000,0800,1600 01/13/19 03/28/19 History Magnesium Hydroxide [Milk of 2,400 mg PO DAILY PRN 01/29/19 03/28/19 History Magnesia] Omeprazole [PriLOSEC] 20 mg PO BID@0600,2100 02/21/19 03/28/19 History Isosorbide Mononitrate ER [Imdur] 60 mg PO DAILY tab.er.24h 02/22/19 03/28/19 Rx Magnesium Oxide [Mag-Ox] 400 mg PO DAILY 03/28/19 03/28/19 History Allergies Allergy/AdvReac Type Severity Reaction Status Date / Time No Known Allergies Allergy Verified 03/28/19 11:46 Physical Exam Vitals: Vital Signs Temp Pulse Pulse Resp BP BP BP 03/29/19 10:38 86 16 155/101 03/29/19 08:00 98.3 F 71 16 153/95 03/29/19 02:55 97.8 F 72 18 142/98 03/29/19 00:18 145/102 03/28/19 23:16 183/108 03/28/19 20:00 97.9 F 69 18 162/108 03/28/19 16:00 97.6 F 100 18 178/97 03/28/19 14:33 102 H 20 145/103 03/28/19 13:23 101 H 20 146/96 03/28/19 13:11 105 H 03/28/19 12:49 114 H 20 167/82 03/28/19 12:16 105 H 20 151/92 03/28/19 11:43 87 18 150/111 03/28/19 11:16 98.7 F 98 20 196/135 Pulse Ox 03/29/19 10:38 100 03/29/19 08:00 100 03/29/19 02:55 96 03/29/19 00:18 03/28/19 23:16 03/28/19 20:00 96 03/28/19 16:00 100 03/28/19 14:33 100 03/28/19 13:23 100 03/28/19 13:11 03/28/19 12:49 96 03/28/19 12:16 03/28/19 11:43 99 03/28/19 11:16 99 Intake and Output 03/28/19 03/29/19 03/29/19 22:59 06:59 14:59 Intake Total 210 Balance 210 Intake: Oral 210 Other: Voiding Method Diaper Diaper Diaper Incontinent Incontinent Incontinent # Voids 1 1 Weight 83.5 kg PHYSICAL EXAMINATION: GENERAL: 63-year-old -[place] gentleman in no acute distress at the time of my examination HEENT: Head is atraumatic, normocephalic. Pupils equal, round. Sclera anic teric. Conjunctiva are clear. Mucous membranes of the mouth are moist. Neck is supple. There is no elevated jugular venous pressure. No carotid bruit is heard. HEART EXAMINATION: Heart S1, S2 normal. No murmur or gallop heard. CHEST EXAMINATION: Lungs are clear to auscultation and precussion. No chest wall tenderness is noted on palpation or with deep breathing. ABDOMEN: Soft, nontender. Bowel sounds are heard. No organomegaly noted. EXTREMITIES: 2+ peripheral pulses with no evidence of peripheral edema and no calf tenderness noted. NEUROLOGIC patient is awake, alert and oriented 2 . . Results 03/29/19 06:52 03/29/19 06:52 Cardiac Enzymes 03/28/19 03/28/19 03/28/19 Range/Units 11:14 11:14 16:06 AST 30 (17-59) U/L Troponin I 0.072 H* 1.220 H* (0.000-0.034) ng/mL 03/29/19 03/29/19 Range/Units 00:03 06:52 AST (17-59) U/L Troponin I 8.760 H* 7.610 H* (0.000-0.034) ng/mL Coagulation 03/28/19 Range/Units 11:14 PT 9.8 (9.0-12.0) sec APTT 23.4 (22.0-30.0) sec Lipids 03/29/19 Range/Units 06:52 Triglycerides 83 (<150) mg/dL Cholesterol 131 (<200) mg/dL HDL Cholesterol 46 (40-60) mg/dL CBC 03/28/19 03/29/19 Range/Units 11:14 06:52 WBC 9.6 8.3 (3.8-10.6) k/uL RBC 4.71 4.34 (4.30-5.90) m/uL Hgb 13.7 D 12.8 L (13.0-17.5) gm/dL Hct 43.4 40.5 (39.0-53.0) % Plt Count 406 365 (150-450) k/uL Comprehensive Metabolic Panel 03/28/19 03/29/19 Range/Units 11:14 06:52 Sodium 141 135 L (137-145) mmol/L Potassium 4.4 4.5 (3.5-5.1) mmol/L Chloride 99 97 L (98-107) mmol/L Carbon Dioxide 31 H 29 (22-30) mmol/L BUN 16 17 (9-20) mg/dL Creatinine 0.84 0.94 (0.66-1.25) mg/dL Glucose 93 114 H (74-99) mg/dL Calcium 10.7 H 10.2 (8.4-10.2) mg/dL AST 30 (17-59) U/L ALT 87 H (4-49) U/L Alkaline Phosphatase 93 (38-126) U/L Total Protein 8.2 (6.3-8.2) g/dL Albumin 4.6 (3.5-5.0) g/dL Current Medications Generic Name Dose Route Start Last Admin Trade Name Freq PRN Reason Stop Dose Admin Acetaminophen 650 mg 03/28/19 16:59 Tylenol Tab PO Q6H PRN Fever Hydrocodone Bitart/Acetaminophen 1 each 03/28/19 17:00 03/28/19 20:54 [place] 5-325 PO 1 each Q6HR PRN Administration MODERATE Pain Alprazolam 0.25 mg 03/28/19 17:00 Xanax PO TID PRN Anxiety Amantadine HCl 100 mg 03/29/19 09:00 03/29/19 11:02 Symmetrel PO 100 mg DAILY KIKA Administration Amlodipine Besylate 5 mg 03/28/19 16:00 03/29/19 11:03 Norvasc PO 5 mg BID@0800,1600 KIKA Administration Apixaban 5 mg 03/28/19 16:00 03/28/19 15:33 Eliquis PO 5 mg BID@0800,1600 KIKA Administration Aspirin 325 mg 03/29/19 09:00 03/29/19 10:41 Aspirin PO 325 mg DAILY [facility] Administration Atorvastatin Calcium 40 mg 03/28/19 20:00 03/28/19 20:46 Lipitor PO 40 mg HS@1999 [facility] Administration Clonidine 0.3 mg 03/28/19 16:00 03/29/19 10:41 Catapres PO 0.3 mg TID@0000,0800,1600 [facility] Administration Clonidine 0.1 mg 03/28/19 21:12 03/28/19 23:16 Catapres PO 0.1 mg Q4HR PRN Administration Hypertension Docusate Sodium 50 mg 03/29/19 08:00 Colace Oral Soln PO BID@0800,1599 [facility] Hydralazine HCl 25 mg 03/28/19 16:00 03/29/19 10:42 Apresoline PO 25 mg TID@0000,0800,1599 [facility] Administration Hydromorphone HCl 0.5 mg 03/28/19 17:00 03/29/19 03:03 Dilaudid IVP 0.5 mg Q6HR PRN Administration Severe Pain Magnesium Hydroxide 2,400 mg 03/28/19 16:59 Milk Of Magnesia PO DAILY PRN Constipation Magnesium Oxide 400 mg 03/29/19 09:00 Mag-Ox PO DAILY [facility] Melatonin 5 mg 03/28/19 20:00 03/28/19 20:46 Melatonin PO 5 mg DAILY@1999 [facility] Administration Metoprolol Tartrate 25 mg 03/29/19 08:00 03/29/19 10:42 Lopressor PO 25 mg BID@0800,1600 [facility] Administration Multivitamins 1 each 03/29/19 09:00 Theragran PO DAILY [facility] Nitroglycerin 0.4 mg 03/28/19 13:40 Nitrostat SUBLINGUAL Q5M PRN Chest Pain Nitroglycerin 1 inch 03/28/19 18:00 03/29/19 03:12 Nitro-Bid Oint TOPICAL 1 inch Q6HR [facility] Administration Pantoprazole Sodium 40 mg 03/28/19 21:15 03/29/19 11:03 Protonix IVP 40 mg DAILY [facility] Administration Senna 8.6 mg 03/29/19 08:00 Senokot PO BID@0800,1599 [facility] Spironolactone 50 mg 03/28/19 16:00 03/29/19 11:03 Aldactone PO 50 mg BID@0800,1600 [facility] Administration Temazepam 15 mg 03/28/19 17:00 Restoril PO HS PRN Insomnia Thiamine HCl 100 mg 03/29/19 08:00 Vitamin B-1 PO DAILY@0800 [facility] Intake and Output 03/28/19 03/29/19 03/29/19 22:59 06:59 14:59 Intake Total 210 Balance 210 Intake: Oral 210 Other: Voiding Method Diaper Diaper Diaper Incontinent Incontinent Incontinent # Voids 1 1 Weight 83.5 kg 03/29/19 06:52 03/29/19 06:52 EKG Interpretations (text) EKG shows a normal sinus rhythm with first-degree AV block, LVH strain pattern, nonspecific ST-T wave changes. Assessment and Plan Plan: Assessment and plan #1 accelerated hypertension #2 vomiting #3 history of CVA with left-sided paralysis and expressive aphasia, patient curr ently has a PEG tube in place #4 hyperlipidemia #5 prior DVT #6 GERD #7 hypertension #8 abnormality in troponin, patient denies having any chest discomfort, he recently underwent a cardiac catheterization in January 2019 which revealed normal coronary arteries Plan Patient had an echocardiogram with Doppler study performed this admission which revealed a hyperdynamic LV function of greater than 70%. Continue Eliquis 5mg one tablet by mouth twice a day, decrease aspirin 81 mg daily, continue Lipitor, maximize the patient's medications to optimize the patient's a blood pressure control. Add hydrochlorothiazide. Further recommendations to follow. DNP note has been reviewed, I agree with a documented findings and plan of care. Patient was seen and examined.
[2019-03-29] MEDS: MAGNESIUM OXIDE 400 MG TAB PO SCH (12:49)
[2019-03-29] MEDS: MULTIVITAMINS, THERA 1 EACH TAB PO SCH (12:49)
[2019-03-29] MEDS: APIXABAN 5 MG TAB PO SCH ×2 (12:49→20:15)
[2019-03-29] MEDS: THIAMINE 100 MG TAB PO SCH (12:50)
[2019-03-29] MEDS: CLOPIDOGREL 75 MG TAB PO SCH (12:50)
[2019-03-29] MEDS: HYDROCHLOROTHIAZIDE 25 MG TAB PO SCH (13:28)
[2019-03-29] MEDS: DOCUSATE ORAL SOLN 100 MG/10 ML CUP PO SCH ×2 (13:28→20:15)
[2019-03-29] MEDS: SENNOSIDES 8.6 MG TAB PO SCH ×2 (13:30→20:15)
--- NOTE | 2019-03-29 15:25 | P.PN ---
Subjective Progress Note Date: 03/29/19 Principal diagnosis: This is a 63-year-old male who was recently admitted for some epigastric discomfort, chest pain, and elevated troponins and is being closely monitored. Cardiology is following. Patient underwent an echo this morning showing left ventricular systolic function is hyperdynamic with an estimated EF of about 70%. There is a trace to mild mitral along with a trace of tricuspid regurgitation present. Most recent troponin is 7.610 today. Patient has a recent history of having a cardiac catheterization in 2019 which revealed normal coronary arteries. Patient is being maintained on 81 mg aspirin daily along with Lipitor and Eliquis 5 mg twice daily. Patient continues to be hypertensive and hydrochlorothiazide has been added. Currently no reports of chest pain or palpitations. Patient is afebrile. No reports of nausea or vomiting and patient is tolerating diet. Patient is a one-on-one feeder. Objective - Vital Signs Vital signs: Vital Signs Temp 98.4 F 03/29/19 12:00 Pulse 71 03/29/19 12:00 Resp 16 03/29/19 12:00 BP 149/89 03/29/19 12:00 Pulse Ox 98 03/29/19 12:00 Intake & Output 03/28/19 03/29/19 03/29/19 18:59 06:59 18:59 Intake Total 210 Balance 210 Weight 83.915 kg 83.5 kg Intake: Oral 210 Other: Voiding Method Diaper Diaper Diaper Incontinent Incontinent Incontinent # Voids 1 1 - Exam Gen: This is a 63-year-old male sitting up in bed, awake, alert and oriented 2. Well-developed, well-nourished. Temp is 98.4F, pulse is 71, respirations are 16, blood pressure is 149/89, oxygen saturation is 98% on room air. HEENT: Head is atraumatic, normocephalic. Pupils equal, round. Sclerae is anicteric. NECK: Supple. No JVD. No lymphadenopathy. No thyromegaly. LUNGS: Breath sounds diminished at the bases with a few scattered crackles noted. No wheezing noted on exam. No intercostal retractions. HEART: S1, S2 are muffled. ABDOMEN: Soft. Bowel sounds are present. No masses. No tenderness. Minimal distention noted EXTREMITIES: No pedal edema. No calf tenderness. NEUROLOGICAL: Patient is awake, alert and oriented x2. Left-sided hemiplegia with some contractures present - Labs CBC & Chem 7: 03/29/19 06:52 03/29/19 06:52 Labs: Abnormal Lab Results - Last 24 Hours (Table) 03/28/19 03/29/19 03/29/19 Range/Units 16:06 00:03 06:52 Hgb (13.0-17.5) gm/dL RDW (11.5-15.5) % Sodium 135 L (137-145) mmol/L Chloride 97 L (98-107) mmol/L Glucose 114 H (74-99) mg/dL Troponin I 1.220 H* 8.760 H* (0.000-0.034) ng/mL 03/29/19 03/29/19 Range/Units 06:52 06:52 Hgb 12.8 L (13.0-17.5) gm/dL RDW 15.9 H (11.5-15.5) % Sodium (137-145) mmol/L Chloride (98-107) mmol/L Glucose (74-99) mg/dL Troponin I 7.610 H* (0.000-0.034) ng/mL Assessment and Plan Assessment: Vomiting and tachycardia. Possible acute non-ST segment elevation myocardial infarction with troponin 1.220 and trending upward Possible acute gastritis History of cerebrovascular accident with left-sided hemiplegia History of deep vein thrombosis Gait dysfunction PEG tube Gastroesophageal reflux disease Hypertension Hyperlipidemia Myocardial infarction history of cardiac catheterization Recommendations and discussion: Recommend to continue current medications, management, and symptomatic tr eatment. Aspirin has been decreased 81 mg daily along with Eliquis 5 mg twice daily. Cardiology is following. Patient underwent echo as mentioned previously. Patient is maintained on a pure diet and continues to be fed with assistance. Due to multiple complex medical issues prognosis is guarded. Hydrochlorothiazide is being added for better blood pressure control. Will continue to monitor vital signs and labs closely. Further recommendations to follow. Guarded prognosis.
[2019-03-29] MEDS: METOPROLOL TARTRATE 50 MG TAB PO SCH (17:22)
[2019-03-29] MEDS: MELATONIN 5 MG TABLET PO SCH (20:14)
[2019-03-29] MEDS: ATORVASTATIN 40 MG TAB PO SCH (20:14)
[2019-03-30 02:26] LABS: Glucose,Whole Blood 121 mg/dL (75-99)
[2019-03-30] MEDS: NITROGLYCERIN SL TABS 0.4 MG TAB SUBLINGUAL PRN ×3 (02:33→19:31)
[2019-03-30] MEDS: HYDROmorphone 0.5 MG/0.5 ML SYRINGE IVP PRN ×2 (03:47→21:33)
[2019-03-30] MEDS: NITROGLYCERIN OINT 1 INCH/GM PACKET TOPICAL SCH ×4 (06:19→22:45)
[2019-03-30] MEDS: HYDROcodone/APAP 5-325MG 1 EACH TAB PO PRN ×2 (06:49→15:35)
[2019-03-30 07:06] LABS: African American GFR (CKD) >90 (>60 ml/min/1.73 sqM); Anion Gap 11 mmol/L; Blood Urea Nitrogen 24 mg/dL (9-20); Calcium 9.9 mg/dL (8.4-10.2); Carbon Dioxide 24 mmol/L (22-30); Chloride 101 mmol/L (98-107); Glucose 111 mg/dL (74-99); Non-African American GFR(CKD) 85 (>60 ml/min/1.73 sqM); Potassium 4.8 mmol/L (3.5-5.1); Sodium 136 mmol/L (137-145)
[2019-03-30 07:13] LABS: Basophils % (A) 0 %; Eosinophils # (A) 0.4 k/uL (0-0.7); Eosinophils % (A) 4 %; HCT 40.3 % (39.0-53.0); HGB 12.9 gm/dL (13.0-17.5); Lymphocytes # (A) 3.1 k/uL (1.0-4.8); Lymphocytes % (A) 38 %; MCH 29.8 pg (25.0-35.0); MCHC 32.1 g/dL (31.0-37.0); Mean Platelet Volume 6.8; Monocytes # (A) 0.4 k/uL (0-1.0); Monocytes % (A) 5 %; Neutrophils # (A) 4.1 k/uL (1.3-7.7); Neutrophils % (A) 49 %; Platelet Count 313 k/uL (150-450); RBC 4.34 m/uL (4.30-5.90); RDW 15.5 % (11.5-15.5); WBC 8.3 k/uL (3.8-10.6)
[2019-03-30] MEDS: SPIRONOLACTONE 25 MG TAB PO SCH ×2 (08:27→15:35)
[2019-03-30] MEDS: cloNIDine HCL 0.1 MG TAB PO SCH ×3 (08:27→19:31)
[2019-03-30] MEDS: amLODIPine 5 MG TAB PO SCH ×2 (08:27→15:36)
[2019-03-30] MEDS: hydrALAZINE HCL 25 MG TAB PO SCH ×3 (08:27→19:32)
[2019-03-30] MEDS: HYDROCHLOROTHIAZIDE 25 MG TAB PO SCH (08:27)
[2019-03-30] MEDS ORDERED: ASPIRIN 81 MG PO SCH (09:00)
[2019-03-30] MEDS: MULTIVITAMINS, THERA 1 EACH TAB PO SCH (10:25)
[2019-03-30] MEDS: MAGNESIUM OXIDE 400 MG TAB PO SCH (10:25)
[2019-03-30] MEDS: METOPROLOL TARTRATE 50 MG TAB PO SCH ×2 (10:25→17:32)
[2019-03-30] MEDS: THIAMINE 100 MG TAB PO SCH (10:25)
[2019-03-30] MEDS: SENNOSIDES 8.6 MG TAB PO SCH ×2 (10:26→15:36)
[2019-03-30] MEDS: PANTOPRAZOLE 40 MG/10 ML VIAL IVP SCH (10:26)
[2019-03-30] MEDS: CLOPIDOGREL 75 MG TAB PO SCH (10:26)
[2019-03-30] MEDS: DOCUSATE ORAL SOLN 100 MG/10 ML CUP PO SCH ×2 (10:33→17:31)
[2019-03-30] MEDS: AMANTADINE HCL 100 MG/10 ML CUP PO SCH (10:34)
[2019-03-30] MEDS: APIXABAN 5 MG TAB PO SCH ×2 (12:37→19:32)
--- NOTE | 2019-03-30 14:16 | P.PN ---
Subjective Progress Note Date: 03/30/19 This is a 63-year-old -[place] gentleman with history of prior CVA with left-sided paralysis, PEG tube placement, expressive aphasia, hypertension, hyperlipidemia, prior history of smoking, follows with Dr. gonzales on in the office. He resides at [facility]. Most of the history was obtained from the medical record. Patient underwent a cardiac catheterization in January 2019 which revealed normal coronary arteries and normal left ventricular systolic function. According to the notes, patient was apparently brought to the emergency room after having an episode of vomiting, he was noted to be tachycardic and have a systolic blood pressure of greater than 200. Cardiology consultation was requested for accelerated hypertension. Chest x-ray on presentation here showed COPD and cardiomegaly. EKG on presentation here showed a sinus rhythm, LVH strain pattern, nonspecific ST-T wave changes. An echocardiogram with Doppler study was performed which revealed a hyperdynamic left ventricular systolic function. Greater than 70%. Blood pressure on arrival here 196/135, heart rate in the 90s, 99% on room air. White blood cell count on admission 9.6, 8.3 this morning, hemoglobin on admission 13.7, 12.8 this morning. Platelet count 406 on admission 365 this morning. Sodium 135, potassium 4.5, BUN 17, creatinine 0.9. Troponins 0.072, 1.2, 8.7, 7.6. At the time of my examination this morning, patient is resting comfortably in bed, he denies any chest pain when asked, his breathing is stable. 03/30 2019 patient was seen and examined this morning, patient had several episodes of chest discomfort through the night last night, each time associated with accelerated hypertension. Blood pressure this morning 134/80, heart rate in the 60s, 100% on 2 L of oxygen. Denying any chest pain today. Medication adjustments have been made in his blood pressure overall is under better control. We will continue maximal medical therapy on him. Objective - Vital Signs Vital signs: Vital Signs Temp 97.5 F L 03/30/19 11:40 Pulse 61 03/30/19 11:40 Resp 16 03/30/19 11:40 BP 135/84 03/30/19 11:40 Pulse Ox 100 03/30/19 11:40 Intake & Output 03/29/19 03/30/19 03/30/19 18:59 06:59 18:59 Intake Total 472 Balance 472 Weight 86.5 kg Intake: Oral 472 Other: Voiding Method Diaper Diaper Diaper Incontinent Incontinent Incontinent # Voids 4 1 - Exam PHYSICAL EXAMINATION: GENERAL: 63-year-old -[place] gentleman in no acute distress at the time of my examination HEENT: Head is atraumatic, normocephalic. Pupils equal, round. Sclera anicteric. Conjunctiva are clear. Mucous membranes of the mouth are moist. Neck is supple. There is no elevated jugular venous pressure. No carotid bruit is heard. HEART EXAMINATION: Heart S1, S2 normal. No murmur or gallop heard. CHEST EXAMINATION: Lungs are clear to auscultation and precussion. No chest wall tenderness is noted on palpation or with deep breathing. ABDOMEN: Soft, nontender. Bowel sounds are heard. No organomegaly noted. EXTREMITIES: 2+ peripheral pulses with no evidence of peripheral edema and no calf tenderness noted. NEUROLOGIC patient is awake, alert and oriented 2 . - Labs CBC & Chem 7: 03/30/19 06:09 03/30/19 06:09 Labs: Abnormal Lab Results - Last 24 Hours (Table) 03/30/19 03/30/19 03/30/19 Range/Units 02:25 03:15 06:09 Hgb 12.9 L (13.0-17.5) gm/dL Sodium (137-145) mmol/L BUN (9-20) mg/dL Glucose (74-99) mg/dL POC Glucose (mg/dL) 121 H (75-99) mg/dL Troponin I 2.720 H* (0.000-0.034) ng/mL 03/30/19 Range/Units 06:09 Hgb (13.0-17.5) gm/dL Sodium 136 L (137-145) mmol/L BUN 24 H (9-20) mg/dL Glucose 111 H (74-99) mg/dL POC Glucose (mg/dL) (75-99) mg/dL Troponin I (0.000-0.034) ng/mL Assessment and Plan Plan: Assessment and plan #1 accelerated hypertension #2 vomiting #3 history of CVA with left-sided paralysis and expressive aphasia, patient currently has a PEG tube in place #4 hyperlipidemia #5 prior DVT #6 GERD #7 hypertension #8 abnormality in troponin, patient denies having any chest discomfort, he recently underwent a cardiac catheterization in January 2019 which revealed normal coronary arteries Plan From cardiology's perspective, we'll continue patient on his current medications. Continue to maximize medical therapy if necessary. DNP note has been reviewed, I agree with a documented findings and plan of care. Patient was seen and examined.
--- NOTE | 2019-03-30 14:49 | P.PN ---
Subjective Progress Note Date: 03/30/19 Principal diagnosis: This is a 63-year-old male who was recently admitted for some epigastric discomfort, chest pain, and elevated troponins and is being closely monitored. Cardiology is following. Patient underwent an echo this morning showing left ventricular systolic function is hyperdynamic with an estimated EF of about 70%. There is a trace to mild mitral along with a trace of tricuspid regurgitation present. Most recent troponin is 7.610 today. Patient has a recent history of having a cardiac catheterization in 2019 which revealed normal coronary arteries. Patient is being maintained on 81 mg aspirin daily along with Lipitor and Eliquis 5 mg twice daily. Patient continues to be hypertensive and hydrochlorothiazide has been added. Currently no reports of chest pain or palpitations. Patient is afebrile. No reports of nausea or vomiting and patient is tolerating diet. Patient is a one-on-one feeder. 03/30/2019 Patient is seen and evaluated in follow-up today and states he is having some chest pain throughout the night along with some left leg pain today. Patient's troponin is trending down and is 2.720 today. Patient had some episodes of hypertension as well during the periods of chest pain. Currently no reports of chest pain, palpitations, or shortness of breath. Patient is afebrile. No reports of nausea or vomiting and patient is tolerating diet. Will continue to monitor vital signs closely. Objective - Vital Signs Vital signs: Vital Signs Temp 97.5 F L 03/30/19 11:40 Pulse 61 03/30/19 11:40 Resp 16 03/30/19 11:40 BP 135/84 03/30/19 11:40 Pulse Ox 100 03/30/19 11:40 Intake & Output 03/29/19 03/30/19 03/30/19 18:59 06:59 18:59 Intake Total 472 200 Balance 472 200 Weight 86.5 kg Intake: Oral 472 200 Other: Voiding Method Diaper Diaper Diaper Incontinent Incontinent Incontinent # Voids 4 1 - Exam Gen: This is a 63-year-old male sitting up in bed, awake, alert and oriented 2. Well-developed, well-nourished. Temp is 97.5, pulse is 61, respirations are 16, blood pressure is 135/84, oxygen saturation is 100% on 2 L via nasal cannula. HEENT: Head is atraumatic, normocephalic. Pupils equal, round. Sclerae is anicteric. NECK: Supple. No JVD. No lymphadenopathy. No thyromegaly. LUNGS: Breath sounds diminished at the bases with a few scattered crackles note d. No wheezing noted on exam. No intercostal retractions. HEART: S1, S2 are muffled. ABDOMEN: Soft. Bowel sounds are present. No masses. No tenderness. Minimal distention noted EXTREMITIES: No pedal edema. No calf tenderness. Some minor upper left leg pain per patient. No pain or discomfort noted upon palpation of the left lower extremity NEUROLOGICAL: Patient is awake, alert and oriented x2. Left-sided hemiplegia with some contractures present - Labs CBC & Chem 7: 03/30/19 06:09 03/30/19 06:09 Labs: Abnormal Lab Results - Last 24 Hours (Table) 03/30/19 03/30/19 03/30/19 Range/Units 02:25 03:15 06:09 Hgb 12.9 L (13.0-17.5) gm/dL Sodium (137-145) mmol/L BUN (9-20) mg/dL Glucose (74-99) mg/dL POC Glucose (mg/dL) 121 H (75-99) mg/dL Troponin I 2.720 H* (0.000-0.034) ng/mL 03/30/19 Range/Units 06:09 Hgb (13.0-17.5) gm/dL Sodium 136 L (137-145) mmol/L BUN 24 H (9-20) mg/dL Glucose 111 H (74-99) mg/dL POC Glucose (mg/dL) (75-99) mg/dL Troponin I (0.000-0.034) ng/mL Assessment and Plan Assessment: Vomiting and tachycardia. Possible acute non-ST segment elevation myocardial in farction with troponin 1.220 and trending upward Possible acute gastritis History of cerebrovascular accident with left-sided hemiplegia History of deep vein thrombosis Gait dysfunction PEG tube Gastroesophageal reflux disease Hypertension Hyperlipidemia Myocardial infarction history of cardiac catheterization Recommendations and discussion: Recommend to continue current medications, management, and symptomatic treatment. Troponin trending down. Cardiology is following. Patient had some reports of chest pain along with hypertension throughout the night. Will continue to monitor closely. Due to multiple complex medical issues prognosis is guarded. Will continue to monitor vital signs and labs closely. Further recommendations to follow. Guarded prognosis. Possible discharge in 24-48 hours.
[2019-03-30] MEDS: MELATONIN 5 MG TABLET PO SCH (19:31)
[2019-03-30] MEDS: ATORVASTATIN 40 MG TAB PO SCH (19:32)
[2019-03-31] MEDS: HYDROmorphone 0.5 MG/0.5 ML SYRINGE IVP PRN ×3 (04:31→16:39)
[2019-03-31] MEDS: NITROGLYCERIN OINT 1 INCH/GM PACKET TOPICAL SCH (05:24)
[2019-03-31 06:47] LABS: Basophils % (A) 0 %; Eosinophils # (A) 0.3 k/uL (0-0.7); Eosinophils % (A) 6 %; HCT 33.9 % (39.0-53.0); Lymphocytes # (A) 2.3 k/uL (1.0-4.8); Lymphocytes % (A) 41 %; MCH 29.7 pg (25.0-35.0); MCHC 32.4 g/dL (31.0-37.0); MCV 91.5 fL (80.0-100.0); Monocytes # (A) 0.3 k/uL (0-1.0); Monocytes % (A) 6 %; Neutrophils # (A) 2.5 k/uL (1.3-7.7); Neutrophils % (A) 45 %; Platelet Count 353 k/uL (150-450); RDW 15.5 % (11.5-15.5); WBC 5.6 k/uL (3.8-10.6)
[2019-03-31 07:03] LABS: African American GFR (CKD) >90 (>60 ml/min/1.73 sqM); Anion Gap 10 mmol/L; Blood Urea Nitrogen 23 mg/dL (9-20); Calcium 9.8 mg/dL (8.4-10.2); Carbon Dioxide 26 mmol/L (22-30); Chloride 98 mmol/L (98-107); Glucose 112 mg/dL (74-99); Non-African American GFR(CKD) 78 (>60 ml/min/1.73 sqM); Potassium 4.3 mmol/L (3.5-5.1); Sodium 134 mmol/L (137-145)
[2019-03-31] MEDS: NITROGLYCERIN SL TABS 0.4 MG TAB SUBLINGUAL PRN (08:15)
[2019-03-31] MEDS: cloNIDine HCL 0.1 MG TAB PO PRN (09:02)
[2019-03-31] MEDS: HYDROCHLOROTHIAZIDE 25 MG TAB PO SCH (09:03)
[2019-03-31] MEDS: cloNIDine HCL 0.1 MG TAB PO SCH ×3 (09:03→23:43)
[2019-03-31] MEDS: amLODIPine 5 MG TAB PO SCH ×2 (09:04→15:44)
[2019-03-31] MEDS: SPIRONOLACTONE 25 MG TAB PO SCH ×2 (09:04→16:06)
[2019-03-31] MEDS: MULTIVITAMINS, THERA 1 EACH TAB PO SCH (09:04)
[2019-03-31] MEDS: METOPROLOL TARTRATE 50 MG TAB PO SCH ×2 (09:04→16:03)
[2019-03-31] MEDS: CLOPIDOGREL 75 MG TAB PO SCH (09:04)
[2019-03-31] MEDS: APIXABAN 5 MG TAB PO SCH ×2 (09:05→15:44)
[2019-03-31] MEDS: hydrALAZINE HCL 25 MG TAB PO SCH ×3 (09:05→23:43)
[2019-03-31] MEDS: MAGNESIUM OXIDE 400 MG TAB PO SCH (09:05)
[2019-03-31] MEDS: THIAMINE 100 MG TAB PO SCH (09:05)
[2019-03-31] MEDS: SENNOSIDES 8.6 MG TAB PO SCH ×2 (09:06→16:04)
[2019-03-31] MEDS: DOCUSATE ORAL SOLN 100 MG/10 ML CUP PO SCH ×2 (09:06→15:48)
[2019-03-31] MEDS: PANTOPRAZOLE 40 MG TABLET PO SCH (09:06)
[2019-03-31] MEDS: AMANTADINE HCL 100 MG/10 ML CUP PO SCH (09:07)
--- NOTE | 2019-03-31 12:22 | P.PN ---
Subjective Progress Note Date: 03/31/19 This is a 63-year-old -[place] gentleman with history of prior CVA with left-sided paralysis, PEG tube placement, expressive aphasia, hypertension, hyperlipidemia, prior history of smoking, follows with Dr. gonzales on in the office. He resides at [facility]. Most of the history was obtained from the medical record. Patient underwent a cardiac catheterization in January 2019 which revealed normal coronary arteries and normal left ventricular systolic function. According to the notes, patient was apparently brought to the emergency room after having an episode of vomiting, he was noted to be tachycardic and have a systolic blood pressure of greater than 200. Cardiology consultation was requested for accelerated hypertension. Chest x-ray on presentation here showed COPD and cardiomegaly. EKG on presentation here showed a sinus rhythm, LVH strain pattern, nonspecific ST-T wave changes. An echocardiogram with Doppler study was performed which revealed a hyperdynamic left ventricular systolic function. Greater than 70%. Blood pressure on arrival here 196/135, heart rate in the 90s, 99% on room air. White blood cell count on admission 9.6, 8.3 this morning, hemoglobin on admission 13.7, 12.8 this morning. Platelet count 406 on admission 365 this morning. Sodium 135, potassium 4.5, BUN 17, creatinine 0.9. Troponins 0.072, 1.2, 8.7, 7.6. At the time of my examination this morning, patient is resting comfortably in bed, he denies any chest pain when asked, his breathing is stable. 03/30 2019 patient was seen and examined this morning, patient had several episodes of chest discomfort through the night last night, each time associated with accelerated hypertension. Blood pressure this morning 134/80, heart rate in the 60s, 100% on 2 L of oxygen. Denying any chest pain today. Medication adjustments have been made in his blood pressure overall is under better control. We will continue maximal medical therapy on him. 03/31/2019 Patient seen and examined this morning, comfortable at present. Did have one episode of chest pain earlier this morning with associated accelerated hypertension. At the time of my examination his blood pressure is stable, blood pressure 138/67 with a heart rate of 50, 96% on 2 L of oxygen. White blood cell count 5.6, hemoglobin 11, platelet count 353. Sodium 134, potassium 4.3, BUN 23, creatinine 1.0. Objective - Vital Signs Vital signs: Vital Signs Temp 98.4 F 03/31/19 11:52 Pulse 52 L 03/31/19 11:52 Resp 18 03/31/19 11:52 BP 138/67 03/31/19 11:52 Pulse Ox 96 03/31/19 11:52 Intake & Output 03/30/19 03/31/19 03/31/19 18:59 06:59 18:59 Intake Total 440 Balance 440 Weight 79.5 kg Intake: Oral 440 Other: Voiding Method Diaper Diaper Diaper Incontinent Incontinent Incontinent # Voids 5 1 1 - Exam PHYSICAL EXAMINATION: GENERAL: 63-year-old -[place]e gentleman in no acute distress at the time of my examination HEENT: Head is atraumatic, normocephalic. Pupils equal, round. Sclera anicteric. Conjunctiva are clear. Mucous membranes of the mouth are moist. Neck is supple. There is no elevated jugular venous pressure. No carotid bruit is heard. HEART EXAMINATION: Heart S1, S2 normal. No murmur or gallop heard. CHEST EXAMINATION: Lungs are clear to auscultation and precussion. No chest wall tenderness is noted on palpation or with deep breathing. ABDOMEN: Soft, nontender. Bowel sounds are heard. No organomegaly noted. EXTREMITIES: 2+ peripheral pulses with no evidence of peripheral edema and no calf tenderness noted. NEUROLOGIC patient is awake, alert and oriented 2 . - Labs CBC & Chem 7: 03/31/19 05:59 03/31/19 06:03 Labs: Abnormal Lab Results - Last 24 Hours (Table) 03/31/19 03/31/19 Range/Units 05:59 06:03 RBC 3.70 L (4.30-5.90) m/uL Hgb 11.0 L (13.0-17.5) gm/dL Hct 33.9 L (39.0-53.0) % Sodium 134 L (137-145) mmol/L BUN 23 H (9-20) mg/dL Glucose 112 H (74-99) mg/dL Assessment and Plan Plan: Assessment and plan #1 accelerated hypertension #2 vomiting #3 history of CVA with left-sided paralysis and expressive aphasia, patient currently has a PEG tube in place #4 hyperlipidemia #5 prior DVT #6 GERD #7 hypertension #8 abnormality in troponin, patient denies having any chest discomfort, he recently underwent a cardiac catheterization in January 2019 which revealed normal coronary arteries Plan From cardiology's perspective, we'll continue patient on his current medications, plus we will add Imdur 30 mg daily.. Continue to maximize medical therapy if necessary. DNP note has been reviewed, I agree with a documented findings and plan of care. Patient was seen and examined.
[2019-03-31] MEDS: HYDROcodone/APAP 5-325MG 1 EACH TAB PO PRN ×2 (13:43→21:09)
[2019-03-31] MEDS: ISOSORBIDE MONONITRATE ER 30 MG TAB.ER.24H PO SCH (13:44)
--- NOTE | 2019-03-31 15:20 | US ---
EXAMINATION TYPE: US venous doppler duplex LE LT DATE OF EXAM: 03/31/2019 3:02 PM COMPARISON: NONE CLINICAL HISTORY: pain left thigh. Poor historian SIDE PERFORMED: Left TECHNIQUE: The lower extremity deep venous system is examined utilizing real time linear array sonog [place] with graded compression, doppler sonography and color-flow sonography. VESSELS IMAGED: External Iliac Vein (EIV) Common Femoral Vein Deep Femoral Vein Greater Saphenous Vein * Femoral Vein Popliteal Vein Small Saphenous Vein * Proximal Calf Veins (* superficial vessels) Left Leg: Negative for DVT IMPRESSION: 1. Left lower extremity ultrasound negative for deep venous thrombosis
--- NOTE | 2019-03-31 16:26 | CDI ---
Documentation Clarification Form Date: 03/31/2019 04:21:27 PM From: Letty Brantley RN, CCDS Admit Date: 03/30/2019 08:48:00 AM Patient Name: Jl Alvarez Visit Number: [id number] Discharge Date: ATTENTION: The Clinical Documentation Specialists (CDI) and [facility] Coding Staff appreciate your assistance in clarifying documentation. Please respond to the clarification below the line at the bottom and electronically sign. The CDI & [facility] Coding staff will review the response and follow-up if needed. Please note: Queries are made part of the Legal Health Record. If you have any questions, please contact the author of this message via ITS. Dr. Quincy Taylor The patient presented to ER on 03/28 with complaints of tachycardia was made a full admission on 03/30/19. He reports chest pain along with hypertension throughout the night. 03/30 at 08:00 blood pressure, 216/125 heart rate 78. Specificity of the hypertension is needed. History/Risk Factors: Hypertension, CVA, Aphasia, [place] Clinical Indicators: 63-year-old male on 03/30 per orders full admission. Progress notes from attending has continues to be hypertensive and hydrochlorthiazide has been added. He states he is have some chest pain throughout the night along with some left leg pain today. Patient troponin is trending down and is 2.720. 03/30 @ 08:00 Vital Signs: 216/125 78 20, 03/30 @ 15:34 146/112 62 16: 03/30 @ 19:30 209/132 73 18 Treatment: Telemetry/monitoring Monitor VS Per orders Norvasc 5 mg po BID Catapres 0.3 mg PO TID Apresoline 25 mg PO TID Imdur 30 MG Daily Hydrochlorothiazide 50 mg PO Daily In your professional opinion, can you please clarify Hypertension? Hypertensive Urgency Other, please specify Unable to determine (Last Revision: May 2017) Hypertensive Urgency MTDD
[2019-03-31] MEDS: MELATONIN 5 MG TABLET PO SCH (21:09)
[2019-03-31] MEDS: ATORVASTATIN 40 MG TAB PO SCH (21:09)
--- NOTE | 2019-03-31 21:54 | P.PN ---
Progress Note - Text Progress Note Date: 03/31/19 History of presenting complaint: This is a 63-year-old patient of Dr. Booker resident of [facility]. Chronic stable medical conditions include GERD, ascending aortic aneurysm 4.2 cm, hypertension, hyperlipidemia has a PEG tube Had a previous stroke with left-sided weakness. Patient nonambulatory. Patient has severe dysarthria, Patient's was in the hospital on January 2019 with an acute [place]. Cardiac catheterization showed normal coronaries. 2-D echo showed an EF of 55-60%. This time patient presented with vomiting 3 times and a systolic blood pressure of 200. Hospital course: Patient's troponin peaked from 0.07-8.7. Seen by cardiology. [place] to be hypertensive ischemia. Today-no chest pain. Complaining of some pain in the left calf. Ultrasound has been ordered. Otherwise comfortable. Review of systems: Was done for constitutional, cardiovascular, GI, pulmonary. relevant finding as above Active Medications Acetaminophen (Tylenol Tab) 650 mg PO Q6H PRN PRN Reason: Fever Hydrocodone Bitart/Acetaminophen ([place] 5-325) 1 each PO Q6HR PRN PRN Reason: MODERATE Pain Last Admin: 03/31/19 21:09 Dose: 1 each Documented by: Alprazolam (Xanax) 0.25 mg PO TID PRN PRN Reason: Anxiety Amantadine HCl (Symmetrel) 100 mg PO DAILY [facility] Last Admin: 03/31/19 09:07 Dose: 100 mg Documented by: Amlodipine Besylate (Norvasc) 5 mg PO BID@0800,1600 [facility] Last Admin: 03/31/19 15:44 Dose: 5 mg Documented by: Apixaban (Eliquis) 5 mg PO BID@0800,1600 [facility] Last Admin: 03/31/19 15:44 Dose: 5 mg Documented by: Atorvastatin Calcium (Lipitor) 40 mg PO HS@2000 [facility] Last Admin: 03/31/19 21:09 Dose: 40 mg Documented by: Clonidine (Catapres) 0.3 mg PO TID@0000,0800,1600 [facility] Last Admin: 03/31/19 15:43 Dose: 0.3 mg Documented by: Clonidine (Catapres) 0.1 mg PO Q4HR PRN PRN Reason: Hypertension Last Admin: 03/31/19 09:02 Dose: 0.1 mg Documented by: Clopidogrel Bisulfate (Plavix) 75 mg PO DAILY [facility] Last Admin: 03/31/19 09:04 Dose: 75 mg Documented by: Docusate Sodium (Colace Oral Soln) 50 mg PO BID@0800,1600 [facility] Last Admin: 03/31/19 15:48 Dose: Not Given Documented by: Hydralazine HCl (Apresoline) 25 mg PO TID@0000,0800,1600 [facility] Last Admin: 03/31/19 15:44 Dose: 25 mg Documented by: Hydrochlorothiazide (Hydrodiuril) 50 mg PO DAILY [facility] Last Admin: 03/31/19 09:03 Dose: 50 mg Documented by: Hydromorphone HCl (Dilaudid) 0.5 mg IVP Q6HR PRN PRN Reason: Severe Pain Last Admin: 03/31/19 16:39 Dose: 0.5 mg Documented by: Isosorbide Mononitrate (Imdur) 30 mg PO DAILY [facility] Last Admin: 03/31/19 13:44 Dose: 30 mg Documented by: Magnesium Hydroxide (Milk Of Magnesia) 2,400 mg PO DAILY PRN PRN Reason: Constipation Magnesium Oxide (Mag-Ox) 400 mg PO DAILY [facility] Last Admin: 03/31/19 09:05 Dose: 400 mg Documented by: Melatonin (Melatonin) 5 mg PO DAILY@1999 [facility] Last Admin: 03/31/19 21:09 Dose: 5 mg Documented by: Metoprolol Tartrate (Lopressor) 50 mg PO BID@0800,1600 [facility] Last Admin: 03/31/19 16:03 Dose: 50 mg Documented by: Multivitamins (Theragran) 1 each PO DAILY [facility] Last Admin: 03/31/19 09:04 Dose: 1 each Documented by: Nitroglycerin (Nitrostat) 0.4 mg SUBLINGUAL Q5M PRN PRN Reason: Chest Pain Last Admin: 03/31/19 08:15 Dose: 0.4 mg Documented by: Pantoprazole Sodium (Protonix) 40 mg PO DAILY [facility] Last Admin: 03/31/19 09:06 Dose: 40 mg Documented by: Senna (Senokot) 8.6 mg PO BID@0800,1600 [facility] Last Admin: 03/31/19 16:04 Dose: Not Given Documented by: Spironolactone (Aldactone) 50 mg PO BID@0800,1600 [facility] Last Admin: 03/31/19 16:06 Dose: 50 mg Documented by: Temazepam (Restoril) 15 mg PO HS PRN PRN Reason: Insomnia Thiamine HCl (Vitamin B-1) 100 mg PO DAILY@0800 [facility] Last Admin: 03/31/19 09:05 Dose: 100 mg Documented by: Physical examination: VITAL SIGNS: 98.4, 52, 18, 138/67, 96% on 2 L GENERAL: Propped up, comfortable EYES: Pupils equal. Conjunctiva normal. HEENT: External appearance of nose and ears normal, oral cavity grossly normal. NECK: JVD not raised; masses not palpable. HEART: First and second heart sounds are normal; no edema. LUNGS: Respiratory rate normal; decreased breath sounds. ABDOMEN: Soft, nontender, liver spleen not palpable, no masses palpable. PEG tube in place PSYCH: Unable to assess l. NEUROLOGICAL: dysarthria, weakness on the left side. INVESTIGATIONS, reviewed in the clinical context: White count 5.6 hemoglobin 11 potassium 4.3 creatinine 1.01 Previous testing: Troponin 0.07, 1.2, 8.7, 2.7 2-D echo-EF more than 70%, moderate concentric left medical hypertrophy Assessment: -Hypertensive cardiomyopathy -Left calf pain rule out DVT -Chronic nicotine dependence patient cigarette smoker -Essential hypertension -Chronic nicotine dependence cigarette smoker -PEG tube and is using at night -Severe dysarthria -Dysphagia -pured diet. tube feeding at night. -GERD Plan: We'll get a ultrasound of the left calf to rule out DVT. Per cardiology no further workup. Hopefully can be discharged to [facility] tomorrow.
[2019-04-01 04:48] VITALS: RESP 16; TEMP 98.1
[2019-04-01] MEDS: hydrALAZINE HCL 25 MG TAB PO SCH (09:16)
[2019-04-01] MEDS: THIAMINE 100 MG TAB PO SCH (09:16)
[2019-04-01] MEDS: SPIRONOLACTONE 25 MG TAB PO SCH (09:16)
[2019-04-01] MEDS: cloNIDine HCL 0.1 MG TAB PO SCH (09:16)
[2019-04-01] MEDS: PANTOPRAZOLE 40 MG TABLET PO SCH (09:16)
[2019-04-01] MEDS: MAGNESIUM OXIDE 400 MG TAB PO SCH (09:16)
[2019-04-01] MEDS: CLOPIDOGREL 75 MG TAB PO SCH (09:17)
[2019-04-01] MEDS: APIXABAN 5 MG TAB PO SCH (09:17)
[2019-04-01] MEDS: SENNOSIDES 8.6 MG TAB PO SCH (09:17)
[2019-04-01] MEDS: MULTIVITAMINS, THERA 1 EACH TAB PO SCH (09:17)
[2019-04-01] MEDS: METOPROLOL TARTRATE 50 MG TAB PO SCH (09:17)
[2019-04-01] MEDS: DOCUSATE ORAL SOLN 100 MG/10 ML CUP PO SCH (09:17)
[2019-04-01] MEDS: amLODIPine 5 MG TAB PO SCH (09:17)
[2019-04-01] MEDS: ISOSORBIDE MONONITRATE ER 30 MG TAB.ER.24H PO SCH (09:17)
[2019-04-01] MEDS: AMANTADINE HCL 100 MG/10 ML CUP PO SCH (09:18)
[2019-04-01] MEDS: HYDROCHLOROTHIAZIDE 25 MG TAB PO SCH (09:19)
--- NOTE | 2019-04-01 12:17 | P.DS ---
Providers Date of admission: 03/30/19 08:48 Expected date of discharge: 04/01/19 Attending physician: Martin Osman Consults: 03/28/19 13:41 Consult Physician Urgent Consulting Provider: [facility] Consult Reason/Comments: Elevated troponin Do you want consulting provider notified?: Yes Primary care physician: Ed Booker [facility] Course: History of presenting complaint: This is a 63-year-old patient of Dr. Booker resident of [facility]. Chronic stable medical conditions include GERD, ascending aortic aneurysm 4.2 cm, hypertension, hyperlipidemia has a PEG tube Had a previous stroke with left-sided weakness. Patient nonambulatory. Patient has severe dysarthria, Patient's was in the hospital on January 2019 with an acute [place]. Cardiac ca theterization showed normal coronaries. 2-D echo showed an EF of 55-60%. This time patient presented with vomiting 3 times and a systolic blood pressure of 200. Hospital course: Patient's troponin peaked from 0.07-8.7. Seen by cardiology. [place] to be hypertensive ischemia.2 DVT in the left calf was ruled out Today-no chest pain. Comfortable. Tolerating diet Consultation: Dr. Barlow from cardiology. Physical examination: VITAL SIGNS: 98.1, 33, 16, 123/79, 100% on room air GENERAL: Laying in bed, comfortable EYES: Pupils equal. Conjunctiva normal. HEENT: External appearance of nose and ears normal, oral cavity grossly normal. NECK: JVD not raised; masses not palpable. HEART: First and second heart sounds are normal; no edema. LUNGS: Respiratory rate normal; decreased breath sounds. ABDOMEN: Soft, nontender, liver spleen not palpable, no masses palpable. PEG tube in place NEUROLOGICAL: dysarthria, weakness on the left side. INVESTIGATIONS, reviewed in the clinical context: White count 5.6 hemoglobin 11 potassium 4.3 creatinine 1.01 Previous testing: Troponin 0.07, 1.2, 8.7, 2.7 2-D echo-EF more than 70%, moderate concentric left medical hypertrophy Assessment: -Hypertensive cardiomyopathy -Left calf pain-DVT ruled out -Chronic nicotine dependence patient cigarette smoker -Essential hypertension, with urgency, POA -Chronic nicotine dependence cigarette smoker -PEG tube and is using at night -Severe dysarthria -Dysphagia -pured diet. tube feeding at night. -GERD -Positive troponin from hypertensive urgency. Not acute coronary syndrome, POA Plan: [facility] Patient Condition at Discharge: Stable Plan - Discharge Summary New Discharge Prescriptions: New Chlorthalidone 25 mg PO DAILY #1 tab Isosorbide Mononitrate ER [Imdur] 30 mg PO DAILY tab.er.24h Metoprolol Tartrate [Lopressor] 50 mg PO BID@0800,1600 tab Clopidogrel [Plavix] 75 mg PO DAILY tab Continue Amantadine Syrup 50mg/5ml 100 mg PO DAILY Acetaminophen Tab [Tylenol] 650 mg PO Q6H PRN PRN Reason: Fever hydrALAZINE HCL [Apresoline] 25 mg PO TID@0000,0800,1600 Spironolactone [Aldactone] 50 mg PO BID@0800,1600 cloNIDine HCL 0.3 mg PO TID@0000,0800,1600 Sennosides [Senna] 8.6 mg PO BID@0800,1600 amLODIPine [Norvasc] 5 mg PO BID@0800,1600 Apixaban [Eliquis] 5 mg PO BID@0800,1600 Docusate Oral Soln [Colace Oral Soln] 50 mg PO BID@0800,1600 Valproic Acid [Depakene] 250 mg PO DAILY Thiamine [Vitamin B-1] 100 mg PO DAILY@0800 Multivits,Th W-Ca,Fe,Oth Min [Therapeutic M] 1 tab PO DAILY Melatonin 5 mg PO DAILY@1999 Atorvastatin [Lipitor] 40 mg PO HS@1999 Aspirin 81 mg PO DAILY Magnesium Hydroxide [Milk of Magnesia] 2,400 mg PO DAILY PRN PRN Reason: Constipation Omeprazole [PriLOSEC] 20 mg PO BID@0600,2100 Magnesium Oxide [Mag-Ox] 400 mg PO DAILY Discontinued Metoprolol Tartrate [Lopressor] 25 mg PO BID@0800,1600 Isosorbide Mononitrate ER [Imdur] 60 mg PO DAILY tab.er.24h Discharge Medication List Acetaminophen Tab [Tylenol] 650 mg PO Q6H PRN 01/13/19 [History] Amantadine Syrup 50mg/5ml 100 mg PO DAILY 01/13/19 [History] Apixaban [Eliquis] 5 mg PO BID@0800,1600 01/13/19 [History] Aspirin 81 mg PO DAILY 01/13/19 [History] Atorvastatin [Lipitor] 40 mg PO HS@199901/13/19 [History] Docusate Oral Soln [Colace Oral Soln] 50 mg PO BID@0800,1600 01/13/19 [History] Melatonin 5 mg PO DAILY@199901/13/19 [History] Multivits,Th W-Ca,Fe,Oth Min [Therapeutic M] 1 tab PO DAILY 01/13/19 [History] Sennosides [Senna] 8.6 mg PO BID@0800,1600 01/13/19 [History] Spironolactone [Aldactone] 50 mg PO BID@0800,1600 01/13/19 [History] Thiamine [Vitamin B-1] 100 mg PO DAILY@0800 01/13/19 [History] Valproic Acid [Depakene] 250 mg PO DAILY 01/13/19 [History] amLODIPine [Norvasc] 5 mg PO BID@0800,1600 01/13/19 [History] cloNIDine HCL 0.3 mg PO TID@0000,0800,1600 01/13/19 [History] hydrALAZINE HCL [Apresoline] 25 mg PO TID@0000,0800,1600 01/13/19 [History] Magnesium Hydroxide [Milk of Magnesia] 2,400 mg PO DAILY PRN 01/29/19 [History] Omeprazole [PriLOSEC] 20 mg PO BID@0600,2100 02/21/19 [History] Magnesium Oxide [Mag-Ox] 400 mg PO DAILY 03/28/19 [History] Chlorthalidone 25 mg PO DAILY #1 tab 04/01/19 [Rx] Clopidogrel [Plavix] 75 mg PO DAILY tab 04/01/19 [Rx] Isosorbide Mononitrate ER [Imdur] 30 mg PO DAILY tab.er.24h 04/01/19 [Rx] Metoprolol Tartrate [Lopressor] 50 mg PO BID@0800,1600 tab 04/01/19 [Rx] Follow up Appointment(s)/Referral(s): Ed Booker DO [Primary Care Provider] - 1-2 days
--- NOTE | 2019-04-01 12:53 | P.PN ---
Subjective Progress Note Date: 04/01/19 This is a 63-year-old -[place]wegian gentleman with history of prior CVA with left-sided paralysis, PEG tube placement, expressive aphasia, hypertension, hyperlipidemia, prior history of smoking, follows with Dr. gonzales on in the office. He resides at [facility]. Most of the history was obtained from the medical record. Patient underwent a cardiac catheterization in January 2019 which revealed normal coronary arteries and normal left ventricular systolic function. According to the notes, patient was apparently brought to the emergency room after having an episode of vomiting, he was noted to be tachycardic and have a systolic blood pressure of greater than 200. Cardiology consultation was requested for accelerated hypertension. Chest x-ray on presentation here showed COPD and cardiomegaly. EKG on presentation here showed a sinus rhythm, LVH strain pattern, nonspecific ST-T wave changes. An echocardiogram with Doppler study was performed which revealed a hyperdynamic left ventricular systolic function. Greater than 70%. Blood pressure on arrival here 196/135, heart rate in the 90s, 99% on room air. White blood cell count on admission 9.6, 8.3 this morning, hemoglobin on admission 13.7, 12.8 this morning. Platelet count 406 on admission 365 this morning. Sodium 135, potassium 4.5, BUN 17, creatinine 0.9. Troponins 0.072, 1.2, 8.7, 7.6. At the time of my examination this morning, patient is resting comfortably in bed, he denies any chest pain when asked, his breathing is stable. 03/30 2019 patient was seen and examined this morning, patient had several episodes of chest discomfort through the night last night, each time associated with accelerated hypertension. Blood pressure this morning 134/80, heart rate in the 60s, 100% on 2 L of oxygen. Denying any chest pain today. Medication adjustments have been made in his blood pressure overall is under better control. We will continue maximal medical therapy on him. 03/31/2019 Patient seen and examined this morning, comfortable at present. Did have one episode of chest pain earlier this morning with associated accelerated hypertension. At the time of my examination his blood pressure is stable, blood pressure 138/67 with a heart rate of 50, 96% on 2 L of oxygen. White blood cell count 5.6, hemoglobin 11, platelet count 353. Sodium 134, potassium 4.3, BUN 23, creatinine 1.0. 04/01/2019 Patient was seen and examined this morning, overall doing better. His blood pressure is remaining in a much more stable range. 122/80 today, heart rate in the 50s, 97% on room air. No lab data today. Objective - Vital Signs Vital signs: Vital Signs Temp 98.1 F 04/01/19 04:00 Pulse 53 L 04/01/19 04:00 Resp 16 04/01/19 12:00 BP 123/79 04/01/19 04:00 Pulse Ox 100 04/01/19 08:00 Intake & Output 03/31/19 04/01/19 04/01/19 18:59 06:59 18:59 Intake Total 740 125 Balance 740 125 Weight 79.5 kg Intake: Oral 740 125 Other: Voiding Method Diaper Diaper Diaper Incontinent Incontinent Incontinent # Voids 4 1 - Exam PHYSICAL EXAMINATION: GENERAL: 63-year-old -[place]wegian gentleman in no acute distress at the time of my examination HEENT: Head is atraumatic, normocephalic. Pupils equal, round. Sclera anicteric. Conjunctiva are clear. Mucous membranes of the mouth are moist. Neck is supple. There is no elevated jugular venous pressure. No carotid bruit is heard. HEART EXAMINATION: Heart S1, S2 normal. No murmur or gallop heard. CHEST EXAMINATION: Lungs are clear to auscultation and precussion. No chest wall tenderness is noted on palpation or with deep breathing. ABDOMEN: Soft, nontender. Bowel sounds are heard. No organomegaly noted. EXTREMITIES: 2+ peripheral pulses with no evidence of peripheral edema and no calf tenderness noted. NEUROLOGIC patient is awake, alert and oriented 2 . - Labs CBC & Chem 7: 03/31/19 05:59 03/31/19 06:03 Assessment and Plan Plan: Assessment and plan #1 accelerated hypertension #2 vomiting #3 history of CVA with left-sided paralysis and expressive aphasia, patient currently has a PEG tube in place #4 hyperlipidemia #5 prior DVT #6 GERD #7 hypertension #8 abnormality in troponin, patient denies having any chest discomfort, he recently underwent a cardiac catheterization in January 2019 which revealed normal coronary arteries Plan From cardiology's perspective, we'll continue patient on his current medications, patient may be discharged or transferred back to [facility] from our rspective. DNP note has been reviewed, I agree with a documented findings and plan of care. Patient was seen and examined.
[2019-04-01 16:39] VITALS: BP 141/83; PULSE 60
== END 2019-04-01 16:03 | DRG 305 ==
LOC: EC 11:03 → 3SCARD 14:03 → OBSVTOIN 03-30 08:48
PROVIDERS: ADMIT Hospitalist; ATTEND Hospitalist
DX: I16.0 Hypertensive urgency (principal); I69.354 Hemiplegia and hemiparesis following cerebral infarction affecting left non-dominant side; I43 Cardiomyopathy in diseases classified elsewhere; I11.9 Hypertensive heart disease without heart failure; E78.5 Hyperlipidemia, unspecified; F17.210 Nicotine dependence, cigarettes, uncomplicated; K21.9 Gastro-esophageal reflux disease without esophagitis; R13.10 Dysphagia, unspecified; J44.9 Chronic obstructive pulmonary disease, unspecified; R56.9 Unspecified convulsions; I71.2 Thoracic aortic aneurysm, without rupture; R47.1 Dysarthria and anarthria; M79.662 Pain in left lower leg; Z98.890 Other specified postprocedural states; I25.2 Old myocardial infarction; Z93.1 Gastrostomy status; Z86.718 Personal history of other venous thrombosis and embolism; Z79.899 Other long term (current) drug therapy; Z79.82 Long term (current) use of aspirin; Z79.01 Long term (current) use of anticoagulants
CPT/HCPCS: 36415; 71046; 80048; 80053; 80061; 80164; 82150; 83690; 83735; 84484; 85025; 85610; 85730; 93005; 93306; 96361; 96374; 99285

== ENCOUNTER 2019-04-11 06:29 | Emergency (ER) | payer MEDICARE, OTHER ==
[2019-04-11 06:46] VITALS: TEMP 98
[2019-04-11] MEDS ORDERED: SODIUM CHLORIDE 0.9% 500 ML 500 ML IV STA (06:48)
[2019-04-11 06:53] LABS: Glucose,Whole Blood 114 mg/dL (75-99)
[2019-04-11 07:00] LABS: Basophils % (A) 1 %; Eosinophils # (A) 0.4 k/uL (0-0.7); Eosinophils % (A) 6 %; HCT 37.4 % (39.0-53.0); Lymphocytes # (A) 3.1 k/uL (1.0-4.8); Lymphocytes % (A) 44 %; MCH 29.4 pg (25.0-35.0); MCV 91.7 fL (80.0-100.0); Mean Platelet Volume 6.9; Monocytes # (A) 0.4 k/uL (0-1.0); Monocytes % (A) 5 %; Neutrophils # (A) 2.9 k/uL (1.3-7.7); Neutrophils % (A) 42 %; Platelet Count 389 k/uL (150-450); RBC 4.08 m/uL (4.30-5.90); RDW 15.8 % (11.5-15.5)
--- NOTE | 2019-04-11 07:05 | ED ---
General Adult HPI - General Source: EMS Mode of arrival: EMS Limitations: language barrier <Delisa Terrell - Last Filed: 04/11/19 08:41> <Vanita Rossi - Last Filed: 04/11/19 23:22> - General Chief complaint: Neuro Symptoms/Deficit Stated complaint: Neuro/seizure Time Seen by Provider: 04/11/19 06:32 - History of Present Illness Initial comments: Patient is a 63-year-old male, with history of recent CVA with left-sided weakness/paralysis and PEG tube, presenting from [facility], with complaints of seizure like activity as well as an increase in slurring of his words. Patient does not have history of seizures however is on Depakote. Patient initially states he has no pain however then admits to having intermittent chest discomfort and pointing at the left side of his chest. He denies shortness of breath, abdominal pain, vomiting, diarrhea. He denies headache, trauma, falls, vision loss, lightheadedness. Patient has no complaints right now other than intermittent left-sided chest pain. Upon arrival to the ER his vital signs are stable. (Delisa Terrell) - Related Data Home Medications Medication Instructions Recorded Confirmed Acetaminophen Tab [Tylenol] 650 mg PO Q6H PRN 01/13/19 03/28/19 Amantadine Syrup 50mg/5ml 100 mg PO DAILY 01/13/19 03/28/19 Apixaban [Eliquis] 5 mg PO BID@0800,1600 01/13/19 03/28/19 Aspirin 81 mg PO DAILY 01/13/19 03/28/19 Atorvastatin [Lipitor] 40 mg PO HS@199901/13/19 03/28/19 Docusate Oral Soln [Colace Oral 50 mg PO BID@0800,1600 01/13/19 03/28/19 Soln] Melatonin 5 mg PO DAILY@199901/13/19 03/28/19 Multivits,Th W-Ca,Fe,Oth Min 1 tab PO DAILY 01/13/19 03/28/19 [Therapeutic M] Sennosides [Senna] 8.6 mg PO BID@0800,1600 01/13/19 03/28/19 Spironolactone [Aldactone] 50 mg PO BID@0800,1600 01/13/19 03/28/19 Thiamine [Vitamin B-1] 100 mg PO DAILY@0800 01/13/19 03/28/19 Valproic Acid [Depakene] 250 mg PO DAILY 01/13/19 03/28/19 amLODIPine [Norvasc] 5 mg PO BID@0800,1600 01/13/19 03/28/19 cloNIDine HCL 0.3 mg PO TID@0000,0800,1600 01/13/19 03/28/19 hydrALAZINE HCL [Apresoline] 25 mg PO TID@0000,0800,1600 01/13/19 03/28/19 Magnesium Hydroxide [Milk of 2,400 mg PO DAILY PRN 01/29/19 03/28/19 Magnesia] Omeprazole [PriLOSEC] 20 mg PO BID@0600,2100 02/21/19 03/28/19 Magnesium Oxide [Mag-Ox] 400 mg PO DAILY 03/28/19 03/28/19 Previous Rx's Medication Instructions Recorded Chlorthalidone 25 mg PO DAILY #1 tab 04/01/19 Clopidogrel [Plavix] 75 mg PO DAILY tab 04/01/19 Isosorbide Mononitrate ER [Imdur] 30 mg PO DAILY tab.er.24h 04/01/19 Metoprolol Tartrate [Lopressor] 50 mg PO BID@0800,1600 tab 04/01/19 Allergies Allergy/AdvReac Type Severity Reaction Status Date / Time No Known Allergies Allergy Verified 03/28/19 11:46 Review of Systems ROS Other: All systems not noted in ROS Statement are negative. <Delisa Terrell - Last Filed: 04/11/19 08:41> ROS Other: All systems not noted in ROS Statement are negative. <Vanita Rossi - Last Filed: 04/11/19 23:22> ROS Statement: Those systems with pertinent positive or pertinent negative responses have been documented in the HPI. Past Medical History Past Medical History: Unable to Obtain, CVA/TIA, Deep Vein Thrombosis (DVT), GERD/Reflux, Hyperlipidemia, Hypertension, Myocardial Infarction ([place]), Renal Disease Additional Past Medical History / Comment(s): Pt had a CVA with left sided weakness & aphasia in December of 2018, has a PEG tube, has been getting feedings at night & tolerating a pureed diet at [facility] with regular liquids. (Pt is alert with confusion, using information from previous admission.) Last Myocardial Infarction Date:: 01/13/19 History of Any Multi-Drug Resistant Organisms: None Reported Past Surgical History: Unable to Obtain, Heart Catheterization Additional Past Surgical History / Comment(s): pt is alert with confusion, using information from previous admission Past Anesthesia/Blood Transfusion Reactions: No Reported Reaction Additional Past Anesthesia/Blood Transfusion Reaction / Comment(s): pt is alert with confusion, using information from previous admission Past Psychological History: No Psychological Hx Reported Smoking Status: Former smoker Past Alcohol Use History: None Reported, Occasional Past Drug Use History: None Reported - Past Family History Father Family Medical History: No Reported History <Delisa Terrell - Last Filed: 04/11/19 08:41> General Exam Limitations: language barrier <Delisa Terrell - Last Filed: 04/11/19 08:41> - General Exam Comments Initial Comments: GENERAL: Well-appearing, well-nourished and in no acute distress. HEAD: Atraumatic, normocephalic. EYES: Pupils equal round and reactive to light, extraocular movements intact, sclera anicteric, conjunctiva are normal. ENT: TMs normal, nares patent, oropharynx clear without exudates. Moist mucous membranes. NECK: Normal range of motion, supple without lymphadenopathy or JVD. LUNGS: Breath sounds clear to auscultation bilaterally and equal. No wheezes rales or rhonchi. HEART: Regular rate and rhythm without murmurs, rubs or gallops. ABDOMEN: PEG tube present. Soft, nontender, normoactive bowel sounds. No guarding, no rebound. No masses appreciated. : Deferred EXTREMITIES: Hx of CVA with left sided weakness, contracture of left arm. Right side normal range of motion, no pitting or edema. No cyanosis. NEUROLOGICAL: Cranial nerves II through XII grossly intact. Patient does have aphasia, hx of this. PSYCH: Normal mood, normal affect. SKIN: Warm, Dry, normal turgor, no rashes or lesions noted. (Delisa Terrell) Course Vital Signs 04/11/19 04/11/19 04/11/19 06:31 06:42 07:00 Temperature 98.0 F Pulse Rate 73 Respiratory 16 Rate Blood Pressure 144/92 144/92 O2 Sat by Pulse 100 100 Oximetry 04/11/19 04/11/19 04/11/19 07:30 07:46 08:00 Temperature Pulse Rate Respiratory 18 Rate Blood Pressure 153/89 155/81 O2 Sat by Pulse 100 Oximetry 04/11/19 04/11/19 04/11/19 08:30 09:00 09:09 Temperature Pulse Rate 78 Respiratory 20 20 Rate Blood Pressure 149/90 151/89 O2 Sat by Pulse Oximetry EKG Findings - EKG Comments: EKG Findings:: Ventricular rate 56, P on arrival 240, QTC 440. Sinus bradycardia with first-degree AV block, left ventricular hypertrophy. No acute ST segment changes. Similar to previous EKG on 03/30/2019. <Delisa Terrell - Last Filed: 04/11/19 08:41> Medical Decision Making - Lab Data Result diagrams: 04/11/19 06:49 04/11/19 06:49 <Delisa Terrell - Last Filed: 04/11/19 08:41> - Lab Data Result diagrams: 04/11/19 06:49 04/11/19 06:49 <Vanita Rossi - Last Filed: 04/11/19 23:22> - Medical Decision Making Patient is a 63-year-old male, with recent history of CVA with left-sided weakness, paralysis, presenting with seizure like activity. He does not have history of seizure. Patient is a known 4 and seems at baseline. She does complain of intermittent chest discomfort that lasting a few seconds at a time. He has no other complaints. CT of the head shows no acute abnormalities. EKG is at baseline, no signs ischemia. Chest x-ray shows no acute abnormality. Lab work shows no acute abnormalities, troponin is at 0.021. Valproic acid is normal. Given patient's recent history of CVA and seizure like activity at his home, patient needs to be transferred for neurology consult, as well as ACS rule out. Spoke with, Dr. Neal, at [facility] who accepts transfer. Patient is agreement with this plan of care. Case was discussed with Dr. Rossi who is in agreement with this plan of care as well. (Delisa Terrell I was available for consultation in the emergency department. The history and physical exam were done by the midlevel provider. I was consulted for this patients care. I reviewed the case with the midlevel provider and based on their presentation of the patient, I agree with the assessment, medical decision making and plan of care as documented. Chart was dictated using [employer] dictation software. Attempts were made to correct any dictation errors however some typographical errors may persist. (Vanita Rossi) - Lab Data Lab Results 04/11/19 04/11/19 04/11/19 Range/Units 06:49 06:49 06:49 WBC 7.0 (3.8-10.6) k/uL RBC 4.08 L (4.30-5.90) m/uL Hgb 12.0 L (13.0-17.5) gm/dL Hct 37.4 L (39.0-53.0) % MCV 91.7 (80.0-100.0) fL MCH 29.4 (25.0-35.0) pg MCHC 32.0 (31.0-37.0) g/dL RDW 15.8 H (11.5-15.5) % Plt Count 389 (150-450) k/uL Neutrophils % 42 % Lymphocytes % 44 % Monocytes % 5 % Eosinophils % 6 % Basophils % 1 % Neutrophils # 2.9 (1.3-7.7) k/uL Lymphocytes # 3.1 (1.0-4.8) k/uL Monocytes # 0.4 (0-1.0) k/uL Eosinophils # 0.4 (0-0.7) k/uL Basophils # 0.0 (0-0.2) k/uL PT 9.6 (9.0-12.0) sec INR 0.9 (<1.2) APTT 22.9 (22.0-30.0) sec Sodium 136 L (137-145) mmol/L Potassium 4.3 (3.5-5.1) mmol/L Chloride 102 (98-107) mmol/L Carbon Dioxide 27 (22-30) mmol/L Anion Gap 7 mmol/L BUN 14 (9-20) mg/dL Creatinine 0.95 (0.66-1.25) mg/dL Est GFR (CKD-EPI)AfAm >90 (>60 ml/min/1.73 sqM) Est GFR (CKD-EPI)NonAf 84 (>60 ml/min/1.73 sqM) Glucose 113 H (74-99) mg/dL POC Glucose (mg/dL) (75-99) mg/dL POC Glu Manager Account Management ID Calcium 9.6 (8.4-10.2) mg/dL Magnesium 2.1 (1.6-2.3) mg/dL Total Bilirubin <0.1 L (0.2-1.3) mg/dL AST 25 (17-59) U/L ALT 88 H (4-49) U/L Alkaline Phosphatase 76 (38-126) U/L Troponin I (0.000-0.034) ng/mL Total Protein 7.2 (6.3-8.2) g/dL Albumin 3.9 (3.5-5.0) g/dL Urine Color Urine Appearance (Clear) Urine pH (5.0-8.0) Ur Specific [place] (1.001-1.035) Urine Protein (Negative) Urine Glucose (UA) (Negative) Urine Ketones (Negative) Urine Blood (Negative) Urine Nitrite (Negative) Urine Bilirubin (Negative) Urine Urobilinogen (<2.0) mg/dL Ur Leukocyte Esterase (Negative) Valproic Acid <10.0 ug/mL 04/11/19 04/11/19 04/11/19 Range/Units 06:49 06:50 09:05 WBC (3.8-10.6) k/uL RBC (4.30-5.90) m/uL Hgb (13.0-17.5) gm/dL Hct (39.0-53.0) % MCV (80.0-100.0) fL MCH (25.0-35.0) pg MCHC (31.0-37.0) g/dL RDW (11.5-15.5) % Plt Count (150-450) k/uL Neutrophils % % Lymphocytes % % Monocytes % % Eosinophils % % Basophils % % Neutrophils # (1.3-7.7) k/uL Lymphocytes # (1.0-4.8) k/uL Monocytes # (0-1.0) k/uL Eosinophils # (0-0.7) k/uL Basophils # (0-0.2) k/uL PT (9.0-12.0) sec INR (<1.2) APTT (22.0-30.0) sec Sodium (137-145) mmol/L Potassium (3.5-5.1) mmol/L Chloride (98-107) mmol/L Carbon Dioxide (22-30) mmol/L Anion Gap mmol/L BUN (9-20) mg/dL Creatinine (0.66-1.25) mg/dL Est GFR (CKD-EPI)AfAm (>60 ml/min/1.73 sqM) Est GFR (CKD-EPI)NonAf (>60 ml/min/1.73 sqM) Glucose (74-99) mg/dL POC Glucose (mg/dL) 114 H (75-99) mg/dL POC Glu Manager Account Management ID Kathryn Crain Calcium (8.4-10.2) mg/dL Magnesium (1.6-2.3) mg/dL Total Bilirubin (0.2-1.3) mg/dL AST (17-59) U/L ALT (4-49) U/L Alkaline Phosphatase (38-126) U/L Troponin I 0.021 (0.000-0.034) ng/mL Total Protein (6.3-8.2) g/dL Albumin (3.5-5.0) g/dL Urine Color Light Yellow Urine Appearance Clear (Clear) Urine pH 7.0 (5.0-8.0) Ur Specific [place] 1.006 (1.001-1.035) Urine Protein Negative (Negative) Urine Glucose (UA) Negative (Negative) Urine Ketones Negative (Negative) Urine Blood Negative (Negative) Urine Nitrite Negative (Negative) Urine Bilirubin Negative (Negative) Urine Urobilinogen <2.0 (<2.0) mg/dL Ur Leukocyte Esterase Negative (Negative) Valproic Acid ug/mL Disposition Is patient prescribed a controlled substance at d/c from ED?: No - Out of Hospital Transfer - Req. Specs Out of Hospital Transfer - Requested Specifics: Other Emergency Center ([facility]) <Delisa Terrell - Last Filed: 04/11/19 08:41> <Vanita Rossi - Last Filed: 04/11/19 23:22> Clinical Impression: Chest pain, Seizure-like activity Disposition: OTHER INSTITUTION NOT DEFINED Condition: Stable Referrals: Ed Booker DO [Primary Care Provider] - 1-2 days
[2019-04-11 07:07] LABS: INR 0.9 (<1.2); Partial Thromboplastin Time 22.9 sec (22.0-30.0); Prothrombin Time 9.6 sec (9.0-12.0)
[2019-04-11 07:10] LABS: ALT 88 U/L (4-49); AST 25 U/L (17-59); African American GFR (CKD) >90 (>60 ml/min/1.73 sqM); Albumin 3.9 g/dL (3.5-5.0); Alkaline Phosphatase 76 U/L (38-126); Anion Gap 7 mmol/L; Blood Urea Nitrogen 14 mg/dL (9-20); Calcium 9.6 mg/dL (8.4-10.2); Carbon Dioxide 27 mmol/L (22-30); Chloride 102 mmol/L (98-107); Glucose 113 mg/dL (74-99); Magnesium 2.1 mg/dL (1.6-2.3); Non-African American GFR(CKD) 84 (>60 ml/min/1.73 sqM); Potassium 4.3 mmol/L (3.5-5.1); Sodium 136 mmol/L (137-145); Total Bilirubin <0.1 mg/dL (0.2-1.3); Total Protein 7.2 g/dL (6.3-8.2)
[2019-04-11 07:15] LABS: Valproic Acid (Depakene) <10.0 ug/mL
--- NOTE | 2019-04-11 07:21 | XR ---
EXAMINATION TYPE: XR chest 2V DATE OF EXAM: 04/11/2019 HISTORY: Chest Pain. REFERENCE: Previous study dated 03/28/2019. FINDINGS: The study is mislabeled left to right. The heart is mildly enlarged. The lungs are clear. Pleural spaces are clear. Lung volumes are promine nt. IMPRESSION: 1. COPD. 2. MILD CARDIOMEGALY.
--- NOTE | 2019-04-11 07:41 | CT ---
EXAMINATION TYPE: CT brain wo con DATE OF EXAM: 04/11/2019 COMPARISON: Previous study dated 11/19/2018 HISTORY: Neuro/seizure CT DLP: 1095.4 mGycm Automated exposure control for dose reduction was used. FINDINGS: There are mild, generalized changes of sulcal prominence and ventriculomegaly, compatible with mild a trophic change. Central structures are midline. There is no evidence of hydrocephalus. No acute focal lesion, mass ef fect or midline shift is seen. I do not see evidence of intracranial blood. There has been interval l acunar infarct in the region of the hypothalamus on the right. Visualized portions of the paranasal sinuses and mastoids are clear. The bony calvarium is intact. IMPRESSION: 1. NO ACUTE INTRACRANIAL ABNORMALITY. 2. MILD DEGENERATIVE CHANGE. 3. 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
[2019-04-11 09:09] VITALS: BP 151/89; PULSE 78; RESP 20
[2019-04-11 09:22] LABS: Appearance,Urine Clear (Clear); Bilirubin,Urine Negative (Negative); Blood,Urine Negative (Negative); Color,Urine Light Yellow; Glucose,Urine (UA) Negative (Negative); Ketones,Urine Negative (Negative); Leukocyte Esterase,Urine Negative (Negative); Nitrite,Urine Negative (Negative); Protein,Urine Negative (Negative); Specific Gravity,Urine 1.006 (1.001-1.035); Urobilinogen,Urine <2.0 mg/dL (<2.0)
== END 2019-04-11 09:10 | disposition other institution (70) ==
LOC: EC 06:29
DX: R56.9 Unspecified convulsions (principal); R07.89 Other chest pain; I69.354 Hemiplegia and hemiparesis following cerebral infarction affecting left non-dominant side; E78.5 Hyperlipidemia, unspecified; I10 Essential (primary) hypertension; I25.2 Old myocardial infarction; K21.9 Gastro-esophageal reflux disease without esophagitis; Z79.01 Long term (current) use of anticoagulants; Z79.82 Long term (current) use of aspirin; Z79.899 Other long term (current) drug therapy; Z86.718 Personal history of other venous thrombosis and embolism; Z93.1 Gastrostomy status; Z87.891 Personal history of nicotine dependence; Z95.5 Presence of coronary angioplasty implant and graft
CPT/HCPCS: 36415; 70450; 71046; 80053; 80164; 81003; 83735; 84484; 85025; 85610; 85730; 93005; 99285

== ENCOUNTER 2019-04-25 | Emergency (ER) | payer MEDICARE, OTHER | END 2019-04-25 06:10 | disposition home or self-care (01) | CPT/HCPCS: 99284 ==

== ENCOUNTER 2019-06-07 03:30 | Inpatient (IN) | payer MEDICARE, OTHER ==
[2019-06-07 04:17] LABS: Basophils % (A) 1 %; Eosinophils # (A) 0.2 k/uL (0-0.7); Eosinophils % (A) 3 %; HGB 14.7 gm/dL (13.0-17.5); Lymphocytes # (A) 1.9 k/uL (1.0-4.8); Lymphocytes % (A) 26 %; MCH 30.6 pg (25.0-35.0); MCHC 32.1 g/dL (31.0-37.0); MCV 95.2 fL (80.0-100.0); Mean Platelet Volume 7.3; Monocytes # (A) 0.3 k/uL (0-1.0); Monocytes % (A) 5 %; Neutrophils # (A) 4.8 k/uL (1.3-7.7); Neutrophils % (A) 64 %; Platelet Count 340 k/uL (150-450); RBC 4.82 m/uL (4.30-5.90); RDW 14.7 % (11.5-15.5); WBC 7.4 k/uL (3.8-10.6)
[2019-06-07 04:24] LABS: ALT 44 U/L (4-49); AST 28 U/L (17-59); African American GFR (CKD) >90 (>60 ml/min/1.73 sqM); Albumin 4.9 g/dL (3.5-5.0); Alkaline Phosphatase 68 U/L (38-126); Anion Gap 13 mmol/L; Blood Urea Nitrogen 18 mg/dL (9-20); Calcium 10.7 mg/dL (8.4-10.2); Carbon Dioxide 29 mmol/L (22-30); Chloride 97 mmol/L (98-107); Glucose 104 mg/dL (74-99); Magnesium 2.1 mg/dL (1.6-2.3); Non-African American GFR(CKD) 84 (>60 ml/min/1.73 sqM); Potassium 4.1 mmol/L (3.5-5.1); Sodium 139 mmol/L (137-145); Total Bilirubin 0.3 mg/dL (0.2-1.3); Total Protein 8.6 g/dL (6.3-8.2)
--- NOTE | 2019-06-07 04:26 | XR ---
EXAMINATION TYPE: XR chest 2V DATE OF EXAM: 06/07/2019 COMPARISON: NONE HISTORY: Chest pain TECHNIQUE: 2 views FINDINGS: Heart is normal. Lungs are clear of consolidation. There is mild subsegmental atelectasis i n the right middle lobe. There are chest leads. There is no pleural effusion. IMPRESSION: Minimal subsegmental atelectasis in the right middle lobe appears new compared to old exa m. No heart failure or pulmonary consolidation.
[2019-06-07 04:41] LABS: D-Dimer 0.26 mg/L FEU (<0.60); INR 0.9 (<1.2); Partial Thromboplastin Time 22.4 sec (22.0-30.0); Prothrombin Time 9.8 sec (9.0-12.0)
[2019-06-07] MEDS ORDERED: HEPARIN SODIUM,PORCINE 5,000 UNIT/ML 1 ML VIAL IV PRN (05:05)
[2019-06-07] MEDS ORDERED: HEPARIN SODIUM,PORCINE 5,000 UNIT/ML 1 ML VIAL IV ONE (05:05)
--- NOTE | 2019-06-07 05:08 | ED ---
Chest Pain HPI - General Chief Complaint: Chest Pain Stated Complaint: Chest pain Time Seen by Provider: 06/07/19 03:35 Source: patient, EMS Mode of arrival: EMS Limitations: language barrier, physical limitation - History of Present Illness Initial Comments: The patient is a 63-year-old male who presents to the emergency department from [facility]. 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 He was able to alert staff that he was suffering from chest pain. It is unknown how long the chest pain had been going on for. EMS was called. He did not provide the patient with any medications. By the time he had arrived to the emergency room and he reports that his pain is completely resolved. The remainder of the HPI is difficult to obtain because of the patient's expressive aphasia - Related Data Home Medications Medication Instructions Recorded Confirmed Acetaminophen Tab [Tylenol] 650 mg PO Q6H PRN 01/13/19 06/07/19 Apixaban [Eliquis] 5 mg PO BID@0800,1600 01/13/19 06/07/19 Aspirin 81 mg PO DAILY 01/13/19 06/07/19 Atorvastatin [Lipitor] 40 mg PO HS@199901/13/19 06/07/19 Melatonin 5 mg PO DAILY@199901/13/19 06/07/19 Multivits,Th W-Ca,Fe,Oth Min 1 tab PO DAILY 01/13/19 06/07/19 [Therapeutic M] Sennosides [Senna] 8.6 mg PO BID@0800,1600 01/13/19 06/07/19 Thiamine [Vitamin B-1] 100 mg PO DAILY 01/13/19 06/07/19 amLODIPine [Norvasc] 5 mg PO BID@0800,1600 01/13/19 06/07/19 Omeprazole [PriLOSEC] 20 mg PO HS@199902/21/19 06/07/19 Bisacodyl [Dulcolax] 10 mg RECTAL Q72H PRN 06/07/19 06/07/19 Divalproex [Depakote] 250 mg PO DAILY 06/07/19 06/07/19 Docusate Sodium [Dok] 100 mg PO BID@0800,1600 06/07/19 06/07/19 Multivitamin with Iron 1 tab PO DAILY@1400 06/07/19 06/07/19 [Multivitamins with Iron] levETIRAcetam 500 mg PO BID@0800,1600 06/07/19 06/07/19 Previous Rx's Medication Instructions Recorded Chlorthalidone 25 mg PO DAILY #1 tab 04/01/19 Clopidogrel [Plavix] 75 mg PO DAILY tab 04/01/19 Isosorbide Mononitrate ER [Imdur] 30 mg PO DAILY tab.er.24h 04/01/19 Losartan [Cozaar] 25 mg PO DAILY tab 06/10/19 Metoprolol Tartrate [Lopressor] 100 mg PO BID tab 06/10/19 Allergies Allergy/AdvReac Type Severity Reaction Status Date / Time No Known Allergies Allergy Verified 06/07/19 09:13 Review of Systems ROS Statement: Those systems with pertinent positive or pertinent negative responses have been documented in the HPI. ROS Other: All systems not noted in ROS Statement are negative. EKG Findings - EKG Comments: EKG Findings:: EKG demonstrates a sinus rhythm with a ventricular rate of 77. VA interval 232. QRS 124. QTC of 475. No acute ST segment elevations. There is some ST depression in V5 and V6. This appears new from previous EKG from April 24. Repeat EKG at 5:12 am demonstrates a sinus rhythm with a first-degree block. Rate of 66. VA interval to 44. QRS 118. QTC of 440. ST depression in V5 and V6 has improved. Continues to have some depression in 1 and aVL no acute ST segment elevations Past Medical History Past Medical History: CVA/TIA, Deep Vein Thrombosis (DVT), GERD/Reflux, Hyperlipidemia, Hypertension, Myocardial Infarction ([place]), Renal Disease, Seizure Disorder Additional Past Medical History / Comment(s): Pt had a CVA with left sided weakness & aphasia in December of 2018, has a PEG tube, has been getting feedings at night & tolerating a pureed diet at [facility] with reg ular liquids. (Pt is alert with confusion, using information from previous admission.). aortic aneurysm unknown size. hx of seizures Last Myocardial Infarction Date:: 01/13/19 History of Any Multi-Drug Resistant Organisms: None Reported Past Surgical History: Heart Catheterization Additional Past Surgical History / Comment(s): pt is alert with confusion, using information from previous admission Past Anesthesia/Blood Transfusion Reactions: No Reported Reaction Additional Past Anesthesia/Blood Transfusion Reaction / Comment(s): pt is alert with confusion, using information from previous admission Past Psychological History: No Psychological Hx Reported Smoking Status: Unknown if ever smoked Past Alcohol Use History: Unable to Obtain Past Drug Use History: Unable to Obtain - Past Family History Father Family Medical History: No Reported History General Exam Limitations: language barrier, physical limitation General appearance: alert, in no apparent distress Head exam: Present: atraumatic, normocephalic, normal inspection ENT exam: Present: normal exam, mucous membranes moist Respiratory exam: Present: normal lung sounds bilaterally. Absent: respiratory distress, wheezes, rales, rhonchi, stridor Cardiovascular Exam: Present: regular rate, normal rhythm, normal heart sounds. Absent: systolic murmur, diastolic murmur, rubs, gallop, clicks Extremities exam: Present: other (left sided contractures. ) Neurological exam: Present: alert, other (expressive aphasia, facial droop) Psychiatric exam: Present: normal affect, normal mood Course Vital Signs 06/07/19 06/07/19 06/07/19 03:34 03:38 04:52 Temperature 98.4 F Pulse Rate 82 67 Pulse Rate [ 75 Drying Machine Back Tender ] Respiratory 18 18 Rate Blood Pressure 157/108 129/98 O2 Sat by Pulse 100 97 Oximetry 06/07/19 05:46 Temperature Pulse Rate 60 Pulse Rate [ Drying Machine Back Tender ] Respiratory 18 Rate Blood Pressure 113/78 O2 Sat by Pulse 97 Oximetry Chest Pain MDM - MDM Upon arrival the patient's placed into room 1. A thorough history and physical exam is performed. 12-lead EKG is performed which demonstrates no acute ST segment elevation. Laboratory studies were conducted which demonstrated a d- dimer of 0.26. Troponin is 0.282. Coronavirus not detected. Chest x-ray demonstrates minimal subsegmental atelectasis in the right lower lobe. I repeated an EKG which did not demonstrate any ST elevation. Patient continues to remain pain free. I did heparinize the patient. He has no indications as he is normally on Eliquis. He was also given 4, 81 mg chewable aspirins I admitted the patient to [facility] in stable condition Critical Care Time Critical Care Time: Yes Critical Care Time: 35 minutes Disposition Clinical Impression: Acute non-ST elevation myocardial infarction (NSTEMI), Chest pain Disposition: ADMITTED IP TO THIS HOSP Condition: Stable Is patient prescribed a controlled substance at d/c from ED?: No Decision to Admit Reason: Admit from EC Decision Date: 06/07/19 Decision Time: 05:58
[2019-06-07] MEDS: HEPARIN SOD,PORK IN 0.45% NACL 25,000 UNIT in 0.45% NACL 1 250ML.BAG IV SCH (05:21)
[2019-06-07] MEDS ORDERED: NALOXONE 0.4 MG/ML 1 ML VIAL IV PRN (05:59)
[2019-06-07] MEDS ORDERED: ASPIRIN 81 MG PO STA (06:08)
[2019-06-07] MEDS ORDERED: METOPROLOL TARTRATE 50 MG TAB PO SCH (08:00)
--- NOTE | 2019-06-07 08:53 | P.CRDCN ---
<Melissa Martin E - Last Filed: 06/07/19 10:22> History of Present Illness Consult date: 06/07/19 Consult reason: chest pain Chief complaint: Chest pain History of present illness: This is a pleasant 63-year-old -[place] gentleman with history of prior CVA with left-sided paralysis, PEG tube placement, expressive aphasia, hypertension, hyperlipidemia, prior history of smoking who follows with Dr. Damian in the office. [facility]. Most of the history was obtained from the medical record. Patient presented to the hospital with symptoms of chest pains. He underwent a cardiac catheterization in January 2019 which revealed normal coronary arteries with a normal left ventricular systolic function. His EKG on presentation here showed a normal sinus rhythm with nonspecific ST-T wave changes. Chest x-ray showed minimal subsegmental atelectasis in the right middle lobe which appeared to be new as compared with prior exam. No evidence of congestive cardiac failure or pulmonary consolidation. Blood pressure 136/80 with a heart rate in the 90s, 99% on 3 L of oxygen. White blood cell count 7.4, hemoglobin 14.7, platelet count 340. D- dimer 0.66. Sodium 139, potassium 4.1, BUN 18, creatinine 0.9. Magnesium 2.1. Initial troponin 0.282, BNP level 1910.. Delacruz virus not detected. On review of the patient's monitor, this morning he was having runs of nonsustained ventricular tachycardia, the longest 110 in duration, having some bigeminy. The ventricular arrhythmia lasted approximately an hour, at present he is having no ventricular ectopy. We will increase his statin, increase his beta emeli, Past Medical History Past Medical History: CVA/TIA, Deep Vein Thrombosis (DVT), GERD/Reflux, Hyperlipidemia, Hypertension, Myocardial Infarction ([place]), Renal Disease, Seizure Disorder Additional Past Medical History / Comment(s): Pt had a CVA with left sided weakness & aphasia in December of 2018, has a PEG tube, has been getting feeding s at night & tolerating a pureed diet at [facility] with regular liquids. (Pt is alert with confusion, using information from previous admission.). aortic aneurysm unknown size. hx of seizures Last Myocardial Infarction Date:: 01/13/19 History of Any Multi-Drug Resistant Organisms: None Reported Past Surgical History: Heart Catheterization Additional Past Surgical History / Comment(s): pt is alert with confusion, using information from previous admission Past Anesthesia/Blood Transfusion Reactions: No Reported Reaction Additional Past Anesthesia/Blood Transfusion Reaction / Comment(s): pt is alert with confusion, using information from previous admission Past Psychological History: No Psychological Hx Reported Smoking Status: Unknown if ever smoked Past Alcohol Use History: Unable to Obtain Past Drug Use History: Unable to Obtain - Past Family History Father Family Medical History: No Reported History Medications and Allergies Home Medications Medication Instructions Recorded Confirmed Type Acetaminophen Tab [Tylenol] 650 mg PO Q6H PRN 01/13/19 06/07/19 History Apixaban [Eliquis] 5 mg PO BID@0800,1600 01/13/19 06/07/19 History Aspirin 81 mg PO DAILY 01/13/19 06/07/19 History Atorvastatin [Lipitor] 40 mg PO HS@199901/13/19 06/07/19 History Melatonin 5 mg PO DAILY@199901/13/19 06/07/19 History Multivits,Th W-Ca,Fe,Oth Min 1 tab PO DAILY 01/13/19 06/07/19 History [Therapeutic M] Sennosides [Senna] 8.6 mg PO BID@0800,1600 01/13/19 06/07/19 History Spironolactone [Aldactone] 25 mg PO BID@0800,1600 01/13/19 06/07/19 History Thiamine [Vitamin B-1] 100 mg PO DAILY 01/13/19 06/07/19 History amLODIPine [Norvasc] 5 mg PO BID@0800,1600 01/13/19 06/07/19 History cloNIDine HCL 0.3 mg PO TID@0500,1300,2100 01/13/19 06/07/19 History hydrALAZINE HCL [Apresoline] 25 mg PO TID 01/13/19 06/07/19 History Omeprazole [PriLOSEC] 20 mg PO HS@199902/21/19 06/07/19 History Chlorthalidone 25 mg PO DAILY #1 tab 04/01/19 06/07/19 Rx Clopidogrel [Plavix] 75 mg PO DAILY tab 04/01/19 06/07/19 Rx Isosorbide Mononitrate ER [Imdur] 30 mg PO DAILY tab.er.24h 04/01/19 06/07/19 Rx Metoprolol Tartrate [Lopressor] 50 mg PO BID@0800,1600 tab 04/01/19 06/07/19 Rx Bisacodyl [Dulcolax] 10 mg RECTAL Q72H PRN 06/07/19 06/07/19 History Divalproex [Depakote] 250 mg PO DAILY 06/07/19 06/07/19 History Docusate Sodium [Dok] 100 mg PO BID@0800,1600 06/07/19 06/07/19 History Multivitamin with Iron 1 tab PO DAILY@1400 06/07/19 06/07/19 History [Multivitamins with Iron] levETIRAcetam 500 mg PO BID@0800,1600 06/07/19 06/07/19 History Allergies Allergy/AdvReac Type Severity Reaction Status Date / Time No Known Allergies Allergy Verified 06/07/19 09:13 Physical Exam Vitals: Vital Signs Temp Pulse Pulse Resp BP BP Pulse Ox 06/07/19 06:57 98.6 F 95 20 137/87 99 06/07/19 05:46 60 18 113/78 97 06/07/19 04:52 67 18 129/98 97 06/07/19 03:38 75 06/07/19 03:34 98.4 F 82 18 157/108 100 Intake and Output 06/06/19 06/07/19 06/07/19 22:59 06:59 14:59 Other: # Voids 1 Weight 90.718 kg PHYSICAL EXAMINATION: GENERAL: 63-year-old -[place] gentleman in no acute distress at the time of my examination HEENT: Head is atraumatic, normocephalic. Pupils equal, round. Sclera anicteric. Conjunctiva are clear. Mucous membranes of the mouth are moist. Neck is supple. There is no elevated jugular venous pressure. No carotid bruit is heard. HEART EXAMINATION: Heart S1, S2 normal. No murmur or gallop heard. CHEST EXAMINATION: Lungs are clear to auscultation and precussion. No chest wall tenderness is noted on palpation or with deep breathing. ABDOMEN: Soft, nontender. Bowel sounds are heard. No organomegaly noted. EXTREMITIES: 2+ peripheral pulses with no evidence of peripheral edema and no calf tenderness noted. NEUROLOGIC patient is awake, alert and oriented X2 positive expressive aphasia and left hemiplegia. . Results 06/07/19 04:04 06/07/19 04:04 Cardiac Enzymes 06/07/19 06/07/19 Range/Units 04:04 04:04 AST 28 (17-59) U/L Troponin I 0.282 H* (0.000-0.034) ng/mL Coagulation 06/07/19 Range/Units 04:04 PT 9.8 (9.0-12.0) sec APTT 22.4 (22.0-30.0) sec CBC 06/07/19 Range/Units 04:04 WBC 7.4 (3.8-10.6) k/uL RBC 4.82 (4.30-5.90) m/uL Hgb 14.7 (13.0-17.5) gm/dL Hct 46.0 (39.0-53.0) % Plt Count 340 (150-450) k/uL Comprehensive Metabolic Panel 06/07/19 Range/Units 04:04 Sodium 139 (137-145) mmol/L Potassium 4.1 (3.5-5.1) mmol/L Chloride 97 L (98-107) mmol/L Carbon Dioxide 29 (22-30) mmol/L BUN 18 (9-20) mg/dL Creatinine 0.95 (0.66-1.25) mg/dL Glucose 104 H (74-99) mg/dL Calcium 10.7 H (8.4-10.2) mg/dL AST 28 (17-59) U/L ALT 44 (4-49) U/L Alkaline Phosphatase 68 (38-126) U/L Total Protein 8.6 H (6.3-8.2) g/dL Albumin 4.9 (3.5-5.0) g/dL Current Medications Generic Name Dose Route Start Last Admin Trade Name Freq PRN Reason Stop Dose Admin Aspirin 81 mg 06/08/19 09:00 Aspirin PO DAILY [facility] Atorvastatin Calcium 40 mg 06/07/19 20:00 Lipitor PO HS@2000 [facility] Clopidogrel Bisulfate 75 mg 06/07/19 09:00 Plavix PO DAILY [facility] Heparin Sodium (Porcine) 0 unit 06/07/19 05:05 Heparin IV PER PROTOCOL PRN Low PTT Protocol Heparin Sodium/Sodium Chloride 250 mls @ 9.979 mls/hr 06/07/19 05:15 06/07/19 05:21 25,000 unit/ Sodium Chloride IV 11 units/kg/hr .Q24H KIKA 9.979 mls/hr Administration Protocol 11 UNITS/KG/HR Metoprolol Tartrate 50 mg 06/07/19 08:00 Lopressor PO BID@0800,1600 [facility] Naloxone HCl 0.2 mg 06/07/19 05:59 Narcan IV Q2M PRN Opioid Reversal Intake and Output 06/06/19 06/07/19 06/07/19 22:59 06:59 14:59 Other: # Voids 1 Weight 90.718 kg 06/07/19 04:04 06/07/19 04:04 EKG Interpretations (text) EKG shows a normal sinus rhythm with nonspecific ST-T wave changes Assessment and Plan Plan: Assessment and plan #1 chest pain, initial troponin 0.28. EKG shows a normal sinus rhythm with nonspecific ST-T wave changes. Patient underwent a cardiac catheterization in January 2019 which revealed normal coronary arteries. Echocardiogram with Doppler study performed in March of this year revealed a hyperdynamic LV, greater than 70%. #2 history of CVA #3 hypertension #4 hyperlipidemia #5 history of DVT for which the patient is on Eliquis #6 GERD Plan We will obtain 2 subsequent troponins. Patient was noted on the monitor to have runs of nonsustained ventricular tachycardia, the longest one 10 beats, he's having some bigeminy as well. The duration of the ventricular ectopy approximately an hour. We will put the patient on a baby aspirin, increase his statin, beta emeli, Plavix. Patient may require a cardiac catheterization. We will follow troponin trend , montior strips. Further recommendations to follow. DNP note has been reviewed, I agree with a documented findings and plan of care. Patient was seen and examined. <Lokesh Daniels - Last Filed: 06/07/19 11:37> Physical Exam Vitals: Vital Signs Temp Pulse Pulse Resp BP BP Pulse Ox 06/07/19 11:34 98.4 F 67 18 124/91 100 06/07/19 11:19 98.4 F 67 18 124/91 100 06/07/19 10:31 76 18 97/63 97 06/07/19 10:11 74 18 155/102 99 06/07/19 10:00 98 18 207/98 100 06/07/19 06:57 98.6 F 95 20 137/87 99 06/07/19 05:46 60 18 113/78 97 06/07/19 04:52 67 18 129/98 97 06/07/19 03:38 75 06/07/19 03:34 98.4 F 82 18 157/108 100 Intake and Output 06/06/19 06/07/19 06/07/19 22:59 06:59 14:59 Other: Voiding Method Diaper Incontinent # Voids 1 1 Weight 90.718 kg 90.718 kg Results 06/07/19 04:04 06/07/19 04:04 Cardiac Enzymes 06/07/19 06/07/19 Range/Units 04:04 04:04 AST 28 (17-59) U/L Troponin I 0.282 H* (0.000-0.034) ng/mL Coagulation 06/07/19 Range/Units 04:04 PT 9.8 (9.0-12.0) sec APTT 22.4 (22.0-30.0) sec CBC 06/07/19 Range/Units 04:04 WBC 7.4 (3.8-10.6) k/uL RBC 4.82 (4.30-5.90) m/uL Hgb 14.7 (13.0-17.5) gm/dL Hct 46.0 (39.0-53.0) % Plt Count 340 (150-450) k/uL Comprehensive Metabolic Panel 06/07/19 Range/Units 04:04 Sodium 139 (137-145) mmol/L Potassium 4.1 (3.5-5.1) mmol/L Chloride 97 L (98-107) mmol/L Carbon Dioxide 29 (22-30) mmol/L BUN 18 (9-20) mg/dL Creatinine 0.95 (0.66-1.25) mg/dL Glucose 104 H (74-99) mg/dL Calcium 10.7 H (8.4-10.2) mg/dL AST 28 (17-59) U/L ALT 44 (4-49) U/L Alkaline Phosphatase 68 (38-126) U/L Total Protein 8.6 H (6.3-8.2) g/dL Albumin 4.9 (3.5-5.0) g/dL Current Medications Generic Name Dose Route Start Last Admin Trade Name Freq PRN Reason Stop Dose Admin Acetaminophen 650 mg 06/07/19 11:02 Tylenol Tab PO Q6H PRN MILD Pain Amlodipine Besylate 5 mg 06/07/19 11:02 Norvasc PO BID@0800,1600 [facility] Aspirin 81 mg 06/08/19 09:00 Aspirin PO DAILY [facility] Atorvastatin Calcium 80 mg 06/07/19 20:00 Lipitor PO HS@1999 [facility] Bisacodyl 10 mg 06/07/19 11:02 Dulcolax RECTAL Q72H PRN Constipation Chlorthalidone 25 mg 06/08/19 09:00 [place]groton PO DAILY [facility] Clopidogrel Bisulfate 75 mg 06/07/19 09:00 Plavix PO DAILY [facility] Divalproex Sodium 250 mg 06/07/19 11:15 Depakote PO DAILY [facility] Docusate Sodium 100 mg 06/07/19 16:00 Colace PO BID@0800,1600 [facility] Heparin Sodium (Porcine) 0 unit 06/07/19 05:05 Heparin IV PER PROTOCOL PRN Low PTT Protocol Heparin Sodium/Sodium Chloride 250 mls @ 9.979 mls/hr 06/07/19 05:15 06/07/19 05:21 25,000 unit/ Sodium Chloride IV 11 units/kg/hr .Q24H [facility] 9.979 mls/hr Administration Protocol 11 UNITS/KG/HR Isosorbide Mononitrate 30 mg 06/07/19 11:15 Imdur PO DAILY [facility] Levetiracetam 500 mg 06/07/19 11:02 Keppra PO BID@0800,1600 [facility] Melatonin 5 mg 06/07/19 20:00 Melatonin PO DAILY@1999 [facility] Metoprolol Tartrate 50 mg 06/07/19 16:00 Lopressor PO TID [facility] Multivitamins 1 each 06/07/19 11:15 Theragran PO DAILY [facility] Naloxone HCl 0.2 mg 06/07/19 05:59 Narcan IV Q2M PRN Opioid Reversal Nitroglycerin 0.4 mg 06/07/19 10:14 06/07/19 10:22 Nitrostat SUBLINGUAL 0.4 mg ONCE PRN Administration Chest Pain Pantoprazole Sodium 40 mg 06/07/19 20:00 Protonix PO HS@1999 [facility] Senna 8.6 mg 06/07/19 16:00 Senokot PO BID@0800,1600 [facility] Thiamine HCl 100 mg 06/07/19 11:15 Vitamin B-1 PO DAILY [facility] Intake and Output 06/06/19 06/07/19 06/07/19 22:59 06:59 14:59 Other: Voiding Method Diaper Incontinent # Voids 1 1 Weight 90.718 kg 90.718 kg Patient Weight 06/08/19 06:59 Weight 90.718 kg 06/07/19 04:04 06/07/19 04:04
--- NOTE | 2019-06-07 10:00 | ECHOF ---
Referral Reason:chest pain MEASUREMENTS -------- HEIGHT: 182.9 cm WEIGHT: 90.7 kg BP: IVSd: 1.6 cm (0.6 - 1.1) LVIDd: 3.4 cm (3.9 - 5.3) LVPWd: 1.8 cm (0.6 - 1.1) IVSs: 2.1 cm LVIDs: 1.7 cm LVPWs: 2.1 cm Ao Diam: 2.8 cm (2.0 - 3.7) AV Cusp: 1.9 cm (1.5 - 2.6) LA Diam: 3.1 cm (2.7 - 3.8) MV EXCURSION: 7.158 mm (> 18.000) MV EF SLOPE: 15 mm/s (70 - 150) EPSS: 2.2 cm MV E Dawson: 0.52 m/s MV A Dawson: 0.95 m/s MV E/A Ratio: 0.55 RAP: 5.00 mmHg RVSP: 10.82 mmHg FINDINGS -------- Sinus rhythm. This was a technically difficult study with suboptimal views. The left ventricular size is normal. There is severe concentric left ventricular hypertrophy. Ove rall left ventricular systolic function is mildly impaired with, an EF between 45 - 50 %. Basal inf erolateral hypokinesis. The RV was not well visualized. The left atrial size is normal. The right atrium was not well visualized. The aortic valve is trileaflet and appears structurally normal. The mitral valve is normal. The mitral valve leaflets are mildly thickened. There is trace mitral regurgitation. The tricuspid valve appears structurally normal. Trace tricuspid regurgitation present. Right frederick tricular systolic pressure is normal at < 35 mmHg. There is no pulmonic regurgitation present. The aortic root size is normal. Normal inferior vena cava with normal inspiratory collapse consistent with estimated right atrial pre ssure of 5 mmHg. There is no pericardial effusion. CONCLUSIONS -------- 1. Sinus rhythm. 2. This was a technically difficult study with suboptimal views. 3. The left ventricular size is normal. 4. There is severe concentric left ventricular hypertrophy. 5. Overall left ventricular systolic function is mildly impaired with, an EF between 45 - 50 %. 6. Basal inferolateral hypokinesis. 7. The RV was not well visualized. 8. The left atrial size is normal. 9. The right atrium was not well visualized. 10. The aortic valve is trileaflet and appears structurally normal. 11. The mitral valve is normal. 12. The mitral valve leaflets are mildly thickened. 13. There is trace mitral regurgitation. 14. The tricuspid valve appears structurally normal. 15. Trace tricuspid regurgitation present. 16. Right ventricular systolic pressure is normal at < 35 mmHg. 17. There is no pulmonic regurgitation present. 18. The aortic root size is normal. 19. Normal inferior vena cava with normal inspiratory collapse consistent with estimated right atrial pressure of 5 mmHg. 20. There is no pericardial effusion. LOGGING CONTRACTOR: Monica Merida RDCS
[2019-06-07] MEDS ORDERED: NITROGLYCERIN SL TABS 0.4 MG TAB SUBLINGUAL ONE (10:13)
[2019-06-07] MEDS: NITROGLYCERIN SL TABS 0.4 MG TAB SUBLINGUAL PRN ×2 (10:15→10:22)
[2019-06-07] MEDS ORDERED: BISACODYL 10 MG SUPP RECTAL PRN (11:02)
[2019-06-07] MEDS ORDERED: ACETAMINOPHEN TAB 325 MG TAB PO PRN (11:02)
[2019-06-07] MEDS: CLOPIDOGREL 75 MG TAB PO SCH (11:44)
[2019-06-07] MEDS: MULTIVITAMINS, THERA 1 EACH TAB PO SCH (11:44)
[2019-06-07] MEDS: levETIRAcetam 500 MG TAB PO SCH ×2 (11:44→17:07)
[2019-06-07] MEDS: THIAMINE 100 MG TAB PO SCH (11:45)
[2019-06-07] MEDS: amLODIPine 5 MG TAB PO SCH ×2 (11:45→17:07)
[2019-06-07] MEDS: ISOSORBIDE MONONITRATE ER 30 MG TAB.ER.24H PO SCH (11:45)
[2019-06-07] MEDS: DIVALPROEX 250 MG TABLET.DR PO SCH (11:48)
[2019-06-07] MEDS ORDERED: MULTIVITAMIN WITH IRON PO SCH (14:00)
[2019-06-07] MEDS: METOPROLOL TARTRATE 50 MG TAB PO SCH ×2 (17:07→23:24)
[2019-06-07] MEDS: DOCUSATE 100 MG CAP PO SCH (17:07)
[2019-06-07] MEDS: SENNOSIDES 8.6 MG TAB PO SCH (17:07)
--- NOTE | 2019-06-07 17:16 | P.HPIM ---
History of Present Illness H&P Date: 06/07/19 Chief Complaint: Chest pain History of presenting complaint: This is a 63-year-old patient of Dr. Booker resident of [facility]. Chronic stable medical conditions include GERD, ascending aortic aneurysm 4.2 cm, hypertension, hyperlipidemia has a PEG tube Had a previous stroke with left-sided weakness. Patient nonambulatory. Patient has severe dysarthria, P serina's was in the hospital on January 2019 with an acute SC. Cardiac catheterization showed normal coronaries. 2-D echo showed an EF of 55-60%. Patient presented to ER from the [facility]. Complaining of chest pain. He cannot define how long the pain was present. Did not seem to radiate. No shortness of breath no dizziness no lightheadedness. No cough or shortness of breath. History is limited because of his underlying dysarthria. Cardiology was consulted. Put on IV heparin. Patient. This morning he had runs of V. tach. Lasted for about an hour. Review of systems: GEN.: Tired EYES: None HEENT: None NECK: None RESPIRATORY: None CARDIOVASCULAR: As above GASTROINTESTINAL: None GENITOURINARY: None MUSCULOSKELETAL: None LYMPHATICS: None HEMATOLOGICAL: None PSYCHIATRY: None NEUROLOGICAL: Left-sided weakness with chronic dysarthria Past medical history to include: Hypertensive cardiomyopathy, essential hypertension, PEG tube-removed, severe dysarthria, GERD, left-sided weakness from prior stroke, seizure disorder Physical examination: VITAL SIGNS: 98.1, 33, 16, 123/79, 100% on room air GENERAL: Laying in bed, comfortable EYES: Pupils equal. Conjunctiva normal. HEENT: External appearance of nose and ears normal, oral cavity grossly normal. NECK: JVD not raised; masses not palpable. HEART: First and second heart sounds are normal; no edema. LUNGS: Respiratory rate normal; decreased breath sounds. ABDOMEN: Soft, nontender, liver spleen not palpable, no masses palpable. NEUROLOGICAL: dysarthria, weakness on the left side. INVESTIGATIONS, reviewed in the clinical context: White count 7.4 hemoglobin 40.7 platelets 340 progression 4.1 bun 18 and creatin ine 0.95 Troponin I 0.28, 0.29, 0.27 EKG tracing personally reviewed by me-normal sinus rhythm with nonspecific T- wave changes Chest x-ray film personally reviewed by me-possible atelectasis. No infiltrates Assessment: -Chest pain in a patient with negative cardiac catheterization in January 2019. With some troponin leak with no obvious rise and fall. -New onset ventricular tachycardia. -Hypertensive cardiomyopathy -Chronic nicotine dependence patient cigarette smoker -Essential hypertension, with urgency, POA -Chronic nicotine dependence cigarette smoker -Severe dysarthria -Dysphagia -pured diet. 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 Seen by cardiology. Other home medications resumed. Currently no chest pain. Patient also aspirin Lipitor Plavix and beta emeli. Discussed with the patient. Past Medical History Past Medical History: CVA/TIA, Deep Vein Thrombosis (DVT), GERD/Reflux, Hyperlipidemia, Hypertension, Myocardial Infarction (SC), Renal Disease, Seizure Disorder Additional Past Medical History / Comment(s): Pt had a CVA with left sided weakness & aphasia in December of 2018, has a PEG tube, has been getting feedings at night & tolerating a pureed diet at [facility] with regular liquids. (Pt is alert with confusion, using information from previous admission.). aortic aneurysm unknown size. hx of seizures Last Myocardial Infarction Date:: 01/13/19 History of Any Multi-Drug Resistant Organisms: None Reported Past Surgical History: Heart Catheterization Additional Past Surgical History / Comment(s): pt is alert with confusion, using information from previous admission Past Anesthesia/Blood Transfusion Reactions: No Reported Reaction Additional Past Anesthesia/Blood Transfusion Reaction / Comment(s): pt is alert with confusion, using information from previous admission Past Psychological History: No Psychological Hx Reported Smoking Status: Unknown if ever smoked Past Alcohol Use History: Unable to Obtain Past Drug Use History: Unable to Obtain - Past Family History Father Family Medical History: No Reported History Medications and Allergies Home Medications Medication Instructions Recorded Confirmed Type Acetaminophen Tab [Tylenol] 650 mg PO Q6H PRN 01/13/19 06/07/19 History Apixaban [Eliquis] 5 mg PO BID@0800,1600 01/13/19 06/07/19 History Aspirin 81 mg PO DAILY 01/13/19 06/07/19 History Atorvastatin [Lipitor] 40 mg PO HS@199901/13/19 06/07/19 History Melatonin 5 mg PO DAILY@199901/13/19 06/07/19 History Multivits,Th W-Ca,Fe,Oth Min 1 tab PO DAILY 01/13/19 06/07/19 History [Therapeutic M] Sennosides [Senna] 8.6 mg PO BID@0800,1600 01/13/19 06/07/19 History Spironolactone [Aldactone] 25 mg PO BID@0800,1600 01/13/19 06/07/19 History Thiamine [Vitamin B-1] 100 mg PO DAILY 01/13/19 06/07/19 History amLODIPine [Norvasc] 5 mg PO BID@0800,1600 01/13/19 06/07/19 History cloNIDine HCL 0.3 mg PO TID@0500,1300,2100 01/13/19 06/07/19 History hydrALAZINE HCL [Apresoline] 25 mg PO TID 01/13/19 06/07/19 History Omeprazole [PriLOSEC] 20 mg PO HS@199902/21/19 06/07/19 History Chlorthalidone 25 mg PO DAILY #1 tab 04/01/19 06/07/19 Rx Clopidogrel [Plavix] 75 mg PO DAILY tab 04/01/19 06/07/19 Rx Isosorbide Mononitrate ER [Imdur] 30 mg PO DAILY tab.er.24h 04/01/19 06/07/19 Rx Metoprolol Tartrate [Lopressor] 50 mg PO BID@0800,1600 tab 04/01/19 06/07/19 Rx Bisacodyl [Dulcolax] 10 mg RECTAL Q72H PRN 06/07/19 06/07/19 History Divalproex [Depakote] 250 mg PO DAILY 06/07/19 06/07/19 History Docusate Sodium [Dok] 100 mg PO BID@0800,1600 06/07/19 06/07/19 History Multivitamin with Iron 1 tab PO DAILY@1400 06/07/19 06/07/19 History [Multivitamins with Iron] levETIRAcetam 500 mg PO BID@0800,1600 06/07/19 06/07/19 History Allergies Allergy/AdvReac Type Severity Reaction Status Date / Time No Known Allergies Allergy Verified 06/07/19 09:13 Physical Exam Vitals: Vital Signs Temp Pulse Pulse Resp BP BP Pulse Ox 06/07/19 10:31 76 18 97/63 97 06/07/19 10:11 74 18 155/102 99 06/07/19 10:00 98 18 207/98 100 06/07/19 06:57 98.6 F 95 20 137/87 99 06/07/19 05:46 60 18 113/78 97 06/07/19 04:52 67 18 129/98 97 06/07/19 03:38 75 06/07/19 03:34 98.4 F 82 18 157/108 100 Intake and Output 06/06/19 06/07/19 06/07/19 22:59 06:59 14:59 Other: Voiding Method Diaper Incontinent # Voids 1 1 Weight 90.718 kg Results CBC & Chem 7: 06/07/19 04:04 06/07/19 04:04 Labs: Abnormal Lab Results - Last 24 Hours (Table) 06/07/19 06/07/19 Range/Units 04:04 04:04 Chloride 97 L (98-107) mmol/L Glucose 104 H (74-99) mg/dL Calcium 10.7 H (8.4-10.2) mg/dL Troponin I 0.282 H* (0.000-0.034) ng/mL Total Protein 8.6 H (6.3-8.2) g/dL
[2019-06-07] MEDS ORDERED: ATORVASTATIN 80 MG TAB PO SCH (20:00)
[2019-06-07] MEDS ORDERED: ATORVASTATIN 40 MG TAB PO SCH (20:00)
[2019-06-07] MEDS: PANTOPRAZOLE 40 MG TABLET PO SCH (23:23)
[2019-06-07] MEDS: MELATONIN 5 MG TABLET PO SCH (23:24)
[2019-06-08] MEDS: HEPARIN SOD,PORK IN 0.45% NACL 25,000 UNIT in 0.45% NACL 1 250ML.BAG IV SCH (04:40)
[2019-06-08 06:12] LABS: Basophils % (A) 0 %; Eosinophils # (A) 0.1 k/uL (0-0.7); Eosinophils % (A) 2 %; HCT 45.2 % (39.0-53.0); HGB 15.2 gm/dL (13.0-17.5); Lymphocytes # (A) 3.4 k/uL (1.0-4.8); Lymphocytes % (A) 40 %; MCH 31.8 pg (25.0-35.0); MCHC 33.6 g/dL (31.0-37.0); MCV 94.6 fL (80.0-100.0); Mean Platelet Volume 7.1; Monocytes # (A) 0.4 k/uL (0-1.0); Monocytes % (A) 5 %; Neutrophils # (A) 4.4 k/uL (1.3-7.7); Neutrophils % (A) 51 %; Platelet Count 322 k/uL (150-450); RBC 4.77 m/uL (4.30-5.90); RDW 14.7 % (11.5-15.5); WBC 8.6 k/uL (3.8-10.6)
[2019-06-08 06:31] LABS: Prothrombin Time 10.3 sec (9.0-12.0)
[2019-06-08 06:39] LABS: African American GFR (CKD) >90 (>60 ml/min/1.73 sqM); Anion Gap 11 mmol/L; Blood Urea Nitrogen 14 mg/dL (9-20); Calcium 9.8 mg/dL (8.4-10.2); Carbon Dioxide 27 mmol/L (22-30); Chloride 100 mmol/L (98-107); Glucose 142 mg/dL (74-99); Non-African American GFR(CKD) >90 (>60 ml/min/1.73 sqM); Potassium 3.6 mmol/L (3.5-5.1); Sodium 138 mmol/L (137-145)
[2019-06-08] MEDS: THIAMINE 100 MG TAB PO SCH (10:07)
[2019-06-08] MEDS: MULTIVITAMINS, THERA 1 EACH TAB PO SCH (10:08)
[2019-06-08] MEDS: ASPIRIN 81 MG PO SCH (10:08)
[2019-06-08] MEDS: CHLORTHALIDONE 25 MG TAB PO SCH (10:08)
[2019-06-08] MEDS: DOCUSATE 100 MG CAP PO SCH ×2 (10:08→17:08)
[2019-06-08] MEDS: DIVALPROEX 250 MG TABLET.DR PO SCH (10:08)
[2019-06-08] MEDS: CLOPIDOGREL 75 MG TAB PO SCH (10:08)
[2019-06-08] MEDS: SENNOSIDES 8.6 MG TAB PO SCH ×2 (10:08→17:09)
[2019-06-08] MEDS: METOPROLOL TARTRATE 50 MG TAB PO SCH ×2 (10:08→20:14)
[2019-06-08] MEDS: amLODIPine 5 MG TAB PO SCH ×2 (10:08→17:08)
[2019-06-08] MEDS: ISOSORBIDE MONONITRATE ER 30 MG TAB.ER.24H PO SCH (10:11)
[2019-06-08] MEDS: levETIRAcetam 500 MG TAB PO SCH ×2 (10:14→17:08)
[2019-06-08] MEDS ORDERED: ALPRAZolam 0.25 MG TAB PO PRN (11:09)
[2019-06-08] MEDS ORDERED: SODIUM CHLORIDE 0.9% 1,000 ML in EMPTY BAG 1 BAG IV ONE (11:09)
[2019-06-08] MEDS ORDERED: ASPIRIN 325 MG TAB PO STA (11:09)
[2019-06-08] MEDS ORDERED: NITROGLYCERIN SL TABS 0.4 MG TAB SUBLINGUAL PRN (11:09)
[2019-06-08] MEDS ORDERED: ALPRAZolam 0.5 MG TAB PO PRN (11:09)
[2019-06-08] MEDS ORDERED: ATORVASTATIN 80 MG TAB PO STA (11:09)
[2019-06-08] MEDS ORDERED: Potassium Replacement Protocol 1 EACH MISC MISCELLANE PRN (16:08)
[2019-06-08] MEDS ORDERED: POTASSIUM CHLORIDE ER 20 MEQ TAB.ER PO SCH (17:00)
--- NOTE | 2019-06-08 17:27 | P.PN ---
Progress Note - Text Progress Note Date: 06/08/19 Chief Complaint: Chest pain History of presenting complaint: This is a 63-year-old patient of Dr. Booker resident of [facility]. Chronic stable medical conditions include GERD, ascending aortic aneurysm 4.2 cm, hypertension, hyperlipidemia has a PEG tube Had a previous stroke with left-sided weakness. Patient nonambulatory. Patient has severe dysarthria, Patient's was in the hospital on January 2019 with an acute OH. Cardiac catheterization showed normal coronaries. 2-D echo showed an EF of 55-60%. Patient presented to ER from the [facility]. Complaining of chest pain. He cannot define how long the pain was present. Did not seem to radiate. No shortness of breath no dizziness no lightheadedness. No cough or shortness of breath. History is limited because of his underlying dysarthria. Cardiology was consulted. Put on IV heparin. Patient. This morning he had runs of Reflex. Lasted for about an hour. Admitted with-possible unstable angina Today-no further chest pain. Laying in bed. Comfortable. Per cardiology possible cardiac catheterization tomorrow Review of systems: Was done for constitutional, cardiovascular, GI, pulmonary. relevant finding as above Active Medications Acetaminophen (Tylenol Tab) 650 mg PO Q6H PRN PRN Reason: MILD Pain Alprazolam (Xanax) 0.25 mg PO Q6HR PRN PRN Reason: Mild Anxiety Alprazolam (Xanax) 0.5 mg PO Q6HR PRN PRN Reason: Moderate Anxiety Amlodipine Besylate (Norvasc) 5 mg PO BID@0800,1600 [facility] Last Admin: 06/08/19 17:08 Dose: 5 mg Documented by: Aspirin (Aspirin) 81 mg PO DAILY [facility] Last Admin: 06/08/19 10:08 Dose: 81 mg Documented by: Aspirin (Aspirin) 325 mg PO ONCE ONE Stop: 06/09/19 08:01 Atorvastatin Calcium (Lipitor) 80 mg PO HS@2000 [facility] Bisacodyl (Dulcolax) 10 mg RECTAL Q72H PRN PRN Reason: Constipation Chlorthalidone (Hygroton) 25 mg PO DAILY [facility] Last Admin: 06/08/19 10:08 Dose: 25 mg Documented by: Clopidogrel Bisulfate (Plavix) 75 mg PO DAILY [facility] Last Admin: 06/08/19 10:08 Dose: 75 mg Documented by: Divalproex Sodium (Depakote) 250 mg PO DAILY [facility] Last Admin: 06/08/19 10:08 Dose: 250 mg Documented by: Docusate Sodium (Colace) 100 mg PO BID@0800,1600 [facility] Last Admin: 06/08/19 17:08 Dose: 100 mg Documented by: Heparin Sodium (Porcine) (Heparin) 0 unit IV PER PROTOCOL PRN; Protocol PRN Reason: Low PTT Heparin Sodium/Sodium Chloride (25,000 unit/ Sodium Chloride) 250 mls @ 9.979 mls/hr IV .Q24H [facility]; Protocol Last Admin: 06/08/19 04:40 Dose: 9 units/kg/hr, 8.165 mls/hr Documented by: Sodium Chloride 1,000 ml/ IV (Solution) 1,000 mls @ 77 mls/hr IV .Q13H ONE Stop: 06/09/19 00:08 Last Admin: 06/08/19 12:47 Dose: 77 mls/hr Documented by: Isosorbide Mononitrate (Imdur) 30 mg PO DAILY [facility] Last Admin: 06/08/19 10:11 Dose: 30 mg Documented by: Levetiracetam (Keppra) 500 mg PO BID@0800,1600 [facility] Last Admin: 06/08/19 17:08 Dose: 500 mg Documented by: Melatonin (Melatonin) 5 mg PO DAILY@1999 [facility] Last Admin: 06/07/19 23:24 Dose: 5 mg Documented by: Metoprolol Tartrate (Lopressor) 100 mg PO BID [facility] Miscellaneous Information (Potassium Per Protocol) 1 each MISCELLANE DAILY PRN; Protocol PRN Reason: Per Protocol Multivitamins (Theragran) 1 each PO DAILY [facility] Last Admin: 06/08/19 10:08 Dose: 1 each Documented by: Naloxone HCl (Narcan) 0.2 mg IV Q2M PRN PRN Reason: Opioid Reversal Nitroglycerin (Nitrostat) 0.4 mg SUBLINGUAL ONCE PRN PRN Reason: Chest Pain Last Admin: 06/07/19 10:22 Dose: 0.4 mg Documented by: Nitroglycerin (Nitrostat) 0.4 mg SUBLINGUAL Q5M PRN PRN Reason: Chest Pain Pantoprazole Sodium (Protonix) 40 mg PO HS@1999 [facility] Last Admin: 06/07/19 23:23 Dose: 40 mg Documented by: Austen (Senokot) 8.6 mg PO BID@0800,1600 [facility] Last Admin: 06/08/19 17:09 Dose: 8.6 mg Documented by: Thiamine HCl (Vitamin B-1) 100 mg PO DAILY [facility] Last Admin: 06/08/19 10:07 Dose: 100 mg Documented by: Physical examination: VITAL SIGNS: 99, 74, 18, 133/92, 100% on room air GENERAL: Laying in bed, comfortable EYES: Pupils equal. Conjunctiva normal. HEENT: External appearance of nose and ears normal, oral cavity grossly normal. NECK: JVD not raised; masses not palpable. HEART: First and second heart sounds are normal; no edema. LUNGS: Respiratory rate normal; decreased breath sounds. ABDOMEN: Soft, nontender, liver spleen not palpable, no masses palpable. NEUROLOGICAL: dysarthria, weakness on the left side. INVESTIGATIONS, reviewed in the clinical context: White count 7.4 hemoglobin 40.7 platelets 340 progression 4.1 bun 18 and creatinine 0.95 Troponin I 0.28, 0.29, 0.27 EKG tracing personally reviewed by me-normal sinus rhythm with nonspecific T- wave changes Chest x-ray film personally reviewed by me-possible atelectasis. No infiltrates Assessment: -Chest pain in a patient with negative cardiac catheterization in January 2019. With some troponin leak with no obvious rise and fall.-Possible unstable angina -New onset ventricular tachycardia. -Hypertensive cardiomyopathy -Chronic nicotine dependence patient cigarette smoker -Essential hypertension, with urgency, POA -Chronic nicotine dependence cigarette smoker -Severe dysarthria -Dysphagia -pured diet. 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 Spoke to nurse Anderson. Likely cardiac catheterization tomorrow. Other medications to continue.
[2019-06-08] MEDS: PANTOPRAZOLE 40 MG TABLET PO SCH (20:11)
[2019-06-08] MEDS: MELATONIN 5 MG TABLET PO SCH (20:11)
[2019-06-09] MEDS: HEPARIN SOD,PORK IN 0.45% NACL 25,000 UNIT in 0.45% NACL 1 250ML.BAG IV SCH (06:05)
[2019-06-09 06:55] LABS: Partial Thromboplastin Time 35.6 sec (22.0-30.0); Prothrombin Time 10.2 sec (9.0-12.0)
[2019-06-09 07:01] LABS: Basophils % (A) 1 %; Eosinophils # (A) 0.3 k/uL (0-0.7); Eosinophils % (A) 5 %; HCT 45.2 % (39.0-53.0); HGB 14.6 gm/dL (13.0-17.5); Lymphocytes # (A) 3.6 k/uL (1.0-4.8); Lymphocytes % (A) 48 %; MCH 30.9 pg (25.0-35.0); MCHC 32.4 g/dL (31.0-37.0); MCV 95.5 fL (80.0-100.0); Mean Platelet Volume 7.3; Monocytes # (A) 0.3 k/uL (0-1.0); Monocytes % (A) 4 %; Neutrophils % (A) 40 %; Platelet Count 267 k/uL (150-450); RBC 4.73 m/uL (4.30-5.90); RDW 14.7 % (11.5-15.5); WBC 7.5 k/uL (3.8-10.6)
[2019-06-09] MEDS ORDERED: ASPIRIN 325 MG TAB PO ONE (08:00)
[2019-06-09] MEDS: ASPIRIN 81 MG PO SCH (09:03)
[2019-06-09] MEDS: levETIRAcetam 500 MG TAB PO SCH ×2 (09:04→17:36)
[2019-06-09] MEDS: DIVALPROEX 250 MG TABLET.DR PO SCH (09:04)
[2019-06-09] MEDS: METOPROLOL TARTRATE 50 MG TAB PO SCH (09:04)
[2019-06-09] MEDS: CLOPIDOGREL 75 MG TAB PO SCH (09:05)
[2019-06-09] MEDS: ISOSORBIDE MONONITRATE ER 30 MG TAB.ER.24H PO SCH (09:05)
[2019-06-09] MEDS: amLODIPine 5 MG TAB PO SCH ×2 (09:05→17:37)
[2019-06-09] MEDS ORDERED: IV FLUID CONTINUATION 1,000 ML IV ONE (12:10)
[2019-06-09] MEDS ORDERED: fentaNYL (PF) 50 MCG/ML 2 ML AMP ONE (12:12)
[2019-06-09] MEDS ORDERED: VERAPAMIL 2.5 MG/ML 2 ML AMP ONE (12:12)
[2019-06-09] MEDS ORDERED: fentaNYL (PF) 50 MCG/ML 2 ML AMP IVP ONE (12:12)
[2019-06-09] MEDS ORDERED: LIDOCAINE 1% INJ 10MG/ML (20 ML MDV) SQ ONE (12:12)
[2019-06-09] MEDS ORDERED: LIDOCAINE 1% INJ 10MG/ML (20 ML MDV) ONE (12:12)
[2019-06-09] MEDS ORDERED: HEPARIN SODIUM 1,000 UN/ML (10ML VL) ONE (12:13)
[2019-06-09] MEDS ORDERED: BIVALIRUDIN BOLUS 250 MG/50 ML IV ONE (12:29)
[2019-06-09] MEDS ORDERED: BIVALIRUDIN 250 MG in SODIUM CHLORIDE 0.9% 50 ML IV ONE (12:30)
[2019-06-09] MEDS ORDERED: NITROGLYCERIN 1000MCG/10ML SYRINGE INTRACORON ONE (12:32)
[2019-06-09] MEDS ORDERED: IOPAMIDOL-370 125ML BTL INJ ONE (12:37)
[2019-06-09] MEDS ORDERED: IOPAMIDOL-370 50ML BTL INJ ONE (12:38)
[2019-06-09] MEDS ORDERED: RX INFO: IV CONTRAST WAS GIVEN 1 EACH MISC MISCELLANE PRN (12:52)
[2019-06-09] MEDS ORDERED: SODIUM CHLORIDE 0.9% 1,000 ML IV SCH (13:00)
--- NOTE | 2019-06-09 13:08 | P.PN ---
Subjective This is a pleasant 63-year-old -[place] male past medical history significant for CVA with left-sided paralysis, PEG tube placement, expressive aphasia, hypertension, dyslipidemia and former nicotine dependence. He follows my office with Dr. Damian. Echocardiogram obtained revealed mildly impaired LV systolic function with basal inferior lateral hypokinesia and ejection fraction 45-50%. This is new compared to previous echocardiogram. Laboratory data reviewed, troponin 0.282, 0.291 and 0.276. CBC unremarkable. Creatinine 0.82 with a GFR greater than 90, sodium 138 and potassium 3.6. Blood pressure 147/100 heart rate 78 afebrile maintaining oxygen saturation on room air. He is seen and examined resting comfortably in bed in no acute distress. He is slow to respond however does answer any questions appropriately. He denies symptoms of chest pain, shortness of breath, dizziness or palpitations. GENERAL: Well-appearing, well-nourished and in no acute distress. NECK: Supple without JVD or thyromegaly. LUNGS: Breath sounds clear to auscultation bilaterally. Respiration equal and unlabored. No wheezes, rales or rhonchi. HEART: Regular rate and rhythm without murmurs, rubs or gallops. S1 and S2 heard. EXTREMITIES: Normal range of motion, no edema. No clubbing or cyanosis. Peripheral pulses intact. ASSESSMENT Chest pain wit evidence of myocardial infarct Non-ST elevated myocardial infarction Nonsustained ventricular tachycardia Hypertension Dyslipidemia History of DVT maintained on long-term anticoagulation History of CVA with left-sided paralysis and expressive aphasia PLAN Proceed with repeat cardiac catheterization to assess coronary artery disease secondary given new wall motion abnormalities. I have discussed the risks, benefits and alternative therapies for the above- mentioned procedure and for both sedation/analgesia as well as necessary blood product administration, if indicated, as they pertain to this patient. The patient has indicated understanding and acceptance of the risks and procedures discussed. Increase metoprolol to 100 mg twice a day. Further recommendations follow based upon clinical course. Nothing by mouth after midnight tonight for procedure tomorrow. Objective - Vital Signs Vital signs: Vital Signs Temp 98.4 F 06/08/19 04:45 Pulse 78 06/08/19 04:45 Resp 18 06/08/19 04:45 BP 147/100 06/08/19 04:45 Pulse Ox 100 06/08/19 04:45 Intake & Output 06/07/19 06/08/19 06/08/19 18:59 06:59 18:59 Intake Total 301.666 125.197 Balance 301.666 125.197 Weight 90.718 kg 77 kg Intake: Intake, IV Titration 79.666 125.197 Amount Heparin Sod,Pork in 0.45% 79.666 125.197 NaCl 25,000 unit In 0.45 % NaCl 1 250ml.bag @ 11 UNITS/KG/HR 9.979 mls/hr IV .Q24H [facility] Rx#: [id number] Oral 222 Other: Voiding Method Diaper Incontinent Incontinent # Voids 3 1 # Bowel Movements 1 - Labs CBC & Chem 7: 06/09/19 06:36 06/08/19 05:38 Labs: Abnormal Lab Results - Last 24 Hours (Table) 06/07/19 06/07/19 06/08/19 Range/Units 15:18 19:13 05:38 APTT 49.2 H 44.0 H (22.0-30.0) sec Glucose (74-99) mg/dL Troponin I 0.276 H* (0.000-0.034) ng/mL 06/08/19 Range/Units 05:38 APTT (22.0-30.0) sec Glucose 142 H (74-99) mg/dL Troponin I (0.000-0.034) ng/mL
--- NOTE | 2019-06-09 14:06 | CC ---
CARDIAC CATHETERIZATION REPORT Mr. Alvarez is a 63-year-old male with known history of hypertension, hyperlipidemia, history of cerebrovascular accident with dysarthria, who presented with symptoms of chest discomfort and mild troponin elevation. He had episode of nonsustained ventricular tachycardia. In view of that and after evaluation by Dr. Daniels, recommendation made regarding cardiac catheterization. The procedures, risks, and complication were discussed with the patient. PROCEDURE: Patient was brought to recyclable materials collector in a fasting semi-sedated state after receiving fentanyl and Benadryl and achieving moderate conscious sedated state. Using Xylocaine anesthesia and Seldinger technique, a 6-[place] sheath was introduced in the right femoral artery. Selective right and left coronary angiography performed using 6-[place] 4 bend right and left Renate catheter, multiple views of the coronary artery including hemiaxial views were obtained. Following that, a 6-[place] FR4 guiding catheter introduced into the system after cannulating the right coronary ostium and obtaining more images. It showed that the lesion in the mid to right coronary artery, resolved. At that point, the guiding catheter, the wire were removed and a 6-[place] tight pigtail catheter was introducedd into the left ventricle and a 30-degree ROBERT view of the left ventricle was obtained. Following that, catheter was removed. The sheath was sutured in place. The patient was returned to his room in stable condition. Of note, the patient received a bolus of Angiomax for possible angioplasty, but then it was stopped. There was no immediate complication. FINDINGS: LEFT MAIN: This is a large-sized vessel, bifurcating into left circumflex, left anterior descending artery. Left main coronary artery has no evidence of high-grade stenosis. LEFT ANTERIOR DESCENDING ARTERY: This is a large-sized vessel, reaching toward the apex with a wraparound apex segment. The left anterior descending artery has no evidence of high-grade stenosis. LEFT CIRCUMFLEX: This is a nondominant vessel giving rise to a large very proximal obtuse marginal branch, at the AV groove left circumflex is small in caliber. The left circumflex and its branches have no evidence of obstructive coronary artery disease. RIGHT CORONARY ARTERY: This is a large dominant vessel, bifurcating distally into PDA and posterolateral segment and branches. The proximal right coronary artery has 10%- 20% plaque. The mid right coronary artery has an eccentric lesion and it appears to be significant at 60%-70%. On subsequent images, and after giving nitroglycerin, the lesion resolved and there is no evidence of obstructive disease. LEFT VENTRICULOGRAM: Left ventriculogram was performed in 30-degree ROBERT view and revealed a normal left ventricular size and systolic function. Ejection fraction is 60%. There is a suggestion of abdominal aortic aneurysm and there is occlusion of his right SFA. HEMODYNAMICS: There was no gradient across the aortic valve. The left ventricular end- diastolic pressure was 8 to 10 mmHg. CONCLUSION: 1. Appearance of a lesion in the mid right coronary artery that resolved with subsequent images, highly suggestive of vasospastic disease. 2. Mild plaque in the proximal right coronary artery. 3. Normal left ventricular size and systolic function. 4. Peripheral vascular disease. RECOMMENDATION: In view of finding anatomy, I recommend continue medical therapy with aggressive risk modifications being initiated. Those findings and recommendation were discussed with his family and they are in full understanding and agreement. Duration of the procedure is 26 minutes. MMODL / IJN: [id number] /
[2019-06-09] MEDS: MULTIVITAMINS, THERA 1 EACH TAB PO SCH (14:18)
[2019-06-09] MEDS: DOCUSATE 100 MG CAP PO SCH ×2 (14:18→17:37)
[2019-06-09] MEDS: SENNOSIDES 8.6 MG TAB PO SCH ×2 (14:18→17:36)
[2019-06-09] MEDS: THIAMINE 100 MG TAB PO SCH (14:19)
[2019-06-09] MEDS ORDERED: hydrALAZINE HCL 20 MG/ML 1 ML VIAL IVP STA (14:37)
[2019-06-09] MEDS: CHLORTHALIDONE 25 MG TAB PO SCH (14:48)
--- NOTE | 2019-06-09 15:57 | P.PN ---
Progress Note - Text Progress Note Date: 06/09/19 Chief Complaint: Chest pain History of presenting complaint: This is a 63-year-old patient of Dr. Booker resident of [facility]. Chronic stable medical conditions include GERD, ascending aortic aneurysm 4.2 cm, hypertension, hyperlipidemia has a PEG tube Had a previous stroke with left-sided weakness. Patient nonambulatory. Patient has severe dysarthria, Patient's was in the hospital on January 2019 with an acute RI. Cardiac catheterization showed normal coronaries. 2-D echo showed an EF of 55-60%. Patient presented to ER from the [facility]. Complaining of chest pain. He cannot define how long the pain was present. Did not seem to radiate. No shortness of breath no dizziness no lightheadedness. No cough or shortness of breath. History is limited because of his underlying dysarthria. Cardiology was consulted. Put on IV heparin. Patient. This morning he had runs of [employer]. Lasted for about an hour. Admitted with-possible unstable angina Today-salt patient this morning. Laying in bed. Comfortable. Awaiting cardiac catheterization. No chest pain. Review of systems: Was done for constitutional, cardiovascular, GI, pulmonary. relevant finding as above Active Medications Acetaminophen (Tylenol Tab) 650 mg PO Q6H PRN PRN Reason: MILD Pain Alprazolam (Xanax) 0.25 mg PO Q6HR PRN PRN Reason: Mild Anxiety Alprazolam (Xanax) 0.5 mg PO Q6HR PRN PRN Reason: Moderate Anxiety Last Admin: 06/08/19 20:14 Dose: 0.5 mg Documented by: Amlodipine Besylate (Norvasc) 5 mg PO BID@0800,1600 [facility] Last Admin: 06/09/19 09:05 Dose: 5 mg Documented by: Aspirin (Aspirin) 81 mg PO DAILY [facility] Last Admin: 06/09/19 09:03 Dose: Not Given Documented by: Atorvastatin Calcium (Lipitor) 80 mg PO HS@2000 KIKA Bisacodyl (Dulcolax) 10 mg RECTAL Q72H PRN PRN Reason: Constipation Chlorthalidone (Hygroton) 25 mg PO DAILY [facility] Last Admin: 06/09/19 14:48 Dose: 25 mg Documented by: Clopidogrel Bisulfate (Plavix) 75 mg PO DAILY [facility] Last Admin: 06/09/19 09:05 Dose: 75 mg Documented by: Divalproex Sodium (Depakote) 250 mg PO DAILY [facility] Last Admin: 06/09/19 09:04 Dose: 250 mg Documented by: Docusate Sodium (Colace) 100 mg PO BID@0800,1600 [facility] Last Admin: 06/09/19 14:18 Dose: Not Given Documented by: Sodium Chloride (Saline 0.9%) 1,000 mls @ 100 mls/hr IV .Q10H [facility] Stop: 06/09/19 17:59 Last Admin: 06/09/19 14:48 Dose: 100 mls/hr Documented by: Isosorbide Mononitrate (Imdur) 30 mg PO DAILY [facility] Last Admin: 06/09/19 09:05 Dose: 30 mg Documented by: Levetiracetam (Keppra) 500 mg PO BID@0800,1600 [facility] Last Admin: 06/09/19 09:04 Dose: 500 mg Documented by: Melatonin (Melatonin) 5 mg PO DAILY@1999 [facility] Last Admin: 06/08/19 20:11 Dose: 5 mg Documented by: Metoprolol Tartrate (Lopressor) 100 mg PO BID [facility] Last Admin: 06/09/19 09:04 Dose: 100 mg Documented by: Miscellaneous Information (Potassium Per Protocol) 1 each MISCELLANE DAILY PRN; Protocol PRN Reason: Per Protocol Miscellaneous Information (Rx Info: Iv Contrast Was Given) 1 each MISCELLANE DAILY PRN PRN Reason: Per Protocol Stop: 06/11/19 12:52 Multivitamins (Theragran) 1 each PO DAILY [facility] Last Admin: 06/09/19 14:18 Dose: Not Given Documented by: Naloxone HCl (Narcan) 0.2 mg IV Q2M PRN PRN Reason: Opioid Reversal Nitroglycerin (Nitrostat) 0.4 mg SUBLINGUAL ONCE PRN PRN Reason: Chest Pain Last Admin: 06/07/19 10:22 Dose: 0.4 mg Documented by: Nitroglycerin (Nitrostat) 0.4 mg SUBLINGUAL Q5M PRN PRN Reason: Chest Pain Pantoprazole Sodium (Protonix) 40 mg PO HS@1999 [facility] Last Admin: 06/08/19 20:11 Dose: 40 mg Documented by: Senna (Senokot) 8.6 mg PO BID@0800,1600 [facility] Last Admin: 06/09/19 14:18 Dose: Not Given Documented by: Thiamine HCl (Vitamin B-1) 100 mg PO DAILY [facility] Last Admin: 06/09/19 14:19 Dose: Not Given Documented by: Physical examination: VITAL SIGNS: 98.6, 82, 16, 155/105, 100% on room air GENERAL: Laying in bed, comfortable EYES: Pupils equal. Conjunctiva normal. HEENT: External appearance of nose and ears normal, oral cavity grossly normal. NECK: JVD not raised; masses not palpable. HEART: First and second heart sounds are normal; no edema. LUNGS: Respiratory rate normal; decreased breath sounds. ABDOMEN: Soft, nontender, liver spleen not palpable, no masses palpable. NEUROLOGICAL: dysarthria, weakness on the left side. INVESTIGATIONS, reviewed in the clinical context: White count 7.5 hemoglobin 14.6 Previous testing White count 7.4 hemoglobin 40.7 platelets 340 progression 4.1 bun 18 and creatinine 0.95 Troponin I 0.28, 0.29, 0.27 EKG tracing personally reviewed by me-normal sinus rhythm with nonspecific T-wav e changes Chest x-ray film personally reviewed by me-possible atelectasis. No infiltrates Assessment: -Chest pain in a patient with negative cardiac catheterization in January 2019. With some troponin leak with no obvious rise and fall.-Possible unstable angina -New onset ventricular tachycardia. -Hypertensive cardiomyopathy -Chronic nicotine dependence patient cigarette smoker -Essential hypertension, with urgency, POA -Chronic nicotine dependence cigarette smoker -Severe dysarthria -Dysphagia -pured diet. 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 Patient had a mild block and evidence of possible vasospastic disease. Medications to continue.
[2019-06-09] MEDS ORDERED: ATORVASTATIN 80 MG TAB PO SCH (20:00)
[2019-06-10] MEDS: PANTOPRAZOLE 40 MG TABLET PO SCH (00:22)
[2019-06-10] MEDS: METOPROLOL TARTRATE 50 MG TAB PO SCH ×2 (00:23→16:06)
[2019-06-10] MEDS: MELATONIN 5 MG TABLET PO SCH (00:23)
[2019-06-10 06:33] VITALS: RESP 20
[2019-06-10 07:48] LABS: African American GFR (CKD) >90 (>60 ml/min/1.73 sqM); Anion Gap 7 mmol/L; Blood Urea Nitrogen 11 mg/dL (9-20); Calcium 9.5 mg/dL (8.4-10.2); Carbon Dioxide 25 mmol/L (22-30); Chloride 106 mmol/L (98-107); Glucose 90 mg/dL (74-99); Non-African American GFR(CKD) >90 (>60 ml/min/1.73 sqM); Potassium 3.8 mmol/L (3.5-5.1); Sodium 138 mmol/L (137-145)
[2019-06-10] MEDS ORDERED: LOSARTAN 25 MG TAB PO SCH (09:00)
--- NOTE | 2019-06-10 11:30 | P.PN ---
Subjective Progress Note Date: 06/10/19 This is a pleasant 63-year-old -Martiniquais gentleman with history of prior CVA with left-sided paralysis, PEG tube placement, expressive aphasia, hypertension, hyperlipidemia, prior history of smoking who follows with Dr. Damian in the office. [facility] Most of the history was obtai roxi from the medical record. Patient presented to the hospital with symptoms of chest pains. He underwent a cardiac catheterization in January 2019 which revealed normal coronary arteries with a normal left ventricular systolic function. His EKG on presentation here showed a normal sinus rhythm with nonspecific ST-T wave changes. Chest x-ray showed minimal subsegmental atelectasis in the right middle lobe which appeared to be new as compared with prior exam. No evidence of congestive cardiac failure or pulmonary consolidation. Blood pressure 136/80 with a heart rate in the 90s, 99% on 3 L of oxygen. White blood cell count 7.4, hemoglobin 14.7, platelet count 340. D- dimer 0.66. Sodium 139, potassium 4.1, BUN 18, creatinine 0.9. Magnesium 2.1. Initial troponin 0.282, BNP level 1910.. Delacruz virus not detected. On review of the patient's monitor, this morning he was having runs of nonsustained ventricular tachycardia, the longest 110 in duration, having some bigeminy. The ventricular arrhythmia lasted approximately an hour, at present he is having no ventricular ectopy. We will increase his statin, increase his beta emeli, 06/10/2019 Patient seen and examined this morning, he underwent a cardiac catheterization yesterday which was suggestive of vasospasm. Blood pressure this morning 145/90, heart rate 68, 94% on room air. Apparently the patient's blood pressure around 8 AM was around 199/100, he refuses to take all of his oral medications this morning. He is on Norvasc 5 mg twice a day, [place], Imdur, losartan, and metoprolol. I did have a lengthy discussion with the nurse this morning, patient does need to take his oral medications, I will speak with him as well. Sodium 138, potassium 3.8, BUN 11, creatinine 0.7. Objective - Vital Signs Vital signs: Vital Signs Temp 98.6 F 06/09/19 09:36 Pulse 68 04/30/20 04:00 Resp 20 06/10/19 04:00 BP 145/91 06/10/19 04:00 Pulse Ox 94 L 06/10/19 04:00 Intake & Output 06/09/19 06/10/19 06/10/19 18:59 06:59 18:59 Intake Total 342 0 Balance 342 0 Weight 82 kg Intake: IV 102 Oral 240 0 Other: Voiding Method Incontinent Incontinent # Voids 1 1 2 # Bowel Movements 1 - Exam PHYSICAL EXAMINATION: GENERAL: 63-year-old -Martiniquais gentleman in no acute distress at the time of my examination HEENT: Head is atraumatic, normocephalic. Pupils equal, round. Sclera anicteric. Conjunctiva are clear. Mucous membranes of the mouth are moist. Neck is supple. There is no elevated jugular venous pressure. No carotid bruit is heard. HEART EXAMINATION: Heart S1, S2 normal. No murmur or gallop heard. CHEST EXAMINATION: Lungs are clear to auscultation and precussion. No chest wall tenderness is noted on palpation or with deep breathing. ABDOMEN: Soft, nontender. Bowel sounds are heard. No organomegaly noted. EXTREMITIES: 2+ peripheral pulses with no evidence of peripheral edema and no calf tenderness noted. Right groin is soft, no evidence of any hematoma. NEUROLOGIC patient is awake, alert and oriented X2 positive expressive aphasia and left hemiplegia. . - Labs CBC & Chem 7: 06/09/19 06:36 06/10/19 07:07 Assessment and Plan Plan: Assessment and plan #1 chest pain, initial troponin 0.28. EKG shows a normal sinus rhythm with nonspecific ST-T wave changes. Patient underwent a cardiac catheterization in January 2019 which revealed normal coronary arteries. Echocardiogram with Doppler study performed in March of this year revealed a hyperdynamic LV, greater than 70%. #2 history of CVA #3 hypertension #4 hyperlipidemia #5 history of DVT for which the patient is on Eliquis #6 GERD Plan Underwent a cardiac catheterization yesterday, highly suggestive of vasospastic disease, medical therapy advised. Patient has been strongly encouraged to be compliant with taking his medications. We will add a dose of losartan to his medication regime as well. Follow-up appointment in the office with Dr. Damian. DNP note has been reviewed, I agree with a documented findings and plan of care. Patient was seen and examined.
--- NOTE | 2019-06-10 14:00 | P.DS ---
Providers Date of admission: 06/07/19 06:01 Expected date of discharge: 06/10/19 Attending physician: Martin Osman Consults: 06/07/19 06:00 Consult Physician Urgent Consulting Provider: [facility] Consult Reason/Comments: acute chest pain, NSTEMI Do you want consulting provider notified?: Yes [facility] [place] [facility] Course: Chief Complaint: Chest pain History of presenting complaint: This is a 63-year-old patient of Dr. Booker resident of [facility]. Chronic stable medical conditions include GERD, ascending aortic aneurysm 4.2 cm, hypertension, hyperlipidemia has a PEG tube Had a previous stroke with left-sided weakness. Patient nonambulatory. Patient has severe dysarthria, Patient's was in the hospital on January 2019 with an acute LA. Cardiac catheterization showed normal coronaries. 2-D echo showed an EF of 55-60%. Patient presented to ER from the [facility]. Complaining of chest pain. He cannot define how long the pain was present. Did not seem to radiate. No shortness of breath no dizziness no lightheadedness. No cough or shortness of breath. History is limited because of his underlying dysarthria. Cardiology was consulted. Admitted with-possible unstable angina. Had a run of V. tach. Cardiac catheterization showed no mild plaque and evidence of vasospastic disease. Today-stable. No chest pain. Cleared by cardiology. Consultation: [facility] Physical examination: VITAL SIGNS: 156/100 GENERAL: Laying in bed, comfortable EYES: Pupils equal. Conjunctiva normal. HEENT: External appearance of nose and ears normal, oral cavity grossly normal. NECK: JVD not raised; masses not palpable. HEART: First and second heart sounds are normal; no edema. LUNGS: Respiratory rate normal; decreased breath sounds. ABDOMEN: Soft, nontender, liver spleen not palpable, no masses palpable. NEUROLOGICAL: dysarthria, weakness on the left side. INVESTIGATIONS, reviewed in the clinical context: White count 7.5 hemoglobin 14.6 Previous testing White count 7.4 hemoglobin 40.7 platelets 340 progression 4.1 bun 18 and creatinine 0.95 Troponin I 0.28, 0.29, 0.27 EKG tracing personally reviewed by me-normal sinus rhythm with nonspecific T- wave changes Chest x-ray film personally reviewed by me-possible atelectasis. No infiltrates 2-D:-Severe concentric left medical hypertrophy, EF 45-50% Assessment: --Possible unstable angina from vasospastic disease. -New onset ventricular tachycardia. -Hypertensive cardiomyopathy -Chronic nicotine dependence patient cigarette smoker -Essential hypertension, with urgency, POA -Chronic nicotine dependence cigarette smoker -Severe dysarthria -Dysphagia -pured diet. 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 -IV heparin monitoring Disposition: [facility] Patient Condition at Discharge: Stable Plan - Discharge Summary Discharge Rx Participant: No New Discharge Prescriptions: New Losartan [Cozaar] 25 mg PO DAILY tab Metoprolol Tartrate [Lopressor] 100 mg PO BID tab Continue Acetaminophen Tab [Tylenol] 650 mg PO Q6H PRN PRN Reason: Pain Sennosides [Senna] 8.6 mg PO BID@0800,1600 amLODIPine [Norvasc] 5 mg PO BID@0800,1600 Apixaban [Eliquis] 5 mg PO BID@0800,1600 Thiamine [Vitamin B-1] 100 mg PO DAILY Multivits, W-Ca,Fe,Oth Min [Therapeutic M] 1 tab PO DAILY Melatonin 5 mg PO DAILY@2000 Atorvastatin [Lipitor] 40 mg PO HS@1999 Aspirin 81 mg PO DAILY Omeprazole [PriLOSEC] 20 mg PO HS@1999 Chlorthalidone 25 mg PO DAILY #1 tab Isosorbide Mononitrate ER [Imdur] 30 mg PO DAILY tab.er.24h Clopidogrel [Plavix] 75 mg PO DAILY tab Bisacodyl [Dulcolax] 10 mg RECTAL Q72H PRN PRN Reason: Constipation levETIRAcetam 500 mg PO BID@0800,1600 Docusate Sodium [Dok] 100 mg PO BID@0800,1600 Multivitamin with Iron [Multivitamins with Iron] 1 tab PO DAILY@1400 Divalproex [Depakote] 250 mg PO DAILY Discontinued hydrALAZINE HCL [Apresoline] 25 mg PO TID Spironolactone [Aldactone] 25 mg PO BID@0800,1600 cloNIDine HCL 0.3 mg PO TID@0500,1300,2100 Metoprolol Tartrate [Lopressor] 50 mg PO BID@0800,1600 tab Discharge Medication List Acetaminophen Tab [Tylenol] 650 mg PO Q6H PRN 12/04/19 [History] Apixaban [Eliquis] 5 mg PO BID@0800,1600 01/13/19 [History] Aspirin 81 mg PO DAILY 01/13/19 [History] Atorvastatin [Lipitor] 40 mg PO HS@199901/13/19 [History] Melatonin 5 mg PO DAILY@199901/13/19 [History] Multivits,Th W-Ca,Fe,Oth Min [Therapeutic M] 1 tab PO DAILY 01/13/19 [History] Sennosides [Senna] 8.6 mg PO BID@0800,1600 01/13/19 [History] Thiamine [Vitamin B-1] 100 mg PO DAILY 01/13/19 [History] amLODIPine [Norvasc] 5 mg PO BID@0800,1600 01/13/19 [History] Omeprazole [PriLOSEC] 20 mg PO HS@199902/21/19 [History] Chlorthalidone 25 mg PO DAILY #1 tab 04/01/19 [Rx] Clopidogrel [Plavix] 75 mg PO DAILY tab 04/01/19 [Rx] Isosorbide Mononitrate ER [Imdur] 30 mg PO DAILY tab.er.24h 04/01/19 [Rx] Bisacodyl [Dulcolax] 10 mg RECTAL Q72H PRN 06/07/19 [History] Divalproex [Depakote] 250 mg PO DAILY 06/07/19 [History] Docusate Sodium [Dok] 100 mg PO BID@0800,1600 06/07/19 [History] Multivitamin with Iron [Multivitamins with Iron] 1 tab PO DAILY@1400 06/07/19 [History] levETIRAcetam 500 mg PO BID@0800,1600 06/07/19 [History] Losartan [Cozaar] 25 mg PO DAILY tab 06/10/19 [Rx] Metoprolol Tartrate [Lopressor] 100 mg PO BID tab 06/10/19 [Rx] Follow up Appointment(s)/Referral(s): cardiology,dr [Other] - 3 Weeks Ed Booker DO [Primary Care Provider] - 1-2 days
[2019-06-10] MEDS: levETIRAcetam 500 MG TAB PO SCH ×2 (16:03→16:07)
[2019-06-10] MEDS: amLODIPine 5 MG TAB PO SCH ×2 (16:03→16:07)
[2019-06-10] MEDS: SENNOSIDES 8.6 MG TAB PO SCH ×2 (16:03→16:07)
[2019-06-10] MEDS: DOCUSATE 100 MG CAP PO SCH ×2 (16:03→16:07)
[2019-06-10] MEDS: ASPIRIN 81 MG PO SCH (16:04)
[2019-06-10] MEDS: CHLORTHALIDONE 25 MG TAB PO SCH (16:04)
[2019-06-10] MEDS: ISOSORBIDE MONONITRATE ER 30 MG TAB.ER.24H PO SCH (16:05)
[2019-06-10] MEDS: CLOPIDOGREL 75 MG TAB PO SCH (16:05)
[2019-06-10] MEDS: DIVALPROEX 250 MG TABLET.DR PO SCH (16:05)
[2019-06-10] MEDS: THIAMINE 100 MG TAB PO SCH (16:06)
[2019-06-10] MEDS: MULTIVITAMINS, THERA 1 EACH TAB PO SCH (16:07)
[2019-06-10 18:50] VITALS: BP 134/90; PULSE 76; TEMP 98.3
== END 2019-06-10 16:23 | DRG 287 ==
LOC: EC 03:30 → 3SCARD 06:01
PROVIDERS: ADMIT Hospitalist; ATTEND Hospitalist
PROC: B2151ZZ Fluoroscopy of Left Heart using Low Osmolar Contrast (ICD-10-PCS; principal; 2019-06-09 13:30)
PROC: B2111ZZ Fluoroscopy of Multiple Coronary Arteries using Low Osmolar Contrast (ICD-10-PCS; principal; 2019-06-09 13:30)
DX: I25.110 Atherosclerotic heart disease of native coronary artery with unstable angina pectoris (principal); I69.354 Hemiplegia and hemiparesis following cerebral infarction affecting left non-dominant side; I47.2 Ventricular tachycardia; K21.9 Gastro-esophageal reflux disease without esophagitis; G40.909 Epilepsy, unspecified, not intractable, without status epilepticus; E78.5 Hyperlipidemia, unspecified; F17.210 Nicotine dependence, cigarettes, uncomplicated; I11.9 Hypertensive heart disease without heart failure; I71.2 Thoracic aortic aneurysm, without rupture; R47.1 Dysarthria and anarthria; I73.9 Peripheral vascular disease, unspecified; I43 Cardiomyopathy in diseases classified elsewhere; R13.10 Dysphagia, unspecified; Z11.59 Encounter for screening for other viral diseases; I69.320 Aphasia following cerebral infarction; Z98.890 Other specified postprocedural states; Z79.899 Other long term (current) drug therapy; Z79.02 Long term (current) use of antithrombotics/antiplatelets; Z79.82 Long term (current) use of aspirin; Z79.01 Long term (current) use of anticoagulants; Z86.718 Personal history of other venous thrombosis and embolism; I25.2 Old myocardial infarction; Z93.1 Gastrostomy status
CPT/HCPCS: 36415; 71046; 80048; 80053; 83690; 83735; 83880; 84484; 85025; 85379; 85610; 85730; 87635; 93005; 93306; 93458; 96365; 96376; 99285

== ENCOUNTER → 2020-04-05 | Outpatient (CLI) | payer MEDICARE, OTHER | END | disposition home or self-care (01) | LOC: EEVIPCON 09:59 → RADCTMAIN 09:59 | PROVIDERS: ATTEND Surgery | DX: Z53.9 Procedure and treatment not carried out, unspecified reason (principal) ==

== ENCOUNTER 2022-10-08 17:03 | Emergency (ER) | payer MEDICARE, OTHER ==
[2022-10-08 17:11] VITALS: TEMP 97.9
--- NOTE | 2022-10-08 18:00 | ED ---
General Adult HPI - General Chief complaint: Chest Pain Stated complaint: Abnormal EKG Time Seen by Provider: 10/08/22 17:10 Source: EMS Mode of arrival: EMS Limitations: no limitations - History of Present Illness Initial comments: This patient is 67-year-old man transferred from snf to have evaluation for concerns about EKG change. When I interview the patient, he is able to answer questions and he denies chest pain, dyspnea, diaphoresis, nausea vomiting. The ECG reportedly was done as the patient is scheduled see cardiology tomorrow. When I interview the patient, he is denying any complaints. He does request water. Onset/Timin -: hour(s) Severity scale (1-10): 0 Improves with: none Worsens with: none Associated Symptoms: denies other symptoms Treatments Prior to Arrival: none - Related Data Home Medications Medication Instructions Recorded Confirmed Acetaminophen Tab [Tylenol] 650 mg PO Q4H PRN 01/13/19 10/08/22 Apixaban [Eliquis] 5 mg PO BID 01/13/19 10/08/22 Aspirin 81 mg PO DAILY 01/13/19 10/08/22 Atorvastatin [Lipitor] 40 mg PO HS 01/13/19 10/08/22 Sennosides [Senna] 17.2 mg PO BID 01/13/19 10/08/22 Thiamine [Vitamin B-1] 100 mg PO HS 01/13/19 10/08/22 amLODIPine [Norvasc] 5 mg PO BID 01/13/19 10/08/22 Docusate Sodium [Dok] 100 mg PO BID 06/07/19 10/08/22 levETIRAcetam 500 mg PO BID 06/07/19 10/08/22 Baclofen 5 mg PO Q12H 10/08/22 10/08/22 Cholecalciferol [Vitamin D3 (25 50 mcg PO DAILY 10/08/22 10/08/22 Mcg = 1000 Iu)] Divalproex Sprinkle [Depakote 125 mg PO TID 10/08/22 10/08/22 Sprinkle] Empagliflozin [Jardiance] 10 mg PO DAILY 10/08/22 10/08/22 Famotidine [Pepcid] 20 mg PO HS 10/08/22 10/08/22 Fiber Powder 1 tbsp PO DAILY 10/08/22 10/08/22 HYDROcodone/APAP 5-325MG [[place] 1 tab PO Q6H PRN 10/08/22 10/08/22 5-325] Lactulose 20 gm PO DAILY 10/08/22 10/08/22 Latanoprost [Latanoprost 0.005%] 1 drop BOTH EYES HS 10/08/22 10/08/22 Metoprolol Tartrate [Lopressor] 75 mg PO BID 10/08/22 10/08/22 Nitroglycerin Sl Tabs [Nitrostat] 0.4 mg SUBLINGUAL Q5M PRN 10/08/22 10/08/22 PARoxetine [Paxil] 20 mg PO HS 10/08/22 10/08/22 Potassium Chloride ER [K-Dur 20] 40 meq PO BID 10/08/22 10/08/22 metFORMIN HCL ER [Glucophage XR] 1,000 mg PO DAILY 10/08/22 10/08/22 polyethylene glycoL 3350 [Miralax] 17 gm PO DAILY 10/08/22 10/08/22 Previous Rx's Medication Instructions Recorded Chlorthalidone 25 mg PO DAILY #1 tab 04/01/19 Clopidogrel [Plavix] 75 mg PO DAILY tab 04/01/19 Isosorbide Mononitrate ER [Imdur] 30 mg PO DAILY tab.er.24h 04/01/19 Losartan [Cozaar] 25 mg PO DAILY tab 06/10/19 Allergies Allergy/AdvReac Type Severity Reaction Status Date / Time No Known Allergies Allergy Verified 10/08/22 20:03 Review of Systems ROS Statement: Those systems with pertinent positive or pertinent negative responses have been documented in the HPI. ROS Other: All systems not noted in ROS Statement are negative. 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 (Pt is alert with confusion, using information from previous admission.). aortic aneurysm unknown size. hx of seizures Last Myocardial Infarction Date:: 01/13/19 History of Any Multi-Drug Resistant Organisms: None Reported Past Surgical History: Heart Catheterization Additional Past Surgical History / Comment(s): pt is alert with confusion, using information from previous admission Past Anesthesia/Blood Transfusion Reactions: No Reported Reaction Additional Past Anesthesia/Blood Transfusion Reaction / Comment(s): pt is alert with confusion, using information from previous admission Past Psychological History: No Psychological Hx Reported Past Alcohol Use History: Unable to Obtain Past Drug Use History: Unable to Obtain - Past Family History Father Family Medical History: No Reported History General Exam Limitations: no limitations General appearance: alert, in no apparent distress Head exam: Present: atraumatic, normocephalic Eye exam: Present: normal appearance Respiratory exam: Present: normal lung sounds bilaterally. Absent: respiratory distress, wheezes, rales, rhonchi, stridor Cardiovascular Exam: Present: regular rate, normal rhythm, normal heart sounds. Absent: systolic murmur, diastolic murmur, rubs, gallop GI/Abdominal exam: Present: soft. Absent: distended, tenderness, guarding Neurological exam: Present: alert, other (The patient does have some dysarthria. There is sided hemiparesis.) Skin exam: Present: warm, dry, intact, normal color. Absent: rash Course Vital Signs 10/08/22 10/08/22 10/08/22 17:06 18:04 20:52 Temperature 97.9 F Pulse Rate 65 82 54 L Respiratory 18 19 18 Rate Blood Pressure 201/139 170/104 115/91 O2 Sat by Pulse 100 98 100 Oximetry EKG Findings - EKG Results: EKG: interpreted by ERMD, sinus rhythm, not changed from: (Similar to previous ECG) - Blocks, [place], Hypertrophy, ST Abn: AV and intraventricular conduction: 1 AV block, intraventricular conduction delay Repolarization changes or abnormalities: nonspecific abnormality, ST segment, a nd/or T wave Medical Decision Making - Medical Decision Making Patient is 67-year-old man sent from snf for evaluation of possible ECG change. When I interview the patient, he denies cardiac symptoms. The ECG is similar to comparison. I reviewed the old records he did have heart catheterization in May that did not reveal significant lesions. The patient workup here does reveal minimal elevation of troponin I, however the patient does have chronic elevations of troponin. He was without symptoms and therefore can keep his pre-existing appointment with cardiology tomorrow. Was pt. sent in by a medical professional or institution (, ZAIN, DESKTOP SUPPORT MANAGER, urgent care, hospital, or snf...) When possible be specific @ -Patient sent from snf to have further evaluation for possible ECG change Did you speak to anyone other than the patient for history (EMS, parent, family, police, friend...)? What history was obtained from this source @ -[No] Did you review nursing and triage notes (agree or disagree)? Why? @ -[I reviewed and agree with nursing and triage notes] Were old charts reviewed (outside hosp., previous admission, EMS record, old EKG, old radiological studies, urgent care reports/EKG's, snf records)? Report findings @ -[old charts were reviewed] Differential Diagnosis (chest pain, altered mental status, abdominal pain women, abdominal pain men, vaginal bleeding, weakness, fever, dyspnea, syncope, headache, dizziness, GI bleed, back pain, seizure, CVA, palpatations, mental health, musculoskeletal)? @ -[Differential Chest Pain: Stable Angina, Unstable Angina, STEMI, NSTEMI Aortic Dissection, Pneumothorax, Musculoskeletal, Esophageal Spasm GERD, Cholecystitis, Pancreatitis, Zoster, this is not meant to be an all-inclusive list. EKG interpreted by me (3pts min.). @ -[I interpreted As above] X-rays interpreted by me (1pt min.). @ -[I interpreted as above CT interpreted by me (1pt min.). @ -[None done] U/S interpreted by me (1pt. min.). @ -[None done] What testing was considered but not performed or refused? (CT, X-rays, U/S, labs)? Why? @ -[None] What meds were considered but not given or refused? Why? @ -[None] Did you discuss the management of the patient with other professionals (professionals i.e. ZAIN Hanna, DESKTOP SUPPORT MANAGER, lab, RT, psych nurse, social services technician, railroad hand, teacher, aoc director intelligence officer, wrapper caser)? Give summary @ -[No] Was smoking cessation discussed for >3mins.? @ -[No] Was critical care preformed (if so, how long)? @ -[No] Were there social determinants of health that impacted care today? How? (Ho melessness, low income, unemployed, alcoholism, drug addiction, transportation, low edu. Level, literacy, decrease access to med. care, skilled nursing, rehab)? @ -[No] Was there de-escalation of care discussed even if they declined (Discuss DNR or withdrawal of care, Hospice)? DNR status @ -[No] What co-morbidities impacted this encounter? (DM, HTN, Smoking, COPD, CAD, Cancer, CVA, ARF, Chemo, Hep., AIDS, mental health diagnosis, sleep apnea, morbid obesity)? @ -[None] Was patient admitted / discharged? Hospital course, mention meds given and route, prescriptions, significant lab abnormalities, going to OR and other pertinent info. @ -[See above Undiagnosed new problem with uncertain prognosis? @ -[No] Drug Therapy requiring intensive monitoring for toxicity (Heparin, Nitro, Insulin, Cardizem)? @ -[No] Were any procedures done? @ -[No] Diagnosis/symptom? @ -[Acute chest pain, resolved Acute, or Chronic, or Acute on Chronic? @ -[default] Uncomplicated (without systemic symptoms) or Complicated (systemic symptoms)? @ -[Uncomplicated Side effects of treatment? @ -[No] Exacerbation, Progression, or Severe Exacerbation? @ -[No] Poses a threat to life or bodily function? How? (Chest pain, USA, MS, pneumonia, PE, COPD, DKA, ARF, appy, cholecystitis, CVA, Diverticulitis, Homicidal, Suicidal, threat to staff... and all critical care pts) @ -[No] - Lab Data Result diagrams: 10/08/22 17:57 10/08/22 19:05 Lab Results 10/08/22 10/08/22 10/08/22 Range/Units 17:57 19:05 19:05 WBC 5.7 (3.8-10.6) k/uL RBC 5.07 (4.30-5.90) m/uL Hgb 15.6 (13.0-17.5) gm/dL Hct 48.4 (39.0-53.0) % MCV 95.3 (80.0-100.0) fL MCH 30.7 (25.0-35.0) pg MCHC 32.2 (31.0-37.0) g/dL RDW 15.1 (11.5-15.5) % Plt Count 250 (150-450) k/uL MPV 7.7 Neutrophils % 35 % Lymphocytes % 50 % Monocytes % 8 % Eosinophils % 3 % Basophils % 0 % Neutrophils # 2.0 (1.3-7.7) k/uL Lymphocytes # 2.8 (1.0-4.8) k/uL Monocytes # 0.4 (0-1.0) k/uL Eosinophils # 0.2 (0-0.7) k/uL Basophils # 0.0 (0-0.2) k/uL Sodium 140 (137-145) mmol/L Potassium 3.8 (3.5-5.1) mmol/L Chloride 99 (98-107) mmol/L Carbon Dioxide 31 H (22-30) mmol/L Anion Gap 10 mmol/L BUN 9 (9-20) mg/dL Creatinine 0.61 L (0.66-1.25) mg/dL Est GFR (CKD-EPI)AfAm >90 (>60 ml/min/1.73 sqM) Est GFR (CKD-EPI)NonAf >90 (>60 ml/min/1.73 sqM) Glucose 89 (74-99) mg/dL Calcium 9.7 (8.4-10.2) mg/dL Total Bilirubin 0.4 (0.2-1.3) mg/dL AST 29 (17-59) U/L ALT 37 (4-49) U/L Alkaline Phosphatase 59 (38-126) U/L Troponin I 0.056 H* (0.000-0.034) ng/mL Total Protein 7.3 (6.3-8.2) g/dL Albumin 4.0 (3.5-5.0) g/dL Disposition Clinical Impression: Abnormal ECG Disposition: HOME SELF-CARE Condition: Good Instructions (If sedation given, give patient instructions): Chest Pain (ED) Is patient prescribed a controlled substance at d/c from ED?: No Referrals: Ed Booker DO [Primary Care Provider] - 1-2 days
[2022-10-08 18:20] LABS: Basophils % (A) 0 %; Eosinophils # (A) 0.2 k/uL (0-0.7); Eosinophils % (A) 3 %; HCT 48.4 % (39.0-53.0); HGB 15.6 gm/dL (13.0-17.5); Lymphocytes # (A) 2.8 k/uL (1.0-4.8); Lymphocytes % (A) 50 %; MCH 30.7 pg (25.0-35.0); MCHC 32.2 g/dL (31.0-37.0); MCV 95.3 fL (80.0-100.0); Mean Platelet Volume 7.7; Monocytes # (A) 0.4 k/uL (0-1.0); Monocytes % (A) 8 %; Neutrophils % (A) 35 %; Platelet Count 250 k/uL (150-450); RBC 5.07 m/uL (4.30-5.90); RDW 15.1 % (11.5-15.5); WBC 5.7 k/uL (3.8-10.6)
[2022-10-08 19:43] LABS: ALT 37 U/L (4-49); AST 29 U/L (17-59); African American GFR (CKD) >90 (>60 ml/min/1.73 sqM); Alkaline Phosphatase 59 U/L (38-126); Anion Gap 10 mmol/L; Blood Urea Nitrogen 9 mg/dL (9-20); Calcium 9.7 mg/dL (8.4-10.2); Carbon Dioxide 31 mmol/L (22-30); Chloride 99 mmol/L (98-107); Glucose 89 mg/dL (74-99); Non-African American GFR(CKD) >90 (>60 ml/min/1.73 sqM); Potassium 3.8 mmol/L (3.5-5.1); Sodium 140 mmol/L (137-145); Total Bilirubin 0.4 mg/dL (0.2-1.3); Total Protein 7.3 g/dL (6.3-8.2)
[2022-10-08 20:54] VITALS: BP 115/91; PULSE 54; RESP 18
== END 2022-10-08 20:54 | disposition home or self-care (01) ==
LOC: EC 17:03 → EEVIPCON 17:03 → EC 20:54
DX: R94.31 Abnormal electrocardiogram [ECG] [EKG] (principal); E78.5 Hyperlipidemia, unspecified; I10 Essential (primary) hypertension; I25.2 Old myocardial infarction; Z79.01 Long term (current) use of anticoagulants; Z79.84 Long term (current) use of oral hypoglycemic drugs; Z79.899 Other long term (current) drug therapy; Z79.82 Long term (current) use of aspirin; Z86.73 Personal history of transient ischemic attack (TIA), and cerebral infarction without residual deficits; Z79.02 Long term (current) use of antithrombotics/antiplatelets
CPT/HCPCS: 36415; 80053; 84484; 85025; 93005; 99285

== ENCOUNTER → 2022-11-28 | Outpatient (CLI) | payer MEDICARE, OTHER ==
[~2022-11-28] MED LIST: REGADENOSON 0.4 MG/5 ML SYRINGE IV PRN
--- NOTE | 2022-11-28 09:50 | CA ---
Transthoracic Echo Report Name: Jl Alvarez Age: 67 Gender: M : 1955 Exam Date: 11/28/2022 09:06 Exam Location: [place] [facility] Ht (in): 72 Wt (lb): 191 Ordering Physician: Jean-Claude Jarvis MD ([id number]) Attending/Referring Phys: Jean-Claude Jarvis MD ([id number]) Tassel Snipper Pallavi Roland RDCS Procedure CPT: Indications: I10 HTN R07.89 CHEST PAIN Cardiac Hx: stroke Technical Quality: Fair Contrast 1: Total Dose (mL): Contrast 2: Total Dose (mL): MEASUREMENTS (Male / Female) Normal Values 2D ECHO LV Diastolic Diameter PLAX 4.5 cm 4.2 - 5.9 / 3.9 - 5.3 cm LV Systolic Diameter PLAX 3.1 cm IVS Diastolic Thickness 1.3 cm 0.6 - 1.0 / 0.6 - 0.9 cm LVPW Diastolic Thickness 1.5 cm 0.6 - 1.0 / 0.6 - 0.9 cm LV Relative Wall Thickness 0.6 RV Internal Dim ED PLAX 2.8 cm LA Systolic Diameter LX 3.4 cm 3.0 - 4.0 / 2.7 - 3.8 cm LV Diastolic Volume MOD BP 69.8 cm??? 67 - 155 / 56 - 104 cm??? LV Systolic Volume MOD BP 33.7 cm??? 22 - 58 / 19 - 49 cm??? LV Ejection Fraction MOD BP 51.8 % >= 55 % LV Cardiac Index MOD BP 806.9 cm???/min???m??? LV Diastolic Volume MOD 4C 87.2 cm??? LV Systolic Volume MOD 4C 47.2 cm??? LV Ejection Fraction MOD 4C 45.8 % LV Cardiac Index MOD 4C 891.1 cm???/min???m??? LV Diastolic Length 4C 8.7 cm LV Systolic Length 4C 6.5 cm LV Diastolic Volume MOD 2C 52.1 cm??? LV Systolic Volume MOD 2C 23.9 cm??? LV Ejection Fraction MOD 2C 54.1 % LV Cardiac Index MOD 2C 628.8 cm???/min???m??? LV Diastolic Length 2C 8.0 cm LV Systolic Length 2C 6.3 cm LA Volume 46.7 cm??? 18 - 58 / 22 - 52 cm??? LA Volume Index 22.1 cm???/m??? 16 - 28 cm???/m??? M-MODE Aortic Root Diameter MM 3.9 cm MV E Point Septal Separation 0.5 cm AV Cusp Separation MM 2.4 cm DOPPLER AV Peak Velocity 110.3 cm/s AV Peak Gradient 4.9 mmHg MV Area PHT 1.5 cm??? Mitral E Point Velocity 58.8 cm/s Mitral A Point Velocity 79.7 cm/s Mitral E to A Ratio 0.7 MV Deceleration Time 490.7 ms MV E' Velocity 3.6 cm/s Mitral E to MV E' Ratio 16.2 TR Peak Velocity 216.1 cm/s TR Peak Gradient 18.7 mmHg Right Ventricular Systolic Press 22.4 mmHg FINDINGS Left Ventricle Left ventricular ejection fraction is estimated at 40-45 %. Left ventricular cavity size normal. Mildly increased septal wall thickness. Mildly decreased left ventricular ejection fraction. Right Ventricle Normal right ventricular size. Right ventricular systolic pressure within normal limits. Right Atrium Normal right atrial size. Left Atrium Mildly increased left atrial area. Mitral Valve Structurally normal mitral valve. No mitral stenosis, regurgitation or prolapse. Aortic Valve Trileaflet aortic valve. No aortic valve stenosis or regurgitation. Tricuspid Valve Structurally normal tricuspid valve. Mild tricuspid regurgitation. Pulmonic Valve Pulmonic valve not well visualized. No pulmonic regurgitation. Pericardium No pericardial effusion. Aorta Mild aortic dilatation at the level of the sinuses of valsalva 39 mm CONCLUSIONS Increase in the mass with reduced LV systolic function ejection fraction 40% Previewed by: Dr. Lokesh Daniels MD (Electronically Signed) Final Date: 28 November 2022 09:49
--- NOTE | 2022-11-28 13:15 | NM ---
EXAMINATION TYPE: NM stress lexiscan cardiolite DATE OF EXAM: 11/28/2022 COMPARISON: NONE CLINICAL INDICATION: Male, 67 years old with history of I10 HTN R07.89 CHEST PAIN; TECHNIQUE: After the intravenous administration of 10.4 mCi Tc 99m Sestamibi - Cardiolite resting SP ECT images acquired 45 minutes post injection. The patient received 0.4mg Lexiscan, 25.6 mCi Tc 99m Sestamibi - Stress images obtained [address] injection FINDINGS: Review of stress and rest SPECT images demonstrates decreased perfusion cardiac septum on the stress images felt to reflect stress-induced ischemia. Fixed defects involving the inferior wall and portio ns of the cardiac apex. Gated analysis shows normal wall motion with an estimated left ventricular ej ection fraction of 39 %. IMPRESSION: decreased perfusion cardiac septum on the stress images felt to reflect stress-induced ischemia.
--- NOTE | 2022-11-28 13:45 | CA ---
Lexiscan Nuclear Stress Test Report Name: Jl Alvarez Exam Date: 11/28/2022 09:49 Exam Location: [place] Stress Ht (in): 72 Wt (lb): 191 BSA: 2.09 Ordering Phys: Jean-Claude Jarvis MD Referring Phys: Jean-Claude Jarvis MD Technologist: Mike Up Age: 67 Gender: M : 1955 Procedure CPT: Indications: I10 HTN R07.89 CHEST PAIN ICD-10 Codes: Patient History: CP, NUMBNESS IN FACE/ NECK, HTN, CVA, CHOL, TOB Medications: SEE LIST Meds past 24 hrs: Pretest Chest Pain: STRESS TEST Lexiscan Protocol Exercise Duration (min:sec): 02:[address] Depressions (mm): Angina Score: Hsieh Score: Resting HR (bpm): 48 Peak HR (bpm): 76 Resting BP (mmHg): 109 / 78 Peak BP (mmHg): 161 / 57 MPHR: 151 Target HR: 128 % MPHR: 50 METS: 1.0 Total Dose: Peak Dose: Atropine: Double Product: 01038 BP Response: Stress Termination: goal achieved Stress Symptoms: asymptomatic Stress Summary: ECG ANALYSIS Resting ECG: Stress ECG: CONCLUSIONS No ECG evidence for ischemia during Lexiscan infusion Normal heart rate and blood pressure response Dr. Lokesh Daniels MD (Electronically Signed) Final Date: 28 November 2022 13:44
== END | disposition home or self-care (01) ==
LOC: RADNMMAIN 08:01
PROVIDERS: ATTEND Student in an Organized Health Care Education/Training Program
DX: I10 Essential (primary) hypertension (principal); R07.89 Other chest pain; I25.10 Atherosclerotic heart disease of native coronary artery without angina pectoris; I63.9 Cerebral infarction, unspecified; E11.9 Type 2 diabetes mellitus without complications
CPT/HCPCS: 93017; 93306; 78452; A9500; J2785

== ENCOUNTER 2022-12-18 14:47 | Emergency (ER) | payer MEDICARE, OTHER ==
[2022-12-18 15:16] VITALS: TEMP 98.6
--- NOTE | 2022-12-18 15:18 | ED ---
General Adult HPI - General Chief complaint: Chest Pain Stated complaint: Chest Pain Time Seen by Provider: 12/18/22 14:52 Source: patient, EMS, RN notes reviewed, old records reviewed Mode of arrival: EMS Limitations: altered mental status - History of Present Illness Initial comments: 67-year-old male who presents for an episode of chest pain. Patient is slow to respond but able to answer questions. He states that he had central chest pain prior to [facility] at the [facility]. He states he took 2 Tums and his symptoms are resolved currently. He was given aspirin and nitroglycerin by EMS. The history is somewhat limited. He does have prior history of CAD. As well as prior CVA. - Related Data Home Medications Medication Instructions Recorded Confirmed Acetaminophen Tab [Tylenol] 650 mg PO BID@0700,1600 01/13/19 12/18/22 Apixaban [Eliquis] 5 mg PO BID 01/13/19 12/18/22 Aspirin 81 mg PO DAILY 01/13/19 12/18/22 Atorvastatin [Lipitor] 40 mg PO HS 01/13/19 12/18/22 Sennosides [Senna] 17.2 mg PO BID 01/13/19 12/18/22 Thiamine [Vitamin B-1] 100 mg PO HS 01/13/19 12/18/22 amLODIPine [Norvasc] 5 mg PO BID 01/13/19 12/18/22 Docusate Sodium [Dok] 100 mg PO BID@0800,1600 06/07/19 12/18/22 levETIRAcetam 500 mg PO BID 06/07/19 12/18/22 Baclofen 5 mg PO Q12H 10/08/22 12/18/22 Cholecalciferol [Vitamin D3 (25 50 mcg PO HS 10/08/22 12/18/22 Mcg = 1000 Iu)] Divalproex Sprinkle [Depakote 125 mg PO TID@0800,1200,1800 10/08/22 12/18/22 Sprinkle] Empagliflozin [Jardiance] 10 mg PO DAILY 10/08/22 12/18/22 Famotidine [Pepcid] 20 mg PO HS 10/08/22 12/18/22 Fiber Powder 1 tbsp PO HS 10/08/22 12/18/22 HYDROcodone/APAP 5-325MG [[place] 1 tab PO Q6H PRN 10/08/22 12/18/22 5-325] Lactulose 20 gm PO DAILY 10/08/22 12/18/22 Latanoprost [Latanoprost 0.005%] 1 drop BOTH EYES HS 10/08/22 12/18/22 Metoprolol Tartrate [Lopressor] 75 mg PO BID 10/08/22 12/18/22 Nitroglycerin Sl Tabs [Nitrostat] 0.4 mg SUBLINGUAL Q5M PRN 10/08/22 12/18/22 PARoxetine [Paxil] 20 mg PO HS 10/08/22 12/18/22 Potassium Chloride ER [K-Dur 20] 40 meq PO BID 10/08/22 12/18/22 metFORMIN HCL ER [Glucophage XR] 1,000 mg PO DAILY 10/08/22 12/18/22 polyethylene glycoL 3350 [Miralax] 17 gm PO HS 10/08/22 12/18/22 Multivitamins, Thera [Multivitamin 1 tab PO DAILY 12/18/22 12/18/22 (formulary)] Previous Rx's Medication Instructions Recorded Chlorthalidone 25 mg PO DAILY #1 tab 04/01/19 Isosorbide Mononitrate ER [Imdur] 30 mg PO DAILY tab.er.24h 04/01/19 Losartan [Cozaar] 25 mg PO DAILY tab 06/10/19 Allergies Allergy/AdvReac Type Severity Reaction Status Date / Time No Known Allergies Allergy Verified 12/18/22 16:27 Review of Systems ROS Statement: Those systems with pertinent positive or pertinent negative responses have been documented in the HPI. ROS Other: All systems not noted in ROS Statement are negative. 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 (Pt is alert with confusion, using information from previous admission.). aortic aneurysm unknown size. hx of seizures Last Myocardial Infarction Date:: 01/13/19 History of Any Multi-Drug Resistant Organisms: None Reported Past Surgical History: Heart Catheterization Additional Past Surgical History / Comment(s): pt is alert with confusion, using information from previous admission Past Anesthesia/Blood Transfusion Reactions: No Reported Reaction Additional Past Anesthesia/Blood Transfusion Reaction / Comment(s): pt is alert with confusion, using information from previous admission Past Psychological History: No Psychological Hx Reported Smoking Status: Never smoker Past Alcohol Use History: Unable to Obtain Past Drug Use History: Unable to Obtain - Past Family History Father Family Medical History: No Reported History General Exam Limitations: no limitations General appearance: alert, in no apparent distress Head exam: Present: atraumatic, normocephalic Eye exam: Present: normal appearance, PERRL ENT exam: Present: normal exam Neck exam: Present: normal inspection. Absent: tenderness, meningismus Respiratory exam: Present: normal lung sounds bilaterally. Absent: respiratory distress, wheezes Cardiovascular Exam: Present: regular rate, normal rhythm GI/Abdominal exam: Present: soft. Absent: distended, tenderness, guarding Extremities exam: Present: normal inspection Neurological exam: Present: alert Skin exam: Present: warm, dry, intact Course Vital Signs 12/18/22 14:52 Temperature 98.6 F Pulse Rate 61 Respiratory 97 H Rate Blood Pressure 129/90 O2 Sat by Pulse 97 Oximetry Medical Decision Making - Medical Decision Making Was pt. sent in by a medical professional or institution (GRZEGORZ Hanna, RECREATION THERAPIST, urgent care, hospital, or [facility]...) When possible be specific @ -No Did you speak to anyone other than the patient for history (EMS, parent, family, police, friend...)? What history was obtained from this source @ -No Did you review nursing and triage notes (agree or disagree)? Why? @ -I reviewed and agree with nursing and triage notes Were old charts reviewed (outside hosp., previous admission, EMS record, old EKG , old radiological studies, urgent care reports/EKG's, [facility] records)? Report findings @ -No old charts were reviewed Differential Diagnosis (chest pain, altered mental status, abdominal pain women, abdominal pain men, vaginal bleeding, weakness, fever, dyspnea, syncope, headache, dizziness, GI bleed, back pain, seizure, CVA, palpatations, mental health, musculoskeletal)? @ -[Differential Chest Pain: Stable Angina, Unstable Angina, STEMI, NSTEMI Aortic Dissection, Pneumothorax, Musculoskeletal, Esophageal Spasm GERD, Cholecystitis, Pancreatitis, Zoster, this is not meant to be an all-inclusive list. EKG interpreted by me (3pts min.). @Sinus rhythm with first-degree AV block, nonspecific intraventricular conduction delay, no ST segment elevation, rate of 60, FL interval 265, QRS duration 133, QTC 426. Similar to prior X-rays interpreted by me (1pt min.). @ -None done CT interpreted by me (1pt min.). @ -None done U/S interpreted by me (1pt. min.). @ -None done What testing was considered but not performed or refused? (CT, X-rays, U/S, labs)? Why? @ -None What meds were considered but not given or refused? Why? @ -None Did you discuss the management of the patient with other professionals (professionals i.e. , PA, RECREATION THERAPIST, lab, RT, psych nurse, psychiatric social worker supervisor, integrated circuit layout designer, teacher, credit compliance officer, lining caser)? Give summary @ -No Was smoking cessation discussed for >3mins.? @ -No Was critical care preformed (if so, how long)? @ -No Were there social determinants of health that impacted care today? How? (Homelessness, low income, unemployed, alcoholism, drug addiction, transportation, low edu. Level, literacy, decrease access to med. care, skilled nursing, rehab)? @ -No Was there de-escalation of care discussed even if they declined (Discuss DNR or withdrawal of care, Hospice)? DNR status @ -No What co-morbidities impacted this encounter? (DM, HTN, Smoking, COPD, CAD, Cancer, CVA, ARF, Chemo, Hep., AIDS, mental health diagnosis, sleep apnea, morbid obesity)? @ -[CAD Was patient admitted / discharged? Hospital course, mention meds given and route, prescriptions, significant lab abnormalities, going to OR and other pertinent info. @ -[67-year-old male who presented from the [facility] for evaluation of an episode of chest pain. Patient is slow to respond but able to answer questions. He states that the pain is completely resolved with 2 Tums. He denies any associated symptoms of vomiting or diaphoresis, no dyspnea. No complaints time my evaluation. EKG is stable compared to prior. He has normal CBC, normal CMP. His troponin is indeterminate at 0.066 which is baseline for this patient. Grzegorz holly is on Eliquis He has no further pain and is eager for discharge. He does not want any further treatment and wishes to return to the [facility]. Undiagnosed new problem with uncertain prognosis? @ -No Drug Therapy requiring intensive monitoring for toxicity (Heparin, Nitro, Insulin, Cardizem)? @ -No Were any procedures done? @ -No Diagnosis/symptom? @ -Chest pain, likely reflux Acute, or Chronic, or Acute on Chronic? @Acute Uncomplicated (without systemic symptoms) or Complicated (systemic symptoms)? @ -default Side effects of treatment? @ -No Exacerbation, Progression, or Severe Exacerbation? @ -No Poses a threat to life or bodily function? How? (Chest pain, [place], [place], pneumonia, PE, COPD, DKA, ARF, appy, cholecystitis, CVA, Diverticulitis, Homicidal, Suicidal, threat to staff... and all critical care pts) @ -Gas, episode of chest pain. Chronic troponin elevation. - Lab Data Result diagrams: 12/18/22 15:30 12/18/22 15:30 Lab Results 12/18/22 12/18/22 12/18/22 Range/Units 15:30 15:30 15:30 WBC 5.2 (3.8-10.6) k/uL RBC 5.25 (4.30-5.90) m/uL Hgb 16.6 (13.0-17.5) gm/dL Hct 49.7 (39.0-53.0) % MCV 94.6 (80.0-100.0) fL MCH 31.6 (25.0-35.0) pg MCHC 33.4 (31.0-37.0) g/dL RDW 14.7 (11.5-15.5) % Plt Count 245 (150-450) k/uL MPV 7.3 Neutrophils % 44 % Lymphocytes % 44 % Monocytes % 5 % Eosinophils % 3 % Basophils % 0 % Neutrophils # 2.3 (1.3-7.7) k/uL Lymphocytes # 2.3 (1.0-4.8) k/uL Monocytes # 0.3 (0-1.0) k/uL Eosinophils # 0.2 (0-0.7) k/uL Basophils # 0.0 (0-0.2) k/uL Sodium 141 (137-145) mmol/L Potassium 3.6 (3.5-5.1) mmol/L Chloride 103 (98-107) mmol/L Carbon Dioxide 24 (22-30) mmol/L Anion Gap 14 mmol/L BUN 14 (9-20) mg/dL Creatinine 0.62 L (0.66-1.25) mg/dL Est GFR (CKD-EPI)AfAm >90 (>60 ml/min/1.73 sqM) Est GFR (CKD-EPI)NonAf >90 (>60 ml/min/1.73 sqM) Glucose 116 H (74-99) mg/dL Calcium 9.6 (8.4-10.2) mg/dL Magnesium 1.8 (1.6-2.3) mg/dL Total Bilirubin 0.3 (0.2-1.3) mg/dL AST 26 (17-59) U/L ALT 33 (4-49) U/L Alkaline Phosphatase 79 (38-126) U/L Troponin I 0.066 H* (0.000-0.034) ng/mL Total Protein 7.2 (6.3-8.2) g/dL Albumin 4.0 (3.5-5.0) g/dL Lipase 200 (23-300) U/L Disposition Clinical Impression: Elevated troponin, Chest pain Disposition: HOME SELF-CARE Condition: Fair Instructions (If sedation given, give patient instructions): Chest Pain (ED) Is patient prescribed a controlled substance at d/c from ED?: No Referrals: Ed Booker DO [Primary Care Provider] - 1-2 days Time of Disposition: 16:38
[2022-12-18 15:52] LABS: Basophils % (A) 0 %; Eosinophils # (A) 0.2 k/uL (0-0.7); Eosinophils % (A) 3 %; HCT 49.7 % (39.0-53.0); HGB 16.6 gm/dL (13.0-17.5); Lymphocytes # (A) 2.3 k/uL (1.0-4.8); Lymphocytes % (A) 44 %; MCH 31.6 pg (25.0-35.0); MCHC 33.4 g/dL (31.0-37.0); MCV 94.6 fL (80.0-100.0); Mean Platelet Volume 7.3; Monocytes # (A) 0.3 k/uL (0-1.0); Monocytes % (A) 5 %; Neutrophils # (A) 2.3 k/uL (1.3-7.7); Neutrophils % (A) 44 %; Platelet Count 245 k/uL (150-450); RBC 5.25 m/uL (4.30-5.90); RDW 14.7 % (11.5-15.5); WBC 5.2 k/uL (3.8-10.6)
[2022-12-18 15:59] LABS: ALT 33 U/L (4-49); AST 26 U/L (17-59); African American GFR (CKD) >90 (>60 ml/min/1.73 sqM); Alkaline Phosphatase 79 U/L (38-126); Anion Gap 14 mmol/L; Blood Urea Nitrogen 14 mg/dL (9-20); Calcium 9.6 mg/dL (8.4-10.2); Carbon Dioxide 24 mmol/L (22-30); Chloride 103 mmol/L (98-107); Glucose 116 mg/dL (74-99); Lipase 200 U/L (23-300); Magnesium 1.8 mg/dL (1.6-2.3); Non-African American GFR(CKD) >90 (>60 ml/min/1.73 sqM); Potassium 3.6 mmol/L (3.5-5.1); Sodium 141 mmol/L (137-145); Total Bilirubin 0.3 mg/dL (0.2-1.3); Total Protein 7.2 g/dL (6.3-8.2)
[2022-12-18 16:42] LABS: Partial Thromboplastin Time 24.8 sec (22.0-30.0); Prothrombin Time 10.7 sec (10.0-12.5)
[2022-12-18 17:53] VITALS: BP 128/86; PULSE 78; RESP 18
== END 2022-12-18 17:47 | disposition home or self-care (01) ==
LOC: EC 14:47
DX: I44.0 Atrioventricular block, first degree (principal); R79.89 Other specified abnormal findings of blood chemistry; I10 Essential (primary) hypertension; I25.10 Atherosclerotic heart disease of native coronary artery without angina pectoris; I25.2 Old myocardial infarction; E78.5 Hyperlipidemia, unspecified; K21.9 Gastro-esophageal reflux disease without esophagitis; G40.909 Epilepsy, unspecified, not intractable, without status epilepticus; Z79.01 Long term (current) use of anticoagulants; Z79.899 Other long term (current) drug therapy; Z86.718 Personal history of other venous thrombosis and embolism
CPT/HCPCS: 36415; 80053; 83690; 83735; 84484; 85025; 85610; 85730; 99285

== ENCOUNTER 2023-05-12 17:35 | Emergency (ER) | payer MEDICARE, OTHER ==
[2023-05-12] MEDS: PROPARACAINE 0.5% OPHTH DROPS 15 ML BTL RIGHT EYE STA (17:57)
[2023-05-12] MEDS: FLUORESCEIN STRIPS 1 MG STRIP RIGHT EYE ONE (17:58)
--- NOTE | 2023-05-12 18:14 | ED ---
General Adult HPI - General Chief complaint: Recheck/Abnormal Lab/Rx Stated complaint: eye redness Time Seen by Provider: 05/12/23 17:47 Source: patient, RN notes reviewed, old records reviewed Mode of arrival: ambulatory Limitations: altered mental status - History of Present Illness Initial comments: 67-year-old male presenting with right eye pain. Patient states he scratched his eye with a piece paper yesterday and has had pain and drainage since. - Related Data Home Medications Medication Instructions Recorded Confirmed Acetaminophen Tab [Tylenol] 650 mg PO BID@0700,1600 01/13/19 12/18/22 Apixaban [Eliquis] 5 mg PO BID 01/13/19 12/18/22 Aspirin 81 mg PO DAILY 01/13/19 12/18/22 Atorvastatin [Lipitor] 40 mg PO HS 01/13/19 12/18/22 Sennosides [Senna] 17.2 mg PO BID 01/13/19 12/18/22 Thiamine [Vitamin B-1] 100 mg PO HS 01/13/19 12/18/22 amLODIPine [Norvasc] 5 mg PO BID 01/13/19 12/18/22 Docusate Sodium [Dok] 100 mg PO BID@0800,1600 06/07/19 12/18/22 levETIRAcetam 500 mg PO BID 06/07/19 12/18/22 Baclofen 5 mg PO Q12H 10/08/22 12/18/22 Cholecalciferol [Vitamin D3 (25 50 mcg PO HS 10/08/22 12/18/22 Mcg = 1000 Iu)] Divalproex Sprinkle [Depakote 125 mg PO TID@0800,1200,1800 10/08/22 12/18/22 Sprinkle] Empagliflozin [Jardiance] 10 mg PO DAILY 10/08/22 12/18/22 Famotidine [Pepcid] 20 mg PO HS 10/08/22 12/18/22 Fiber Powder 1 tbsp PO HS 10/08/22 12/18/22 HYDROcodone/APAP 5-325MG [[place] 1 tab PO Q6H PRN 10/08/22 12/18/22 5-325] Lactulose 20 gm PO DAILY 10/08/22 12/18/22 Latanoprost [Latanoprost 0.005%] 1 drop BOTH EYES HS 10/08/22 12/18/22 Metoprolol Tartrate [Lopressor] 75 mg PO BID 10/08/22 12/18/22 Nitroglycerin Sl Tabs [Nitrostat] 0.4 mg SUBLINGUAL Q5M PRN 10/08/22 12/18/22 PARoxetine [Paxil] 20 mg PO HS 10/08/22 12/18/22 Potassium Chloride ER [K-Dur 20] 40 meq PO BID 10/08/22 12/18/22 metFORMIN HCL ER [Glucophage XR] 1,000 mg PO DAILY 10/08/22 12/18/22 polyethylene glycoL 3350 [Miralax] 17 gm PO HS 10/08/22 12/18/22 Multivitamins, Thera [Multivitamin 1 tab PO DAILY 12/18/22 12/18/22 (formulary)] Previous Rx's Medication Instructions Recorded Chlorthalidone 25 mg PO DAILY #1 tab 04/01/19 Isosorbide Mononitrate ER [Imdur] 30 mg PO DAILY tab.er.24h 04/01/19 Losartan [Cozaar] 25 mg PO DAILY tab 06/10/19 Erythromycin Ophth Oint [Romycin 1 applic RIGHT EYE QID #3.5 gm 05/12/23 Ophth Oint] Allergies Allergy/AdvReac Type Severity Reaction Status Date / Time No Known Allergies Allergy Verified 05/12/23 18:05 Review of Systems ROS Statement: Those systems with pertinent positive or pertinent negative responses have been documented in the HPI. ROS Other: All systems not noted in ROS Statement are negative. 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 (Pt is alert with confusion, using information from previous admission.). aortic aneurysm unknown size. hx of seizures Last Myocardial Infarction Date:: 01/13/19 History of Any Multi-Drug Resistant Organisms: None Reported Past Surgical History: Heart Catheterization Additional Past Surgical History / Comment(s): pt is alert with confusion, using information from previous admission Past Anesthesia/Blood Transfusion Reactions: No Reported Reaction Additional Past Anesthesia/Blood Transfusion Reaction / Comment(s): pt is alert with confusion, using information from previous admission Past Psychological History: No Psychological Hx Reported Smoking Status: Never smoker Past Alcohol Use History: Unable to Obtain Past Drug Use History: Unable to Obtain - Past Family History Father Family Medical History: No Reported History General Exam Limitations: altered mental status General appearance: alert, in no apparent distress Head exam: Present: atraumatic, normocephalic Eye exam: Present: other (Central corneal abrasion with fluorescein uptake, negative Chris's. ) Neck exam: Present: normal inspection. Absent: tenderness, meningismus Respiratory exam: Present: normal lung sounds bilaterally. Absent: respiratory distress, wheezes Cardiovascular Exam: Present: regular rate, normal rhythm GI/Abdominal exam: Present: soft. Absent: distended, tenderness Course Vital Signs 05/12/23 17:43 Temperature 98.1 F Pulse Rate 62 Respiratory 16 Rate Blood Pressure 136/89 O2 Sat by Pulse 99 Oximetry Medical Decision Making - Medical Decision Making Was pt. sent in by a medical professional or institution (ZAIN Hanna, PAYROLL AND BENEFITS COORDINATOR, urgent care, hospital, or [facility]p...) When possible be specific @ -No Did you speak to anyone other than the patient for history (EMS, parent, family, police, friend...)? What history was obtained from this source @ -No Did you review nursing and triage notes (agree or disagree)? Why? @ -I reviewed and agree with nursing and triage notes Were old charts reviewed (outside hosp., previous admission, EMS record, old EKG, old radiological studies, urgent care reports/EKG's, [facility] records)? Report findings @ -No old charts were reviewed Differential Diagnosis (chest pain, altered mental status, abdominal pain women, abdominal pain men, vaginal bleeding, weakness, fever, dyspnea, syncope, headache, dizziness, GI bleed, back pain, seizure, CVA, palpatations, mental health, musculoskeletal)? @Corneal abrasion, corneal laceration, traumatic iritis EKG interpreted by me (3pts min.). @ -As above X-rays interpreted by me (1pt min.). @ -None done CT interpreted by me (1pt min.). @ -None done U/S interpreted by me (1pt. min.). @ -None done What testing was considered but not performed or refused? (CT, X-rays, U/S, labs)? Why? @ -None What meds were considered but not given or refused? Why? @ -None Did you discuss the management of the patient with other professionals (professionals i.e. DrSandra, PA, PAYROLL AND BENEFITS COORDINATOR, lab, RT, psych nurse, social media marketer, systems development consultant, teacher, seal delivery vehicle officer, casework supervisor)? Give summary @ -No Was smoking cessation discussed for >3mins.? @ -No Was critical care preformed (if so, how long)? @ -No Were there social determinants of health that impacted care today? How? (Homelessness, low income, unemployed, alcoholism, drug addiction, transportat ion, low edu. Level, literacy, decrease access to med. care, [facility], rehab)? @ -No Was there de-escalation of care discussed even if they declined (Discuss DNR or withdrawal of care, Hospice)? DNR status @ -No What co-morbidities impacted this encounter? (DM, HTN, Smoking, COPD, CAD, Cancer, CVA, ARF, Chemo, Hep., AIDS, mental health diagnosis, sleep apnea, morbid obesity)? @ -None Was patient admitted / discharged? Hospital course, mention meds given and route, prescriptions, significant lab abnormalities, going to OR and other pertinent info. @ -67-year-old male with right eye injury from piece of paper. Central corneal abrasion on the right on exam. Patient placed on antibiotic ointment. Undiagnosed new problem with uncertain prognosis? @ -No Drug Therapy requiring intensive monitoring for toxicity (Heparin, Nitro, Insulin, Cardizem)? @ -No Were any procedures done? @ -No Diagnosis/symptom? @ -Corneal abrasion Acute, or Chronic, or Acute on Chronic? @ -Acute Uncomplicated (without systemic symptoms) or Complicated (systemic symptoms)? @ -Default Side effects of treatment? @ -No Exacerbation, Progression, or Severe Exacerbation? @ -No Poses a threat to life or bodily function? How? (Chest pain, [place], [place], pneumonia, PE, COPD, DKA, ARF, appy, cholecystitis, CVA, Diverticulitis, Homicidal, Suicidal, threat to staff... and all critical care pts) @ -No Disposition Clinical Impression: Corneal abrasion Disposition: HOME SELF-CARE Condition: Fair Instructions (If sedation given, give patient instructions): Corneal Abrasion (ED) Prescriptions: Erythromycin Ophth Oint [Romycin Ophth Oint] 1 applic RIGHT EYE QID #3.5 gm Is patient prescribed a controlled substance at d/c from ED?: No Referrals: Ed Booker DO [Primary Care Provider] - 1-2 days Time of Disposition: 18:09
[2023-05-12 18:28] VITALS: TEMP 98.1
[2023-05-12] MEDS: ERYTHROMYCIN 5 MG/GM OPHTH OINT 1 GM TUBE RIGHT EYE STA (18:40)
[2023-05-12 19:08] VITALS: BP 128/77; PULSE 61; RESP 20
== END 2023-05-12 19:00 | disposition home or self-care (01) ==
LOC: EC 17:35
DX: S05.01XA Injury of conjunctiva and corneal abrasion without foreign body, right eye, initial encounter (principal); Z86.73 Personal history of transient ischemic attack (TIA), and cerebral infarction without residual deficits; W22.8XXA Striking against or struck by other objects, initial encounter
CPT/HCPCS: 99283